=== PATIENT | female | born 1950 | race Caucasian/White ===

== ENCOUNTER 2022-04-07 08:57 | Outpatient (CLI) | payer MEDICARE, MEDICAID, SELFPAY ==
--- NOTE | 2022-04-07 08:59 | CDU_ITS ---
Reason For Study: Stenosis Rt. Velocities/BP Lt. Velocities/BP Prox CCA 88.3/21.2 cm/sec. Prox CCA 73.5/19.5 cm/sec. Mid CCA 66.3/17.9 cm/sec. Mid CCA 100.3/26.7 cm/sec. Dist CCA 79.5/23.4 cm/sec. Dist CCA 85.0/19.0 cm/sec. Prox ICA 116.8/27.8 cm/sec. Prox ICA 171.9/49.0 cm/sec. Mid ICA 98.1/30.0 cm/sec. Mid ICA 143.3/38.0 cm/sec. Dist ICA 81.7/26.7 cm/sec. Dist ICA 121.4/22.6 cm/sec. Rt. ICA/CCA = 1.8. Lt. ICA/CCA = 1.7. Prox ECA 93.8/21.2 cm/sec. Prox ECA 104.7/15.1 cm/sec. Rt. Vert. 40.1/10.9 cm/sec. Lt. Vert. 70.7/24.5 cm/sec. Right Extracranial There is heterogeneous, irregular atherosclerotic plaque noted in the right common carotid artery. There is heterogeneous, irregular atherosclerotic plaque noted in the right internal carotid artery. There is heterogeneous, irregular atherosclerotic plaque noted in the right external carotid artery. Antegrade flow is noted in the right vertebral artery. Left Extracranial There is heterogeneous, irregular atherosclerotic plaque noted in the left common carotid artery. There is heterogeneous, irregular atherosclerotic plaque noted in the left internal carotid artery. There is heterogeneous, irregular atherosclerotic plaque noted in the left external carotid artery. Antegrade flow is noted in the left vertebral artery. Procedure Carotid Duplex [id number]. This is a Carotid Duplex examination using B-mode, color flow and specral Doppler. The exam was diagnostic. Exam performed in department. VL/Carotid Duplex Ultrasound Interpretation Summary Mild (<50%) stenosis right extracranial internal carotid. Moderate (50-69%) nichole nosis left extracranial internal carotid. Flow within the vertebral arteries is antegrade bilaterally. Ordering Physician: Chuy Hunt Referring Physician: Courtney Lind Performed By: Benjamín Alcaraz RVT
== END 2022-04-07 23:59 | disposition home or self-care (01) ==
LOC: CVS 08:58
PROVIDERS: PCP Student in an Organized Health Care Education/Training Program; Referring Provider Surgery Vascular Surgery; Visit Provider Surgery Vascular Surgery
DX: I65.23 Occlusion and stenosis of bilateral carotid arteries (principal); F17.200 Nicotine dependence, unspecified, uncomplicated; I10 Essential (primary) hypertension; E78.00 Pure hypercholesterolemia, unspecified
CPT/HCPCS: 93880

== ENCOUNTER → 2023-05-10 | Outpatient (CLI) | payer MEDICARE, MEDICAID, SELFPAY ==
[2023-05-10 12:09] LABS: Erythrocyte Sedimentation Rate 10 mm/hr (0-30)
[2023-05-10 12:39] LABS: AST(SGOT) 16 U/L (15-37); Alanine Aminotransfer ALT/SGPT 19 U/L (13-56); Albumin, Serum 3.5 g/dL (3.2-5.0); Alkaline Phosphatase 92 U/L (45-117); Bilirubin, Direct 0.08 mg/dL (0.00-0.30); CRP 9.12 mg/L (0.0-3.0); Cholesterol 182 mg/dL (200); Globulin 4.1 g/dL (2.2-4.2); High Density Lipoprotein 58 mg/dL; Protein, Total 7.6 g/dL (6.4-8.2); Triglycerides 98 mg/dL; Very Low Density Lipoprotein 20 mg/dL (5-40)
== END | disposition home or self-care (01) ==
LOC: MTLAB 09:42
PROVIDERS: PCP Student in an Organized Health Care Education/Training Program; Referring Provider Psychiatry & Neurology Neurology; Visit Provider Psychiatry & Neurology Neurology
DX: H04.123 Dry eye syndrome of bilateral lacrimal glands (principal); H35.033 Hypertensive retinopathy, bilateral; H43.813 Vitreous degeneration, bilateral; Z96.1 Presence of intraocular lens; Z86.73 Personal history of transient ischemic attack (TIA), and cerebral infarction without residual deficits; E78.5 Hyperlipidemia, unspecified; I65.23 Occlusion and stenosis of bilateral carotid arteries
CPT/HCPCS: 36415; 80061; 80076; 85652; 86140

== ENCOUNTER → 2023-05-12 | Outpatient (CLI) | payer MEDICARE, MEDICAID, SELFPAY ==
--- NOTE | 2023-05-12 12:46 | CDU_ITS ---
Reason For Study: carotid stenosis Rt. Velocities/BP Lt. Velocities/BP Prox CCA 79.6/16.3 cm/sec. Prox CCA 94.9/22.5 cm/sec. Mid CCA 80.6/24.8 cm/sec. Mid CCA 104.7/32.3 cm/sec. Dist CCA 85.3/21.1 cm/sec. Dist CCA 96.1/29.8 cm/sec. Prox ICA 158.7/46.8 cm/sec. Prox ICA 174.1/46.8 cm/sec. Mid ICA 139.4/38.9 cm/sec. Mid ICA 143.0/38.9 cm/sec. Dist ICA 69.1/24.9 cm/sec. Dist ICA 71.6/21.2 cm/sec. Rt. ICA/CCA = 2.0. Lt. ICA/CCA = 1.7. Prox ECA 112.1/24.9 cm/sec. Prox ECA 126.6/27.9 cm/sec. Rt. Vert. 49.5/13.9 cm/sec. Lt. Vert. 75.3/21.2 cm/sec. Right Extracranial There is heterogeneous, irregular atherosclerotic plaque noted in the right common carotid artery. There is heterogeneous, irregular atherosclerotic plaque noted in the right internal carotid artery. There is heterogeneous, irregular atherosclerotic plaque noted in the right external carotid artery. Antegrade flow is noted in the right vertebral artery. Left Extracranial There is heterogeneous, irregular atherosclerotic plaque noted in the left common carotid artery. There is heterogeneous, irregular atherosclerotic plaque noted in the left internal carotid artery. There is heterogeneous, irregular atherosclerotic plaque noted in the left external carotid artery. Antegrade flow is noted in the left vertebral artery. Procedure Carotid Duplex 44973. This is a Carotid Duplex examination using B-mode, color flow and specral Doppler. The exam was diagnostic. Exam performed in department. VL/Carotid Duplex Ultrasound Interpretation Summary Moderate (50-69%) stenosis right extracranial internal carotid. Moderate (50-69 %) stenosis left extracranial internal carotid. Flow within the vertebral arteries is antegrade bilaterally. Ordering Physician: Chuy Hunt Performed By: Anthony Roblero RVT
== END | disposition home or self-care (01) ==
PROVIDERS: PCP Student in an Organized Health Care Education/Training Program; Referring Provider Surgery Vascular Surgery; Visit Provider Surgery Vascular Surgery
DX: I65.23 Occlusion and stenosis of bilateral carotid arteries (principal); F17.200 Nicotine dependence, unspecified, uncomplicated; I10 Essential (primary) hypertension
CPT/HCPCS: 93880

== ENCOUNTER → 2023-11-22 | Outpatient (CLI) | payer MEDICARE, MEDICAID, SELFPAY ==
--- NOTE | 2023-11-22 08:00 | PET_ITS ---
EXAMINATION: FDG PET-CT INDICATIONS: A 73-year-old female with a history of pulmonary nodularity presenting for initial evaluation. COMPARISON EXAMINATION: None available. INDEX LESION SIZE SUV INTERPRETATION Right upper lung field, right upper lobe 31.4 mm 6.7 Fulfills quantitative criteria for viable neoplasm, histopathologic analysis recommended. TECHNIQUE: Following the intravenous administration of 13.11 mCi of F-18 deoxyglucose via the right antecubital fossa, multiplanar image acquisitions of the head, neck, chest, abdomen and pelvis to level of mid-thigh, lower extremities obtained at one hour post radiopharmaceutical administration contemporaneously interpreted with the current CT of the head, neck, chest, abdomen and pelvis to level of mid-thigh, lower extremities dated 11/22/23 via coregistration reveal: SERUM GLUCOSE LEVEL: 128 mg/dl. HEIGHT: 65 inches. WEIGHT: 161 lbs. FINDINGS: Head/Neck: There is no evidence of abnormal increased glucose metabolism in the pharyngeal mucosal space, parapharyngeal space, bilateral-lateral and anterior neck, hypopharynx and distribution of the laryngeal structures. The visualized portion of the cerebral cortical-subcortical structures demonstrate symmetric and preserved glucose metabolism. CHEST: Facilitated radiopharmaceutical concentration is defined in the right upper lung field, right upper lobe generating a calculated maximum standard uptake value of 6.7. The maximum axial diameter of the corresponding metabolic, morphologic abnormality is 31.4 mm. Prominent radiopharmaceutical concentration is identified in the left ventricular myocardium commensurate with the [place]. Pertinent chest CT findings are as follows. There is atherosclerotic calcification defined in the thoracic aorta without evidence of dilatation-aneurysm formation. Coronary arterial calcification is observed. Right and left axillary soft tissue densities are ametabolic. Scattered mediastinal soft tissue reveals no evidence of increased tracer uptake. Pericardial thickening defines no evidence of increased FDG uptake. Abdomen/Pelvis: Normal physiologic distribution of the radiopharmaceutical is apparent in the hepatic (3.7) and splenic parenchyma, both renal units, bladder and visualized intestinal tract. Diffuse radiopharmaceutical concentration is noted in all four quadrants of the abdomen and pelvis. The abdomen and pelvis CT findings are as follows. There is atherosclerotic calcification defined in the abdominal aorta without evidence of dilatation-aneurysm formation. Abdominal-pelvic arterial calcification is observed. Right and left inguinal soft tissue densities are ametabolic. Skeletal: Degenerative changes are noted in the cervical, thoracic and lumbar spine. PET/PET/CT Tumor Base -Thigh Init IMPRESSION: 1. ABNORMAL EXAMINATION INDICATIVE OF MALIGNANT-VIABLE NEOPLASM. 2. Increased tracer uptake noted in the right upper lung field, right upper lobe fulfills quantitative criteria for viable neoplasm, histopathologic analysis is recommended. (Beavers et al, Journal of Nuclear Medicine, 32:1, 1991). 3. No other quantitative significant abnormalities are noted. Accurate Quantification of SUVs for this report are calculated using the exclusive [employer], ([place].S. Patent No. 10, 674, 983 B2 US 11 382 586 [place] patent [phone] B1 ). Standardization and correction of the FDG SUV metric exclusively available with [employer] intellectual property, allow for vendor non-specific objective quantitative sequential FDG PET-CT comparison and otherwise unobtainable optimization of the sensitivity and specificity of the examination. [email or web address] Electronic Signature Adrian Vaughn D.O. Accurate Quantification of SUVs for this report are calculated using the exclusive [employer], (U.S. Patent No. 10, 674, 983 B2 US 11 382 586 [place] patent [phone] B1 ). Standardization and correction of the FDG SUV metric exclusively available with [employer] intellectual property, allow for vendor non-specific objective quantitative sequential FDG PET-CT comparison and otherwise unobtainable optimization of the sensitivity and specificity of the examination. [email or web address] Electronically Signed: Adrian Vaughn DO at 8:36 EDT ,
== END | disposition home or self-care (01) ==
LOC: ONC 07:33
PROVIDERS: PCP Student in an Organized Health Care Education/Training Program; Referring Provider Student in an Organized Health Care Education/Training Program; Visit Provider Student in an Organized Health Care Education/Training Program
DX: R91.8 Other nonspecific abnormal finding of lung field (principal)
CPT/HCPCS: 78815; A9552

== ENCOUNTER → 2023-11-29 | Outpatient (CLI) | payer MEDICARE, MEDICAID, SELFPAY ==
[2023-11-29 11:47] LABS: International Normalized Ratio 0.9; Platelet Count 407 K/mm3 (150-450); Prothrombin Time (Protime)PT. 12.4 SECONDS (11.7-14.9)
[2023-11-29 11:48] LABS: Partial Thromboplast Time 28.5 Seconds (24.1-36.2)
== END | disposition home or self-care (01) ==
PROVIDERS: PCP Student in an Organized Health Care Education/Training Program; Referring Provider Internal Medicine Critical Care Medicine; Visit Provider Internal Medicine Critical Care Medicine
DX: R91.1 Solitary pulmonary nodule (principal)
CPT/HCPCS: 36415; 85049; 85610; 85730

== ENCOUNTER → 2023-12-08 | Outpatient (CLI) | payer MEDICARE, MEDICAID, SELFPAY ==
[2023-12-08] VITALS (16 sets, daily range): BP systolic 104–150; BP diastolic 37–93; PULSE 72–80; RESP 17–23; TEMP 36.2; O2SAT 88–100; BMI 26.6
--- NOTE | 2023-12-08 | ASPIGT_PTH ---
PATIENT: JONO KING LOC: [place] U#:[id number] AGE/SX: 73/F ROOM: RE12/08/[address]: Dr. Julio Cesar Singh DO : 1950 BED: DIS: 12/08/2023 SPEC #: [id number] RECD: 12/08/23 10:00 STATUS: DIRK HERMINIA #: [id number] VÍCTOR: 12/08/23 00:[address]: Julio Cesar Singh DEPT: SURGICAL PATHOLOGY RECD BY: Leon Arcos ENTERED: 12/08/23 11:27 SP TYPE: ASP RAD OTHR DR: Dr. Courtney Lind MD Tissues: Lung, NOS Procedures: FNA Specimen Adequacy Special Stain Group II Surgery Specimen Level IV Imprint (control) HEADER OPERATION: Right upper lobe lung, CT guided biopsy PRE-OP DIAGNOSIS: Right upper lobe lung nodule TISSUE SUBMITTED: Right lobe lung MICROSCOPIC DIAGNOSIS Right upper lobe lung, CT guided core biopsy: Moderately differentiated squamous cell carcinoma. See comment. MAYUR/ 12/09/2023 COMMENT The specimen is evaluated at the time of biopsy by Dr. Watters. Immediate Evaluation = Malignant cells present derived from non-small cell carcinoma. Immunohistochemistry ([id number]) supports the above diagnosis. Molecular study on the tumor can be performed clinically indicated. Please notify the laboratory if it is needed. Case has been reviewed in consultation with Dr. Garland who concurs with the above diagnosis. IDC:AM MICROSCOPIC DESCRIPTION Slides are reviewed. GROSS DESCRIPTION Received in fixative is one container labeled with the patient's name and designated Right lung. The specimen consists of multiple fragments of tello soft tissue measuring in aggregate 1.5 x 0.1 x 0.1cm. The entire specimen is submitted in one cassette. Three touch imprints are prepared at the time of core biopsy. MAYUR/ 12/08/2023 TC:0 CPT:15069,47460
--- NOTE | 2023-12-08 | IMM_PTH ---
PATIENT: JONO KING LOC: CT U#:[id number] AGE/SX: 73/F ROOM: RE12/08/[address]: Dr. Julio Cesar Singh DO : 1950 BED: DIS: 12/08/2023 SPEC #: [id number] RECD: 12/08/23 12:02 STATUS: DIRK REQ #: [id number] VÍCTOR: 12/08/23 00:[address]: Julio Cesar Singh DEPT: IMMUNOHISTOCHEMISTRY RECD BY: Amol Sotelo ENTERED: 12/08/23 12:03 SP TYPE: IMMUNO OTHR DR: Dr. Courtney Lind MD Tissues: Lung, NOS Procedures: RCC (add) NAPSIN A (add) CK20 (add) CK5-6 (add) CK7 (add) CK8 (add) HEP PAR (add) SC (add) TTF1 (add) Pankeratin (add) P40 (add) ER (initial) PHYSICIAN & [address] [address] SPECIMEN INFORMATION: Tissue Source: Right upper lobe lung biopsy Clinical Info: Right upper lobe lung nodule Specimen Number: [id number] CPT code: [id number] METHODOLOGY: Deparaffinized sections of prefer/formalin-fixed tissue or PAP/DQ stained slides are incubated with monoclonal/polyclonal antibodies/oligonucleotide probes. Localization is made via biotin free immunoperoxidase method. Appropriate controls are performed and reacted as expected. Results on target cell population are indicated in the following table: RESULTS: ANTIBODY / CLONE RESULT ER (6F11) negative SC (1E2) negative AE1-3 (AE1/AE3/PCK26) positive CK7 (OV-TL12/30) negative CK8 (62guksF83) positive CK20 (KS20.8) negative TTF-1 (8G7G3/1) negative Napsin A (Rabbit Polyclonal) negative HepPar (OCh1E5) negative RCC (PN-15) negative CK5-6 (D5 & 1684) positive P40 (BC28) positive These tests were developed and their performance characteristics determined by [facility]. They may not have been cleared or approved by the U.S. Food and Drug Administration. The FDA has determined that such clearance or approval is not necessary. The above immunohistochemical/dualISH markers are ordered and reviewed by the Pathologist. INTERPRETATION: Right lung, CT guided core biopsy: Squamous cell carcinoma. Case has been reviewed in consultation with Dr. Garland who concurs with the above diagnosis. IDC:MELYSSA MERCHANT/ 12/09/2023
[2023-12-08] MEDS: 0.9% Saline Lock 10 ML Syringe IV (08:34)
[2023-12-08] MEDS: 0.9% Normal Saline (250mL Bag) 250 ML 15 ML IV (08:34)
[2023-12-08] MEDS: fentaNYL 100 MCG/2 ML Ampul IV (09:14)
[2023-12-08] MEDS: Midazolam 2 MG/2 ML Syringe IV (09:14)
--- NOTE | 2023-12-08 09:15 | RAD_ITS ---
STUDY: X-RAY CHEST REASON FOR EXAM: Female, 73 years old. Post lung biopsy -- Immediately post lung biopsy TECHNIQUE: AP inspiration and expiration views. COMPARISON: None. FINDINGS: EKG electrodes are seen. Hyperinflation. The patient is status post right lung biopsy. No evidence of pneumothorax on the immediate post right lung biopsy radiographs. RAD/Chest Insp/Exp 2 View IMPRESSION: No evidence of pneumothorax on the immediate post right lung biopsy radiographs. Electronically Signed: Darinel Williamson MD at 10:05 EDT ,
[2023-12-08] MEDS: Lidocaine 2% (20 ml mdv) 20 ML Vial INFILT (09:30)
--- NOTE | 2023-12-08 10:07 | PRO.PCM_ITS ---
Procedure Report Date of Procedure: 12/08/23 Assessment & Plan Assessment/Plan (1) Lung nodule: PLAN: PROCEDURE: CT GUIDED CORE NEEDLE LUNG BIOPSY ORDERING PROVIDER: Dr. Julio Cesar Singh INDICATION: Female, 73 years old. Right upper lobe nodule PROVIDER: ANIKET Vickers CONSENT: Written informed consent was obtained having explained the risks, benefits and alternatives in detail with the patient who accepted the risks and agreed to proceed. Laboratory review and clinical assessment was performed. PRE-PROCEDURE SEDATION ASSESSMENT: Current history and physical dictated by referring physician and reviewed. No clinical changes since date of exam. Patient has a Mallampati Score of Class 2 and ASA Class of 2. PROCEDURAL SEDATION PROTOCOL: The Drugs used were: 2 mg Versed, IV, and 50 mcg Fentanyl, IV. The sedation time was: 29 minutes, starting at 9:14 AM and terminated at 9:43 AM. The procedural sedation protocol was independently monitored by the department nurse. RADIATION DOSAGE (If Supplied By Facility): CTDIvol = 16.60 mGy, DLP = 242.99 mGycm Individualized dose optimization techniques were used for this CT. TECHNIQUE: The patient was placed in a prone position. A noncontrast CT was performed to localize the lesion in the right upper lobe. The skin surface was prepped and draped in a sterile fashion. 2% lidocaine was used for local anesthesia. Using CT guidance, a 20-gauge coaxial biopsy device was advanced to the periphery of the lesion. A total of 5 core specimens were obtained. Specimens were microscopically reviewed by pathology in the CT suite and placed in formalin solution. BioSentry tract sealant system was deployed at the biopsy site, and the biopsy needle was removed. A sterile occlusive dressing was applied to the biopsy site. The patient tolerated the procedure well. An immediate chest xray was ordered, per protocol. A negative biopsy does not exclude malignancy. Further imaging or clinical followup based on patient condition and degree of clinical suspicion for malignancy. Suggest rebiopsy, if biopsy results do not match with clinical scenario. IMPRESSION: 1. CT directed core needle biopsy of right upper lobe lung nodule using CT im age guidance with image documentation as described. Pathology results are pending. 2. Procedural Sedation protocol utilized with independent monitoring by the department nurse. Procedures Radiology Radiology CT Procedures: [id number] Biopsy Lung
--- NOTE | 2023-12-08 11:45 | RAD_ITS ---
STUDY: X-RAY CHEST REASON FOR EXAM: Female, 73 years old. Post lung biopsy -- 2 hours post lung biopsy TECHNIQUE: AP inspiration and expiration views. COMPARISON: Comparison is made with prior study done earlier in the day. FINDINGS: The patient is status post right lung biopsy. No evidence of pneumothorax on the two-hour delayed post right lung biopsy radiograph. RAD/Chest Insp/Exp 2 View IMPRESSION: No evidence of pneumothorax on the two-hour delayed post right lung biopsy radiographs. Electronically Signed: Darinel Williamson MD at 12:32 EDT ,
== END | disposition home or self-care (01) ==
PROVIDERS: PCP Student in an Organized Health Care Education/Training Program; Referring Provider Internal Medicine Critical Care Medicine; Visit Provider Internal Medicine Critical Care Medicine
DX: C34.11 Malignant neoplasm of upper lobe, right bronchus or lung (principal)
CPT/HCPCS: 32408; 71046; 77012; 88172; 88305; 88313; 88341; 88342; 99156; J7050; A4216; C2613

== ENCOUNTER → 2023-12-26 | Outpatient (CLI) | payer MEDICARE, MEDICAID, SELFPAY | END | disposition home or self-care (01) | PROVIDERS: PCP Student in an Organized Health Care Education/Training Program; Referring Provider Internal Medicine Hematology & Oncology; Visit Provider Internal Medicine Hematology & Oncology | DX: C34.11 Malignant neoplasm of upper lobe, right bronchus or lung (principal) | CPT/HCPCS: 94060; 94726; 94729 ==

== ENCOUNTER 2024-07-17 09:58 | Outpatient (CLI) | payer MEDICARE, MEDICAID, SELFPAY ==
--- NOTE | 2024-07-17 10:00 | PET_ITS ---
EXAM: PET/CT TUMOR BASE -THIGH SUBS CLINICAL HISTORY: SUSPICION FOR MALIGNANCY COMPARISON: PET-CT 11/22/2019 TECHNIQUE: F-18 FDG PET-CT, from the skull base to the mid thigh. Dose: 12.966 mCi F-18 FDG intravenous FINDINGS: Neck: No focus of abnormal hypermetabolic activity is seen. Chest: Interval resection of the previously noted right upper lobe mass, without residual hypermetabolic activity in the tumor site. Increased uptake of the posterior right chest is consistent with interval surgery. No significant hilar or mediastinal hypermetabolic activity is seen. Abdomen and pelvis: No focus of abnormal hypermetabolic activity is seen Bone: No focus of abnormal hypermetabolic activity is seen. Additional: Prominent aortic calcification is seen; ectasia of the mid to distal abdominal aorta is noted. Moderate coronary artery calcification is seen. Mild increased uptake is seen adjacent to the bilateral greater trochanters, consistent with greater trochanteric bursitis bilaterally. PET/PET/CT Tumor Base -Thigh Subs IMPRESSION: In this postsurgical patient, no focus of residual or recurrent tumor is seen. Reading Location: [address]
== END 2024-07-17 23:59 | disposition home or self-care (01) ==
LOC: ONC 09:59
PROVIDERS: PCP Student in an Organized Health Care Education/Training Program
DX: Z85.118 Personal history of other malignant neoplasm of bronchus and lung (principal)
CPT/HCPCS: 78815; A9552

== ENCOUNTER → 2024-08-15 | Outpatient (CLI) | payer MEDICARE, MEDICAID, SELFPAY ==
--- NOTE | 2024-08-15 12:32 | CDU_ITS ---
Reason For Study Reason For Study: Carotid stenosis Rt. Velocities/BP Lt. Velocities/BP Prox CCA 90.5/17.9 cm/sec. Prox CCA 93.7/7.9 cm/sec. Mid CCA 63.6/12.6 cm/sec. Mid CCA 88.8/15.1 cm/sec. Dist CCA 78.7/15.4 cm/sec. Dist CCA 98.6/22.5 cm/sec. Prox ICA 163.1/46.8 cm/sec. Prox ICA 150.3/35.3 cm/sec. Mid ICA 63/19 cm/sec. Mid ICA 126/24.6 cm/sec. Dist ICA 97.1/32.2 cm/sec. Dist ICA 110.1/17 cm/sec. Rt. ICA/CCA = 2.56. Lt. ICA/CCA = 1.69. Prox ECA 80.6/8.8 cm/sec. Prox ECA 159.5/17 cm/sec. Rt. Vert. 45.6/12.6 cm/sec. Lt. Vert. 77.3/17.9 cm/sec. Right Extracranial There is heterogeneous, irregular atherosclerotic plaque noted in the right common carotid artery. There is heterogeneous, irregular atherosclerotic plaque noted in the right internal carotid artery. There is heterogeneous, irregular atherosclerotic plaque noted in the right external carotid artery. Antegrade flow is noted in the right vertebral artery. Left Extracranial There is heterogeneous, irregular atherosclerotic plaque noted in the left common carotid artery. There is heterogeneous, irregular atherosclerotic plaque noted in the left internal carotid artery. There is heterogeneous, irregular atherosclerotic plaque noted in the left external carotid artery. Antegrade flow is noted in the left vertebral artery. Procedure Carotid Duplex 43567. This is a Carotid Duplex examination using B-mode, color flow and specral Doppler. Exam performed in department. VL/Carotid Duplex Ultrasound Interpretation Summary Moderate (50-69%) stenosis right extracranial internal carotid. Moderate (50-69 %) stenosis left extracranial internal carotid. Patent and antegrade vertebrals bilaterally. Ordering Physician: Chuy Hunt Referring Physician: Courtney Lind Performed By: Destiny Carey RVT
== END | disposition home or self-care (01) ==
LOC: CVS 12:30
PROVIDERS: PCP Student in an Organized Health Care Education/Training Program; Referring Provider Surgery Vascular Surgery; Visit Provider Surgery Vascular Surgery
DX: I65.23 Occlusion and stenosis of bilateral carotid arteries (principal); I10 Essential (primary) hypertension; F17.200 Nicotine dependence, unspecified, uncomplicated
CPT/HCPCS: 93880

== ENCOUNTER → 2025-01-01 | Outpatient (CLI) | payer MEDICARE, MEDICAID, SELFPAY ==
--- NOTE | 2025-01-01 16:33 | CT_ITS ---
PROCEDURE: CHEST WITHOUT CONTRAST 01/01/2025 REASON FOR EXAM: NODULE SURVEILLANCE History of right upper lobe carcinoma TECHNIQUE: Chest CT without contrast. Coronal and Sagittal reconstruction series were provided. One or more dose reduction techniques were used (e.g., Automated exposure control, adjustment of the mA and/or kV according to patient size, use of iterative reconstruction technique RADIATION DOSE SUMMARY: CTDlvol: 9.77 mGy DLP: 356.37 mGycm COMPARISON: None FINDINGS: Hardware: None Lymph nodes: No significant lymph nodes are seen. Heart and Vasculature: The heart is not enlarged. Atherosclerotic calcifications of the thoracic aorta. Thoracic aorta and pulmonary arteries have normal contours; noncontrast technique limits evaluation. Coronary Artery Calcifications: Present Lungs and Airways: The patient is status post right upper lobectomy with postsurgical scarring and changes with 2 surgical clips in the region of the right hilum. Thickening of the right minor fissure. Emphysematous changes in the lingula segment of the left upper lobe. No suspicious pulmonary nodule seen. Pleura: No pleural effusion. Upper Abdomen: Unremarkable Bones: Degenerative changes of the thoracic spine. CT/Chest without Contrast IMPRESSION: Coronary artery calcification (CAC) is is present Status post right upper lobectomy. Reading Location: [facility]
--- OUTSIDE RECORDS SUMMARY | 2025-01-01 22:30 | XMS RPT_ITS | CCD ---
Author Organization 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 Raul Veliz Primary Care Provider Dr. Raul Singh Referring Provider Dr. Avel Segura Attending Provider Unavailable Primary Care Provider UnavailNas Gil MD Primary Care Provider NAS MOORE Primary Care Unavailable NAS MOORE Referring Unavailable RONDA SOLIMAN Attending Unavailable GIOVANNY, ADEOLA Attending Unavailable BALTAZAR, ADEOLA Referring Unavailable GIOVANNY, ADEOLA Attending Unavailable GIOVANNY, ADEOLA Referring Unavailable NAT JIANG Admitting Unavailable NAT JIANG Attending Unavailable NAS MOORE Primary Care Unavailable UGBARUGRESHMA, ANASTASIIA E Admitting Unavailabl e UGBARUGRESHMA ANASTASIIA E Attending Unavailabl e PCP, NONE Referring Unavailable NAS MOORE Primary Care Unavailable NAS MOORE Attending Unavailable NAS MOORE Primary Care Unavailable NAS MOORE Referring Unavailable ERICA DWYER Attending Unavailable NAS MOORE Primary Care Unavailable ERICA DWYER Attending Unavailable ERICA DWYER Referring Unavailable Dr. Courtney Hayward Primary Care Provider Dr. Courtney Hayward Referring Provider Dr. Avel Segura Attending Provider Courtney Hayward MD Primary Care Provider [facility], [place] S Unavailable Tonya Woods RN Unavailable Unavailable Jose Alfredo ROJAS, Lisset Unavailable Dr. Courtney Hayward MD Primary Care Provider Dr. Courtney Hayward MD Referring Provider Liset SERNA-CLorena Attending Provider KELSEA GAMBLE Attending Provider KELSEA GAMBLE Referring Provider Dr. Courtney Hayward MD Primary Care Provider Marilee TANNER, Dr. Chuy Coker Attending Provider Marilee TANENR, Dr. Chuy Coker Referring Provider Dr. Courtney Hayward MD Referring Provider Dr. Avel Segura MD Attending Provider Courtney Hayward MD Primary Care Provider [phone] [facility], [place] Unavailable CONNORS, TRACY L Attending Unavailable COURTNEY HAYWARD Primary Care Unavailable COURTNEY HAYWARD Referring Unavailable CONNORS, TRACY L Attending Unavailable KALVIPINTTDavid, COURTNEY Primary Care Unavailable CONNORS, TRACY L Referring Unavailable NAT LAZAR Attending Unavailable COURTNEY HAYWARD Primary Care Unavailable IZZY SNOW Referring Unavailable NAT LAZAR Attending Unavailable KALVIPINTTI, COURTNEY Primary Care Unavailable KALVIPINTTI, COURTNEY Referring Unavailable JOSEY JUSTICE Referring Unavailable ZITA HERNANDEZ Attending Unavailable YESY, COURTNEY Primary Care Unavailable NAT LAZAR Attending Unavailable NAT LAZAR Referring Unavailable KALSILVERIOI, COURTNEY Primary Care Unavailable KATHARINE GROSS Attending Unavailable YESY COURTNEY Primary Care Unavailable CONNORSTRACY L Referring Unavailable LAZARNAT Attending Unavailable KALISETTI, COURTNEY Primary Care Unavailable CONNORS TRACY L Referring Unavailable LAZARNAT Attending Unavailable LAZAR, NAT E Referring Unavailable KALISETTI, COURTNEY Primary Care Unavailable KALISETTI, COURTNEY Primary Care Unavailable NAT LAZAR Attending Unavailable ISCKARUS, MANSOUR S Referring Unavailable KALISETTI, COURTNEY Primary Care Unavailable LAZAR, NAT E Referring Unavailable LAZARNAT E Attending Unavailable KALISETTI, COURTNEY Primary Care Unavailable LAZAR NAT E Referring Unavailable LAZARNAT DEY Attending Unavailable Alysa'PATRICEKELSEA TOBIAS Attending Unavailable VAHETTI, COURTNEY Primary Care Unavailable KALVIPINTTI, COURTNEY Referring Unavailable Alysa'PATRICEKELSEA TOBIAS Referring Unavailable Alysa'KELSEA IBRAHIM Attending Unavailable VAHETTI, COURTNEY Primary Care Unavailable NAT LAZAR Attending Unavailable LAZAR, NAT E Admitting Unavailable ISCKARUS, MANSOUR S Referring Unavailable KALISETTI, COURTNEY Primary Care Unavailable CONSULT, ANESTHESIA PAIN MED Consulting Beverley vailable NAT LAZAR Attending Unavailable LAZAR, NAT E Admitting Unavailable ISCKARUS, MANSOUR S Referring Unavailable KALISETTI, COURTNEY Primary Care Unavailable COURTNEY HAYWARD MD Consulting Unavailable 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 Admitting Unavailab le GWENDOLYN, IZZY AP OPERATOR-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 POND WORKER Primary Care Unavailab le GWENDOLYNIZZY NG AP OPERATOR-LOG POND WORKER Attending Unavailab le PROVIDER, UNKNOWN Consulting Unavailable PROVIDER, UNKNOWN Consulting Unavailable COURTNEY HAYWARD MD Consulting Unavailable COURTNEY HAYWARD MD Attending Unavailable COURTNEY HAYWARD MD Admitting Unavailable COURTNEY HAYWARD MD Primary Care Unavailable PROVIDER, UNKNOWN Consulting Unavailable PROVIDER, UNKNOWN Consulting Unavailable COURTNEY HAYWARD MD Primary Care Unavailable COURTNEY HAYWARD MD Consulting Unavailable COURTNEY HAYWARD MD Attending Unavailable COURTNEY HAYWARD MD Admitting Unavailable PROVIDER, UNKNOWN Consulting Unavailable PROVIDER, UNKNOWN Consulting Unavailable Courtney Hayward Referring Unavailable Yesy, Courtney Primary Care Unavailable Liset SERNA, Lorena Attending Unavailable IKRE MAYO Referring Unavailable IKER MAYO Attending Unavailable Kalisetti, Courtney Primary Care Unavailable Kalisetti, Courtney Referring Unavailable Kalisetti, Courtney Primary Care Unavailable Julissa Abreu Attending Unavailable Kalisetti, Courtney Referring Unavailable Avel Segura Attending Unavailable Kalisetti, Courtney Primary Care Unavailable Kalisetti, Courtney Primary Care Unavailable Chuy Hunt Referring Unavailable Chuy Hunt Attending Unavailable Kalisetti, Courtney Primary Care Unavailable IKER MAYO Referring Unavailable IKER MAYO Attending Unavailable Allergies Allergy Classification Reported Allergen(s) Allergy Type Date of Onset Reaction(s) Facility Latex (1 source) Latex Substance Allergy 7 [facility] Unclassified (4 sources) Adhesive Tape-Silicones; Translations: [ADHESIVE TAPE-SILICONES] Propensity to adverse reactions to drug 7 [facility] (3 sources) Latex; Translations: [LATEX] Propensity to adverse reactions to drug 7 [facility] (3 sources) Amoxicillin / Clavulanate Drug Allergy 3 Nausea And Vomiting [facility] (20 sources) Promethazine Drug Allergy 3 Nausea And Vomiting [facility] (20 sources) Latex Propensity to adverse reactions to drug 7 [facility] (20 sources) *Adhesive Tape Propensity to adverse reactions 7 [facility] (20 sources) Amoxicillin-Pot Clavulanate Propensity to adverse reactions to drug 3 Nausea and Vomiting [facility] (20 sources) celecoxib Drug Allergy 4 [facility] (4 sources) Grass pollen; Translations: [grass pollen] Allergy to substance 4 watery eyes [facility] (1 source) Amoxicillin Drug Allergy 5 Vomiting [facility] (1 source) Clavulanate Drug Allergy 5 Vomiting [facility] (1 source) Amoxicillin Drug Allergy 5 [facility] (1 source) Clavulanate Drug Allergy 5 [facility] Medications Current Medications Medication Drug Class(es) Dates Sig (Normalized) Sig (Original) amLODIPine 2.5 mg oral tablet (3 sources) Dihydropyridine Calcium Channel Regi Start: 11-29-2023 take 1 tablet by mouth once daily Amlodipine 2.5 mg tablet Active 2.5 mg PO daily November 29, 2023 12:00am amphetamine aspartate 3.75 mg / amphetamine sulfate 3.75 mg / dextroamphetamine saccharate 3.75 mg / dextroamphetamine sulfate 3.75 mg oral tablet (20 sources) Central Nervous System Stimulant Start: 06-08-2021 End: 02-15-2024 take 1 tablet by mouth once daily in the morning Dextroamphetami ne-Amphetamine 30 mg tablet Active 30 mg PO EVERY MORNING June 08, 2021 1:00am Start: 06-08-2021 End: 11-29-2023 take 1 tablet by mouth at bedtime Dextroamphetamine-Amphetamine (Adderall) 15 mg tablet Active 15 mg PO AT BEDTIME November 29, 2023 10:52am Start: 09-11-2020 AdderalL 30 mg tablet amphetamine-dext roamphetamine (Adderall) 30 MG tablet Take 0.5-1 tablets by mouth 2 times daily. 30mg AM 15mg PM Active take 1 capsule by mo ut once daily in the evening Amphetamine-Dextroamphetamine XR (ADDERA LL XR) 15 MG 24 hr capsule Take 1 capsule by mouth daily. PM 0 Active take 1 capsule by mo uth once daily in the morning Amphetamine-Dextroamphetamine XR (ADDERA LL XR) 30 MG 24 hr capsule Take 1 capsule by mouth daily. Am 0 Active atorvastatin 40 mg oral tablet (20 sources) HMG-CoA Reductase Inhibitor Start: 04-24-2024 End: 09-18-2024 take 1 tablet by mouth once daily Atorvastatin 40 mg tablet Active 40 mg PO DAILY September 18, 2024 3:38pm Start: 11-29-2023 End: 04-24-2024 Atorvastatin 40 mg tablet Discontinued 20 mg PO DAILY November 29, 2023 10:54am April 24, 2024 6:15pm Start: 09-08-2023 End: 02-15-2024 take 1 tablet by mouth once daily Atorvastatin 40 mg tablet Discontinued 40 mg PO DAILY September 08, 2023 12:00am November 29, 2023 10:55am Start: 09-09-2020 End: 09-08-2023 take 1 tablet by mouth once daily Atorvastatin (Lipitor) 20 mg tablet Discontinued 20 mg PO DAILY June 08, 2021 1:00am September 08, 2023 1:52pm bisacodyl 10 mg rectal suppository (20 sources) Stimulant Laxative Start: 02-03-2024 End: 02-04-2024 take 10 mg rectal route every twenty-four hours as needed bisacodyl 10 MG Suppository suppository Insert 1 suppository rectally daily as needed. 02/03/2024 Active calcium carbonate 1250 mg / cholecalciferol 200 unt oral tablet (16 sources) Vitamin D Start: 04-13-2024 Calcium Carbonate-Vitami n D3 (Oyster Shell Calcium-Vit D3) 500 mg-5 mcg (200 unit) tablet Active 1 {tbl} PO TWICE A DAY April 13, 2024 1:00am Start: 11-24-2023 End: 02-15-2024 Oyster Shell Calcium w/D 500 -5 MG-MCG tablet daily. 11/24/2023 02/15/2024 Discontinued (Therapy completed) Start: 06-08-2021 Calcium Carb-C holecalciferol 600-10 MG-MCG CAPS Take by mouth. 0 06/08/2021 Active Start: 06-08-2021 End: 04-13-2024 Calcium Carbonate-Vitamin D3 600 mg-10 mcg (400 unit) capsule Discontinued 1 NMA PO DAILY as needed for supplement June 08, 2021 1:00am April 13, 2024 10:06am Start: 06-08-2021 take 1 capsule by [facility] once daily Calcium Carbonate-Vitamin D3 Active 1 CAP PO DAILY June 08, 2021 12:00am Calcium Citrate / Vitamin D (2 sources) take 2 tablets by mouth once daily in the evening Calcium Citrate-Vitamin D (CITRUS CALCIUM 1500 + D PO) Take 2 tablets by mouth every evening. Active Cane device (3 sources) Start: 024 Cane device Active 0 .Route March 01, 2024 12:00am As directed CANNABIDIOL PO (2 sources) CANNABIDIOL PO T van by mouth as needed (Pain). CBD Oil Active Cyclosporin 0.05 % Emulsion ophthalmic suspension (2 sources) take 1 drop(s) into the eye(s) twice daily Cyclosporin 0.05 % Emulsion ophthalmic suspension Place 1 drop in both eyes 2 times daily. Active cycloSPORINE 0.9 mg/ml ophthalmic solution (6 sources) Calcineurin Inhibitor Immunosuppressant Start: Cyclosporine 0.09 % dropperette Active 1 NMA OPHTHALMIC June 08, 2021 1:00am Start: 06-08-2021 Cyclosporine ( Cequa) 0.09 % dropperette Active EACH OPHTHALMIC June 08, 2021 12:00am dicyclomine hydrochloride 20 mg oral tablet (9 sources) Anticholinergic Start: 11-29-2023 End: 02-15-2024 take 1 tablet by mouth three times daily Dicyclomine 20 mg tablet Active 20 mg PO THREE TIMES A DAY November 29, 2023 12:00am docusate sodium 100 mg oral capsule (20 sources) Start: 02-02-2024 End: 02-04-2024 take 1 capsule by mouth twice daily Docusate 100 MG capsule Take 1 capsule by mouth 2 times daily. 02/02/2024 Active esomeprazole 40 mg delayed release oral capsule (11 sources) Proton Pump Inhibitor Start: 04-13-2024 take 1 capsule by mouth twice daily Esomeprazole Magnesium 40 mg capsule,delayed release(DR/EC) Active 40 mg PO TWICE A DAY April 13, 2024 1:00am Start: 11-29-2023 End: 12-20-2023 take 1 capsule by mouth twice daily Esomeprazole Magnesium 40 mg capsule,delayed release(DR/EC) Discontinued 40 mg PO TWICE A DAY November 29, 2023 12:00am December 20, 2023 3:31pm Start: 03-15-2023 End: 03-13-2024 take 1 capsule by mouth every twelve hours esomeprazole [address] capsule Take 1 capsule by mouth Every 12 hours. 03/15/2023 02/15/2024 Discontinued (Therapy completed) famotidine 20 mg oral tablet (3 sources) Histamine-2 Receptor Antagonist take 1 tablet by mouth twice daily famotidine (PEPCID) 20 MG tablet Take 1 tablet by mouth two times a day. 0 Active lidocaine hydrochloride 20 mg/ml mucous membrane topical solution (2 sources) Antiarrhythmic, Amide Local Anesthetic Start: 12-17-19 Lidocaine Viscous HCl (XYLOCAINE) 2 % solution Indications: PUD (peptic ulcer disease) Take 5 mLs by mouth every 4 hours as needed for Pain. (Take with sucralfate) 100 mL 0 12/16/2022 Active LORazepam 0.5 mg oral tablet (14 sources) Benzodiazepine Start: 06-08-19 take 1 tablet by mouth once daily as needed for anxiety Lorazepam 0.5 mg tablet Active 0.5 mg PO DAILY as needed for anxiety June 08, 2021 1:00am End: 02-15-2024 LORazepam 0.5 MG tablet Take by mouth Every 8 hours. 02/15/2024 Discontinued (Therapy completed) take 1 tablet by alisa th every six hours as needed LORazepam (ATIVAN) 0.5 MG tablet Take 0.5 mg by mouth every 6 (six) hours as needed for anxiety . 0 Active metoclopramide 10 mg oral tablet (4 sources) Dopamine-2 Receptor Antagonist Start: 12-14-2022 End: 12-14-2022 metoclopramide (REGLAN) injection 10 mg Start: 12-14-2022 take 1 tablet by alisa th every six hours as needed metoclopramide (REGLAN) 10 MG tablet Take 1 tablet by mouth every 6 hours as needed. 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 84 tablet 02/03/2024 02/03/2024 Discontinued Start: 02-03-2024 End: 02-04-2024 take 1 tablet by mouth every four hours as needed oxyCODONE (ROXICODONE) tablet 5 mg polyethylene glycol 3350 31282 mg powder for oral solution (20 sources) Osmotic Laxative Start: 02-03-2024 End: 02-04-2024 take 1 dose by mouth once daily as needed for constipation Polyethylene glycol 17 g Pack packet Take 1 packet by mouth daily as needed for Constipation. 02/03/2024 Active Start: 12-30-2022 polyethylene g lycol 3350 (GLYCOLAX) 17 GM/SCOOP powder Take 17 g by mouth two times a day. 510 g 3 12/30/2022 Active potassium bicarbonate 25 meq effervescent oral tablet (20 sources) potassium bicarbonate 25 MEQ Tab Effer 1 tablet by Per NG tube route 2 times daily. Active sucralfate 100 mg/ml oral suspension (2 sources) Aluminum Complex Start: 3 sucralfate (CARAFATE) 1 GM/10ML suspension traZODone hydrochloride 50 mg oral tablet (3 sources) Serotonin Reuptake Inhibitor Start: 1 traZODone (DESYREL) 50 MG tablet tretinoin 0.25 mg/ml topical cream (2 sources) Retinoid Start: 9 tretinoin (RETIN-A) 0.025 % cream Apply pea sized drop to the face each night as tolerated 0 11/06/2018 Active ubidecarenone 100 mg oral capsule (10 sources) Start: 2 take 10 capsules by mouth once daily Coenzyme Q10 100 mg capsule Active 200 mg PO DAILY June 08, 2021 1:00am End: 02-15-2024 Coenzyme Q-10 30 MG capsule Take by mouth. 02/15/2024 Discontinued (Therapy completed) ubidecarenone 100 mg / vitam in e 5 unt oral capsule (2 sources) Start: 06-08-2021 Coenzyme Q10 1 00 MG CAPS Take by mouth. 0 06/08/2021 Active Walking Cane (3 sources) Start: 03-01-2024 Walking Cane A [facility] ONCE March 01, 2024 12:00am Completed/Discontinued Medications Medication Drug Class(es) Dates Sig (Normalized) Sig (Original) acetaminophen 325 mg oral tablet (20 sources) Start: 11-19-2024 End: 11-19-2024 take 1 tablet by mouth every six hours as needed 650 mg, Oral, EVERY 6 HOURS NEEDED, Starting on 11/19/24 at 1545, Until Tue11/19/24 at 1817, Mild Pain, Maximum dose of acetaminophen is 4000 mg from all sources in 24 hours., Post-op/Post-Proc Start: 02-03-2024 take 2 tablets by mo ut every six hours Acetaminophen 325 MG tablet Take 2 tablets by mouth every 6 hours. 02/03/2024 Active Start: 02-02-2024 End: 02-04-2024 take 1 tablet by mouth every six hours 650 mg, Oral, EVERY 6 HOURS NON-STANDARD, First dose on Lana 02/02/24 at 1515, Until Discontinued, Maximum dose of acetaminophen is 4000 mg from all sources in 24 hours., Post-op/Post-Proc Start: 02-02-2024 End: 02-03-2024 take 2 tablets by mouth every four hours as needed Acetaminophen 325 MG tablet Take 2 tablets by mouth every 4 hours as needed for Mild Pain. 02/02/2024 02/03/2024 Discontinued 500 ml albumin human, chcf 50 mg/ml injection (1 source) Human Serum Albumin Start: 02-02-2024 End: 02-02-2024 25 g, Intravenous, Administer over 60 Minutes, ONCE, 1 dose, On Lana 02/02/24 at 1445, At [facility], in emergencies, administer as rapidly as necessary to improve clinical conditions. Rate of infusion is based on dose: 12.5g given over 30min, 25g given over 60min, 50g given over 120min., Indications: Fluid Resuscitation albuterol 0.833 mg/ml / ipratropium bromide 0.167 mg/ml inhalation solution (1 source) Anticholinergic, beta2-Adrenergic Agonist Start: 02-02-2024 End: 02-04-2024 take 3 mL by inhalation every six hours 3 mL, Nebulization, EVERY 6 HOURS NON-STANDARD, First dose on Lana 02/02/24 at 1315, Until Discontinued, Post-op/Post-Proc aspirin 81 mg chewable tablet (13 sources) Platelet Aggregation Inhibitor, Nonsteroidal Anti-inflammatory Drug Start: 02-03-2024 End: 02-04-2024 take 81 mg by mouth once daily 81 mg, Oral, DAILY, First dose on Tue02/03/24 at 0900, Until Discontinued, Post-op/Post-Proc Start: 11-29-2023 Aspirin (Adult Low Dose Aspirin) 81 mg tablet,delayed release (DR/EC) Active 81 mg PO DAILY November 29, 2023 12:00am End: 02-15-2024 Aspirin 81 MG capsule Take b y mouth. 02/15/2024 Discontinued (Therapy completed) calcium chloride 0.0014 meq/ ml / potassium chloride 0.004 meq/ml / sodium chloride 0.103 meq/ml / sodium lactate 0.028 meq/ml injectable solution (3 sources) Start: 11-19-2024 End: 11-19-2024 Intravenous, at 50 mL/hr, CONTINUOUS, Starting on Tue11/19/24 at 1030, Until Tue11/19/24 at 1817 Start: 02-02-2024 End: 02-02-2024 Intravenous, at 50 mL/hr, CO NTINUOUS, Starting on Lana 02/02/24 at 0645, Until Lana 02/02/24 at 2020, Pre-op/Pre-Proc Start: 12-21-2022 lactated ringe rs infusion 0.4 ml enoxaparin sodium 100 mg/ml prefilled syringe (1 source) Low Molecular Weight Heparin Start: 02-03-2024 End: 02-04-2024 inject 40 mg by subcutaneous injection every twenty-four hours 40 mg, Subcutaneous, EVERY 24 HOURS, First dose on Tue02/03/24 at 0900, Until Discontinued, For SUBCUTANEOUS route ONLY: alternate injection sites between left and right abdominal wall, pinching location and avoiding area around navel. If unable to use abdominal sites, may use the front or side of thighs., Indications: DVT/PE prophylaxis, Post-op/Post-Proc gabapentin 300 mg oral capsule (9 sources) Anti-epileptic Agent Start: 06-08-2021 End: 07-29-2022 take 1 capsule by mouth twice daily Gabapentin 300 mg capsule Discontinued 300 mg PO TWICE A DAY June 08, 2021 1:00am July 29, 2022 8:46am Start: 07-25-2020 gabapentin (NE URONTIN) 300 MG capsule Nmcsypfpwhs-Laz-Jwsvic-Herb1 82 ([place]amin [place] (With Boswellia)) 500-500-33.3-70 mg tablet (5 sources) Start: 07-29-2022 End: 11-29-2023 Wpyzwybyalf-Wyt-Xumtxp-Herb1 82 ([place] (With Boswellia)) 500-500-33.3-70 mg tablet Discontinued {tbl} PO TWICE A DAY July 29, 2022 12:00am November 29, 2023 10:53am Start: 07-29-2022 take 1 tablet by [facility] twice daily Xstymedrblh-Rny-Gpwcrp-Zfes722 ([place] (With Boswellia)) 500-500-33.3-70 mg tablet Active TABLET PO TWICE A DAY July 28, 2022 11:00pm 500 ml glucose 50 mg/ml / potassium chloride 0.02 meq/ml / sodium chloride 4.5 mg/ml injection (1 source) Start: 02-02-2024 End: 02-03-2024 Intravenous, at 75 mL/hr, CONTINUOUS, Starting on Tue02/02/24 at 1245, Until Tue02/03/24 at 0404, May convert to saline well when patient is tolerating oral diet., Post-op/Post-Proc 1 ml HYDROmorphone hydrochloride 1 mg/ml cartridge (5 sources) Opioid Agonist Start: 11-19-2024 End: 11-19-2024 0.5 mg, Intravenous, EVERY 10 MINUTES NEEDED, 8 doses, Starting on Tue11/19/24 at 1416, Until Tue11/19/24 at 1817, Moderate Pain, Severe Pain, Mild Pain, May give a total of 4mg in PACU., Recovery Start: 02-02-2024 End: 02-03-2024 0.2 mg, Intravenous, ONCE, 1 dose, On Tue02/03/24 at 1100 Start: 02-02-2024 End: 02-02-2024 take 0.3 mg intravenously every three hours as needed 0.3 mg, Intravenous, EVERY 3 HOURS NEEDED, Starting on Tue02/02/24 at 1818, Until Tue02/02/24 at 2021, Severe Pain, Post-op/Post-Proc Start: 02-02-2024 End: 02-02-2024 0.2 mg, Intravenous, EVERY 1 0 MINUTES NEEDED, 2 doses, Starting on Lana 02/02/24 at 1301, Until Lana 02/02/24 at 1327, Moderate Pain, Severe Pain, May give a total of 2mg in PACU., Recovery iohexol (OMNIPAQUE) 350 MG/ML injection 1-171 mL (1 source) Start: 06-29-2024 End: 06-29-2024 1-171 mL, Intravenous, ONCE, 1 dose, On Tue06/29/24 at 1015, Extravasation Risk, CT Procedure 150 ml levoFLOXacin 5 mg/ml injection (1 source) Quinolone Antimicrobial Start: 02-02-2024 End: 02-04-2024 take 750 mg intravenously every twenty-four hours 750 mg, Intravenous, Administer over 90 Minutes, EVERY 24 HOURS, First dose on Lana 02/02/24 at 2130, Until Discontinued, Post-op/Post-Proc LOCM iodixanol (VISIPAQUE 320 MG/ML) 320 MG/ML injection 75 mL (1 source) Start: 12-14-2022 End: 12-14-2022 LOCM iodixanol (VISIPAQUE 320 MG/ML) 320 MG/ML injection 75 mL 50 ml magnesium sulfate 80 mg/ml injection (1 source) Start: 02-03-2024 End: 02-03-2024 4 g, Intravenous, at 12.5 mL/hr, Administer over 4 Hours, ONCE, 1 dose, On Tue02/03/24 at 0600 methocarbamol 500 mg oral tablet (1 source) Muscle Relaxant Start: 02-03-2024 End: 02-04-2024 500 mg, Oral, EVERY 6 HOURS, 6 doses, First dose on Tue02/03/24 at 0600, Last dose on Tue02/04/24 at 1200 Methocarbamol (ROBAXIN) 500 mg in Sodium chloride 0.9%, with overfill 115 mL (total volume) IVPB (1 source) Start: 02-02-2024 End: 02-02-2024 500 mg, Intravenous, at 690 mL/hr, Administer over 10 Minutes, ONCE NEEDED, 1 dose, Starting on Tue02/02/24 at 1240, Until Lana 02/02/24 at 1418, moderate or severe pain, Post-op/Post-Proc Misc Natural Products (MULLEIN GARLIC EAR DROPS OT) (3 sources) End: 02-15-2024 Misc Natural Products (MULLEIN GARLIC EAR DROPS OT) by Otic route. 02/15/2024 Discontinued (Therapy completed) Misc Natural Pro ducts (MULLEIN GARLIC EAR DROPS OT) by Otic route. Active naloxone hydrochloride 40 mg/ml nasal spray (1 source) Opioid Antagonist Start: 02-03-2024 End: 02-03-2024 naloxone 4 MG/0.1ML 1 spray by Nasal route once for 1 dose. [place] into the nose as directed. Call 911. If no response in 2 minutes use a new nasal spray in other nostril. Repeat until help arrives. 2 Each 02/03/2024 02/03/2024 Discontinued (Stop Taking at Discharge) 24 hr nicotine 0.875 mg/hr transdermal system (20 sources) Cholinergic Nicotinic [facility]ist Start: 11-15-2024 End: 12-23-2024 apply 1 dose transdermal route every twenty-four hours Nicotine 21 MG/24HR Patch [address] 1 patch on skin every 24 hours. 30 patch 11/21/2024 11/23/2024 Discontinued (Cost of medication) Start: 06-29-2024 End: 10-22-2024 apply 1 dose transdermal route every twenty-four hours Nicoderm CQ 7 MG/24HR Patch [address] 1 patch on skin every 24 hours. No generic 28 patch 1 10/22/2024 Active Start: 06-29-2024 End: 11-19-2024 nicotine (Nicotine Mini) 2 M G Lozenge 2 lozenges by Buccal route as needed for Smoking cessation (Max 12 per day). 108 lozenge 1 06/29/2024 11/19/2024 Discontinued (Stop Taking at Discharge) Start: 02-03-2024 End: 06-29-2024 apply 1 dose transdermal route every twenty-four hours nicotine 14 MG/24HR Patch 24 HR patch Indications: Smoker Place 1 patch on skin every 24 hours for 14 days. Follow up with your PCP for further management 14 patch 02/15/2024 06/29/2024 Discontinued (Therapy completed) Start: 02-02-2024 End: 02-04-2024 nicotine (NICODERM CQ) 14 MG /24HR patch 1 patch 2 ml ondansetron 2 mg/ml injection (6 sources) Serotonin-3 Receptor Antagonist Start: 11-19-2024 End: 11-19-2024 4 mg, Intravenous, ONCE NEEDED, 1 dose, Starting on Tue11/19/24 at 1545, Until Tue11/19/24 at 1817, Nausea / Vomiting, Post-op/Post-Proc Start: 11-19-2024 End: 11-19-2024 4 mg, Intravenous, ONCE N EEDED, 1 dose, Starting on Tue11/19/24 at 1416, Until Tue11/19/24 at 1817, Nausea / Vomiting, FIRST line antiemetic, Do not administer within 6 hours of intra-operative dose., Recovery Start: 02-02-2024 End: 02-04-2024 take 1 tablet by mouth every six hours as needed Ondansetron (ZOFRAN) tablet 4 mg Start: 12-30-2022 Ondansetron (Z OFRAN-ODT) 4 MG disintegrating tablet Take 1 tablet by mouth as needed. 30 tablet 3 12/30/2022 Active Start: 12-21-2022 Ondansetron (Z OFRAN-ODT) 4 MG disintegrating tablet Take 1 tablet by mouth as needed. 30 tablet 3 12/21/2022 Active Start: 12-12-2022 End: 12-21-2022 Ondansetron (ZOFRAN-ODT) 4 M G disintegrating tablet Take 1 tablet by mouth as needed. 0 12/12/2022 12/21/2022 Discontinued (Reorder) pantoprazole 40 mg injection (3 sources) Proton Pump Inhibitor Start: 02-03-2024 End: 02-04-2024 40 mg, Intravenous, DAILY, First dose on Tue02/03/24 at 0900, Until Discontinued, Dilute each 40 mg vial with 10 mL of NS. All bolus doses, whether 40 mg or 80 mg, should be administered over at least two minutes., Indications: Continuation of Home Therapy Start: 12-17-2022 take 1 tablet by alisa th twice daily before mealtime pantoprazole (PROTONIX) 40 MG tablet Take 1 tablet by mouth 2 times daily (before meals). 60 tablet 3 12/17/2022 Active PARoxetine hydrochloride 20 mg oral tablet (20 sources) Serotonin Reuptake Inhibitor Start: 02-03-2024 End: 02-04-2024 take 20 mg by mouth once daily 20 mg, Oral, DAILY, First dose (after last modification) on Tue02/03/24 at 0900, Until Discontinued Start: 06-08-2021 End: 11-19-2024 take 1 tablet by mouth once daily Paxil CR 25 MG Tab SR 24 HR Take 1 tablet by mouth daily. 11/24/2023 11/19/2024 Discontinued (Stop Taking at Discharge) Start: 07-21-2020 Paxil CR 25 mg 24 hr tablet take 1 tablet by alisa th once daily in the morning PARoxetine (PAXIL) 20 MG tablet Take 1 tablet by mouth every morning. 0 Active Radionuclide Tc-99m Choletec 9 millicurie (1 source) Start: 01-28-2023 End: 01-28-2023 Radionuclide Tc-99m Choletec 9 millicurie sennosides, chcf 8.6 mg oral tablet (20 sources) Start: 02-02-2024 End: 02-04-2024 take 17.2 mg by mouth every twelve hours 17.2 mg, Oral, EVERY 12 HOURS, First dose on Tue02/02/24 at 2100, Until Discontinued, Post-op/Post-Proc Start: 02-02-2024 take 1 tablet by alisa th every twelve hours as needed Senna 17.2 MG tablet Take 1 tablet by mouth every 12 hours as needed for Constipation. 02/02/2024 Active 20 ml sodium chloride 9 mg/m l injection (2 sources) Start: 06-29-2024 End: 06-29-2024 1-100 mL, Intravenous, ONCE NEEDED, 1 dose, Starting on Tue06/29/24 at 1013, Until Tue06/29/24 at 1014, Flush, CT Procedure Start: 12-14-2022 End: 12-14-2022 sodium chloride 0.9% bolus 0 .9 % solution 500 mL traMADol hydrochloride 50 mg oral tablet (1 source) Opioid Agonist Start: 02-02-2024 End: 02-02-2024 take 1 tablet by mouth every six hours as needed 50 mg, Oral, EVERY 6 HOURS NEEDED, Starting on Lana 02/02/24 at 1502, Until Lana 02/02/24 at 2040, Mild Pain, Post-op/Post-Proc Zinc (6 sources) Start: 06-08-2021 End: 11-29-2023 take 1 tablet by mouth once daily Zinc 50 mg tablet Discontinued 50 mg PO DAILY June 08, 2021 1:00am November 29, 2023 10:54am Start: 06-08-2021 take 50 mg by mouth once daily Zinc Active 50 MG PO DAILY June 08, 2021 12:00am Problems Active Problems Problem Classification Problem Date Documented Da te Episodic/Chronic Abdominal pain (8 sources) Upper abdominal pain; Translations: [Upper abdominal pain, unspecified] Onset: 12-14-2022 12-14-2022 Episodic Acute cerebrovascular disease (20 sources) Cerebrovascular accident; Translations: [Cerebral infarction, unspecified] 02-04-2024 Chronic Attention-deficit, conduct, and disruptive behavior disorders (20 sources) Attention deficit hyperactivity disorder; Translations: [Attention-deficit hyperactivity disorder, unspecified type] Onset: 10-02-2020 Chronic Attention-deficit, conduct, and disruptive behavior disorders (1 source) Attention-deficit hyperactivity disorder, unspecified type; Translations: [Attention-deficit hyperactivity disorder, unspecified type] Onset: 12-14-2022 Chronic Cancer of bronchus; lung (20 sources) Malignant neoplasm of upper lobe, bronchus or lung; Translations: [Malignant neoplasm of upper lobe, right bronchus or lung] Onset: 12-28-2023 12-28-2023 Chronic Comment on above: Right lobe lobectomy Cancer of bronchus; lung (7 sources) History of malignant neoplasm of thoracic cavity structure; Translations: [Personal history of other malignant neoplasm of bronchus and lung] Onset: 10-22-2024 06-29-2024 Episodic Cataract (2 sources) Age-related nuclear cataract of left eye; Translations: [Age-related nuclear cataract, left eye] Chronic Diabetes mellitus without complication (1 source) Prediabetes; Translations: [Prediabetes] Onset: 12-25-2024 Episodic Disorders of lipid metabolism (20 sources) Dyslipidemia; Translations: [Hyperlipidemia, unspecified] Onset: 10-02-2020 Chronic Diverticulosis and diverticulitis (1 source) Diverticulosis of large intestine without perforation or abscess without bleeding; Translations: [Diverticulosis of large intestine without perforation or abscess without bleeding] Onset: 12-14-2022 Chronic Esophageal disorders (20 sources) Gastro-esophageal reflux disease without esophagitis; Translations: [Gastroesophageal reflux disease] Onset: 12-17-2022 02-04-2024 Chronic Gastroduodenal ulcer (except hemorrhage) (1 source) Peptic ulcer, site unspecified, unspecified as acute or chronic, without hemorrhage or perforation; Translations: [Peptic ulcer, site unspecified, unspecified as acute or chronic, without hemorrhage or perforation] Onset: 12-16-2022 Chronic Mood disorders (20 sources) 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; Translations: [Major depressive disorder, recurrent, mild] Onset: 10-02-2020 Chronic Nausea and vomiting (2 sources) Nausea and vomiting; Translations: [Nausea with vomiting, unspecified] Onset: 12-14-2022 12-14-2022 Episodic Occlusion or stenosis of precerebral arteries (8 sources) Bilateral stenosis of carotid arteries; Translations: [Occlusion and stenosis of bilateral carotid arteries] Onset: 08-17-2024 Chronic Other acquired deformities (1 source) Spondylolisthesis, lumbar region; Translations: [Spondylolisthesis, lumbar region] Onset: 12-14-2022 Episodic Other aftercare (1 source) prison (current) use of aspirin; Translations: [prison (current) use of aspirin] Onset: 12-14-2022 Episodic Other and ill-defined cerebrovascular disease (6 sources) Cerebrovascular disease; Translations: [Cerebrovascular disease, unspecified] 09-12-2021 Chronic Other and ill-defined cerebrovascular disease (1 source) Cerebrovascular disease, unspecified; Translations: [Unspecified cerebrovascular disease] Chronic Other and unspecified benign neoplasm (1 source) Personal history of colonic polyps; Translations: [Personal history of colonic polyps] Onset: 12-17-2022 Episodic Other connective tissue disease (5 sources) Muscle weakness of upper limb; Translations: [Muscle weakness (generalized)] 07-29-2022 Episodic Other gastrointestinal disorders (20 sources) Irritable bowel syndrome; Translations: [Irritable bowel syndrome without diarrhea] Onset: 01-23-2024 02-04-2024 Chronic Other hereditary and degenerative nervous system conditions (7 sources) Impaired cognition; Translations: [Mild cognitive impairment, so stated] 09-12-2021 Chronic Other hereditary and degenerative nervous system conditions (1 source) Mild cognitive impairment, so stated; Translations: [Mild cognitive impairment, so stated] Chronic Other lower respiratory disease (2 sources) Dyspnea on exertion; Translations: [Other forms of dyspnea] 02-15-2024 Episodic Other lower respiratory disease (6 sources) Solitary nodule of lung; Translations: [Solitary pulmonary nodule] 06-29-2024 Episodic Other lower respiratory disease (4 sources) Dyspnea; Translations: [Shortness of breath] 04-13-2024 Episodic Other lower respiratory disease (3 sources) Solitary pulmonary nodule; Translations: [Solitary pulmonary nodule] Onset: 11-19-2024 Episodic Other nervous system disorders (6 sources) Muscular incoordination; Translations: [Other lack of coordination] 09-12-2021 Episodic Other nutritional; endocrine; and metabolic disorders (1 source) Abnormal weight loss; Translations: [Abnormal weight loss] Onset: 12-17-2022 Episodic Residual codes; unclassified (1 source) Personal history of other specified conditions; Translations: [Personal history of other specified conditions] Onset: 12-17-2022 Episodic Residual codes; unclassified (1 source) Harmful pattern of use of nicotine; Translations: [Tobacco use] 11-23-2024 Episodic Residual codes; unclassified (2 sources) Other specified health status; Translations: [Other specified health status] Onset: 11-08-2024 Episodic Substance-related disorders (20 sources) Nicotine dependence with current use; Translations: [Nicotine dependence, unspecified, uncomplicated] Onset: 10-02-2020 Chronic Unclassified (1 source) Patient's noncompliance with other medical treatment and regimen due to unspecified reason; Translations: [Patient's noncompliance with other medical treatment and regimen due to unspecified reason] Onset: 11-06-2024 Unclassified (2 sources) Post-Discharge Follow Up; Translations: [Post-Discharge Follow Up] Onset: 02-09-2024 Past or Other Problems Problem Classification Problem Date Documented Date Episodic/Chronic Administrative/social admission (20 sources) Patient encounter status; Translations: [Counseling, unspecified] Onset: 01-23-2024 02-04-2024 Episodic Malaise and fatigue (8 sources) Fatigue; Translations: [Other fatigue] Onset: 03-02-2024 09-12-2021 Episodic Mood disorders (20 sources) Mood disorders; Translations: [Depression, unspecified] Onset: 12-28-2023 Resolved: 10-22-2024 12-28-2023 Other circulatory disease (4 sources) History of cerebrovascular accident; Translations: [Personal history of transient ischemic attack (TIA), and cerebral infarction without residual deficits] Onset: 10-02-2020 Resolved: 01-01-2021 Episodic Other connective tissue disease (4 sources) Unspecified rotator cuff tear or rupture of left shoulder, not specified as traumatic; Translations: [Impingement syndrome of left shoulder] Onset: 12-24-2016 Episodic Other connective tissue disease (1 source) Muscle weakness (generalized); Translations: [Muscle weakness (generalized)] Onset: 03-02-2024 Episodic Other lower respiratory disease (2 sources) Other forms of dyspnea; Translations: [Other forms of dyspnea] Onset: 02-15-2024 Episodic Other lower respiratory disease (1 source) Shortness of breath; Translations: [Shortness of breath] Onset: 04-13-2024 Episodic Other nervous system disorders (20 sources) Acute postoperative pain; Translations: [Other acute postprocedural pain] Onset: 01-23-2024 02-03-2024 Episodic Other nervous system disorders (2 sources) Other acute postprocedural pain; Translations: [Other acute postprocedural pain] Onset: 02-04-2024 Episodic Other nervous system disorders (1 source) Other lack of coordination; Translations: [Other lack of coordination] Onset: 03-02-2024 Episodic Residual codes; unclassified (20 sources) At risk of deep vein thrombosis; Translations: [Other specified personal risk factors, not elsewhere classified] Onset: 01-23-2024 02-04-2024 Episodic Unclassified (1 source) Patient's noncompliance with other medical treatment and regimen due to unspecified reason; Translations: [Patient's noncompliance with other medical treatment and regimen due to unspecified reason] Onset: 11-06-2024 Results Test Name Value Interpretation Reference Range Facility HEMOGLOBIN A1C (POM)on 12-25 Glucose [Mass/Vol] 137.0 mg/dL High 0.0 - 0.0 [facility] Comment on above: Result Comment: BLDo HEMOGLOBIN A1C REFERENCE RANGESBLDo Suggested Diagnosis HbA1c(%) HbA1C (mmol/mol Diabetic >/=6.5 >/=48 Prediabetes 5.7 - 6.4 39 - 47 Normal <5.7 <39 Performed By: #### 2 [id number] #### [facility],[address] [place] [address] HbA1c (Bld) [Mass fraction] 6.4 % Normal 0.0 - 6.5 [facility] Comment on above: Performed By: #### 2 [id number] #### [facility],[address] [place] [address] LIPID PROFILEon 12-25-2024 Cholesterol [Mass/Vol] 157 mg/dL Normal 0 - 240 [facility] Comment on above: Performed By: #### 2 [id number] #### [facility],[address] [place] [address]2045 Cholesterol in HDL [Mass/Vol] 62 mg/dL High 40 - 60 [facility] Comment on above: Performed By: #### 2 [id number] #### [facility],[address] [place] [address] Cholesterol in LDL [Mass/Vol] 76 mg/dL Normal 0 - 129 [facility] Comment on above: Performed By: #### 2 [id number] #### [facility],[address] [place] [address]507 Cholesterol.total/Eri sterol in HDL [Mass ratio] 2.5 {ratio} Normal 0.0 - 5.0 [facility] Comment on above: Performed By: #### 2 [id number] #### [facility],[address] [place] [address] [address] [facility] Comment on above: Result Comment: LIPI D PROFILE Performed By: #### 2 [id number] #### [facility],[address] [place] [address] 31256 Triglyceride [Mass/Vol] 97 mg/dL Normal 0 - 150 [facility] Comment on above: Performed By: #### 2 [id number] #### [facility],[address] [place] [address] CBC AND ELECTRONIC DIFFon Basophils (Bld) [#/Vol] 0.08 10*3/uL 0.00 - 0.15 K/uL [facility] Basophils/100 WBC (Bld) 0.9 % [facility] Differential cell count method Nom (Bld) Electronic Differential [facility] Eosinophils (Bld) [#/Vol] 0.13 10*3/uL 0.00 - 0.42 K/uL [facility] Eosinophils/100 WBC (Bld) 1.4 % [facility] Erythrocyte distribution width (RBC) [Ratio] 14.2 % 10.8 - 14.9 % [facility] Hematocrit (Bld) [Volume fraction] 41.8 % 34.9 - 44.3 % [facility] Hemoglobin (Bld) [Mass/Vol] 13.2 g/dL 11.4 - 15.2 g/dL [facility] Immature granulocytes (Bld) [#/Vol] K/uL NINF - 0.08 K/uL [facility] Immature granulocytes/100 WBC (Bld) 0.3 % [facility] Interpretation and review of laboratory results Abnormal [facility] Lymphocytes (Bld) [#/Vol] 3.04 10*3/uL 1.16 - 3.51 K/uL [facility] Lymphocytes/100 WBC (Bld) 33.5 % [facility] MCH (RBC) [Entitic mass] 28 pg 25.9 - 33.9 pg [facility] MCHC (RBC) [Mass/Vol] 31.6 g/dL 31.4 - 35.9 g/dL [facility] MCV (RBC) [Entitic vol] 88.6 fL 79.6 - 97.7 fL [facility] Monocytes (Bld) [#/Vol] 0.68 10*3/uL 0.22 - 0.87 K/uL [facility] Monocytes/100 WBC (Bld) 7.5 % O [facility] Neutrophils (Bld) [#/Vol] 5.12 10*3/uL 1.64 - 7.28 K/uL [facility] Nucleated RBC/100 WBC (Bld) [Ratio] 0 % NINF [facility] Platelet mean volume (Bld) [Entitic vol] 9.2 fL 8.5 - 12.2 fL [facility] Platelets (Bld) [#/Vol] 420 10*3/uL High 150 - 393 K/uL [facility] RBC (Bld) [#/Vol] 4.72 10*6/uL [facility] Segmented neutrophils/100 WBC (Bld) 56.4 % [facility] WBC (Bld) [#/Vol] 9.08 10*3/uL 3.99 - 11. 19 K/uL [facility] Basophils (Bld) [#/Vol] 0.08 10*3/uL Normal 0.00-0.15 [facility] Comment on above: Performed By: #### X M #### [facility] (DEFAULT) [address] [place] [address] Basophils/100 WBC (Bld) 0.9 % Normal O [facility] Comment on above: Performed By: #### X M #### [facility] (DEFAULT) [address] [place] [address] DIFF STATUS Electronic Differential Normal [facility] Comment on above: Performed By: #### X M #### [facility] (DEFAULT) [address] [place] [address]449 Eosinophils (Bld) [#/Vol] 0.13 10*3/uL Normal 0.00-0.42 [facility] Comment on above: Performed By: #### X M #### [facility] (DEFAULT) [address] [place] [address]950 Eosinophils/100 WBC (Bld) 1.4 % Normal [facility] Comment on above: Performed By: #### X M #### [facility] (DEFAULT) [address] [address] Hematocrit (Bld) [Volume fraction] 41.8 % Normal 34.9-44.3 [facility] Comment on above: Performed By: #### X M #### [facility] (DEFAULT) [address] [address] Hemoglobin (Bld) [Mass/Vol] 13.2 g/dL Normal 11.4-15.2 [facility] Comment on above: Performed By: #### X M #### [facility] (DEFAULT) [address] [address] Immature Grans % 0.3 % Normal [facility] Comment on above: Performed By: #### X M #### [facility] (DEFAULT) [address] [address] Immature Grans Absolute < Normal <=0.08 [facility] Comment on above: Performed By: #### X M #### [facility] (DEFAULT) [address] [address] Lymphocytes (Bld) [#/Vol] 3.04 10*3/uL Normal 1.16-3.51 [facility] Comment on above: Performed By: #### X M #### [facility] (DEFAULT) [address] [address] Lymphocytes/100 WBC (Bld) 33.5 % Normal [facility] Comment on above: Performed By: #### X M #### [facility] (DEFAULT) [address] [address] MCV (RBC) [Entitic vol] 88.6 fL Normal 79.6-97.7 [facility] Comment on above: Performed By: #### X M #### [facility] (DEFAULT) [address] [address] Mean Cell Hgb 28.0 pg Normal 25.9-33.9 [facility] Comment on above: Performed By: #### X M #### [facility] (DEFAULT) [address] [address] Mean Cell Hgb Conc 31.6 g/dL Normal 31.4-35.9 [facility] Comment on above: Performed By: #### X M #### [facility] (DEFAULT) [address] [address] Monocytes (Bld) [#/Vol] 0.68 10*3/uL Normal 0.22-0.87 [facility] Comment on above: Performed By: #### X M #### [facility] (DEFAULT) [address] [address] Monocytes/100 WBC (Bld) 7.5 % Normal O [facility] Comment on above: Performed By: #### X M #### [facility] (DEFAULT) [address] [address] Nucleated RBC 0.0 /100 WBC Normal <=0.2 [facility] Comment on above: Performed By: #### X M #### [facility] (DEFAULT) [address] [address] Platelet mean volume (Bld) [Entitic vol] 9.2 fL Normal 8.5-12.2 [facility] Comment on above: Performed By: #### X M #### [facility] (DEFAULT) [address] [address] Platelets (Bld) [#/Vol] 420 10*3/uL High 150-393 [facility] Comment on above: Performed By: #### X M #### [facility] (DEFAULT) [address] [address] RBC (Bld) [#/Vol] 4.72 10*6/uL Normal 3.91-5.04 [facility] Comment on above: Performed By: #### X M #### [facility] (DEFAULT) [address] [place] [address] RBC Distribution 14.2 % Normal 10.8-14.[address] [facility] Comment on above: Performed By: #### X M #### [facility] (DEFAULT) [address] [place] [address] Segs + Bands Auto 56.4 % Normal [facility] Comment on above: Performed By: #### X M #### [facility] (DEFAULT) [address] [place] [address] Segs + Bands,Absolute Auto 5.12 K/uL Normal 1.64-7.28 [facility] Comment on above: Performed By: #### X M #### [facility] (DEFAULT) [address] [place] [address] WBC (Bld) [#/Vol] 9.08 10*3/uL Normal 3.99-11.19 [facility] Comment on above: Performed By: #### X M #### [facility] (DEFAULT) [address] [place] [address] CHEM 7 (LYTES,BUN,CREA,GLUC) on 11-19-2024 Anion gap [Moles/Vol] 11 mmol/L 7 - 17 mmol/L [facility] Chloride [Moles/Vol] 106 mmol/L 98 - 10 8 mmol/L [facility] CO2 [Moles/Vol] 26 mmol/L 21 - 31 mmol/L [facility] Creatinine [Mass/Vol] 1.05 mg/dL 0.50 - 1.20 mg/dL [facility] eGFR, CKD-EPI, Female 56 Low - PINF [facility] Comment on above: Reported eGFR is bas ed on the CKD-EPI 2020 equation using creatinine, age, and sex. Glucose [Mass/Vol] 110 mg/dL 70 - 179 mg/dL [facility] Interpretation and review of laboratory results Abnormal [facility] Osmolality Calc [Osmolality] 297 [facility] Potassium [Moles/Vol] 4.3 mmol/L 3.5 - 5.0 mmol/L [facility] Sodium [Moles/Vol] 139 mmol/L 135 - 145 mmol/L [facility] Urea nitrogen [Mass/Vol] 27 mg/dL High 7 - 25 mg/dL [facility] Urea nitrogen/Creatinine [Mass ratio] 26 mg/mg [facility] Anion gap [Moles/Vol] 11 mmol/L Normal 7-17 [facility] Comment on above: Performed By: #### VASU ANDREA #### [facility] (DEFAULT) [address] [address] Chloride [Moles/Vol] 106 mmol/L Normal 98-108 [facility] Comment on above: Performed By: #### VASU ANDREA #### [facility] (DEFAULT) [address] [place] [address] CO2 [Moles/Vol] 26 mmol/L Normal 21-31 [facility] Comment on above: Performed By: #### VASU ANDREA #### [facility] (DEFAULT) [address] [place] [address] Creatinine [Mass/Vol] 1.05 mg/dL Normal 0.50-1.20 [facility] Comment on above: Performed By: #### VASU ANDREA #### [facility] (DEFAULT) [address] [place] [address] GFR/1.73 sq M.predicted among non-blacks MDRD (S/P/Bld) [Vol rate/Area] 56 mL/min/{1.73_m2} Low >=60 [facility] Comment on above: Result Comment: Repo rted eGFR is based on the CKD-EPI 2020 equation using creatinine, age, and sex. Performed By: #### VASU ANDREA #### [facility] (DEFAULT) [address] [place] [address] Glucose [Mass/Vol] 110 mg/dL Normal Nonfastin -179 mg/dL; Fastin-99 [facility] Comment on above: Performed By: #### Neela CHENG CHM7 #### [facility] (DEFAULT) [address] [place] [address] Osmolality [Osmolality] 297 mosm/kg Normal 278-305 [facility] Comment on above: Performed By: #### Neela CHENG CHM7 #### [facility] (DEFAULT) [address] [address] [place] [address] Potassium [Moles/Vol] 4.3 mmol/L Normal 3.5-5.0 [facility] Comment on above: Performed By: #### DAX ANDREA7 #### [facility] (DEFAULT) [address] [place] [address] Sodium [Moles/Vol] 139 mmol/L Normal 135-145 [facility] Comment on above: Performed By: #### Neela CHENG CHM7 #### [facility] (DEFAULT) [address] [place] [address] Urea nitrogen [Mass/Vol] 27 mg/dL High 7-25 [facility] Comment on above: Performed By: #### Neela CHENG CHM7 #### [facility] (DEFAULT) [address] [place] [address] Urea nitrogen/Creatinine [Mass ratio] 26 mg/mg Normal [facility] Comment on above: Performed By: #### Neela CHENG CHM7 #### [facility] (DEFAULT) [address] [place] [address] CONTINUOUS CARDIAC MONITORIN G STRIPon 11-19-2024 [facility] CONTINUOUS CARDIAC MONITORIN G STRIPOrdered By: Unassigned Pacs on 11-19-2024 [facility] Work Phone: CYTOLOGY, NON-DITCH CLEANER - FNA ONLY on 07-14-2025 CYTOLOGIC DIAGNOSIS Normal [facility] Comment on above: Result Comment: A. 1 0L LYMPH NODE, FNA (CYTOLOGY AND CELL BLOCK): FINAL DIAGNOSIS: No Malignant Cells Are Identified Lymphoid Tissue Present Immediate Study: Adequacy/Preliminary Diagnosis: Adequate for Lymphocytes Grady Brown, CT (ASCP), November 19, 2024 B. LEVEL 7 LYMPH NODE, FNA (CYTOLOGY AND CELL BLOCK): FINAL DIAGNOSIS: No Malignant Cells Are Identified Bronchial Tissue Immediate Study: Adequacy/Preliminary Diagnosis: Not Adequate Grady Brown, CT (ASCP), November 19, 2024 C. LUNG NODULE, LEFT LOWER LOBE, FNA (CYTOLOGY AND CELL BLOCK): FINAL DIAGNOSIS: Non-Diagnostic Immediate Study: Adequacy/Preliminary Diagnosis: Not Adequate Grady Brown, CT (ASCP), November 19, 2024 FNA Performed By: Clinician at 1234 EDT Performed By: #### N ONGNFNA #### [facility] (DEFAULT) [address] [place] [address] Case Report Normal [facility] Comment on above: Result Comment: [facility] Cytology Report Case: [id number] Authorizing Provider: Nat Lazar MD Collected: 11/19/2024 12:54 PM Ordering Location: [facility] PERIOP Received: 11/19/2024 02:43 PM Pathologist: Monica Phillips MD Specimens: A) - LYMPH NODE FNA, Level 10L lymph node B) - LYMPH NODE FNA, Level 7 lymph node C) - LUNG FNA, Left lower lobe lung nodule Performed By: #### N ONGNFNA #### [facility] (DEFAULT) [address] [place] [address] Clinical History 74 year old female. Current smoker. History of SCC Normal [facility] Comment on above: Performed By: #### N ONGNFNA #### [facility] (DEFAULT) [address] [address] Gross Description Normal [facility] Comment on above: Result Comment: A: 1 0L Lymph Node-FNA 8.5mls hazy red fluid in RPMI 2 Slides DQ Stain 2 Slides Pap Stain 1 CB Time specimen placed in formalin: 11/19/24 at 15:10 Time specimen removed from formalin: 11/19/24 at 21:02 Total Fixation Time: 5 hours 52 minutes B: Level 7 Lymph Node-FNA 6.5mls hazy red fluid in RPMI 1 Slide DQ Stain 1 Slide Pap Stain 1 CB Time specimen placed in formalin: 11/19/24 at 15:11 Time specimen removed from formalin: 11/19/24 at 21:02 Total Fixation Time: 5 hours 51 minutes C: LLL Lung Nodule-FNA 10.5mls hazy red fluid in RPMI 4 Slides DQ Stain 4 Slides Pap Stain 1 CB Time specimen placed in formalin: 11/19/24 at 15:12 Time specimen removed from formalin: 11/19/24 at 21:02 Total Fixation Time: 5 hours 50 minutes Performed By: #### N ONGNFNA #### [facility] (DEFAULT) [address] [address] Professional Interpretation Performed at: Normal [facility] Comment on above: Result Comment: For Immediate Release [facility] [address] [address] Performed By: #### N ONGNFCASEY #### [facility] (DEFAULT) [address] [address] PT,INR,PTTon 11-19-2024 aPTT Coag (PPP) [Time] 27.6 s [facility] INR Coag (Bld) [Relative time] 1 {INR} 0.9 - 1.1 [facility] Interpretation and review of laboratory results Normal [facility] PT Coag (PPP) [Time] 12.8 s [facility] aPTT Coag (Bld) [Time] 27.6 s Normal 24.0-34.3 [facility] Comment on above: Performed By: #### M SKYLAR, [facility]7 #### [facility] (DEFAULT) [address] [address] INR Coag (PPP) [Relative time] 1.0 {INR} Normal 0.9-1.1 [facility] Comment on above: Performed By: #### M RAUL CHENGM7 #### [facility] (DEFAULT) [address] [place] [address] PT Coag (PPP) [Time] 12.8 s Normal 11.9-14.2 [facility] Comment on above: Performed By: #### M DAX CHENG7 #### [facility] (DEFAULT) [address] [place] [address] Portable XR Chest Viewson IMPRESSION: No pneumothorax or other acute cardiopulmonary process. I personally viewed and interpreted these images and I have reviewed and approved this report. OLOGY EXAM: XR CHEST 1 VIE W PORTABLE, 11/19/2024 15:09 PM COMPARISON: XR CHEST PA AND LATERAL 2 VIEWS February 15, 2024 CLINICAL INDICATIONS: pneumothorax RELEVANT CLINICAL HISTORY: In PACU; status post possible bronchoscopy with lymph node biopsy. FINDINGS: (Adequate technique) Implanted Devices: None Thorax: Evidence of previous right upper lobectomy. Previously described pulmonary nodule in the left lower lobe is not visualized radiographically. Lungs are otherwise clear. No pleural effusion or pneumothorax. No acute osseous abnormality. Evidence of prior left rotator cuff surgery. RADIOLOGY Ivan Walter MD - 11/19/2024 EXAM: XR CHEST 1 VIEW PORTABLE, 11/19/2024 15:09 PM COMPARISON: XR CHEST PA AND LATERAL 2 VIEWS February 15, 2024 CLINICAL INDICATIONS: pneumothorax RELEVANT CLINICAL HISTORY: In PACU; status post possible bronchoscopy with lymph node biopsy. FINDINGS: (Adequate technique) Implanted Devices: None Thorax: Evidence of previous right upper lobectomy. Previously described pulmonary nodule in the left lower lobe is not visualized radiographically. Lungs are otherwise clear. No pleural effusion or pneumothorax. No acute osseous abnormality. Evidence of prior left rotator cuff surgery. IMPRESSION IMPRESSION: No pneumothorax or other acute cardiopulmonary process. I personally viewed and interpreted these images and I have reviewed and approved this report. [facility] Radiology Study observation (narrative) [facility] Portable XR Chest ViewsOrder ed By: Ivan Walter on 11-19-2024 [facility] Work Phone: TYPE AND SCREENon 11-19-2024 ABO/RH(D) TYPE Positive [facility] Specimen Expiration 11/22/2024 23:59 [facility] ABO/RH(D) TYPE Positive Normal [facility] Comment on above: Performed By: #### X M #### [facility] (DEFAULT) [address] [place] [address] Specimen Expiration 11/22/2024 23:59 Normal [facility] Comment on above: Performed By: #### X M #### [facility] (DEFAULT) [address] [place] [address] XR CHEST 1 VIEW PORTABLEon 0 11-19-2024 XR CHEST 1 VIEW PORTABLE EXAM: XR CHEST 1 VIEW PORTABLE, 11/19/2024 15:09 PM COMPARISON: XR CHEST PA AND LATERAL 2 VIEWS February 15, 2024 CLINICAL INDICATIONS: pneumothorax RELEVANT CLINICAL HISTORY: In PACU; status post possible bronchoscopy with lymph node biopsy. FINDINGS: (Adequate technique) Implanted Devices: None Thorax: Evidence of previous right upper lobectomy. Previously described pulmonary nodule in the left lower lobe is not visualized radiographically. Lungs are otherwise clear. No pleural effusion or pneumothorax. No acute osseous abnormality. Evidence of prior left rotator cuff surgery. IMPRESSION: No pneumothorax or other acute cardiopulmonary process. I personally viewed and interpreted these images and I have reviewed and approved this report. Normal [facility] CT CHEST WITHOUT CONTRASTon 10-23-2024 CT CHEST WITHOUT CONTRAST EXAM: CT CHEST WITHOUT CONTRAST, 10/22/2024 12:57 PM CLINICAL INDICATIONS: NSCLC surveillance, new nodule RELEVANT CLINICAL HISTORY: Z85.118:History of lung cancer R91.1:Solitary lung nodule COMPARISON: CT CHEST WITH CONTRAST June 29, 2024 TECHNIQUE: Standard CT scan of the chest was performed. CONTRAST: None FINDINGS: Lungs and Pleura: Surgical changes of prior coronary lobectomy. Previously indexed left lower lobe nodule, 3/140, 13 x 8 mm, unchanged. No new or enlarging nodules. Underlying emphysema. Tracheobronchial tree: Surgical changes from the lobectomy. Patent centrally. Mediastinum/Cande: Index subaortic lymph node, 07/01, 12 x 6 mm, unchanged on remeasurement. Indexed left infrahilar node, less well seen without contrast 07/06, 13 x 12 mm, unchanged. Axilla and Supraclavicular Region: Normal imaged portion of the thyroid gland. No axillary or supraclavicular adenopathy. Cardiovascular: Normal heart size. Atherosclerotic calcifications in the aorta and coronary arteries. Some of the atherosclerotic disease of the thoracic aorta is less well appreciated without contrast. No pericardial effusion. Upper Abdomen: Vascular calcifications. No suspicious lesions. Bones and Soft Tissue: Degenerative change of the thoracic spine. Suture anchors in the left humeral head. No suspicious bone or chest wall lesions. Additional Findings: None. Saw Grinder: Saw Grinder imaging reveals no thoracic abnormalities not already visible on the cross-section images. IMPRESSION: 1. Unchanged suspicious left lower lobe nodule. 2. Unchanged mediastinal lymph nodes. 3. No new abnormalities. Normal [facility] Neurology Visit Reporton Neurology Visit Report [facility] [address] [facility], [address] [place] [address] OFFICE VISIT Date of Service: 10/04/24 MR#: [id number] Acct: [id number] Name: JONO KING Rep #: [id number] : 1950 Provider: Dr. Avel tamayo MD Age/Sex: 74/F Location[facility] Status: Signed with Addenda ADDENDUM by Dr. Avel Segura MD on 10/04/24 at 1301 Addendum Addendum (10/04/2024): At the patient's 10/04/2024 office visit, she reported that she was diagnosed with lung cancer in 2023 and underwent lung surgery at that time. She did not require chemotherapy and is not on any treatment now for lung cancer. She stated that she is to follow-up with Dr. Hunt in 2025 regarding her bilateral carotid stenosis and is to have a carotid ultrasound in 2025. 10/04/24 1301 Date Avel Segura MD cc: * Signed HPI [facility] Chief Complaint: Details: Interim History: Jono returns for follow-up visit. She has a history of anxiety, depression, hyperlipidemia, attention deficit hyperactivity disorder and two TIA/CVA's (2017 and 2018). She had a COVID-19 infection with associated pneumonia in February 2021. At the time of this illness, she noticed having left upper extremity weakness and incoordination and this has persisted though had improved. She has had some difficulty with handwriting (she is left-handed). Occupation therapy in the past was of benefit. Further occupational therapy was ordered however she did not complete this. She has had lifelong memory difficulty but felt this worsened since her COVID-19 infection. No recent further worsening of her memory is reported. She has a tendency to forget conversations and to repeat conversations and to misplace objects however she remains independent in her daily activities. She lives at home alone. She takes Adderall for her attention deficit hyperactivity disorder, paroxetine for depression and occasionally uses lorazepam for anxiety. She has musculoskeletal pain including low back pain for which she takes gabapentin. Her stroke or TIA in 2017 manifested with left sided numbness that resolved within seconds. She sought medical attention 2 weeks later. In 2018, she an episode of left-sided facial weakness that resolved within seconds; she did not pursue immediate medical attention though later evaluation with a head MRI apparently revealed a right parietal convexity infarct. She was not taking aspirin at the time her left upper extremity weakness and incoordination occurred in February 2021. On medical evaluation in May 2021, she had a head MRI that revealed a 6 mm acute right parietal stroke. An old right parietal stroke and moderate right-sided chronic subcortical small vessel ischemic disease was also noted. A carotid ultrasound revealed 50 to 69% bilateral internal carotid artery stenosis. She is being followed by a vascular surgeon, Dr. Hunt, and surgical intervention was not felt to be warranted for her carotid disease. She was started on aspirin 81 mg daily following identification of her acute right parietal stroke in May 2021 however, on her own, she subsequently discontinued aspirin. Her carotid ultrasound from July 2024 revealed 50-69% stenosis of the internal carotid arteries bilaterally; vertebral flow was antegrade bilaterally. She takes atorvastatin for hyperlipidemia. Her cholesterol level from 05/10/2023 with was 182. She denies having further symptoms suggestive of recurrent cerebrovascular ischemia. She has had bilateral carpal tunnel surgeries in the past and these were of benefit for hand symptoms she had at that time. A B12 injection was not of benefit for her fatigue. Mini-mental status exam score was 26/30 in May 2021 and 29/30 in July 2022. Physical Exam: Neuro: The patient is awake and alert and responds appropriately; she is oriented to day of the week; she is able to subtract 7 from 100; she is able to spell world backwards Heart: regular rate and rhythm Neck: A right carotid bruits auscultated On exam in May 2024, bilateral carotid bruits were auscultated. Supplemental Info Lipid profile (04/18/2020): LDL 162. Hemoglobin A1c (04/21/2020): 6.1 (elevated) Lipid profile (06/13/2020): Unremarkable CBC CMP (02/19/2021): BUN 19, creatinine 1.22, eGFR 44, glucose 112, platelets were 244 (in normal range) CBC, magnesium, troponin (05/29/2020): Platelets 621. EKG (02/19/21): Normal sinus rhythm; nonspecific T wave changes in anterior leads; abnormal EKG. Carotid ultrasound (04/07/2021): 50-69% stenosis of the right internal carotid artery. 50-69% stenosis of the left internal carotid artery. Vertebral flow is antegrade bilaterally. Head MRI without contrast (05/19/2021): 6 mm focus of abnormal signal in the right parietal lobe on diffusion images consistent with acute ischemia. Chronic remot (more content not included)... Normal [facility] Carotid Duplex Ultrasoundon 08-15-2024 Carotid Duplex Ultrasound [facility] [place] [address] Carotid Duplex Ultrasound 08/15/24 1249 MR#: [id number] Acct: [id number] Name: JONO KING Rep #: [id number] : 1950 73 From: Chuy Hunt MD Attending Dr: Dr. Chuy Hunt MD Status: DE P CLI Ordering Dr: Chuy Hunt MD Date: 08/15/24 Location: [facility] Sex: F C Admitted: Reason For Study Reason For Study: Carotid stenosis Rt. Velocities/BP Lt. Velocities/BP Prox CCA 90.5/17.9 cm/sec. Prox CCA 93.7/7.9 cm/sec. Mid CCA 63.6/12.6 cm/sec. Mid CCA 88.8/15.1 cm/sec. Dist CCA 78.7/15.4 cm/sec. Dist CCA 98.6/22.5 cm/sec. Prox ICA 163.1/46.8 cm/sec. Prox ICA 150.3/35.3 cm/sec. Mid ICA 63/19 cm/sec. Mid ICA 126/24.6 cm/sec. Dist ICA 97.1/32.2 cm/sec. Dist ICA 110.1/17 cm/sec. Rt. ICA/CCA = 2.56. Lt. ICA/CCA = 1.69. Prox ECA 80.6/8.8 cm/sec. Prox ECA 159.5/17 cm/sec. Rt. Vert. 45.6/12.6 cm/sec. Lt. Vert. 77.3/17.9 cm/sec. Right Extracranial There is heterogeneous, irregular atherosclerotic plaque noted in the right common carotid artery. There is heterogeneous, irregular atherosclerotic plaque noted in the right internal carotid artery. There is heterogeneous, irregular atherosclerotic plaque noted in the right external carotid artery. Antegrade flow is noted in the right vertebral artery. Left Extracranial There is heterogeneous, irregular atherosclerotic plaque noted in the left common carotid artery. There is heterogeneous, irregular atherosclerotic plaque noted in the left internal carotid artery. There is heterogeneous, irregular atherosclerotic plaque noted in the left external carotid artery. Antegrade flow is noted in the left vertebral artery. Procedure Carotid Duplex 18244. This is a Carotid Duplex examination using B-mode, color flow and specral Doppler. Exam performed in department. VL/Carotid Duplex Ultrasound Interpretation Summary Moderate (50-69%) stenosis right extracranial internal carotid. Moderate (50-69%) stenosis left extracranial internal carotid. Patent and antegrade vertebrals bilaterally. Ordering Physician: Chuy Hunt Referring Physician: Courtney Hayward Performed By: Destiny Carey RVT 09/06/241932 Date Chuy Hunt MD CC: Dr. Chuy Hunt MD; Dr. Courtney Hayward MD Date Dictated: 08/15/24 1249 Date Transcribed: 09/06/241932 Tv Host: Signed Normal [facility] Positron emission tomography scan reportOrdered By: Jac Martinez on 07-18-2024 PT Unspecified body region [facility] Imaging Services [address] [place] [id number] PET/CT Tumor Base -Thigh Subs MR#: [id number] Acct: [id number] Name: JONO KING Kiran Rep #: [id number] : 1950 F 73 From: Julien Martinez MD PCP: Dr. Courtney Hayward MD Status: R EG CLI Study:PET/CT Tumor Base -Thigh Subs Date of E xam: 07/17/24 Exam# [id number] Ordering Dr: KELSEA GAMBLE EXAM: PET/CT TUMOR BASE -THIGH SUBS CLINICAL HISTORY: SUSPICION FOR MALIGNANCY COMPARISON: PET-CT 11/22/2019 TECHNIQUE: F-18 FDG PET-CT, from the skull base to the mid thigh. Dose: 12.966 mCi F-18 FDG intravenous FINDINGS: Neck: No focus of abnormal hypermetabolic activity is seen. Chest: Interval resection of the previously noted right upper lobe mass, without residual hypermetabolic activity in the tumor site. Increased uptake of the posterior right chest is consistent with interval surgery. No significant hilar or mediastinal hypermetabolic activity is seen. Abdomen and pelvis: No focus of abnormal hypermetabolic activity is seen Bone: No focus of abnormal hypermetabolic activity is seen. Additional: Prominent aortic calcification is seen; ectasia of the mid to distal abdominal aorta is noted. Moderate coronary artery calcification is seen. Mild increased uptake is seen adjacent to the bilateral greater trochanters, consistent with greater trochanteric bursitis bilaterally. PET/PET/CT Tumor Base -Thigh Subs IMPRESSION: In this postsurgical patient, no focus of residual or recurrent tumor is seen. Reading Location: [address] CC: Dr. Courtney Hayward MD; KELSEA GAMBLE ~ Tv Host: Signed [facility] PET/CT Tumor Base -Thigh Sub son 07-17-2024 PET/CT Tumor Base -Thigh Subs [facility] Imaging Services [address] [place] [address] PET/CT Tumor Base -Thigh Subs MR#: [id number] Acct: [id number] Name: JONO KING Rep #: [id number] : 1950 F 73 From: Jac Sparks PCP: Dr. Courtney Hayward MD Status: REG CLI Study: PET/CT Tumor Base -Thigh Subs Date of Exam: Exam# [id number] Ordering Dr: KELSEA GAMBLE EXAM: PET/CT TUMOR BASE -THIGH SUBS CLINICAL HISTORY: SUSPICION FOR MALIGNANCY COMPARISON: PET-CT 11/22/2019 TECHNIQUE: F-18 FDG PET-CT, from the skull base to the mid thigh. Dose: 12.966 mCi F-18 FDG intravenous FINDINGS: Neck: No focus of abnormal hypermetabolic activity is seen. Chest: Interval resection of the previously noted right upper lobe mass, without residual hypermetabolic activity in the tumor site. Increased uptake of the posterior right chest is consistent with interval surgery. No significant hilar or mediastinal hypermetabolic activity is seen. Abdomen and pelvis: No focus of abnormal hypermetabolic activity is seen Bone: No focus of abnormal hypermetabolic activity is seen. Additional: Prominent aortic calcification is seen; ectasia of the mid to distal abdominal aorta is noted. Moderate coronary artery calcification is seen. Mild increased uptake is seen adjacent to the bilateral greater trochanters, consistent with greater trochanteric bursitis bilaterally. PET/PET/CT Tumor Base -Thigh Subs IMPRESSION: In this postsurgical patient, no focus of residual or recurrent tumor is seen. Reading Location: [address] CC: Dr. Courtney Hayward MD; KELSEA GAMBLE Tv Host: Signed Normal [facility] CREAT/GFRon 06-29-2024 Creatinine [Mass/Vol] 0.83 mg/dL 0.50 - 1.20 mg/dL [facility] GFR/1.73 sq M.predicted CKD-EPI (S/P/Bld) [Vol rate/Area] 74 - PINF [facility] Comment on above: Reported eGFR is bas ed on the CKD-EPI 2020 equation using creatinine, age, and sex. Interpretation and review of laboratory results Normal [facility] Test performed at address of the patient encounter. [facility] CT CHEST WITH CONTRASTon CT CHEST WITH CONTRAST EXAM: CT CHEST WI TH CONTRAST COMPARISON: 11/22/23 nuclear medicine PET scan CLINICAL INDICATIONS: NSCLC surveillance TECHNIQUE: IV contrast enhanced axial CT images of the chest 5 mm with 1 mm contiguous high-resolution, coronal MIP and sagittal MPR series. FINDINGS: Status post right upper lobectomy. No growing soft tissue to suggest recurrent disease. Within the left lower lobe superior segment on series 3 image 124, there is a growing nodule measuring 13 x 8 mm, previously barely discernible on the prior exam measuring approximately 4 x 2 mm. This is very likely to represent a growing metachronous lung cancer. No other suspect pulmonary nodules. Left upper lobe emphysema. No pleural effusions or groundglass opacities. The posterior arch of the thoracic aorta demonstrates a moderate to large posterior wall mural thrombus measuring 15 x 15 x 10 mm. Smaller mural thrombi along the inferior left lateral arch and scattered along the descending thoracic aorta. Moderate to severe atherosclerotic disease involving the brachiocephalic arteries and descending thoracic aorta. Suspected high-grade stenosis involving the origin of the left subclavian artery. Nonurgent vascular surgery consultation is suggested. The pulmonary arteries appear unremarkable. Borderline sized heart without pericardial effusion. Coronary artery calcification. Left superior lateral mediastinal lymph node on series 3 image 96 measures 2 x 6 mm, unchanged from the prior examination. Left infrahilar lymph node on series 3 image 139 measures 13 x 12 mm, estimated to measure 10 x 9 mm on the prior exam, although difficult to visualize given the absence of IV contrast and thicker sections. No other suspect mediastinal, axillary or hilar lymph nodes. Visualized upper abdomen does not demonstrate any suspect adrenal lesions. Moderate to severe atherosclerotic disease involving the abdominal aorta. Osseous structures do not demonstrate any suspect lesions. Bilateral shoulder osteoarthritis and prior left shoulder orthopedic surgery. IMPRESSION: 1. Status post right upper lobectomy. No evidence for local recurrence 2. Growing left lower lobe superior segmental nodules, highly suspect to represent a metachronous lung cancer. Mildly enlarged left infrahilar lymph node, suspected to be increased from the prior exam. 3. Severe moderate to severe atherosclerotic disease, especially involving the left subclavian artery and descending thoracic aorta, the latter of which demonstrates multiple soft plaque and a moderate to large posterior wall distal arch mural thrombus. Nonurgent vascular surgery consultation is suggested for further workup and treatment options. Keyshawn Walker M.D. This report has been electronically signed and verified by the Radiologist whose name is printed above. This report contains privileged and confidential information and is intended solely for the use of the individual or entity to which it is addressed. If you are not the intended recipient of this report, you are hereby notified that any copying, distribution, dissemination or action taken in relation to the contents of this report is strictly prohibited and may be unlawful. If you have received this report in error, please notify the sender immediately at [phone] and permanently delete the original report and destroy any copies or printouts. Normal [facility] CT Chest W contrast Gerardo IMPRESSION: 1. Status post right upper lobectomy. No evidence for local recurrence 2. Growing left lower lobe superior segmental nodules, highly suspect to represent a metachronous lung cancer. Mildly enlarged left infrahilar lymph node, suspected to be increased from the prior exam. 3. Severe moderate to severe atherosclerotic disease, especially involving the left subclavian artery and descending thoracic aorta, the latter of which demonstrates multiple soft plaque and a moderate to large posterior wall distal arch mural thrombus. Nonurgent vascular surgery consultation is suggested for further workup and treatment options. Keyshawn Walker M.D. This report has been electronically signed and verified by the Radiologist whose name is printed above. This report contains privileged and confidential information and is intended solely for the use of the individual or entity to which it is addressed. If you are not the intended recipient of this report, you are hereby notified that any copying, distribution, dissemination or action taken in relation to the contents of this report is strictly prohibited and may be unlawful. If you have received this report in error, please notify the sender immediately at [phone] and permanently delete the original report and destroy any copies or printouts. RADIOLOGY EXAM: CT CHEST WITH CONTRAST COMPARISON: 11/22/23 nuclear medicine PET scan CLINICAL INDICATIONS: NSCLC surveillance TECHNIQUE: IV contrast enhanced axial CT images of the chest 5 mm with 1 mm contiguous high-resolution, coronal MIP and sagittal MPR series. FINDINGS: Status post right upper lobectomy. No growing soft tissue to suggest recurrent disease. Within the left lower lobe superior segment on series 3 image 124, there is a growing nodule measuring 13 x 8 mm, previously barely discernible on the prior exam measuring approximately 4 x 2 mm. This is very likely to represent a growing metachronous lung cancer. No other suspect pulmonary nodules. Left upper lobe emphysema. No pleural effusions or groundglass opacities. The posterior arch of the thoracic aorta demonstrates a moderate to large posterior wall mural thrombus measuring 15 x 15 x 10 mm. Smaller mural thrombi along the inferior left lateral arch and scattered along the descending thoracic aorta. Moderate to severe atherosclerotic disease involving the brachiocephalic arteries and descending thoracic aorta. Suspected high-grade stenosis involving the origin of the left subclavian artery. Nonurgent vascular surgery consultation is suggested. The pulmonary arteries appear unremarkable. Borderline sized heart without pericardial effusion. Coronary artery calcification. Left superior lateral mediastinal lymph node on series 3 image 96 measures 2 x 6 mm, unchanged from the prior examination. Left infrahilar lymph node on series 3 image 139 measures 13 x 12 mm, estimated to measure 10 x 9 mm on the prior exam, although difficult to visualize given the absence of IV contrast and thicker sections. No other suspect mediastinal, axillary or hilar lymph nodes. Visualized upper abdomen does not demonstrate any suspect adrenal lesions. Moderate to severe atherosclerotic disease involving the abdominal aorta. Osseous structures do not demonstrate any suspect lesions. Bilateral shoulder osteoarthritis and prior left shoulder orthopedic surgery. RADIOLOGY Keyshawn Beckford MD - 06/29/2024 EXAM: CT CHEST WITH CONTRAST COMPARISON: 11/22/23 nuclear medicine PET scan CLINICAL INDICATIONS: NSCLC surveillance TECHNIQUE: IV contrast enhanced axial CT images of the chest 5 mm with 1 mm contiguous high-resolution, coronal MIP and sagittal MPR series. FINDINGS: Status post right upper lobectomy. No growing soft tissue to suggest recurrent disease. Within the left lower lobe superior segment on series 3 image 124, there is a growing nodule measuring 13 x 8 mm, previously barely discernible on the prior exam measuring approximately 4 x 2 mm. This is very likely to represent a growing metachronous lung cancer. No other suspect pulmonary nodules. Left upper lobe emphysema. No pleural effusions or groundglass opacities. The posterior arch of the thoracic aorta demonstrates a moderate to large posterior wall mural thrombus measuring 15 x 15 x 10 mm. Smaller mural thrombi along the inferior left lateral arch and scattered along the descending thoracic aorta. Moderate to severe atherosclerotic disease involving the brachiocephalic arteries and descending thoracic aorta. Suspected high-grade stenosis involving the origin of the left subclavian artery. Nonurgent vascular surgery consultation is suggested. The pulmonary arteries appear unremarkable. Borderline sized heart without pericardial effusion. Coronary artery calcification. Left superior lateral mediastinal lymph node on series 3 image 96 measures 2 x 6 mm, unchanged from the prior examination. Left infrahilar lymph node on series 3 image 139 measures 13 x 12 mm, estimated to measure 10 x 9 mm on the prior exam, although difficult to visualize given the absence of IV contrast and thicker sections. No other suspect mediastinal, axillary or hilar lymph nodes. Visualized upper abdomen does not demonstrate any suspect adrenal lesions. Moderate to severe atherosclerotic disease involving the abdominal aorta. Osseous structures do not demonstrate any suspect lesions. Bilateral shoulder osteoarthritis and prior left shoulder orthopedic surgery. IMPRESSION IMPRESSION: 1. Status post right upper lobectomy. No evidence for local recurrence 2. Growing left lower lobe superior segmental nodules, highly suspect to represent a metachronous lung cancer. Mildly enlarged left infrahilar lymph node, suspected to be increased from the prior exam. 3. Severe moderate to severe atherosclerotic disease, especially involving the left subclavian artery and descending thoracic aorta, the latter of which demonstrates multiple soft plaque and a moderate to large posterior wall distal arch mural thrombus. Nonurgent vascular surgery consultation is suggested for further workup and treatment options. Keyshawn Walker M.D. This report has been electronically signed and verified by the Radiologist whose name is printed above. This report contains privileged and confidential information and is intended solely for the use of the individual or entity to which it is addressed. If you are not the intended recipient of this report, you are hereby notified that any copying, distribution, dissemination or action taken in relation to the contents of this report is strictly prohibited and may be unlawful. If you have received this report in error, please notify the sender immediately at [phone] and permanently delete the original report and destroy any copies or printouts. [facility] Radiology Study observation (narrative) [facility] CT Chest W contrast IVOrdere d By: Keyshawn Walker on 06-29-2024 [facility] Pulmonary Visit Reporton Pulmonary Visit Report [facility] Pulmonary Medicine [facility] [address] [place] [address]. 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 She is status post partial right upper lobe lobectomy which occurred on February 02, 2024 at [facility]. The patient recovered well and was discharged on February 04, 2024. She has a follow up with [facility] in May, with a repeat CT chest. She also has a follow up with Dr Lazar at [facility] in June. She was only going to keep one, since they are both the same. I explained that one with with oncology and the other was with cardiothoracic surgery. She does not seem to understand the importance of keeping both appointments, she was highly encouraged to do so. Unfortunately, her daughter had left the room, so all education was done with the patient independently. (2) Mild cognitive impairment: Status: Chronic Plan: Complicates exam, plan, care and prognosis. Education and instructions need to be repeated multiple times. (3) Nicotine dependence, cigarettes, uncomplicated: Status: Chronic Plan: Complicates exam, plan, care and prognosis. Continue to encourage complete smoking cessation. Repeat PFT in 5 months. Return to the office in 6 months to discuss test results and continue to monitor the patient. (4) Shortness of breath: Status: Acute Plan: Deteriorated, progressed. Pulmonary function test from December showed a mild reduction diffusing capacity. Walking oximetry performed in the office today. It was determined that the patient did not qualify for supplemental oxygen. This was explained to the patient. I believe she is just adjusting to the volume loss from the lobectomy and she will acclimate with time. Orders: Orders Walking Oximetry Today R06.02 - Shortness of breath PFT Complete: DLCO, Spirometry b/a bronchodilators, lung volumes 09/11/24 R06.02 - Shortness of breath Plan Details Follow Up: 6 Months (LMR) HPI HPI Comments Details: This patient presents to the office today for a routine follow-up. She is ambulatory, currently on room air and accompanied today by her daughter. She has not recently been seen in the ED or urgent care for any respiratory illness. She has not required any antibiotics or prednisone for any breathing problems. Since last office visit patient has successful right upper lobe lobectomy. She is not currently on any inhalers. She does not utilize an albuterol inhaler. She continues to smoke cigarettes. She is currently smoking 1 cigarette/week. She reports shortness of breath on exertion. She believes that oxygen will be helpful. She denies any cough, sputum production or hemoptysis. She has some occasional wheezing, but denies any chest tightness, chest pain or palpitations. She also denies any fever, chills or body aches. Pulmonary function test completed on December 26, 2019: Shows only a mild reduction in diffusing capacity. Intake Vital Signs 12/13/23 07:47 12/26/23 10:40 03/01/24 14:34 04/13/24 09:03 04/13/24 09:25 04/13/24 09:26 04/13/24 09:27 04/13/24 09:28 04/13/24 09:29 04/13/24 09:30 04/13/24 09:31 Height 5 ft 5 in 5 ft 5 in 5 ft 5 in 5 ft 5 in Weight: 165 lb BMI 27.4 BP 146/69 H Blood Pressure Location Lt brachial Position Sitting Respiration 20 H Pulse 93 93 104 H 105 H 109 H 110 H 114 H 114 H Pulse Source Monitor Monitor Monitor Monitor Monitor Monitor Monitor Temp 97.3 F L Temperature Source Temporal Artery Pulse Oximetry (%) 97 97 96 96 96 98 97 97 Oxygen Delivery Method room air room air room air room air room air room air room air Comment at rest 1 minute 2 minute 3 minute 4 minutes 5 minutes 6 minutes Intake Visit Reasons: 4 M FU Chief Complaint: Lung cancer Ply 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 Required: No Accompanied by: Daughter Allergies grass pollen Allergy (Mild, Verified 04/13/24 09:06) watery eyes Medications ???Medication ???Instructions ???Recorded ???Confirmed ???Type coenzyme Q10 100 mg capsule 200 mg PO DAILY 06/08/21 04/13/24 History cyclosporine 0.09 % eye drops in a 1 drp ophthalmic (eye) 06/08/21 04/13/24 History dropperette dextroamphetamine-amph etamine 30 30 mg PO QAM 06/08/21 04/13/24 History mg tablet lorazepam 0.5 mg tablet 0.5 mg PO DAILY PRN anxiety 06/08/21 04/13/24 History paroxetine HCl 25 mg 25 mg PO DAILY 06/08/21 04/13/24 History (more content not included)... Normal [facility] Oncology Visit Reporton 10-2 Oncology Visit Report [facility] [address] [place] [address] OFFICE VISIT Date of Service: 03/01/24 1427 MR#: [id number] Acct: [id number] Name: JONO KING Rep #: [id number] : 1950 From: Julissa Abreu MD Age/Sex: 73/F Location[facility] Status: Signed HPI Subjective Date of Service 03/01/24 Chief Complaint Lung cancer History of Present Illness 73-year-old female smoker who had a screening CT scan of the chest in November 2023 after presenting with protracted cough following COVID infection that reported a right upper lobe suspicious nodule. November 22, 2023 PET/CT: FINDINGS: Head/Neck: There is no evidence of abnormal increased glucose metabolism in the pharyngeal mucosal space, parapharyngeal space, bilateral-lateral and anterior neck, hypopharynx and distribution of the laryngeal structures. The visualized portion of the cerebral cortical-subcortical structures demonstrate symmetric and preserved glucose metabolism. CHEST: Facilitated radiopharmaceutical concentration is defined in the right upper lung field, right upper lobe generating a calculated maximum standard uptake value of 6.7. The maximum axial diameter of the corresponding metabolic, morphologic abnormality is 31.4 mm. Prominent radiopharmaceutical concentration is identified in the left ventricular myocardium commensurate with the fed [place]. Pertinent chest CT findings are as follows. There is atherosclerotic calcification defined in the thoracic aorta without evidence of dilatation-aneurysm formation. Coronary arterial calcification is observed. Right and left axillary soft tissue densities are ametabolic. Scattered mediastinal soft tissue reveals no evidence of increased tracer uptake. Pericardial thickening defines no evidence of increased FDG uptake. Abdomen/Pelvis: Normal physiologic distribution of the radiopharmaceutical is apparent in the hepatic (3.7) and splenic parenchyma, both renal units, bladder and visualized intestinal tract. Diffuse radiopharmaceutical concentration is noted in all four quadrants of the abdomen and pelvis. The abdomen and pelvis CT findings are as follows. There is atherosclerotic calcification defined in the abdominal aorta without evidence of dilatation-aneurysm formation. Abdominal-pelvic arterial calcification is observed. Right and left inguinal soft tissue densities are ametabolic. Skeletal: Degenerative changes are noted in the cervical, thoracic and lumbar spine. PET/PET/CT Tumor Base -Thigh Init IMPRESSION: 1. ABNORMAL EXAMINATION INDICATIVE OF MALIGNANT-VIABLE NEOPLASM. 2. Increased tracer uptake noted in the right upper lung field, right upper lobe fulfills quantitative criteria for viable neoplasm, histopathologic analysis is recommended. (Nimesh et al, Journal of Nuclear Medicine, 32:1, 1991). 3. No other quantitative significant abnormalities are noted. December 08, 2023 Right upper lobe lung, CT guided core biopsy: Moderately differentiated squamous cell carcinoma February 02, 2024 right robotic assisted right upper lobe lobectomy. Pathology: Right upper lobe squamous cell carcinoma, 3.5 cm maximum diameter, G3 poorly differentiated, visceral pleural invasion not identified, lymphovascular invasion not identified, all margins negative for invasive carcinoma with distance from invasive carcinoma to closest margin 2.7 cm, all regional lymph nodes (27) negative for tumor, pathologic stage T2a N0 Treatment summary and response: February 02, 2020 for right robotic assisted right upper lobectomy at [facility]. [facility] Medical History Fatigue Fatigue CVA (cerebral vascular accident) Skin cancer IBS (irritable bowel syndrome) High cholesterol Chronic bronchitis Cataracts, bilateral History of back problems Rheumatoid arthritis Seasonal allergies Surgical History (Updated 03/01/24 @ 14:38 by Eryn Hernandez) History of lobectomy of lung History of rotator cuff surgery History of hand surgery History of bunionectomy Family History Other Arthritis Breast cancer CVA (cerebral vascular accident) Cancer Colon cancer Hypercholesteremia Hypertension Ovarian cancer Social History Smoking Status: Current every day smoker tobacco type: cigarettes Tobacco: How many years used: 40 Electronic Cigarette Use: not used second hand exposure: No alcohol intake: never substance use type: does not use ROS Constitutional Constitutional: Reports systems reviewed and no addt'l complaints, except as documented; Denies fever(s) or weight loss Eyes Eyes: Reports systems reviewed and no addt'l complaints, except as documented ENT H (more content not included)... Normal [facility] XR CHEST PA AND LATERAL 2 EWSon 02-15-2024 XR CHEST PA AND LATERAL 2 VIEWS EXAM: XR CHEST PA AND LATERAL 2 VIEWS, 02/15/2024 13:34 PM COMPARISON: February 04, 2024 CLINICAL INDICATIONS: post op follow up RELEVANT CLINICAL HISTORY: C34.11:Malignant neoplasm of upper lobe, right bronchus or lung C34.11: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 FINDINGS: (Adequate technique) Implanted Devices: None Lungs: Volume loss in the medial right hemithorax. Pleural Spaces: No pleural effusion. No pneumothorax. Mediastinum and Cande: Normal Cardiac silhouette and great vessels: Normal heart size. Unremarkable aorta. Chest Wall: Normal IMPRESSION: Postop changes. No acute process. Normal [facility] XR Chest PA and Lateralon IMPRESSION: Postop changes. No acute process. OLOGY EXAM: XR CHEST PA AN D LATERAL 2 VIEWS, 02/15/2024 13:34 PM COMPARISON: February 04, 2024 CLINICAL INDICATIONS: post op follow up RELEVANT CLINICAL HISTORY: C34.11:Malignant neoplasm of upper lobe, right bronchus or lung C34.11: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 FINDINGS: (Adequate technique) Implanted Devices: None Lungs: Volume loss in the medial right hemithorax. Pleural Spaces: No pleural effusion. No pneumothorax. Mediastinum and Cande: Normal Cardiac silhouette and great vessels: Normal heart size. Unremarkable aorta. Chest Wall: Normal RADIOLOGY Eric Valencia MD - 02/15/2024 EXAM: XR CHEST PA AND LATERAL 2 VIEWS, 02/15/2024 13:34 PM COMPARISON: February 04, 2024 CLINICAL INDICATIONS: post op follow up RELEVANT CLINICAL HISTORY: C34.11:Malignant neoplasm of upper lobe, right bronchus or lung C34.11: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 FINDINGS: (Adequate technique) Implanted Devices: None Lungs: Volume loss in the medial right hemithorax. Pleural Spaces: No pleural effusion. No pneumothorax. Mediastinum and Cande: Normal Cardiac silhouette and great vessels: Normal heart size. Unremarkable aorta. Chest Wall: Normal IMPRESSION IMPRESSION: Postop changes. No acute process. [facility] Radiology Study observation (narrative) [facility] XR Chest PA and LateralOrder ed By: Eric Valencia on 02-15-2024 [facility] Work Phone: CBC AND ELECTRONIC DIFFon Basophils (Bld) [#/Vol] 0.05 10*3/uL 0.00 - 0.15 K/uL [facility] Basophils/100 WBC (Bld) 0.4 % [facility] Differential cell count method Nom (Bld) Electronic Differential [facility] Eosinophils (Bld) [#/Vol] 0.05 10*3/uL 0.00 - 0.42 K/uL [facility] Eosinophils/100 WBC (Bld) 0.4 % [facility] Erythrocyte distribution width (RBC) [Ratio] 14.1 % 10.8 - 14.9 % [facility] Hematocrit (Bld) [Volume fraction] 35.2 % 34.9 - 44.3 % [facility] Hemoglobin (Bld) [Mass/Vol] 11.2 g/dL Low 11.4 - 15.2 g/dL [facility] Immature granulocytes (Bld) [#/Vol] 0.05 10*3/uL NINF - 0.08 K/uL [facility] Immature granulocytes/100 WBC (Bld) 0.4 % [facility] Interpretation and review of laboratory results Abnormal [facility] Lymphocytes (Bld) [#/Vol] 2.93 10*3/uL 1.16 - 3.51 K/uL [facility] Lymphocytes/100 WBC (Bld) 24.0 % [facility] MCH (RBC) [Entitic mass] 28.4 pg 25.9 - 33.9 pg [facility] MCHC (RBC) [Mass/Vol] 31.8 g/dL 31.4 - 35.9 g/dL [facility] MCV (RBC) [Entitic vol] 89.1 fL 79.6 - 97.7 fL [facility] Monocytes (Bld) [#/Vol] 0.90 10*3/uL High 0.22 - 0.87 K/uL [facility] Monocytes/100 WBC (Bld) 7.4 % O [facility] Neutrophils (Bld) [#/Vol] 8.22 10*3/uL High 1.64 - 7.28 K/uL [facility] Nucleated RBC/100 WBC (Bld) [Ratio] 0.0 % NINF [facility] Platelet mean volume (Bld) [Entitic vol] 9.6 fL 8.5 - 12.2 fL [facility] Platelets (Bld) [#/Vol] 269 10*3/uL 150 - 393 K/uL [facility] RBC (Bld) [#/Vol] 3.95 10*6/uL [facility] Segmented neutrophils/100 WBC (Bld) 67.4 % [facility] WBC (Bld) [#/Vol] 12.20 10*3/uL High 3.99 - 11 .19 K/uL [facility] Basophils (Bld) [#/Vol] 0.05 10*3/uL Normal 0.00-0.15 [facility] Comment on above: Performed By: #### L [id number] #### [facility] (DEFAULT) [address] [address] Basophils/100 WBC (Bld) 0.4 % Normal O [facility] Comment on above: Performed By: #### L [id number] #### [facility] (DEFAULT) [address] [place] [id number] DIFF STATUS Electronic Differential Normal [facility] Comment on above: Performed By: #### L [id number] #### [facility] (DEFAULT) [address] [place] [id number] Eosinophils (Bld) [#/Vol] 0.05 10*3/uL Normal 0.00-0.42 [facility] Comment on above: Performed By: #### L [id number] #### [facility] (DEFAULT) [address] [address] Eosinophils/100 WBC (Bld) 0.4 % Normal [facility] Comment on above: Performed By: #### L [id number] #### [facility] (DEFAULT) [address] [place] [address] Hematocrit (Bld) [Volume fraction] 35.2 % Normal 34.9-44.3 [facility] Comment on above: Performed By: #### L [id number] #### [facility] (DEFAULT) [address] [address] Hemoglobin (Bld) [Mass/Vol] 11.2 g/dL Low 11.4-15.2 [facility] Comment on above: Performed By: #### L [id number] #### [facility] (DEFAULT) [address] [address] Immature Grans % 0.4 % Normal [facility] Comment on above: Performed By: #### L [id number] #### [facility] (DEFAULT) [address] [address] Immature Grans Absolute 0.05 K/uL Normal <=0.08 O [facility] Comment on above: Performed By: #### L [id number] #### [facility] (DEFAULT) [address] [address] Lymphocytes (Bld) [#/Vol] 2.93 10*3/uL Normal 1.16-3.51 [facility] Comment on above: Performed By: #### L [id number] #### [facility] (DEFAULT) [address] [address] Lymphocytes/100 WBC (Bld) 24.0 % Normal [facility] Comment on above: Performed By: #### L [id number] #### [facility] (DEFAULT) [address] [place] [phone] MCV (RBC) [Entitic vol] 89.1 fL Normal 79.6-97.7 O [facility] Comment on above: Performed By: #### L [id number] #### [facility] (DEFAULT) [address] [address] Mean Cell Hgb 28.4 pg Normal 25.9-33.9 [facility] Comment on above: Performed By: #### L [id number] #### [facility] (DEFAULT) [address] [address] Mean Cell Hgb Conc 31.8 g/dL Normal 31.4-35.9 [facility] Comment on above: Performed By: #### L [id number] #### [facility] (DEFAULT) [address] [address] Monocytes (Bld) [#/Vol] 0.90 10*3/uL High 0.22-0.87 [facility] Comment on above: Performed By: #### L [id number] #### [facility] (DEFAULT) [address] [address] Monocytes/100 WBC (Bld) 7.4 % Normal O [facility] Comment on above: Performed By: #### L [id number] #### [facility] (DEFAULT) [address] [address] Nucleated RBC 0.0 /100 WBC Normal <=0.2 [facility] Comment on above: Performed By: #### L [id number] #### [facility] (DEFAULT) [address] [address] Platelet mean volume (Bld) [Entitic vol] 9.6 fL Normal 8.5-12.2 [facility] Comment on above: Performed By: #### L [id number] #### [facility] (DEFAULT) [address] [address] Platelets (Bld) [#/Vol] 269 10*3/uL Normal 150-393 [facility] Comment on above: Performed By: #### L [id number] #### [facility] (DEFAULT) [address] [place] [address] RBC (Bld) [#/Vol] 3.95 10*6/uL Normal 3.91-5.04 [facility] Comment on above: Performed By: #### L [id number] #### [facility] (DEFAULT) [address] [place] [address] RBC Distribution 14.1 % Normal 10.8-14.[address] [facility] Comment on above: Performed By: #### L [id number] #### [facility] (DEFAULT) [address] [place] [address] Segs + Bands Auto 67.4 % Normal [facility] Comment on above: Performed By: #### L [id number] #### [facility] (DEFAULT) [address] [place] [address] Segs + Bands,Absolute Auto 8.22 K/uL High 1.64-7.28 [facility] Comment on above: Performed By: #### L [id number] #### [facility] (DEFAULT) [address] [place] [address] WBC (Bld) [#/Vol] 12.20 10*3/uL High 3.99-11.19 [facility] Comment on above: Performed By: #### L [id number] #### [facility] (DEFAULT) [address] [place] [address] CHEM 7 (LYTES,BUN,CREA,GLUC) on 02-04-2024 Anion gap [Moles/Vol] 11 mmol/L 7 - 17 mmol/L [facility] Chloride [Moles/Vol] 101 mmol/L 98 - 10 8 mmol/L [facility] CO2 [Moles/Vol] 26 mmol/L 21 - 31 mmol/L [facility] Creatinine [Mass/Vol] 1.05 mg/dL 0.50 - 1.20 mg/dL [facility] eGFR, CKD-EPI, Female 56 Low - PINF [facility] Comment on above: Reported eGFR is bas ed on the CKD-EPI 2020 equation using creatinine, age, and sex. Glucose [Mass/Vol] 116 mg/dL High 70 - 99 mg/dL [facility] Interpretation and review of laboratory results Abnormal [facility] Osmolality Calc [Osmolality] 286 [facility] Potassium [Moles/Vol] 4.4 mmol/L 3.5 - 5.0 mmol/L [facility] Sodium [Moles/Vol] 134 mmol/L Low 135 - 145 mmol/L [facility] Urea nitrogen [Mass/Vol] 19 mg/dL 7 - 25 mg/dL [facility] Urea nitrogen/Creatinine [Mass ratio] 18 mg/mg [facility] Anion gap [Moles/Vol] 11 mmol/L Normal 7-17 [facility] Comment on above: Performed By: #### VASU ANDREA #### [facility] (DEFAULT) [address] [place] [address] Chloride [Moles/Vol] 101 mmol/L Normal 98-108 [facility] Comment on above: Performed By: #### VASU ANDREA #### [facility] (DEFAULT) [address] [place] [address] CO2 [Moles/Vol] 26 mmol/L Normal 21-31 [facility] Comment on above: Performed By: #### DAX ANDREA7 #### [facility] (DEFAULT) [address] [place] [address] Creatinine [Mass/Vol] 1.05 mg/dL Normal 0.50-1.20 [facility] Comment on above: Performed By: #### DAX ANDREA7 #### [facility] (DEFAULT) [address] [place] [address] GFR/1.73 sq M.predicted among non-blacks MDRD (S/P/Bld) [Vol rate/Area] 56 mL/min/{1.73_m2} Low >=60 [facility] Comment on above: Result Comment: Repo rted eGFR is based on the CKD-EPI 2020 equation using creatinine, age, and sex. Performed By: #### DAX ANDREA7 #### [facility] (DEFAULT) [address] [place] [address] Glucose [Mass/Vol] 116 mg/dL High 70-99 [facility] Comment on above: Performed By: #### DAX ANDREA7 #### [facility] (DEFAULT) [address] [place] [address] Osmolality [Osmolality] 286 mosm/kg Normal 278-305 [facility] Comment on above: Performed By: #### DAX ANDREA7 #### [facility] (DEFAULT) [address] [place] [address] Potassium [Moles/Vol] 4.4 mmol/L Normal 3.5-5.0 [facility] Comment on above: Performed By: #### VASU ANDREA #### [facility] (DEFAULT) [address] [place] [address] Sodium [Moles/Vol] 134 mmol/L Low 135-145 [facility] Comment on above: Performed By: #### DAX ANDREA7 #### [facility] (DEFAULT) [address] [place] [address] Urea nitrogen [Mass/Vol] 19 mg/dL Normal 7-25 [facility] Comment on above: Performed By: #### VASU ANDREA #### [facility] (DEFAULT) [address] [place] [address] Urea nitrogen/Creatinine [Mass ratio] 18 mg/mg Normal [facility] Comment on above: Performed By: #### DAX ANDREA7 #### [facility] (DEFAULT) [address] [place] [address] MAGNESIUMon 02-04-2024 Interpretation and review of laboratory results Normal [facility] Magnesium [Mass/Vol] 2.1 mg/dL 1.6 - 2 .6 mg/dL [facility] Magnesium [Mass/Vol] 2.1 mg/dL Normal 1.6-2.6 [facility] Comment on above: Performed By: #### M DAX CHENG7 #### [facility] (DEFAULT) [address] [place] [address] No Panel Informationon 02-03 [facility] Portable XR Chest Viewson IMPRESSION: Trace right pleural effusion. No pneumothorax. OLOGY EXAM: XR CHEST 1 VIE W PORTABLE, 02/04/2024 06:08 AM COMPARISON: February 03, 2024 CLINICAL INDICATIONS: pleural effusion RELEVANT CLINICAL HISTORY: FINDINGS: (Adequate technique) Implanted Devices: None Thorax: Stable postoperative changes related to right upper lobectomy. A trace right pleural effusion is present. There is no visible pneumothorax. RADIOLOGY Ivan Walter MD - 02/04/2024 EXAM: XR CHEST 1 VIEW PORTABLE, 02/04/2024 06:08 AM COMPARISON: February 03, 2024 CLINICAL INDICATIONS: pleural effusion RELEVANT CLINICAL HISTORY: FINDINGS: (Adequate technique) Implanted Devices: None Thorax: Stable postoperative changes related to right upper lobectomy. A trace right pleural effusion is present. There is no visible pneumothorax. IMPRESSION IMPRESSION: Trace right pleural effusion. No pneumothorax. [facility] Radiology Study observation (narrative) [facility] Portable XR Chest ViewsOrder ed By: Ivan Walter on 02-04-2024 [facility] Work Phone: XR CHEST 1 VIEW PORTABLEon 0 02-04-2024 XR CHEST 1 VIEW PORTABLE EXAM: XR CHEST 1 VIEW PORTABLE, 02/04/2024 06:08 AM COMPARISON: February 03, 2024 CLINICAL INDICATIONS: pleural effusion RELEVANT CLINICAL HISTORY: FINDINGS: (Adequate technique) Implanted Devices: None Thorax: Stable postoperative changes related to right upper lobectomy. A trace right pleural effusion is present. There is no visible pneumothorax. IMPRESSION: Trace right pleural effusion. No pneumothorax. Normal [facility] CBC AND ELECTRONIC DIFFon Basophils (Bld) [#/Vol] K/uL 0.00 - 0.15 K/uL [facility] Basophils/100 WBC (Bld) 0.2 % [facility] Differential cell count method Nom (Bld) Electronic Differential [facility] Eosinophils (Bld) [#/Vol] K/uL 0.00 - 0.42 K/uL [facility] Eosinophils/100 WBC (Bld) 0.0 % [facility] Erythrocyte distribution width (RBC) [Ratio] 14.2 % 10.8 - 14.9 % [facility] Hematocrit (Bld) [Volume fraction] 34.4 % Low 34.9 - 44.3 % [facility] Hemoglobin (Bld) [Mass/Vol] 11.0 g/dL Low 11.4 - 15.2 g/dL [facility] Immature granulocytes (Bld) [#/Vol] 0.06 10*3/uL NINF - 0.08 K/uL [facility] Immature granulocytes/100 WBC (Bld) 0.5 % [facility] Interpretation and review of laboratory results Abnormal [facility] Lymphocytes (Bld) [#/Vol] 2.23 10*3/uL 1.16 - 3.51 K/uL [facility] Lymphocytes/100 WBC (Bld) 18.4 % [facility] MCH (RBC) [Entitic mass] 28.1 pg 25.9 - 33.9 pg [facility] MCHC (RBC) [Mass/Vol] 32.0 g/dL 31.4 - 35.9 g/dL [facility] MCV (RBC) [Entitic vol] 88.0 fL 79.6 - 97.7 fL [facility] Monocytes (Bld) [#/Vol] 1.15 10*3/uL High 0.22 - 0.87 K/uL [facility] Monocytes/100 WBC (Bld) 9.5 % [facility] Neutrophils (Bld) [#/Vol] 8.63 10*3/uL High 1.64 - 7.28 K/uL [facility] Nucleated RBC/100 WBC (Bld) [Ratio] 0.0 % NINF [facility] Platelet mean volume (Bld) [Entitic vol] 9.6 fL 8.5 - 12.2 fL [facility] Platelets (Bld) [#/Vol] 277 10*3/uL 150 - 393 K/uL [facility] RBC (Bld) [#/Vol] 3.91 10*6/uL [facility] Segmented neutrophils/100 WBC (Bld) 71.4 % [facility] WBC (Bld) [#/Vol] 12.09 10*3/uL High 3.99 - 11 .19 K/uL [facility] Abs Baso Auto < Normal 0.00-0.15 [facility] Comment on above: Performed By: #### L [id number] #### [facility] (DEFAULT) [address] [address] Abs Eos Auto < Normal 0.00-0.42 [facility] Comment on above: Performed By: #### L [id number] #### [facility] (DEFAULT) [address] [place] [address] Basophils/100 WBC (Bld) 0.2 % Normal O [facility] Comment on above: Performed By: #### L [id number] #### [facility] (DEFAULT) [address] [address] DIFF STATUS Electronic Differential Normal [facility] Comment on above: Performed By: #### L [id number] #### [facility] (DEFAULT) [address] [place] [address] Eosinophils/100 WBC (Bld) 0.0 % Normal [facility] Comment on above: Performed By: #### L [id number] #### [facility] (DEFAULT) [address] [place] [address] Hematocrit (Bld) [Volume fraction] 34.4 % Low 34.9-44.3 [facility] Comment on above: Performed By: #### L [id number] #### [facility] (DEFAULT) [address] [place] [address] Hemoglobin (Bld) [Mass/Vol] 11.0 g/dL Low 11.4-15.2 [facility] Comment on above: Performed By: #### L [id number] #### [facility] (DEFAULT) [address] [address] Immature Grans % 0.5 % Normal [facility] Comment on above: Performed By: #### L [id number] #### [facility] (DEFAULT) [address] [place] [address] Immature Grans Absolute 0.06 K/uL Normal <=0.08 O [facility] Comment on above: Performed By: #### L [id number] #### [facility] (DEFAULT) [address] [place] [address] Lymphocytes (Bld) [#/Vol] 2.23 10*3/uL Normal 1.16-3.51 [facility] Comment on above: Performed By: #### L [id number] #### [facility] (DEFAULT) [address] [address] Lymphocytes/100 WBC (Bld) 18.4 % Normal [facility] Comment on above: Performed By: #### L [id number] #### [facility] (DEFAULT) [address] [address] MCV (RBC) [Entitic vol] 88.0 fL Normal 79.6-97.7 O [facility] Comment on above: Performed By: #### L [id number] #### [facility] (DEFAULT) [address] [place] [address] Mean Cell Hgb 28.1 pg Normal 25.9-33.9 [facility] Comment on above: Performed By: #### L [id number] #### [facility] (DEFAULT) [address] [address] Mean Cell Hgb Conc 32.0 g/dL Normal 31.4-35.9 [facility] Comment on above: Performed By: #### L [id number] #### [facility] (DEFAULT) [address] [address] Monocytes (Bld) [#/Vol] 1.15 10*3/uL High 0.22-0.87 [facility] Comment on above: Performed By: #### L AB980 #### [facility] (DEFAULT) [address] [address] Monocytes/100 WBC (Bld) 9.5 % Normal O [facility] Comment on above: Performed By: #### L [id number] #### [facility] (DEFAULT) [address] [address] Nucleated RBC 0.0 /100 WBC Normal <=0.2 [facility] Comment on above: Performed By: #### L [id number] #### [facility] (DEFAULT) [address] [address] Platelet mean volume (Bld) [Entitic vol] 9.6 fL Normal 8.5-12.2 [facility] Comment on above: Performed By: #### L [id number] #### [facility] (DEFAULT) [address] [address] Platelets (Bld) [#/Vol] 277 10*3/uL Normal 150-393 [facility] Comment on above: Performed By: #### L [id number] #### [facility] (DEFAULT) [address] [address] RBC (Bld) [#/Vol] 3.91 10*6/uL Normal 3.91-5.04 [facility] Comment on above: Performed By: #### L [id number] #### [facility] (DEFAULT) [address] [place] [address] RBC Distribution 14.2 % Normal 10.8-14.[address] [facility] Comment on above: Performed By: #### L [id number] #### [facility] (DEFAULT) [address] [place] [address] Segs + Bands Auto 71.4 % Normal [facility] Comment on above: Performed By: #### L [id number] #### [facility] (DEFAULT) [address] [place] [address] Segs + Bands,Absolute Auto 8.63 K/uL High 1.64-7.28 [facility] Comment on above: Performed By: #### L [id number] #### [facility] (DEFAULT) [address] [place] [address] WBC (Bld) [#/Vol] 12.09 10*3/uL High 3.99-11.19 [facility] Comment on above: Performed By: #### L [id number] #### [facility] (DEFAULT) [address] [place] [address] CHEM 7 (LYTES,BUN,CREA,GLUC) on 02-03-2024 Anion gap [Moles/Vol] 14 mmol/L 7 - 17 mmol/L [facility] Chloride [Moles/Vol] 105 mmol/L 98 - 10 8 mmol/L [facility] CO2 [Moles/Vol] 24 mmol/L 21 - 31 mmol/L [facility] Creatinine [Mass/Vol] 0.86 mg/dL 0.50 - 1.20 mg/dL [facility] eGFR, CKD-EPI, Female 71 - PINF [facility] Comment on above: Reported eGFR is bas ed on the CKD-EPI 2020 equation using creatinine, age, and sex. Glucose [Mass/Vol] 118 mg/dL High 70 - 99 mg/dL [facility] Interpretation and review of laboratory results Abnormal [facility] Osmolality Calc [Osmolality] 293 [facility] Potassium [Moles/Vol] 4.8 mmol/L 3.5 - 5.0 mmol/L [facility] Sodium [Moles/Vol] 138 mmol/L 135 - 145 mmol/L [facility] Urea nitrogen [Mass/Vol] 15 mg/dL 7 - 25 mg/dL [facility] Urea nitrogen/Creatinine [Mass ratio] 17 mg/mg [facility] Anion gap [Moles/Vol] 14 mmol/L Normal 7-17 [facility] Comment on above: Performed By: #### Neela CHENG CHM7 #### [facility] (DEFAULT) [address] [place] [address] Chloride [Moles/Vol] 105 mmol/L Normal 98-108 [facility] Comment on above: Performed By: #### DAX ANDREA7 #### [facility] (DEFAULT) [address] [place] [address] CO2 [Moles/Vol] 24 mmol/L Normal 21-31 [facility] Comment on above: Performed By: #### DAX ANDREA7 #### [facility] (DEFAULT) [address] [place] [address] Creatinine [Mass/Vol] 0.86 mg/dL Normal 0.50-1.20 [facility] Comment on above: Performed By: #### Neela CHENG CHM7 #### [facility] (DEFAULT) [address] [place] [address] GFR/1.73 sq M.predicted among non-blacks MDRD (S/P/Bld) [Vol rate/Area] 71 mL/min/{1.73_m2} Normal >=60 [facility] Comment on above: Result Comment: Repo rted eGFR is based on the CKD-EPI 2020 equation using creatinine, age, and sex. Performed By: #### Neela CHENG CHNeela7 #### [facility] (DEFAULT) [address] [place] [address] Glucose [Mass/Vol] 118 mg/dL High 70-99 [facility] Comment on above: Performed By: #### DAX ANDREA7 #### [facility] (DEFAULT) [address] [place] [address] Osmolality [Osmolality] 293 mosm/kg Normal 278-305 [facility] Comment on above: Performed By: #### DAX ANDREA7 #### [facility] (DEFAULT) [address] [place] [address] Potassium [Moles/Vol] 4.8 mmol/L Normal 3.5-5.0 [facility] Comment on above: Performed By: #### DAX ANDREA7 #### [facility] (DEFAULT) [address] [place] [address] Sodium [Moles/Vol] 138 mmol/L Normal 135-145 [facility] Comment on above: Performed By: #### VASU ANDREA #### [facility] (DEFAULT) [address] [place] [address] Urea nitrogen [Mass/Vol] 15 mg/dL Normal 7-25 [facility] Comment on above: Performed By: #### VASU ANDREA #### [facility] (DEFAULT) [address] [place] [address] Urea nitrogen/Creatinine [Mass ratio] 17 mg/mg Normal [facility] Comment on above: Performed By: #### DAX ANDREA7 #### [facility] (DEFAULT) [address] [place] [address] MAGNESIUMon 02-03-2024 Interpretation and review of laboratory results Normal [facility] Magnesium [Mass/Vol] 1.8 mg/dL 1.6 - 2 .6 mg/dL [facility] Magnesium [Mass/Vol] 1.8 mg/dL Normal 1.6-2.6 [facility] Comment on above: Performed By: #### DAX ANDREA7 #### [facility] (DEFAULT) [address] [place], [place] [address] No [facility] IMPRESSION: No pneumothorax following chest tube removal. I personally viewed and interpreted these images and I have reviewed and approved this report. OLOGY EXAM: XR CHEST 1 VIE W PORTABLE, 02/03/2024 10:20 AM COMPARISON: Chest radiograph February 03, 2024 CLINICAL INDICATIONS: assess for pneumothorax 2 hrs after chest tube removal (1015) RELEVANT CLINICAL HISTORY: Non-small cell lung carcinoma, status post right upper lobectomy 02/02/2024 FINDINGS: (Adequate technique) Implanted Devices: Interval removal of right-sided chest tube. Thorax: Postoperative changes from right upper lobectomy. No visible pneumothorax. No pleural effusion. Osteoarthritis of the right acromioclavicular joint. RADIOLOGY Rhys Alex M D, PhD - 02/03/2024 EXAM: XR CHEST 1 VIEW PORTABLE, 02/03/2024 10:20 AM COMPARISON: Chest radiograph February 03, 2024 CLINICAL INDICATIONS: assess for pneumothorax 2 hrs after chest tube removal (1015) RELEVANT CLINICAL HISTORY: Non-small cell lung carcinoma, status post right upper lobectomy 02/02/2024 FINDINGS: (Adequate technique) Implanted Devices: Interval removal of right-sided chest tube. Thorax: Postoperative changes from right upper lobectomy. No visible pneumothorax. No pleural effusion. Osteoarthritis of the right acromioclavicular joint. IMPRESSION IMPRESSION: No pneumothorax following chest tube removal. I personally viewed and interpreted these images and I have reviewed and approved this report. [facility] Radiology Study observation (narrative) [facility] IMPRESSION: Stable exam without pneumothorax. OLOGY EXAM: XR CHEST 1 VIE W PORTABLE, 02/03/2024 06:51 AM CLINICAL INDICATIONS: s/p chest tube placement RELEVANT CLINICAL HISTORY: COMPARISON: Compared to the prior study performed one day prior. FINDINGS: Surgical changes on the right. Unchanged right chest tube. No visible pneumothorax. Mild areas of volume loss bilaterally, similar to the previous study. Normal heart size. No pulmonary edema. Degenerative change in the thoracic spine RADIOLOGY Rhys Alex M D, PhD - 02/03/2024 EXAM: XR CHEST 1 VIEW PORTABLE, 02/03/2024 06:51 AM CLINICAL INDICATIONS: s/p chest tube placement RELEVANT CLINICAL HISTORY: COMPARISON: Compared to the prior study performed one day prior. FINDINGS: Surgical changes on the right. Unchanged right chest tube. No visible pneumothorax. Mild areas of volume loss bilaterally, similar to the previous study. Normal heart size. No pulmonary edema. Degenerative change in the thoracic spine IMPRESSION IMPRESSION: Stable exam without pneumothorax. [facility] Radiology Study observation (narrative) [facility] Portable XR Chest ViewsOrder ed By: Rhys Alex on 02-03-2024 [facility] Work Phone: XR CHEST 1 VIEW PORTABLEon 0 02-03-2024 XR CHEST 1 VIEW PORTABLE EXAM: XR CHEST 1 VIEW PORTABLE, 02/03/2024 10:20 AM COMPARISON: Chest radiograph February 03, 2024 CLINICAL INDICATIONS: assess for pneumothorax 2 hrs after chest tube removal (1015) RELEVANT CLINICAL HISTORY: Non-small cell lung carcinoma, status post right upper lobectomy 02/02/2024 FINDINGS: (Adequate technique) Implanted Devices: Interval removal of right-sided chest tube. Thorax: Postoperative changes from right upper lobectomy. No visible pneumothorax. No pleural effusion. Osteoarthritis of the right acromioclavicular joint. IMPRESSION: No pneumothorax following chest tube removal. I personally viewed and interpreted these images and I have reviewed and approved this report. Normal [facility] XR CHEST 1 VIEW PORTABLE EXAM: XR CHEST 1 VIEW PORTABLE, 02/03/2024 06:51 AM CLINICAL INDICATIONS: s/p chest tube placement RELEVANT CLINICAL HISTORY: COMPARISON: Compared to the prior study performed one day prior. FINDINGS: Surgical changes on the right. Unchanged right chest tube. No visible pneumothorax. Mild areas of volume loss bilaterally, similar to the previous study. Normal heart size. No pulmonary edema. Degenerative change in the thoracic spine IMPRESSION: Stable exam without pneumothorax. Normal [facility] CALCIUMon 02-02-2024 Calcium [Mass/Vol] 8.4 mg/dL Low 8.6 - 10. 5 mg/dL [facility] Calcium [Mass/Vol] 8.4 mg/dL Low 8.6-10.5 [facility] Comment on above: Performed By: #### M RAUL CHENG7 #### [facility] (DEFAULT) [address] [place] [address] CBC AND ELECTRONIC DIFFon Basophils (Bld) [#/Vol] 0.05 10*3/uL 0.00 - 0.15 K/uL [facility] Basophils/100 WBC (Bld) 0.4 % [facility] Differential cell count method Nom (Bld) Electronic Differential [facility] Eosinophils (Bld) [#/Vol] K/uL 0.00 - 0.42 K/uL [facility] Eosinophils/100 WBC (Bld) 0.1 % [facility] Erythrocyte distribution width (RBC) [Ratio] 14.1 % 10.8 - 14.9 % [facility] Hematocrit (Bld) [Volume fraction] 36.8 % 34.9 - 44.3 % [facility] Hemoglobin (Bld) [Mass/Vol] 11.8 g/dL 11.4 - 15.2 g/dL [facility] Immature granulocytes (Bld) [#/Vol] 0.07 10*3/uL NINF - 0.08 K/uL [facility] Immature granulocytes/100 WBC (Bld) 0.5 % [facility] Interpretation and review of laboratory results Abnormal [facility] Lymphocytes (Bld) [#/Vol] 1.01 10*3/uL Low 1.16 - 3.51 K/uL [facility] Lymphocytes/100 WBC (Bld) 7.3 % [facility] MCH (RBC) [Entitic mass] 28.1 pg 25.9 - 33.9 pg [facility] MCHC (RBC) [Mass/Vol] 32.1 g/dL 31.4 - 35.9 g/dL [facility] MCV (RBC) [Entitic vol] 87.6 fL 79.6 - 97.7 fL [facility] Monocytes (Bld) [#/Vol] 0.24 10*3/uL 0.22 - 0.87 K/uL [facility] Monocytes/100 WBC (Bld) 1.7 % [facility] Neutrophils (Bld) [#/Vol] 12.44 10*3/uL High 1.64 - 7.28 K/uL [facility] Nucleated RBC/100 WBC (Bld) [Ratio] 0.0 % [facility] Platelet mean volume (Bld) [Entitic vol] 9.4 fL 8.5 - 12.2 fL [facility] Platelets (Bld) [#/Vol] 301 10*3/uL 150 - 393 K/uL [facility] RBC (Bld) [#/Vol] 4.20 10*6/uL [facility] Segmented neutrophils/100 WBC (Bld) 90.0 % [facility] WBC (Bld) [#/Vol] 13.83 10*3/uL High 3.99 - 11 .19 K/uL [facility] Abs Eos Auto < Normal 0.00-0.42 [facility] Comment on above: Performed By: #### M RAUL CHENGM7 #### [facility] (DEFAULT) [address] [place] [address] Basophils (Bld) [#/Vol] 0.05 10*3/uL Normal 0.00-0.15 [facility] Comment on above: Performed By: #### M SKYLAR CHM7 #### [facility] (DEFAULT) [address] [address] Basophils/100 WBC (Bld) 0.4 % Normal O [facility] Comment on above: Performed By: #### Neela CHENG CHM7 #### [facility] (DEFAULT) [address] [address] DIFF STATUS Electronic Differential Normal [facility] Comment on above: Performed By: #### M SKYLAR CHM7 #### [facility] (DEFAULT) [address] [address] Eosinophils/100 WBC (Bld) 0.1 % Normal [facility] Comment on above: Performed By: #### Neela CHENG CHM7 #### [facility] (DEFAULT) [address] [address] Hematocrit (Bld) [Volume fraction] 36.8 % Normal 34.9-44.3 [facility] Comment on above: Performed By: #### Neela CHENG CHM7 #### [facility] (DEFAULT) [address] [address] Hemoglobin (Bld) [Mass/Vol] 11.8 g/dL Normal 11.4-15.2 [facility] Comment on above: Performed By: #### Neela CHENG CHM7 #### [facility] (DEFAULT) [address] [place] [address] Immature Grans % 0.5 % Normal [facility] Comment on above: Performed By: #### Neela CHENG CHM7 #### [facility] (DEFAULT) [address] [address] Immature Grans Absolute 0.07 K/uL Normal <=0.08 O [facility] Comment on above: Performed By: #### Neela CHENG CHM7 #### [facility] (DEFAULT) [address] [place] [address]9567 Lymphocytes (Bld) [#/Vol] 1.01 10*3/uL Low 1.16-3.51 [facility] Comment on above: Performed By: #### Neela CHENG CHM7 #### [facility] (DEFAULT) [address] [place] [address] Lymphocytes/100 WBC (Bld) 7.3 % Normal [facility] Comment on above: Performed By: #### Neela CHENG CHM7 #### [facility] (DEFAULT) [address] [place] [address]37 MCV (RBC) [Entitic vol] 87.6 fL Normal 79.6-97.7 O [facility] Comment on above: Performed By: #### Neela CHENG CHM7 #### [facility] (DEFAULT) [address] [place] [address] Mean Cell Hgb 28.1 pg Normal 25.9-33.9 [facility] Comment on above: Performed By: #### Neela CHENG CHM7 #### [facility] (DEFAULT) [address] [place] [address] 16647 Mean Cell Hgb Conc 32.1 g/dL Normal 31.4-35.9 [facility] Comment on above: Performed By: #### Neela CHENG CHM7 #### [facility] (DEFAULT) [address] [place] [address]71 Monocytes (Bld) [#/Vol] 0.24 10*3/uL Normal 0.22-0.87 [facility] Comment on above: Performed By: #### M SKYLAR CHM7 #### [facility] (DEFAULT) [address] [place] [address]74 Monocytes/100 WBC (Bld) 1.7 % Normal O [facility] Comment on above: Performed By: #### M SKYLAR, CHM7 #### [facility] (DEFAULT) [address] [place] [address]86 Nucleated RBC 0.0 /100 WBC Normal <=0.2 [facility] Comment on above: Performed By: #### DAX ANDREA7 #### [facility] (DEFAULT) [address] [place] [address] Platelet mean volume (Bld) [Entitic vol] 9.4 fL Normal 8.5-12.2 [facility] Comment on above: Performed By: #### Neela CHENG CHM7 #### [facility] (DEFAULT) [address] [place] [address] Platelets (Bld) [#/Vol] 301 10*3/uL Normal 150-393 [facility] Comment on above: Performed By: #### Neela CHENG CHM7 #### [facility] (DEFAULT) [address] [place] [address] RBC (Bld) [#/Vol] 4.20 10*6/uL Normal 3.91-5.04 [facility] Comment on above: Performed By: #### Neela CHENG CHM7 #### [facility] (DEFAULT) [address] [place] [address] 18322 RBC Distribution 14.1 % Normal 10.8-14.[address] [facility] Comment on above: Performed By: #### Neela CHENG CHM7 #### [facility] (DEFAULT) [address] [place] [address] Segs + Bands Auto 90.0 % Normal [facility] Comment on above: Performed By: #### Neela CHENG CHM7 #### [facility] (DEFAULT) [address] [place] [address] Segs + Bands,Absolute Auto 12.44 K/uL High 1.64-7.28 [facility] Comment on above: Performed By: #### Neela CHENG CHM7 #### [facility] (DEFAULT) [address] [place] [address] WBC (Bld) [#/Vol] 13.83 10*3/uL High 3.99-11.19 [facility] Comment on above: Performed By: #### M CHM7 #### [facility] (DEFAULT) [address] [place] [address] Basophils (Bld) [#/Vol] 0.07 10*3/uL 0.00 - 0.15 K/uL [facility] Basophils/100 WBC (Bld) 0.8 % O [facility] Differential cell count method Nom (Bld) Electronic Differential [facility] Eosinophils (Bld) [#/Vol] 0.19 10*3/uL 0.00 - 0.42 K/uL [facility] Eosinophils/100 WBC (Bld) 2.1 % [facility] Erythrocyte distribution width (RBC) [Ratio] 14.1 % 10.8 - 14.9 % [facility] Hematocrit (Bld) [Volume fraction] 39.3 % 34.9 - 44.3 % [facility] Hemoglobin (Bld) [Mass/Vol] 12.6 g/dL 11.4 - 15.2 g/dL [facility] Immature granulocytes (Bld) [#/Vol] K/uL NINF - 0.08 K/uL [facility] Immature granulocytes/100 WBC (Bld) 0.2 % [facility] Interpretation and review of laboratory results Abnormal [facility] Lymphocytes (Bld) [#/Vol] 3.79 10*3/uL High 1.16 - 3.51 K/uL [facility] Lymphocytes/100 WBC (Bld) 41.1 % [facility] MCH (RBC) [Entitic mass] 27.8 pg 25.9 - 33.9 pg [facility] MCHC (RBC) [Mass/Vol] 32.1 g/dL 31.4 - 35.9 g/dL [facility] MCV (RBC) [Entitic vol] 86.6 fL 79.6 - 97.7 fL [facility] Monocytes (Bld) [#/Vol] 0.92 10*3/uL High 0.22 - 0.87 K/uL [facility] Monocytes/100 WBC (Bld) 10.0 % O [facility] Neutrophils (Bld) [#/Vol] 4.24 10*3/uL 1.64 - 7.28 K/uL [facility] Nucleated RBC/100 WBC (Bld) [Ratio] 0.0 % NINF [facility] Platelet mean volume (Bld) [Entitic vol] 9.3 fL 8.5 - 12.2 fL [facility] Platelets (Bld) [#/Vol] 316 10*3/uL 150 - 393 K/uL [facility] RBC (Bld) [#/Vol] 4.54 10*6/uL [facility] Segmented neutrophils/100 WBC (Bld) 45.8 % [facility] WBC (Bld) [#/Vol] 9.23 10*3/uL 3.99 - 11. 19 K/uL [facility] Basophils (Bld) [#/Vol] 0.07 10*3/uL Normal 0.00-0.15 [facility] Comment on above: Performed By: ###VASU PATTON #### [facility] (DEFAULT) [address] [place] [address] Basophils/100 WBC (Bld) 0.8 % Normal O [facility] Comment on above: Performed By: ###VASU PATTON #### [facility] (DEFAULT) [address] [place] [address] DIFF STATUS Electronic Differential Normal [facility] Comment on above: Performed By: #### VASU ANDREA #### [facility] (DEFAULT) [address] [place] [address] Eosinophils (Bld) [#/Vol] 0.19 10*3/uL Normal 0.00-0.42 [facility] Comment on above: Performed By: #### VASU ANDREA #### [facility] (DEFAULT) [address] [place] [address] Eosinophils/100 WBC (Bld) 2.1 % Normal [facility] Comment on above: Performed By: #### Neela CHENG CHM7 #### [facility] (DEFAULT) [address] [place] [address] Hematocrit (Bld) [Volume fraction] 39.3 % Normal 34.9-44.3 [facility] Comment on above: Performed By: #### Neela CHENG CHM7 #### [facility] (DEFAULT) [address] [place] [address] Hemoglobin (Bld) [Mass/Vol] 12.6 g/dL Normal 11.4-15.2 [facility] Comment on above: Performed By: #### Neela CEHNG CHM7 #### [facility] (DEFAULT) [address] [place] [address] Immature Grans % 0.2 % Normal [facility] Comment on above: Performed By: #### Neela CHENG CHM7 #### [facility] (DEFAULT) [address] [place] [address] Immature Grans Absolute < Normal <=0.08 O [facility] Comment on above: Performed By: #### Neela CHENG CHM7 #### [facility] (DEFAULT) [address] [place] [address]328 Lymphocytes (Bld) [#/Vol] 3.79 10*3/uL High 1.16-3.51 [facility] Comment on above: Performed By: #### Neela CHENG CHM7 #### [facility] (DEFAULT) [address] [place] [address] 26098 Lymphocytes/100 WBC (Bld) 41.1 % Normal [facility] Comment on above: Performed By: #### Neela CHENG CHM7 #### [facility] (DEFAULT) [address] [place] [address] MCV (RBC) [Entitic vol] 86.6 fL Normal 79.6-97.7 O [facility] Comment on above: Performed By: #### DAX ANDREA7 #### [facility] (DEFAULT) [address] [address] Mean Cell Hgb 27.8 pg Normal 25.9-33.9 [facility] Comment on above: Performed By: #### Neela CHENG CHM7 #### [facility] (DEFAULT) [address] [place] [address] Mean Cell Hgb Conc 32.1 g/dL Normal 31.4-35.9 [facility] Comment on above: Performed By: #### DAX ANDREA7 #### [facility] (DEFAULT) [address] [place] [address]497 Monocytes (Bld) [#/Vol] 0.92 10*3/uL High 0.22-0.87 [facility] Comment on above: Performed By: #### DAX ANDREA7 #### [facility] (DEFAULT) [address] [place] [address] Monocytes/100 WBC (Bld) 10.0 % Normal [facility] Comment on above: Performed By: #### Neela CHENG CHM7 #### [facility] (DEFAULT) [address] [place] [address]21 Nucleated RBC 0.0 /100 WBC Normal <=0.2 [facility] Comment on above: Performed By: #### Neela CHENG CHM7 #### [facility] (DEFAULT) [address] [place] [address] Platelet mean volume (Bld) [Entitic vol] 9.3 fL Normal 8.5-12.2 [facility] Comment on above: Performed By: #### Neela CHENG CHM7 #### [facility] (DEFAULT) [address] [place] [address] Platelets (Bld) [#/Vol] 316 10*3/uL Normal 150-393 [facility] Comment on above: Performed By: #### DAX ANDREA7 #### [facility] (DEFAULT) [address] [place] [address] 82474 RBC (Bld) [#/Vol] 4.54 10*6/uL Normal 3.91-5.04 [facility] Comment on above: Performed By: #### DAX ANDREA7 #### [facility] (DEFAULT) [address] [place] [address] 21061 RBC Distribution 14.1 % Normal 10.8-14.[address] [facility] Comment on above: Performed By: #### DAX ANDREA7 #### [facility] (DEFAULT) [address] [place] [address] 64858 Segs + Bands Auto 45.8 % Normal [facility] Comment on above: Performed By: #### VASU ANDREA #### [facility] (DEFAULT) [address] [place] [address]26 Segs + Bands,Absolute Auto 4.24 K/uL Normal 1.64-7.28 [facility] Comment on above: Performed By: #### DAX ANDREA7 #### [facility] (DEFAULT) [address] [place] [address] 08867 WBC (Bld) [#/Vol] 9.23 10*3/uL Normal 3.99-11.19 [facility] Comment on above: Performed By: #### DAX ANDREA7 #### [facility] (DEFAULT) [address] [place] [address] 6[address]46 CHEM 7 (LYTES,BUN,CREA,GLUC) on 02-02-2024 Anion gap [Moles/Vol] 13 mmol/L 7 - 17 mmol/L [facility] Chloride [Moles/Vol] 104 mmol/L 98 - 10 8 mmol/L [facility] CO2 [Moles/Vol] 25 mmol/L 21 - 31 mmol/L [facility] Creatinine [Mass/Vol] 0.92 mg/dL 0.50 - 1.20 mg/dL [facility] eGFR, CKD-EPI, Female 66 - PINF [facility] Comment on above: Reported eGFR is bas ed on the CKD-EPI 2020 equation using creatinine, age, and sex. Glucose [Mass/Vol] 162 mg/dL High 70 - 99 mg/dL [facility] Osmolality Calc [Osmolality] 294 [facility] Potassium [Moles/Vol] 4.8 mmol/L 3.5 - 5.0 mmol/L [facility] Sodium [Moles/Vol] 137 mmol/L 135 - 145 mmol/L [facility] Urea nitrogen [Mass/Vol] 16 mg/dL 7 - 25 mg/dL [facility] Urea nitrogen/Creatinine [Mass ratio] 17 mg/mg [facility] Anion gap [Moles/Vol] 13 mmol/L Normal 7-17 [facility] Comment on above: Performed By: #### VASU ANDREA #### [facility] (DEFAULT) [address] [place] [address] 6[address]87 Chloride [Moles/Vol] 104 mmol/L Normal 98-108 [facility] Comment on above: Performed By: #### VASU ANDREA #### [facility] (DEFAULT) [address] [place] [address]013 CO2 [Moles/Vol] 25 mmol/L Normal 21-31 [facility] Comment on above: Performed By: #### VASU ANDREA #### [facility] (DEFAULT) [address] [place] [address]202 Creatinine [Mass/Vol] 0.92 mg/dL Normal 0.50-1.20 [facility] Comment on above: Performed By: #### DAX ANDREA7 #### [facility] (DEFAULT) [address] [place] [address] 16256 GFR/1.73 sq M.predicted among non-blacks MDRD (S/P/Bld) [Vol rate/Area] 66 mL/min/{1.73_m2} Normal >=60 [facility] Comment on above: Result Comment: Repo rted eGFR is based on the CKD-EPI 2020 equation using creatinine, age, and sex. Performed By: #### DAX ANDREA7 #### [facility] (DEFAULT) [address] [place] [address]347 Glucose [Mass/Vol] 162 mg/dL High 70-99 [facility] Comment on above: Performed By: #### DAX ANDREA7 #### [facility] (DEFAULT) [address] [place] [address]43 Osmolality [Osmolality] 294 mosm/kg Normal 278-305 [facility] Comment on above: Performed By: #### DAX ANDREA7 #### [facility] (DEFAULT) [address] [place] [address]2624 Potassium [Moles/Vol] 4.8 mmol/L Normal 3.5-5.0 [facility] Comment on above: Performed By: #### DAX ANDREA7 #### [facility] (DEFAULT) [address] [place] [address] 49086 Sodium [Moles/Vol] 137 mmol/L Normal 135-145 [facility] Comment on above: Performed By: #### DAX ANDREA7 #### [facility] (DEFAULT) [address] [place] [address] 88844 Urea nitrogen [Mass/Vol] 16 mg/dL Normal 7-25 [facility] Comment on above: Performed By: #### DAX ANDREA7 #### [facility] (DEFAULT) [address] [place] [address]11 Urea nitrogen/Creatinine [Mass ratio] 17 mg/mg Normal [facility] Comment on above: Performed By: #### Neela CHENG CHM7 #### [facility] (DEFAULT) [address] [place] [address] Anion gap [Moles/Vol] 13 mmol/L 7 - 17 mmol/L [facility] Chloride [Moles/Vol] 104 mmol/L 98 - 10 8 mmol/L [facility] CO2 [Moles/Vol] 27 mmol/L 21 - 31 mmol/L [facility] Creatinine [Mass/Vol] 1.03 mg/dL 0.50 - 1.20 mg/dL [facility] eGFR, CKD-EPI, Female 57 Low - PINF [facility] Comment on above: Reported eGFR is bas ed on the CKD-EPI 2020 equation using creatinine, age, and sex. Glucose [Mass/Vol] 78 mg/dL 70 - 99 mg/dL [facility] Interpretation and review of laboratory results Abnormal [facility] Osmolality Calc [Osmolality] 293 [facility] Potassium [Moles/Vol] 4.0 mmol/L 3.5 - 5.0 mmol/L [facility] Sodium [Moles/Vol] 140 mmol/L 135 - 145 mmol/L [facility] Urea nitrogen [Mass/Vol] 18 mg/dL 7 - 25 mg/dL [facility] Urea nitrogen/Creatinine [Mass ratio] 17 mg/mg [facility] Anion gap [Moles/Vol] 13 mmol/L Normal 7-17 [facility] Comment on above: Performed By: #### Neela CHENG CHM7 #### [facility] (DEFAULT) [address] [place] [address]47 Chloride [Moles/Vol] 104 mmol/L Normal 98-108 [facility] Comment on above: Performed By: #### DAX ANDREA7 #### [facility] (DEFAULT) [address] [place] [address] CO2 [Moles/Vol] 27 mmol/L Normal 21-31 [facility] Comment on above: Performed By: #### Neela CHENG CHM7 #### [facility] (DEFAULT) [address] [place] [address] Creatinine [Mass/Vol] 1.03 mg/dL Normal 0.50-1.20 [facility] Comment on above: Performed By: #### Neela CHENG CHNeela7 #### [facility] (DEFAULT) [address] [place] [address] 99294 GFR/1.73 sq M.predicted among non-blacks MDRD (S/P/Bld) [Vol rate/Area] 57 mL/min/{1.73_m2} Low >=60 [facility] Comment on above: Result Comment: Repo rted eGFR is based on the CKD-EPI 2020 equation using creatinine, age, and sex. Performed By: #### DAX ANDREA7 #### [facility] (DEFAULT) [address] [place] [address]209 Glucose [Mass/Vol] 78 mg/dL Normal 70-99 [facility] Comment on above: Performed By: #### DAX ANDREA7 #### [facility] (DEFAULT) [address] [address] Osmolality [Osmolality] 293 mosm/kg Normal 278-305 [facility] Comment on above: Performed By: #### DAX ANDREA7 #### [facility] (DEFAULT) [address] [address] Potassium [Moles/Vol] 4.0 mmol/L Normal 3.5-5.0 [facility] Comment on above: Performed By: #### Neela CHENG CHM7 #### [facility] (DEFAULT) [address] [place] [address] 15480 Sodium [Moles/Vol] 140 mmol/L Normal 135-145 [facility] Comment on above: Performed By: #### Neela CHENG CHM7 #### [facility] (DEFAULT) [address] [place] [address] 12323 Urea nitrogen [Mass/Vol] 18 mg/dL Normal 7-25 [facility] Comment on above: Performed By: #### Neela CHENG CHM7 #### [facility] (DEFAULT) [address] [place] [address]156 Urea nitrogen/Creatinine [Mass ratio] 17 mg/mg Normal [facility] Comment on above: Performed By: #### VASU ANDREA #### [facility] (DEFAULT) [address] [place] [address] 48080 CONTINUOUS CARDIAC MONITORIN G STRIPon 02-02-2024 [facility] CONTINUOUS CARDIAC MONITORIN G STRIPOrdered By: Unassigned Pacs on 02-02-2024 [facility] Work Phone: MAGNESIUMon 02-02-2024 Magnesium [Mass/Vol] 1.9 mg/dL 1.6 - 2 .6 mg/dL [facility] Magnesium [Mass/Vol] 1.9 mg/dL Normal 1.6-2.6 [facility] Comment on above: Performed By: #### VASU ANDREA #### [facility] (DEFAULT) [address] [place] [address] 07685 No Panel Informationon 02-01 ABO/RH(D) TYPE Positive [facility] BLOOD COMPONENT TYPE Red Cells, Leukoreduced [facility] Product ABO/RH(D) Positive [facility] Product ABO/RH(D) NUMBER 6200 [facility] PRODUCT CODE [id number] [facility] UNIT STATUS released [facility] Interpretation and review of laboratory results Abnormal [facility] Interpretation and review of laboratory results Normal [facility] Radiology Study observation (narrative) [facility] PHOSPHATE, INORGANICon 02-01 Phosphate [Mass/Vol] 3.4 mg/dL 2.2 - 4 .6 mg/dL [facility] Phosphorous 3.4 mg/dL Normal 2.2-4.6 [facility] Comment on above: Performed By: #### VASU ANDREA #### [facility] (DEFAULT) [address] [place] [address] 49987 POC ARTERIAL BLOOD GASon Base excess Calc (Bld) [Moles/Vol] -1.6000 mmol/L -3.0 - 3.0 mmol/L [facility] Calcium.ionized (Bld) [Mass/Vol] 4.52 mg/dL Low 4.60 - 5.30 mg/dL [facility] CO2 (Bld) [Partial pressure] 46 mm[Hg] [facility] Glucose [Mass/Vol] 159 mg/dL High 70 - 99 mg/dL [facility] HCO3 (Bld) [Moles/Vol] 24 mmol/L 22 - 28 mmol/L [facility] Hematocrit (Bld) [Volume fraction] 35 % 34 - 46 % [facility] Hemoglobin (Bld) [Mass/Vol] 11.5 g/dL 11.4 - 15.2 g/dL [facility] Interpretation and review of laboratory results Abnormal [facility] Lactate [Moles/Vol] 2.9 mmol/L High 0.5 - 1. 6 mmol/L [facility] Comment on above: Lactate results >/= 2.0 mmol/L should be followed up with a measurement 2 hours later for patients with suspicion of sepsis. Oxygen (Bld) [Partial pressure] 95 mm[Hg] [facility] Oxygen saturation in Blood 98 % 94 - 98 % [facility] pH (Bld) 7.33 [pH] Low 7.35 - 7.45 [facility] Potassium [Moles/Vol] 4.3 mmol/L 3.5 - 5.0 mmol/L [facility] Sodium [Moles/Vol] 135 mmol/L 135 - 145 mmol/L [facility] Specimen source Nom (Unsp spec) Arterial [facility] Test performed at address of the patient encounter. [facility] Base excess Calc (Bld) [Moles/Vol] -2.3000 mmol/L -3.0 - 3.0 mmol/L [facility] Calcium.ionized (Bld) [Mass/Vol] 4.56 mg/dL Low 4.60 - 5.30 mg/dL [facility] CO2 (Bld) [Partial pressure] 52 mm[Hg] High [facility] Glucose [Mass/Vol] 155 mg/dL High 70 - 99 mg/dL [facility] HCO3 (Bld) [Moles/Vol] 24 mmol/L 22 - 28 mmol/L [facility] Hematocrit (Bld) [Volume fraction] 35 % 34 - 46 % [facility] Hemoglobin (Bld) [Mass/Vol] 11.8 g/dL 11.4 - 15.2 g/dL [facility] Interpretation and review of laboratory results Abnormal [facility] Lactate [Moles/Vol] 2.8 mmol/L High 0.5 - 1. 6 mmol/L [facility] Comment on above: Lactate results >/= 2.0 mmol/L should be followed up with a measurement 2 hours later for patients with suspicion of sepsis. Oxygen (Bld) [Partial pressure] 86 mm[Hg] [facility] Oxygen saturation in Blood 97 % 94 - 98 % [facility] pH (Bld) 7.28 [pH] Low 7.35 - 7.45 [facility] Potassium [Moles/Vol] 4.4 mmol/L 3.5 - 5.0 mmol/L [facility] Sodium [Moles/Vol] 135 mmol/L 135 - 145 mmol/L [facility] Specimen source Nom (Unsp spec) Arterial [facility] Test performed at address of the patient encounter. [facility] Base excess Calc (Bld) [Moles/Vol] -1.6000 mmol/L -3.0 - 3.0 mmol/L [facility] Calcium.ionized (Bld) [Mass/Vol] 4.69 mg/dL 4.60 - 5.30 mg/dL [facility] CO2 (Bld) [Partial pressure] 52 mm[Hg] High [facility] Glucose [Mass/Vol] 173 mg/dL High 70 - 99 mg/dL [facility] HCO3 (Bld) [Moles/Vol] 25 mmol/L 22 - 28 mmol/L [facility] Hematocrit (Bld) [Volume fraction] 36 % 34 - 46 % [facility] Hemoglobin (Bld) [Mass/Vol] 12.0 g/dL 11.4 - 15.2 g/dL [facility] Interpretation and review of laboratory results Abnormal [facility] Lactate [Moles/Vol] 2.8 mmol/L High 0.5 - 1. 6 mmol/L [facility] Comment on above: Lactate results >/= 2.0 mmol/L should be followed up with a measurement 2 hours later for patients with suspicion of sepsis. Oxygen (Bld) [Partial pressure] 75 mm[Hg] Low [facility] Oxygen saturation in Blood 96 % 94 - 98 % [facility] pH (Bld) 7.29 [pH] Low 7.35 - 7.45 [facility] Potassium [Moles/Vol] 4.3 mmol/L 3.5 - 5.0 mmol/L [facility] Sodium [Moles/Vol] 136 mmol/L 135 - 145 mmol/L [facility] Specimen source Nom (Unsp spec) Arterial [facility] Test performed at address of the patient encounter. [facility] Base excess Calc (Bld) [Moles/Vol] 0.2 mmol/L -3.0 - 3.0 mmol/L [facility] Calcium.ionized (Bld) [Mass/Vol] 4.74 mg/dL 4.60 - 5.30 mg/dL [facility] CO2 (Bld) [Partial pressure] 54 mm[Hg] High [facility] Glucose [Mass/Vol] 177 mg/dL High 70 - 99 mg/dL [facility] HCO3 (Bld) [Moles/Vol] 27 mmol/L 22 - 28 mmol/L [facility] Hematocrit (Bld) [Volume fraction] 37 % 34 - 46 % [facility] Hemoglobin (Bld) [Mass/Vol] 12.4 g/dL 11.4 - 15.2 g/dL [facility] Interpretation and review of laboratory results Abnormal [facility] Lactate [Moles/Vol] 2.2 mmol/L High 0.5 - 1. 6 mmol/L [facility] Comment on above: Lactate results >/= 2.0 mmol/L should be followed up with a measurement 2 hours later for patients with suspicion of sepsis. Oxygen (Bld) [Partial pressure] 88 mm[Hg] [facility] Oxygen saturation in Blood 97 % 94 - 98 % [facility] pH (Bld) 7.30 [pH] Low 7.35 - 7.45 [facility] Potassium [Moles/Vol] 4.9 mmol/L 3.5 - 5.0 mmol/L [facility] Sodium [Moles/Vol] 135 mmol/L 135 - 145 mmol/L [facility] Specimen source Nom (Unsp spec) Arterial [facility] Test performed at address of the patient encounter. [facility] PREPARE TO TRANSFUSE OR RED BLOOD CELLSon 02-02-2024 EXPIRATION DATE [id number] [facility] EXPIRATION DATE [facility] UNIT NUMBER [id number] [facility] UNIT NUMBER [id number] [facility] PT,INR,PTTon 02-02-2024 aPTT Coag (PPP) [Time] 27.4 s [facility] INR Coag (Bld) [Relative time] 1.0 {INR} 0.9 - 1.1 [facility] Interpretation and review of laboratory results Normal [facility] PT Coag (PPP) [Time] 13.1 s [facility] aPTT Coag (Bld) [Time] 27.4 s Normal 24.0-34.3 [facility] Comment on above: Performed By: #### M VASU CHENG #### [facility] (DEFAULT) [address] [place] [address] INR Coag (PPP) [Relative time] 1.0 {INR} Normal 0.9-1.1 [facility] Comment on above: Performed By: #### M SKYLAR CHM7 #### [facility] (DEFAULT) [address] [place] [address] PT Coag (PPP) [Time] 13.1 s Normal 11.9-14.2 [facility] Comment on above: Performed By: #### M SKYLAR CHM7 #### [facility] (DEFAULT) [address] [place] [address] Portable XR Chest Viewson IMPRESSION: Right chest tube tip at the apex, no pneumothorax. OLOGY EXAM: XR CHEST 1 VIE W PORTABLE, 02/02/2024 13:03 PM COMPARISON: No prior studies available for comparison. CLINICAL INDICATIONS: Pneumothorax RELEVANT CLINICAL HISTORY: In PACU or SICU.; FINDINGS: (Adequate technique) Implanted Devices: Right pleural chest tube tip at the apex. Thorax: No acute process. RADIOLOGY Eric Valencia MD - 02/02/2024 EXAM: XR CHEST 1 VIEW PORTABLE, 02/02/2024 13:03 PM COMPARISON: No prior studies available for comparison. CLINICAL INDICATIONS: Pneumothorax RELEVANT CLINICAL HISTORY: In PACU or SICU.; FINDINGS: (Adequate technique) Implanted Devices: Right pleural chest tube tip at the apex. Thorax: No acute process. IMPRESSION IMPRESSION: Right chest tube tip at the apex, no pneumothorax. [facility] SURG PATH REQUESTon 02-02-20 Case Report Normal [facility] Comment on above: Result Comment: Surg ical Pathology Report Case: [id number] Authorizing Provider: Nat Lazar MD Collected: 02/02/2024 09:32 AM [facility] Received: 02/02/2024 01:25 PM Pathologist: Baldemar Hughes MD Specimens: A) - SURG PATH, LEVEL 11 R LYMPH NODE #1 B) - SURG PATH, LEVEL 7 LYMPH NODE #1 C) - SURG PATH, LEVEL 7 LYMPH NODE #2 D) - SURG PATH, LEVEL 7 LYMPH NODE #3 E) - SURG PATH, LEVEL 7 LYMPH NODE #4 F) - SURG PATH, LEVEL 4R LYMPH NODE #1 G) - SURG PATH, LEVEL 4R LYMPH NODE #2 H) - SURG PATH, LEVEL 4R LYMPH NODE #3 I) - SURG PATH, LEVEL 7 LYMPH NODE #5 J) - SURG PATH, LEVEL 10R LYMPH NODE #1 K) - SURG PATH, LEVEL 10R LYMPH NODE #2 L) - SURG PATH, LEVEL 10R LYMPH NODE #3 M) - SURG PATH, LEVEL 11R LYMPH NODE #2 N) - SURG PATH, LEVEL 11R LYMPH NODE #3 O) - SURG PATH, LEVEL 11R LYMPH NODE #4 P) - SURG PATH, LEVEL 11R LYMPH NODE #5 Q) - SURG PATH, LEVEL 11R LYMPH NODE #6 R) - SURG PATH, RIGHT UPPER LOBE, STITCH= BRONCHUS S) - SURG PATH, LEVEL 7 LYMPH NODE #6 T) - SURG PATH, LEVEL 9R LYMPH NODE #1 U) - SURG PATH, LEVEL 9R LYMPH NODE #2 V) - SURG PATH, LEVEL 11R LYMPH NODE #7 W) - SURG PATH, LEVEL 11R LYMPH NODE #8 Performed By: #### S URGP #### [facility] (DEFAULT) [address] [place] [address] Clinical History Preop Diagnosis: Malignant neoplasm of upper lobe, right bronchus or lung. Medical History: Hyperlipidemia. Attention deficit hyperactivity disorder. Stroke. Depression. COVID-19. Gastroesophageal reflux disease. Normal [facility] Comment on above: Performed By: #### S URGP #### [facility] (DEFAULT) [address] [place] [address] Diagnosis Comments Media Specialist block : [id number] [facility] Comment on above: Performed By: #### S URGP #### [facility] (DEFAULT) [address] [place] [address] Gross Description Normal [facility] Comment on above: Result Comment: The specimens are received in twenty-three properly labeled containers with the patient's name and accession number. A. The specimen is designated level 11R lymph node #1 and consists of one black-brown, rubbery lymph node candidate measuring 0.4 x 0.3 x 0.3 cm. TE 1 Cassettes: A1, one lymph node B. The specimen is designated level 7 lymph node #1 and consists of one black-tello, rubbery lymph node candidate that measures 1.3 x 0.7 x 0.5 cm. The lymph node is bisected to reveal light tello to black, smooth cut surfaces without tumor deposits identified. TE 1 Cassettes: B1, one bisected lymph node C. The specimen is designated level 7 lymph node #2 and consists of one tello-black, rubbery lymph node candidate that measures 2.3 x 0.8 x 0.7 cm. The specimen is trisected to reveal tello-brown to black, smooth cut surfaces without tumor deposits identified. TE 2 Cassettes: C1-2, one trisected lymph node D. The specimen is designated level 7 lymph node #3 and consists of one tello-brown, rubbery lymph node candidate measuring 1.5 x 1.0 x 0.5 cm. The lymph node is bisected to reveal light tello to black, smooth cut surfaces without tumor deposits identified. TE 1 Cassettes: D1, one bisected lymph node E. The specimen is designated level 7 lymph node #4 and consists of one tello-black, rubbery lymph node candidate that measures 1.6 x 0.9 x 0.5 cm. The specimen is bisected to reveal tello to black, smooth cut surfaces without tumor deposits identified. TE 1 Cassettes: E1, one bisected lymph node F. The specimen is designated level 4R lymph node #1 and consists of one tello-brown, rubbery lymph node that measures 0.7 x 0.6 x 0.5 cm. The lymph node is bisected to reveal light tello, smooth cut surfaces without tumor deposits identified. TE 1 Cassettes: F1, one bisected lymph node G. The specimen is designated level 4R lymph node #2 and consists of one black-tello, rubbery lymph node candidate that measures 0.9 x 0.8 x 0.5 cm. The lymph node is bisected to reveal light tello, smooth cut surfaces without tumor deposits identified. TE 1 Cassettes: G1, one bisected lymph node H. The specimen is designated level 4R lymph node #3 and consists of one light tello, rubbery lymph node candidate measuring 1.1 x 0.9 x 0.5 cm. The lymph node is bisected to reveal tello, smooth cut surfaces without tumor deposits identified. TE 1 Cassettes: H1, one bisected lymph node I. The specimen is designated level 7 lymph node #5 and consists of one black-tello, rubbery, focally fragmented lymph node candidate that measures 1.2 x 1.0 x 0.5 cm. The lymph node is bisected to reveal tello-black, smooth cut surfaces without tumor deposits identified. TE 1 Cassettes: I1, one bisected lymph node J. The specimen is designated level 10R lymph node #1 and consists of one tello-black, rubbery lymph node candidate measuring 0.8 x 0.6 x 0.5 cm. The lymph node is bisected to reveal tello-black, smooth cut surfaces without tumor deposits identified. TE 1 Cassettes: J1, one bisected lymph node K. The specimen is designated level 10R lymph node #2 and consists of one tello-black, rubbery lymph node candidate measuring 1.0 x 1.0 x 0.7 cm. The lymph node is trisected to reveal black-tello, smooth cut surfaces without tumor deposits identified. TE 1 Cassettes: K1, one trisected lymph node L. The specimen is designated level 10R lymph node #3 and consists of one pink-tello, rubbery lymph node candidate that measures 1.3 x 1.0 x 0.6 cm. The lymph node is trisected to reveal pink-tello to black, smooth cut surfaces without tumor deposits identified. TE 1 Cassettes: L1, one trisected lymph node M. The specimen is designated level 11R lymph node #2 and consists of one tello-black, rubbery lymph node candidate measuring 1.6 x 0.5 x 0.4 cm. The specimen is bisected to reveal light tello, smooth cut surfaces without tumor deposits identified. TE 1 Cassettes: M1, one bisected lymph node N. The specimen is designated level 11R lymph node #3 and consists of one tello-black, rubbery lymph node candidate that measures 0.7 x 0.5 x 0.5 cm. The lymph node is bisected to reveal tello-black, smooth cut surfaces without tumor deposits identified. TE 1 Cassettes: N1, one bisected lymph node O. The specimen is designated level 11R lymph node #4 and consists of one black-tello, rubbery lymph node candidate measuring 0.8 x 0.6 x 0.5 cm. The lymph node is bisected to reveal light tello, smooth cut surfaces without tumor deposits identified. TE 1 Cassettes: O1, one bisected lymph node P. The specimen is designated level 11R lymph node #5 and consists of one tello-black, rubbery lymph node candidate that measures 0.6 x 0.4 x 0.3 cm. TE 1 Cassettes: P1, one lymph node Q. The specimen is designated level 11R lymph node #6 and consists of one tello-black, slightly ragged lymph node candidate that measures 0.5 x 0.4 x 0.3 cm. TE 1 Cassettes: Q1, one lymph node R. The specimen is designated right upper lobe, stitch=bronchus and co (more content not included)... Performed By: #### S URGP #### [facility] (DEFAULT) [address] [place] [address] Microscopic Description A microscopic examination was performed. Normal [facility] Comment on above: Performed By: #### S URGP #### [facility] (DEFAULT) [address] [place] [address] Pathologic Diagnosis Normal [facility] Comment on above: Result Comment: A. L ymph node, level 11R #1, excision: Benign lymph node. B. Lymph node, level 7 #1, excision: Benign lymph node. C. Lymph node, level 7 #2, excision: Benign lymph node. D. Lymph node, level 7 #3, excision: Benign lymph node. E. Lymph node, level 7 #4, excision: Benign lymph node. F. Lymph node, level 4R #1, excision: Benign lymph node. G. Lymph node, level 4R #2, excision: Benign lymph node. H. Lymph node, level 4R #3, excision: Benign lymph node. I. Lymph node, level 7 #5, excision: Benign lymph node. J. Lymph node, level 10R #1, excision: Benign lymph node. K. Lymph node, level 10R #2, excision: Benign lymph node. L. Lymph node, level 10R #3, excision: Benign lymph node. M. Lymph node, level 11R #2, excision: Benign lymph node. N. Lymph node, level 11R #3, excision: Benign lymph node. O. Lymph node, level 11R #4, excision: Benign lymph node. P. Lymph node, level 11R #5, excision: Benign lymph node. Q. Lymph node, level 11R #6, excision: Benign lymph node. R. Lung, right upper lobe, robotic lobectomy: Squamous cell carcinoma; (see synoptic report). Lymph nodes negative for carcinoma (0/5). S. Lymph node, level 7 #6, excision: Benign lymph node. T. Lymph node, level 9R #1, excision: Benign lymph node. U. Lymph node, level 9R #2, excision: Benign lymph node. V. Lymph node, level 11R #7, excision: Benign lymph node. W. Lymph node, level 11R #8, excision: Benign lymph node. Performed By: #### S URGP #### [facility] (DEFAULT) [address] [place] [address] Professional Interpretation Performed at: Normal [facility] Comment on above: Result Comment: [facility] For Immediate Release to [facility]'s [facility] Yes [address] [place] [address] Performed By: #### S URGP #### [facility] (DEFAULT) [address] [place] [address] Synoptic Checklist Normal [facility] Comment on above: Result Comment: LUNG LUNG: RESECTION - All Specimens 8th Edition - Protocol posted: 01/27/2022 SPECIMEN Procedure: Lobectomy Specimen Laterality: Right TUMOR Tumor Focality: Single focus Tumor Site: Upper lobe of lung Tumor Size: Total Tumor Size (size of entire tumor): Greatest Dimension (Centimeters): 3.5 cm Histologic Type: Invasive squamous cell carcinoma, keratinizing Histologic Grade: G3, poorly differentiated Visceral Pleura Invasion: Not identified Direct Invasion of Adjacent Structures: Not applicable (no adjacent structures present) Treatment Effect: No known presurgical therapy Lymphovascular Invasion: Not identified MARGINS Margin Status for Invasive Carcinoma: All margins negative for invasive carcinoma Closest Margin(s) to Invasive Carcinoma: Parenchymal Distance from Invasive Carcinoma to Closest Margin: 2.7 cm Margin Status for Non-Invasive Tumor: Not applicable REGIONAL LYMPH NODES Lymph Node(s) from Prior Procedures: Not included Regional Lymph Node Status: : All regional lymph nodes negative for tumor Number of Lymph Nodes Examined: 27 Agueda Site(s) Examined: 4R: Lower paratracheal Agueda Site(s) Examined: 9R: Pulmonary ligament Agueda Site(s) Examined: 10R: Hilar Agueda Site(s) Examined: 11R: Interlobar Agueda Site(s) Examined: 7: Subcarinal PATHOLOGIC STAGE CLASSIFICATION (pTNM, AJCC 8th Edition) Reporting of pT, pN, and (when applicable) pM categories is based on information available to the pathologist at the time the report is issued. As per the AJCC (Chapter 1, 8th Ed.) it is the managing physician?s responsibility to establish the final pathologic stage based upon all pertinent information, including but potentially not limited to this pathology report. pT Category: pT2a pN Category: pN0 ADDITIONAL FINDINGS Additional Findings: Emphysema Additional Findings: Subpleural scarring with cystic remodeling Performed By: #### S URGP #### [facility] (DEFAULT) [address] [address] TYPE AND SCREENon 02-02-2024 ABO/RH(D) TYPE Positive [facility] Outdate Specimen 02/05/2024 23:59 [facility] ABO/RH(D) TYPE Positive Normal [facility] Comment on above: Performed By: #### X M #### [facility] (DEFAULT) [address] [address] Outdate Specimen 02/05/2024 23:59 Normal [facility] Comment on above: Performed By: #### X M #### [facility] (DEFAULT) [address] [address] XR CHEST 1 VIEW PORTABLEon 0 02-02-2024 XR CHEST 1 VIEW PORTABLE EXAM: XR CHEST 1 VIEW PORTABLE, 02/02/2024 13:03 PM COMPARISON: No prior studies available for comparison. CLINICAL INDICATIONS: Pneumothorax RELEVANT CLINICAL HISTORY: In PACU or SICU.; FINDINGS: (Adequate technique) Implanted Devices: Right pleural chest tube tip at the apex. Thorax: No acute process. IMPRESSION: Right chest tube tip at the apex, no pneumothorax. Normal [facility] CV STRESS ECHO DOBUTAMINEon 01-18-2024 CV STRESS ECHO DOBUTAMINE [address] [address] Patient: JONO KING Phone#: : [phone] Age: 73 Gender: F Pt. Type: Out Account: [id number] Location: [facility] Ordering: IZZY SNOW Exam Date: 01/18/2024/10:23 Family Phys: COURTNEY YESY Charge Code: [id number] Physician: [place] Order #: [id number] Dose#: PROCEDURE: STRESS ECHOCARDIOGRAM - DOBUTAMINE HISTORY: Patient is 73-year-old female with history of dyslipidemia COMPARISON: None. INDICATIONS: PRE-OP TECHNIQUE: Two-phase stress echocardiogram examining and comparing left ventricular wall segments before stress and after stress accomplished using Dobutamine. QUALITY: Excellent. WELT DRAWER: ELIAS PATIENT MEASURMENTS Height (in): 64 Weight (lb): 162 STRESS RESULTS Target Heart Rate: 125 bpm. Maximum Predicted Heart Rate: 147 bpm. % Maximum Predicted Heart Rate: 87% PHARMACOLOGICAL STRESS: Dose(mcg/kg/min) Duration(min) BP Heart Rate(bpm) BASELINE 122/63 78 Stage 1 10 3:00 129/53 82 Stage 2 20 3:00 104/48 104 Stage 3 30 3:45 96/49 125 Recovery 1 8:16 105/49 99 SYMPTOMS WITH STRESS: Patient did not complain of any chest pain or significant symptoms with dobutamine. BASELINE EKG: Baseline EKG showed sinus rhythm at 77 BPM. Normal EKG. STRESS EKG: EKG with stress showed sinus tachycardia at 129 BPM. There are no ST or T-wave changes from baseline to suggest inducible ischemia. WALL MOTION: RESTING INTERMEDIATE STRESS 1 - Basal anterior: Normal. Normal. Normal. 2 - Basal anteroseptal: Normal. Normal. Normal. 3 - Basal inferoseptal: Normal. Normal. Normal. 4 - Basal inferior: Normal. Normal. Normal. Continued Report - Page 2 of 2 Patient: JONO KNIG Phone#: : 1950 Age: 73 Gender: F Pt. Type: Out Account: [id number] Location: 2 Ordering: IZZY SNOW Exam Date: 01/18/2024/10:23 Family Phys: COURTNEY HAYWARD Charge Code: [id number] Physician: [place] Order #: [id number] Dose#: 5 - Basal inferolateral: Normal. Normal. Normal. 6 - Basal anterolateral: Normal. Normal. Normal. 7 - Mid anterior: Normal. Normal. Normal. 8 - Mid anteroseptal: Normal. Normal. Normal. 9 - Mid inferoseptal: Normal. Normal. Normal. 10-Mid inferior: Normal. Normal. Normal. 11-Mid inferolateral: Normal. Normal. Normal. 12-Mid anterolateral: Normal. Normal. Normal. 13-Apical anterior: Normal. Normal. Normal. 14-Apical septal: Normal. Normal. Normal. 15-Apical inferior: Normal. Normal. Normal. 16-Apical lateral: Normal. Normal. Normal. Ejection Fraction 55-60% 60-65% >70% CONCLUSION: 1. Patient not complain of any symptoms with dobutamine. 2. Patient had decrease in blood pressure with dobutamine which improved during recovery. 3. Stress EKG is negative for inducible ischemia. 4. Stress echocardiogram is negative for inducible ischemia. The left ventricle augmented appropriately with stress. 5. Resting your cardia of showed normal left ventricular size and thickness. Systolic ejection fraction 55-60% with normal wall motion. 6. Mitral valve appears normal in structure. There is trivial regurgitation and no stenosis seen. 7. Aortic valve is probably trileaflet. There is no regurgitation or stenosis seen. 8. Tricuspid valve is inadequately visualized. Doppler shows no regurgitation or stenosis. Pulmonic valve is inadequately visualized 9. Right ventricle is normal in size and qualitatively normal in systolic function. Dictated by: TIFFANY BRINK MD on 01/18/2024 at 12:33 Approved by: TIFFANY BRINK MD on 01/18/2024 at 12:40 Normal [facility] CBC AND ELECTRONIC DIFFon Basophils (Bld) [#/Vol] 0.06 10*3/uL 0.00 - 0.15 K/uL [facility] Basophils/100 WBC (Bld) 0.6 % [facility] Differential cell count method Nom (Bld) Electronic Differential [facility] Eosinophils (Bld) [#/Vol] 0.14 10*3/uL 0.00 - 0.42 K/uL [facility] Eosinophils/100 WBC (Bld) 1.5 % [facility] Erythrocyte distribution width (RBC) [Ratio] 13.7 % 10.8 - 14.9 % [facility] Hematocrit (Bld) [Volume fraction] 42.4 % 34.9 - 44.3 % [facility] Hemoglobin (Bld) [Mass/Vol] 13.7 g/dL 11.4 - 15.2 g/dL [facility] Immature granulocytes (Bld) [#/Vol] K/uL NINF - 0.08 K/uL [facility] Immature granulocytes/100 WBC (Bld) 0.1 % [facility] Interpretation and review of laboratory results Abnormal [facility] Lymphocytes (Bld) [#/Vol] 3.55 10*3/uL High 1.16 - 3.51 K/uL [facility] Lymphocytes/100 WBC (Bld) 37.8 % [facility] MCH (RBC) [Entitic mass] 28.1 pg 25.9 - 33.9 pg [facility] MCHC (RBC) [Mass/Vol] 32.3 g/dL 31.4 - 35.9 g/dL [facility] MCV (RBC) [Entitic vol] 87.1 fL 79.6 - 97.7 fL [facility] Monocytes (Bld) [#/Vol] 0.57 10*3/uL 0.22 - 0.87 K/uL [facility] Monocytes/100 WBC (Bld) 6.1 % O [facility] Neutrophils (Bld) [#/Vol] 5.07 10*3/uL 1.64 - 7.28 K/uL [facility] Nucleated RBC/100 WBC (Bld) [Ratio] 0.0 % NINF [facility] Platelet mean volume (Bld) [Entitic vol] 9.2 fL 8.5 - 12.2 fL [facility] Platelets (Bld) [#/Vol] 350 10*3/uL 150 - 393 K/uL [facility] RBC (Bld) [#/Vol] 4.87 10*6/uL [facility] Segmented neutrophils/100 WBC (Bld) 53.9 % [facility] WBC (Bld) [#/Vol] 9.40 10*3/uL 3.99 - 11. 19 K/uL [facility] Basophils (Bld) [#/Vol] 0.06 10*3/uL Normal 0.00-0.15 [facility] Comment on above: Performed By: #### X M #### [facility] (DEFAULT) [address] [place] [address] Basophils/100 WBC (Bld) 0.6 % Normal O [facility] Comment on above: Performed By: #### X M #### [facility] (DEFAULT) [address] [place] [address] DIFF STATUS Electronic Differential Normal [facility] Comment on above: Performed By: #### X M #### [facility] (DEFAULT) [address] [place] [address] Eosinophils (Bld) [#/Vol] 0.14 10*3/uL Normal 0.00-0.42 [facility] Comment on above: Performed By: #### X M #### [facility] (DEFAULT) [address] [place] [address] 54351 Eosinophils/100 WBC (Bld) 1.5 % Normal [facility] Comment on above: Performed By: #### X M #### [facility] (DEFAULT) [address] [place] [address] 28516 Hematocrit (Bld) [Volume fraction] 42.4 % Normal 34.9-44.3 [facility] Comment on above: Performed By: #### X M #### [facility] (DEFAULT) [address] [place] [address] 47342 Hemoglobin (Bld) [Mass/Vol] 13.7 g/dL Normal 11.4-15.2 [facility] Comment on above: Performed By: #### X M #### [facility] (DEFAULT) [address] [place] [address] 27613 Immature Grans % 0.1 % Normal [facility] Comment on above: Performed By: #### X M #### [facility] (DEFAULT) [address] [place] [address] 69253 Immature Grans Absolute < Normal <=0.08 O [facility] Comment on above: Performed By: #### X M #### [facility] (DEFAULT) [address] [place] [address] 53503 Lymphocytes (Bld) [#/Vol] 3.55 10*3/uL High 1.16-3.51 [facility] Comment on above: Performed By: #### X M #### [facility] (DEFAULT) [address] [place] [address] 65648 Lymphocytes/100 WBC (Bld) 37.8 % Normal [facility] Comment on above: Performed By: #### X M #### [facility] (DEFAULT) [address] [place] [address] 32426 MCV (RBC) [Entitic vol] 87.1 fL Normal 79.6-97.7 O [facility] Comment on above: Performed By: #### X M #### [facility] (DEFAULT) [address] [place] [address] 73746 Mean Cell Hgb 28.1 pg Normal 25.9-33.9 [facility] Comment on above: Performed By: #### X M #### [facility] (DEFAULT) [address] [place] [address] 73817 Mean Cell Hgb Conc 32.3 g/dL Normal 31.4-35.9 [facility] Comment on above: Performed By: #### X M #### [facility] (DEFAULT) [address] [place] [address] 92203 Monocytes (Bld) [#/Vol] 0.57 10*3/uL Normal 0.22-0.87 [facility] Comment on above: Performed By: #### X M #### [facility] (DEFAULT) [address] [address] Monocytes/100 WBC (Bld) 6.1 % Normal O [facility] Comment on above: Performed By: #### X M #### [facility] (DEFAULT) [address] [address] Nucleated RBC 0.0 /100 WBC Normal <=0.2 [facility] Comment on above: Performed By: #### X M #### [facility] (DEFAULT) [address] [address] Platelet mean volume (Bld) [Entitic vol] 9.2 fL Normal 8.5-12.2 [facility] Comment on above: Performed By: #### X M #### [facility] (DEFAULT) [address] [place] [address] 84194 Platelets (Bld) [#/Vol] 350 10*3/uL Normal 150-393 [facility] Comment on above: Performed By: #### X M #### [facility] (DEFAULT) [address] [address] RBC (Bld) [#/Vol] 4.87 10*6/uL Normal 3.91-5.04 [facility] Comment on above: Performed By: #### X M #### [facility] (DEFAULT) [address] [place] [address] 09692 RBC Distribution 13.7 % Normal 10.8-14.[address] [facility] Comment on above: Performed By: #### X M #### [facility] (DEFAULT) [address] [place] [address] 19852 Segs + Bands Auto 53.9 % Normal [facility] Comment on above: Performed By: #### X M #### [facility] (DEFAULT) [address] [place] [address] 68072 Segs + Bands,Absolute Auto 5.07 K/uL Normal 1.64-7.28 [facility] Comment on above: Performed By: #### X M #### [facility] (DEFAULT) [address] [place] [address] 92088 WBC (Bld) [#/Vol] 9.40 10*3/uL Normal 3.99-11.19 [facility] Comment on above: Performed By: #### X M #### [facility] (DEFAULT) [address] [place] [address] 57375 CHEM 7 (LYTES,BUN,CREA,GLUC) on 12-28-2023 Anion gap [Moles/Vol] 12 mmol/L Normal 7-17 [facility] Comment on above: Performed By: #### M RAUL CHENGM7 #### [facility] (DEFAULT) [address] [place] [address] 93400 Chloride [Moles/Vol] 102 mmol/L Normal 98-108 [facility] Comment on above: Performed By: #### M SKYLAR CHM7 #### [facility] (DEFAULT) [address] [place] [address] 38127 CO2 [Moles/Vol] 27 mmol/L Normal 21-31 [facility] Comment on above: Performed By: #### M SKYLAR CHM7 #### [facility] (DEFAULT) [address] [place] [address] 94930 Creatinine [Mass/Vol] 1.04 mg/dL Normal 0.50-1.20 [facility] Comment on above: Performed By: #### DAX ANDREA7 #### [facility] (DEFAULT) [address] [place] [address] 59736 GFR/1.73 sq M.predicted among non-blacks MDRD (S/P/Bld) [Vol rate/Area] 57 mL/min/{1.73_m2} Low >=60 [facility] Comment on above: Result Comment: Repo rted eGFR is based on the CKD-EPI 2020 equation using creatinine, age, and sex. Performed By: #### DAX ANDREA7 #### [facility] (DEFAULT) [address] [place] [address] 03175 Glucose [Mass/Vol] 124 mg/dL High 70-99 [facility] Comment on above: Performed By: #### DAX ANDREA7 #### [facility] (DEFAULT) [address] [place] [address] 47202 Osmolality [Osmolality] 289 mosm/kg Normal 278-305 [facility] Comment on above: Performed By: #### DAX ANDREA7 #### [facility] (DEFAULT) [address] [place] [address] 75421 Potassium [Moles/Vol] 4.5 mmol/L Normal 3.5-5.0 [facility] Comment on above: Performed By: #### Neela CHENG CHM7 #### [facility] (DEFAULT) [address] [place] [address] 03039 Sodium [Moles/Vol] 136 mmol/L Normal 135-145 [facility] Comment on above: Performed By: #### DAX ANDREA7 #### [facility] (DEFAULT) [address] [place] [address] 44660 Urea nitrogen [Mass/Vol] 15 mg/dL Normal 7-25 [facility] Comment on above: Performed By: #### DAX ANDREA7 #### [facility] (DEFAULT) [address] [place] [address] 65774 Urea nitrogen/Creatinine [Mass ratio] 14 mg/mg Normal [facility] Comment on above: Performed By: #### M SKYLAR M7 #### [facility] (DEFAULT) [address] [place] [address] 33676 Laboratory - Chemistry and C hemistry - challengeon 12-28-2023 Anion gap [Moles/Vol] 12 mmol/L 7 - 17 mmol/L [facility] Chloride [Moles/Vol] 102 mmol/L 98 - 10 8 mmol/L [facility] CO2 [Moles/Vol] 27 mmol/L 21 - 31 mmol/L [facility] Creatinine [Mass/Vol] 1.04 mg/dL 0.50 - 1.20 mg/dL [facility] Glucose [Mass/Vol] 124 mg/dL High 70 - 99 mg/dL [facility] Osmolality Calc [Osmolality] 289 [facility] Potassium [Moles/Vol] 4.5 mmol/L 3.5 - 5.0 mmol/L [facility] Sodium [Moles/Vol] 136 mmol/L 135 - 145 mmol/L [facility] Urea nitrogen [Mass/Vol] 15 mg/dL 7 - 25 mg/dL [facility] Urea nitrogen/Creatinine [Mass ratio] 14 mg/mg [facility] Laboratory - Coagulationon 0 12-28-2023 aPTT Coag (PPP) [Time] 29.5 s [facility] INR Coag (Bld) [Relative time] 0.9 {INR} 0.9 - 1.1 [facility] PT Coag (PPP) [Time] 12.4 s [facility] No Panel Informationon 12-27 ABO/RH(D) TYPE Positive [facility] eGFR, CKD-EPI, Female 57 Low - PINF [facility] Comment on above: Reported eGFR is bas ed on the CKD-EPI 2020 equation using creatinine, age, and sex. Interpretation and review of laboratory results Abnormal [facility] Interpretation and review of laboratory results Normal [facility] PT,INR,PTTon 12-28-2023 aPTT Coag (Bld) [Time] 29.5 s Normal 24.0-34.3 [facility] Comment on above: Performed By: #### X M #### [facility] (DEFAULT) [address] [place] [address] 31517 INR Coag (PPP) [Relative time] 0.9 {INR} Normal 0.9-1.1 [facility] Comment on above: Performed By: #### X M #### [facility] (DEFAULT) [address] [place] [address] 29543 PT Coag (PPP) [Time] 12.4 s Normal 11.9-14.2 [facility] Comment on above: Performed By: #### X M #### [facility] (DEFAULT) [address] [place] [address] 78826 TYPE AND SCREEN - PREADMISSI ONon 12-28-2023 ABO/RH(D) TYPE Positive Normal [facility] Comment on above: Performed By: #### X MPO #### [facility] (DEFAULT) [address] [place] [address] 17685 Basophil percentageOrdered B y: Avel Segura on 05-10-2023 Bilirubin [Mass/Vol] 0.40 mg/dL 0.20-1.00 [facility] Comment on above: For patients on eltr ombopag therapy, use of Dimension [place] TBIL is not recommended. Cholesterol [Mass/Vol] 182 mg/dL <200 [facility] Comment on above: <200 mg/dL Desirable 200-240 mg/dL Borderline >240 mg/dL High Risk Protein [Mass/Vol] 7.6 g/dL 6.4-8.2 [facility] Triglyceride [Mass/Vol] 98 mg/dL <199 [facility] Comment on above: The drugs N-Acetylcy steine and Metamizole may falsely depress this assay.Serum Triglycerides Reference Interval Normal <150 mg/dL Borderline high 150 - 199 mg/dL High 200 - 499 mg/dL Very High > or = 500 mg/dL Direct bilirubinOrdered By: Avel Segura on 05-10-2023 Bilirubin.direct [Mass/Vol] 0.08 mg/dL 0.00-0.30 [facility] Erythrocyte sedimentation ra teOrdered By: Avel Segura on 05-10-2023 ESR (Bld) [Velocity] 10 mm/h 0-30 [facility] Laboratory - Chemistry and C hemistry - challengeOrdered By: Avel Segura on 05-10-2023 ALP [Catalytic activity/Vol] 92 U/L 45-117 [facility] ALT [Catalytic activity/Vol] 19 U/L 13-56 [facility] Globulin (S) [Mass/Vol] 4.1 g/dL 2.2-4.2 [facility] Serum or plasma C reactive p rotein measurement (mass/volume)Ordered By: Avel Segura on 05-10-2023 CRP [Mass/Vol] 9.12 mg/L 0.0-3.0 [facility] Comment on above: C-Reactive Protein ( CRP) provides useful information for thediagnosis, therapy and monitoring of inflammatory processesand associated diseases. For the evaluation of Relative Riskfor Cardiovascular Disease, a High Sensitivity CRP (HSCRP)should be ordered. Serum or plasma albumin ce urement (mass/volume)Ordered By: Avel Segura on 05-10-2023 Albumin [Mass/Vol] 3.5 g/dL 3.2-5.0 [facility] Serum or plasma cholesterol in HDL measurement (mass/volume)Ordered By: Avel Segura on 05-10-2023 Cholesterol in HDL [Mass/Vol] 58 mg/dL >40 [facility] Comment on above: The drugs N-Acetylcy steine and Metamizole may falsely depress this assay. Reference Range HDL <40 mg/dL Low HDL Cholesterol HDL >or= 60 mg/dL High HDL Cholesterol Serum or plasma cholesterol in VLDL measurement (mass/volume)Ordered By: Avel Segura on 05-10-2023 Cholesterol in VLDL [Mass/Vol] 20 mg/dL 5-40 [facility] Serum or plasma low density lipoprotein (LDL) cholesterol measurement (mass/volume)Ordered By: Avel Segura on 05-10-2023 Cholesterol in LDL [Mass/Vol] 104 mg/dL 0-130 [facility] Thin prep Papanicolaou smear with manual screeningOrdered By: Avel Segura on 05-10-2023 Thin prep Papanicolaou smear with manual screening 16 U/L 15-37 [facility] Bacteria Ur Culton 3 Bacteria identified Cx Nom (U) ORGANISM ID: 1 50,000-<100,000 CFU/ml Mixed microbiota No further workup. Mixed microbiota can be due to???urine???contamina tion with skin bacteria at time of collection or presence of a long-term urinary catheter. If a new culture is needed, please consider re-education of the patient on proper midstream collection technique or straight catheterization for???urine???collecti on. Normal [facility] Comment on above: Performed By: #### 6 30-4 #### [facility] CLIA [id number] [address] [place] [address] [place] OF [place] CHOLESCINTIGRAPHY W/FATTY MEALon 01-28-2023 NM CHOLESCINTIGRAPHY W/FATTY MEAL HIDA SCAN WITH GALLBLADDER EJECTION FRACTION HISTORY: Abdominal Pain. COMPARISON: Ultrasound 12/14/2022. METHOD: Following IV injection of 9 mCi of pjawjqqzps-77d-Qkbbnnu c, anterior imaging of the abdomen was acquired for 60 minutes. After the gallbladder was visualized the patient was given Ensure and the gallbladder ejection fraction was calculated. FINDINGS: There is satisfactory uptake of radiopharmaceutical by the liver. The gallbladder, bile duct, and bowel are seen in the expected period of time and sequence. The gallbladder ejection fraction is normal at 85%. IMPRESSION: Normal hepatic biliary scintigraphy and gallbladder ejection fraction. Diagnosis: Epigastric pain [R10.13 (ICD-10-CM)] Tech Notes: C/o abd pain x 7 weeks, vomiting after meals. Fatty meal protocol w/Ensure. Order Comments: Ordering Physician: JARED Oro Dose: 9 mCi Tc99m Choletec Normal [facility] NM Gallbladder Views for eje ction fraction W Tc-99m DISIDA Gerardo 01-28-2023 Normal hepatic biliary scintigraphy and gallbladder ejection fraction. [facility] HIDA SCAN WITH GALLBLADDER EJECTION FRACTION HISTORY: Abdominal Pain. COMPARISON: Ultrasound 12/14/2022. METHOD: Following IV injection of 9 mCi of czglsfhncu-16y-Iscfzof c, anterior imaging of the abdomen was acquired for 60 minutes. After the gallbladder was visualized the patient was given Ensure and the gallbladder ejection fraction was calculated. FINDINGS: There is satisfactory uptake of radiopharmaceutical by the liver. The gallbladder, bile duct, and bowel are seen in the expected period of time and sequence. The gallbladder ejection fraction is normal at 85%. Bubba Majano MD - 01/28/2023 HIDA SCAN WITH GALLBLADDER EJECTION FRACTION HISTORY: Abdominal Pain. COMPARISON: Ultrasound 12/14/2022. METHOD: Following IV injection of 9 mCi of bhgmrnycta-88g-Rukcomv c, anterior imaging of the abdomen was acquired for 60 minutes. After the gallbladder was visualized the patient was given Ensure and the gallbladder ejection fraction was calculated. FINDINGS: There is satisfactory uptake of radiopharmaceutical by the liver. The gallbladder, bile duct, and bowel are seen in the expected period of time and sequence. The gallbladder ejection fraction is normal at 85%. IMPRESSION: Normal hepatic biliary scintigraphy and gallbladder ejection fraction. [facility] Radiology Study observation (narrative) [facility] NM Gallbladder Views for eje ction fraction W Tc-99m DISIDA IVOrdered By: Bubba Caballero on 01-28-2023 [facility] Work Phone: SURGICAL PATHOLOGY EXAMon SURGICAL PATHOLOGY EXAM Surgical Patholo gy Report Case: [id number] Authorizing Provider: Anastasiia Lerner MD Collected: 12/21/2022 1005 Ordering Location: [facility] ([facility]) Received: 12/21/2022 1056 Pathologist: Grant Krishna MD Specimens: A) - Duodenum biopsy, bx for celiac B) - Stomach, Gastric, bx for h pylori C) - Esophagus biopsy, mid esophagus for eosinohilic esophagitis Pre-op Diagnosis: Epigastric pain [R10.13] Post-op Diagnosis: normal exam A. Duodenum, biopsy: - Focal peptic duodenitis - No villous atrophy or intraepithelial lymphocytosis identified. B. Stomach, biopsy: - Focal chronic active gastritis. - H. pylori stain is negative for microorganisms. C. Mid esophagus, biopsy: - Esophageal mucosa with no significant pathologic findings, no eosinophilia identified. CPT code(s) 61333 x 3, 98930 Received in formalin, in three containers all labeled with the patient's name. A. 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 Entirely submitted in one cassette. B. Gastric BX H. pylori consists of 4 tello tissue fragments 0.1-0.6 cm. Entirely submitted in one cassette. C. BX mid esophagus eosinophilic esophagitis consists of 3 tello tissue fragments 0.3-0.4 cm. Entirely submitted in one cassette. (TAW) Normal [facility] Comment on above: Order Comment: Pre-o p diagnosis: Epigastric pain [R10.13] Verified with Lelo Stephen RN Performed By: #### S URCASE #### [facility] [address] [place] [address] BASIC METABOLIC PANELon 08-0 Anion gap [Moles/Vol] 10 mmol/L Normal 8-12 [facility] Comment on above: Performed By: #### 4 [id number], [id number], [id number] #### LUCIEN ALDRIDGE (2012) [facility] [address] [place] [address] Calcium [Mass/Vol] 9.5 mg/dL Normal 8.4-10.4 [facility] Comment on above: Performed By: #### 4 [id number], [id number], [id number] #### LUCIEN ALDRIDGE (2012) [facility] [address] [place] [address] Chloride [Moles/Vol] 99 mmol/L Normal 96-109 [facility] Comment on above: Performed By: #### 4 [id number], [id number], [id number] #### LUCIEN ALDRIDGE (2012) [facility] [address] [place] [address] CO2 [Moles/Vol] 27 mmol/L Normal 22-30 [facility] Comment on above: Performed By: #### 4 [id number], [id number], [id number] #### LUCIEN ALDRIDGE (2012) [facility] [address] [place] [address] Creatinine [Mass/Vol] 1.04 mg/dL Normal 0.52-1.04 [facility] Comment on above: Performed By: #### 4 [id number], [id number], [id number] #### LUCIEN ALDRIDGE (2012) [facility] [address] [place] [address] GLOMERULAR FILTRATION RATE ML/MIN/1.73 SQ M.PREDICTED 57.2 mL/min/1.73m*2 Low >=60.0 [facility] Comment on above: Result Comment: eGFR calculation based on the Chronic Kidney Disease Epidemiology Collaboration (CKD-EPI) equation refit without adjustment for race. Categories in Chronic Kidney Disease (CKD) Category: GFR(mL/min/1.73m^2) Interpretation: G1* 90 or greater Normal or high G2* 60-89 Mild decrease G3a 45-59 Mild to moderate decrease G3b 30-44 Moderate to severe decrease G4 15-29 Severe decrease G5 14 or less Kidney failure *G1&G2: In the absence of evidence of kidney damage, neither GFR category G1 nor G2 fulfill the criteria for CKD Kidney Int Suppl.2013;3:1-150 Performed By: #### 4 [id number], [id number], [id number] #### LUCIEN ALDRIDGE (2012) [facility] [address] [place] [address] Glucose [Mass/Vol] 99 mg/dL Normal 65-100 [facility] Comment on above: Performed By: #### 4 [id number], [id number], [id number] #### LUCIEN ALDRIDGE (2012) [facility] [address] [place] [address] Potassium [Moles/Vol] 4.1 mmol/L Normal 3.6-5.1 [facility] Comment on above: Performed By: #### 4 [id number], [id number], [id number] #### LUCIEN ALDRIDGE (2012) [facility] [address] [place] [address] Sodium [Moles/Vol] 136 mmol/L Normal 135-147 [facility] [employer] [facility] Comment on above: Performed By: #### 4 [id number], [id number], [id number] #### LUCIEN ALDRIDGE (2012) [facility] [address] [place] [address] Urea nitrogen [Mass/Vol] 13 mg/dL Normal 8-26 [facility] [employer] Comment on above: Performed By: #### 4 [id number], [id number], [id number] #### LUCIEN ALDRIDGE (2012) [facility] [address] [place] [address] Basic metabolic panel aka Ch em 8on 12-14-2022 Anion gap [Moles/Vol] 10 mmol/L 8 - 12 mmol/L [facility] [employer] Calcium [Mass/Vol] 9.5 mg/dL 8.4 - 10. 4 mg/dL [facility] [employer] Calcium hydrogen phosphate dihydrate crystals LM Ql (Urine sed) 13 mg/dL 8 - 26 mg/dL [facility] [employer] Chloride [Moles/Vol] 99 mmol/L 96 - 10 9 mmol/L [facility] [employer] CMV IgM IF Ql 27 mmol/L 22 - 30 mmol/L [facility] [employer] Creatinine [Mass/Vol] 1.04 mg/dL 0.52 - 1.04 mg/dL [facility] [employer] GFR/1.73 sq M.predicted MDRD (S/P/Bld) [Vol rate/Area] 57.2 mL/min/{1.73_m2} Low - PINF [facility] [employer] Comment on above: eGFR calculation bas ed on the Chronic Kidney Disease Epidemiology Collaboration (CKD-EPI) equation refit without adjustment for race. Categories in Chronic Kidney Disease (CKD) Category: GFR(mL/min/1.73m^2) Interpretation: G1* 90 or greater Normal or high G2* 60-89 Mild decrease G3a 45-59 Mild to moderate decrease G3b 30-44 Moderate to severe decrease G4 15-29 Severe decrease G5 14 or less Kidney failure *G1&G2: In the absence of evidence of kidney damage, neither GFR category G1 nor G2 fulfill the criteria for CKD Kidney Int Suppl.2013;3:1-150 Glucose [Mass/Vol] 99 mg/dL 65 - 100 mg/dL [facility] [employer] Interpretation and review of laboratory results Abnormal [employer] Potassium [Moles/Vol] 4.1 mmol/L 3.6 - 5.1 mmol/L [facility] [employer] Sodium [Moles/Vol] 136 mmol/L 135 - 147 mmol/L [facility] CBC AND DIFFERENTIALon 12-14 ABSOLUTE BASOPHIL 0.0 x10*3/uL Normal 0.0-0.1 [facility] Comment on above: Performed By: #### 4 [id number] #### LUCIEN ALDRIDGE (2012) [facility] [address] [place] [address] ABSOLUTE EOSINOPHIL 0.0 x10*3/uL Low 0.1-0.3 [facility] Comment on above: Performed By: #### 4 [id number] #### LUCIEN ALDRIDGE (2012) [facility] [address] [place] [address] ABSOLUTE IMMATURE GRANULOCYTES 0.0 x10*3/uL Normal 0.0-0.1 [facility] Comment on above: Performed By: #### 4 [id number] #### LUCIEN ALDRIDGE (2012) [facility] [address] [place] [address] ABSOLUTE LYMPH 2.0 x10*3/uL Normal 1.2-3.3 [facility] Comment on above: Performed By: #### 4 [id number] #### LUCIEN ALDRIDGE (2012) [facility] [address] [place] [address] ABSOLUTE MONO 0.5 x10*3/uL Normal 0.2-0.6 [facility] Comment on above: Performed By: #### 4 [id number] #### LUCIEN ALDRIDGE (2012) [facility] [address] [place] [address] ABSOLUTE NEUTROPHIL 5.4 x10*3/uL Normal 2.4-6.6 [facility] Comment on above: Performed By: #### 4 [id number] #### LUICEN ALDRIDGE (2012) [facility] [address] [place] [address] Basophils/100 WBC (Bld) 0.1 % Normal [facility] Comment on above: Performed By: #### 4 [id number] #### LUCIEN ALDRIDGE (2012) [facility] [address] [place] [address] Eosinophils/100 WBC (Bld) 0.4 % Normal [facility] Comment on above: Performed By: #### 4 [id number] #### LUCIEN ALDRIDGE (2012) [facility] [address] [place] [address] Erythrocyte distribution width (RBC) [Ratio] 13.6 % Normal 11.5-14.5 [facility] Comment on above: Performed By: #### 4 [id number] #### LUCIEN ALDRIDGE (2012) [facility] [address] [place] [address] Hematocrit (Bld) [Volume fraction] 40.1 % Normal 33.6-46.8 [facility] Comment on above: Performed By: #### 4 [id number] #### LUCIEN ALDRIDGE (2012) [facility] [address] [place] [address] Hemoglobin (Bld) [Mass/Vol] 13.4 g/dL Normal 11.7-15.8 [facility] Comment on above: Performed By: #### 4 [id number] #### LUCIEN ALDRIDGE (2012) [facility] [address] [place] [address] Immature granulocytes/100 WBC (Bld) 0.4 % Normal [facility] Comment on above: Performed By: #### 4 [id number] #### LUCIEN ALDRIDGE (2012) [facility] [place] [address] Lymphocytes/100 WBC (Bld) 25.4 % Normal [facility] Comment on above: Performed By: #### 4 [id number] #### LUCIEN ALDRIDGE (2012) [facility] [address] [place] [address] MCH (RBC) [Entitic mass] 28.9 pg Normal 27.5-32.3 [facility] Comment on above: Performed By: #### 4 [id number] #### LUCIEN ALDRIDGE (2012) [facility] [address] [place] [address] MCHC (RBC) [Mass/Vol] 33.4 g/dL Normal 30.7-35.5 [facility] Comment on above: Performed By: #### 4 [id number] #### LUCIEN ALDRIDGE (2012) [facility] [address] [place] [address] MCV (RBC) [Entitic vol] 86.4 fL Normal 80.2-99 [facility] Comment on above: Performed By: #### 4 [id number] #### LUCIEN ALDRIDGE (2012) [facility] [address] [place] [address] Monocytes/100 WBC (Bld) 6.5 % Normal [facility] Comment on above: Performed By: #### 4 [id number] #### LUCIEN ALDRIDGE (2012) [facility] [address] [place] [address] Neutrophils/100 WBC (Bld) 67.2 % Normal [facility] Comment on above: Performed By: #### 4 [id number] #### LUCIEN ALDRIDGE (2012) [facility] [address] [facility] [place] [address] PLATELET COUNT 415 x10*3/uL High 150-400 [facility] Comment on above: Performed By: #### 4 [id number] #### LUCIEN ALDRIDGE (2012) [facility] [address] [place] [address] RED BLOOD CELL COUNT 4.64 x10*6/uL Normal 3.60-5.20 [facility] Comment on above: Performed By: #### 4 [id number] #### LUCIEN ALDRIDGE (2012) [facility] [address] [place] [address] WHITE BLOOD CELLS 8.0 x10*3/uL Normal 4.3-10.3 [facility] Comment on above: Performed By: #### 4 [id number] #### LUCIEN ALDRIDGE (2012) [facility] [address] [place] [address] CBC with DifferentialOrdered By: Background Lab on 12-14-2022 Absolute Immature Granulocytes 0.0 [facility] Age [Time] 86.4 fL 80.2 - 99 fL [facility] Age [Time] 28.9 pg 27.5 - 32.3 pg [facility] Age [Time] 33.4 g/dL 30.7 - 35.5 g/dL [facility] B. burgdorferi IgM IB Ql (CSF) 25.4 % [facility] Basophils (Bld) [#/Vol] 0.0 10*3/uL [facility] Basophils/100 WBC (Body fld) 0.1 % [facility] Eosinophils (Bld) [#/Vol] 2.0 10*3/uL [facility] Eosinophils (Bld) [#/Vol] 0.5 10*3/uL [facility] Eosinophils (Bld) [#/Vol] 0.0 10*3/uL Low [facility] Eosinophils/100 WBC (Bld) 0.4 % [facility] Erythrocyte distribution width (RBC) [Ratio] 13.6 % 11.5 - 14.5 % [facility] Hematocrit (Bld) [Volume fraction] 40.1 % 33.6 - 46.8 % [facility] Hexanoylglycine (U) [Moles/Vol] 13.4 g/dL 11.7 - 15.8 g/dL [facility] Immature granulocytes/100 WBC (Bld) 0.4 % [facility] Interpretation and review of laboratory results Abnormal [facility] Monocytes/100 WBC (Bld) 6.5 % [facility] Neurotensin (P) [Mass/Vol] 67.2 % [facility] Neutrophils (Bld) [#/Vol] 5.4 10*3/uL [facility] Platelets (Bld) [#/Vol] 415 10*3/uL High [facility] RBC (Bld) [#/Vol] 4.64 10*6/uL [facility] WBC LM Ql (Sput) 8.0 [facility] CT ABDOMEN PELVIS WITH IV CO NTRASTon 12-14-2022 CT ABDOMEN PELVIS WITH IV CONTRAST CT ABDOMEN PELVIS WITH IV CONTRAST, 12/14/2022 3:28 PM EDT INDICATION: Nausea/vomiting COMPARISON: None. TECHNIQUE: Axial images of the abdomen and pelvis were obtained after the administration of IV contrast. Multiplanar reformatted images were generated and reviewed as needed. Dose reduction techniques were achieved by using automated exposure control and/or adjustment of mA and/or kV according to patient size and/or use of iterative reconstruction technique. FINDINGS: Motion artifact limits evaluation of the lung bases and portion of the upper abdomen. No gross findings of lobar consolidation or effusion. Small fat-containing right posterior diaphragmatic hernia. The liver, gallbladder, spleen and adrenals are unremarkable. Punctate calcifications tail of the pancreas. No peripancreatic fat stranding or pancreatic ductal dilatation. Grossly symmetric nephrograms without evidence of obstruction. Retroaortic left renal vein. No urolithiasis. No urinary bladder wall thickening or perivesicular fat stranding. Atrophic uterus and left adnexa grossly unremarkable. 5 mm simple right ovarian cyst. No aortic aneurysm. No bowel obstruction or acute focal inflammation. Sigmoid diverticulosis. No pneumatosis, pneumoperitoneum or ascites. No mesenteric or retroperitoneal lymphadenopathy. No acute fracture or dislocation. Grade 1 anterolisthesis L4 on L5. Spondylosis thoracic spine. IMPRESSION: 1. No acute findings. 2. Sigmoid diverticulosis. 3. Grade 1 spondylolisthesis L4/L5. C/o episodes of vomiting for 2-[address] [facility] [address] Abdomen and Pelvis W cont rast Gerardo 12-14-2022 1. No acute findings. 2. Sigmoid diverticulosis. 3. Grade 1 spondylolisthesis L4/L5. [employer] CT ABDOMEN PELVIS WI TH IV CONTRAST, 12/14/2022 3:28 PM EDT INDICATION: Nausea/vomiting COMPARISON: None. TECHNIQUE: Axial images of the abdomen and pelvis were obtained after the administration of IV contrast. Multiplanar reformatted images were generated and reviewed as needed. Dose reduction techniques were achieved by using automated exposure control and/or adjustment of mA and/or kV according to patient size and/or use of iterative reconstruction technique. FINDINGS: Motion artifact limits evaluation of the lung bases and portion of the upper abdomen. No gross findings of lobar consolidation or effusion. Small fat-containing right posterior diaphragmatic hernia. The liver, gallbladder, spleen and adrenals are unremarkable. Punctate calcifications tail of the pancreas. No peripancreatic fat stranding or pancreatic ductal dilatation. Grossly symmetric nephrograms without evidence of obstruction. Retroaortic left renal vein. No urolithiasis. No urinary bladder wall thickening or perivesicular fat stranding. Atrophic uterus and left adnexa grossly unremarkable. 5 mm simple right ovarian cyst. No aortic aneurysm. No bowel obstruction or acute focal inflammation. Sigmoid diverticulosis. No pneumatosis, pneumoperitoneum or ascites. No mesenteric or retroperitoneal lymphadenopathy. No acute fracture or dislocation. Grade 1 anterolisthesis L4 on L5. Spondylosis thoracic spine. EDITA Linden Ch MD - 12/14/2022 CT ABDOMEN PELVIS WITH IV CONTRAST, 12/14/2022 3:28 PM EDT INDICATION: Nausea/vomiting COMPARISON: None. TECHNIQUE: Axial images of the abdomen and pelvis were obtained after the administration of IV contrast. Multiplanar reformatted images were generated and reviewed as needed. Dose reduction techniques were achieved by using automated exposure control and/or adjustment of mA and/or kV according to patient size and/or use of iterative reconstruction technique. FINDINGS: Motion artifact limits evaluation of the lung bases and portion of the upper abdomen. No gross findings of lobar consolidation or effusion. Small fat-containing right posterior diaphragmatic hernia. The liver, gallbladder, spleen and adrenals are unremarkable. Punctate calcifications tail of the pancreas. No peripancreatic fat stranding or pancreatic ductal dilatation. Grossly symmetric nephrograms without evidence of obstruction. Retroaortic left renal vein. No urolithiasis. No urinary bladder wall thickening or perivesicular fat stranding. Atrophic uterus and left adnexa grossly unremarkable. 5 mm simple right ovarian cyst. No aortic aneurysm. No bowel obstruction or acute focal inflammation. Sigmoid diverticulosis. No pneumatosis, pneumoperitoneum or ascites. No mesenteric or retroperitoneal lymphadenopathy. No acute fracture or dislocation. Grade 1 anterolisthesis L4 on L5. Spondylosis thoracic spine. IMPRESSION: 1. No acute findings. 2. Sigmoid diverticulosis. 3. Grade 1 spondylolisthesis L4/L5. [facility] Study observation (narrative) [facility] CT Abdomen and Pelvis W cont rast IVOrdered By: Linden Ch on 12-14-2022 [facility] Work Phone: HEPATIC FUNCTION PANELon Albumin [Mass/Vol] 4.1 g/dL Normal 3.5-5.0 [facility] Comment on above: Performed By: #### 4 [id number], [id number], [id number] #### LUCIEN ALDRIDGE (2012) [facility] [address] [place] [address] ALK PHOS 85 U/L Normal 24-126 [facility] Comment on above: Performed By: #### 4 [id number], [id number], [id number] #### LUCIEN ALDRIDGE (2012) [facility] [address] [place] [address] ALT [Catalytic activity/Vol] 21 U/L Normal 4-35 [facility] Comment on above: Performed By: #### 4 [id number], [id number], [id number] #### LUCIEN ALDRIDGE (2012) [facility] [address] [place] [address] AST [Catalytic activity/Vol] 29 U/L Normal 3-47 [facility] Comment on above: Performed By: #### 4 [id number], [id number], [id number] #### LUCIEN ALDRIDGE (2012) [facility] [address] [place] [address] Bilirubin [Mass/Vol] 0.6 mg/dL Normal 0.2-1.6 [facility] Comment on above: Performed By: #### 4 [id number], [id number], [id number] #### LUCIEN ALDRIDGE (2012) [facility] [address] [place] [address] Bilirubin.indirect [Mass/Vol] 0.2 mg/dL Normal <=0.5 [facility] Comment on above: Performed By: #### 4 [id number], [id number], [id number] #### LUCIEN ALDRIDGE (2012) [facility] [address] [place] [address] Protein [Mass/Vol] 7.5 g/dL Normal 6.3-8.2 [facility] Comment on above: Performed By: #### 4 [id number], [id number], [id number] #### LUCIEN ALDRIDGE (2012) [facility] [address] [place] [address] Hepatic function panelon Albumin (Syn fld) [Mass/Vol] 4.1 g/dL 3.5 - 5.0 g/dL [facility] Aldosterone (U) [Mass/Vol] 85 U/L 24 - 126 U/L [facility] ALT [Catalytic activity/Vol] 21 U/L 4 - 35 U/L [facility] AST [Catalytic activity/Vol] 29 U/L 3 - 47 U/L [facility] Bilirubin [Mass/Vol] 0.6 mg/dL 0.2 - 1 .6 mg/dL [facility] Bilirubin.conjugated [Mass/Vol] 0.2 mg/dL NINF - 0.5 mg/dL [facility] Protein [Mass/Vol] 7.5 g/dL 6.3 - 8.2 g/dL [facility] LACTATEon 12-14-2022 Lactate [Moles/Vol] 1.3 mmol/L Normal 0.7-2.0 [facility] Comment on above: Performed By: #### 4 [id number] #### [address] [place] [address] [facility] LIPASEon 12-14-2022 Lipase [Catalytic activity/Vol] 57 U/L Normal 23-300 [facility] Comment on above: Performed By: #### 4 [id number], [id number], [id number] #### LUCIEN ALDRIDGE (2012) [facility] [address] [place] [address] Lipaseon 12-14-2022 Lipase [Catalytic activity/Vol] 57 U/L 23 - 300 U/L [facility] No Panel Informationon 12-14 Interpretation and review of laboratory results Normal [facility] URINE CHEM STRIP ONLYon Appearance (U) Clear Normal [facility] Comment on above: Performed By: #### 4 [id number] #### LUCIEN ALDRIDGE (2012) [facility] [address] [place] [address] BILIRUBIN UA Small Abnormal Negative [facility] Comment on above: Result Comment: Leroy bolites of etodolac or high concentration of urobilinogen may cause false positive results.?Correlate clinically. Performed By: #### 4 [id number] #### LUCIEN ALDRIDGE (2012) [facility] [address] [place] [address] Color (U) Yellow Normal [facility] Comment on above: Performed By: #### 4 [id number] #### LUCIEN ALDRIDGE (2012) [facility] [address] [place] [address] Glucose Ql (U) Negative Normal Negative [facility] Comment on above: Performed By: #### 4 [id number] #### LUCIEN ALDRIDGE (2012) [facility] [address] [place] [address] Ketones Ql (U) Trace Abnormal Negative [facility] Comment on above: Performed By: #### 4 [id number] #### LUCIEN ALDRIDGE (2012) [facility] [address] [place] [address] LEUKOESTERASE Negative Normal Negative [facility] Comment on above: Performed By: #### 4 [id number] #### LUCIEN ALDRIDGE (2012) [facility] [address] [place] [address] Nitrite Ql (U) Negative Normal Negative [facility] Comment on above: Performed By: #### 4 [id number] #### LUCIEN ALDRIDGE (2012) [facility] [address] [place] [address] OCCULT BLD Negative Normal Negative [facility] Comment on above: Performed By: #### 4 [id number] #### LUCIEN ALDRIDGE (2012) [facility] [address] [place] [address] PH, URINE 6.0 Normal [facility] Comment on above: Performed By: #### 4 [id number] #### LUCIEN ALDRIDGE (2012) [facility] [address] [place] [address] Protein Ql (U) 30 Abnormal Negative [facility] Comment on above: Performed By: #### 4 [id number] #### LUCIEN ALDRIDGE (2012) [facility] [address] [place] [address] SPECIFIC GRAVITY, URINE 1.025 Normal [facility] Comment on above: Performed By: #### 4 [id number] #### LUCIEN ALDRIDGE (2012) [facility] [address] [place] [address] UROBILINOGEN UA <2.0 Normal <2.0 [facility] Comment on above: Performed By: #### 4 [id number] #### LUCIEN ALDRIDGE (2012) [facility] [address] [place] [address] US GALLBLADDERon 12-14-2022 US GALLBLADDER EXAM: US GALLBLADDER HISTORY: . rule out cholecystitis . COMPARISON: None. TECHNIQUE: Grayscale and color imaging was performed FINDINGS: No masses were noted in the head and body of the pancreas. The tail was obscured due to overlying bowel gas. Pancreas duct measured 2.9 mm. Scanning of the liver demonstrated mild increased echogenicity of liver suggesting fatty infiltration of liver. The liver was normal in size. No masses were noted. The gallbladder appeared normal with no stones or sludge identified. No gallbladder wall thickening was noted. Patient had no pain upon scanning over the gallbladder. Common bile duct measured 4 mm. Right kidney measured 9.9 x 4.8 x 4.5 cm. No solid renal cortical masses or hydronephrosis was noted. No fluid was noted in the right upper quadrant. IMPRESSION: 1. Normal-appearing gallbladder with no stones or sludge. No gallbladder wall thickening. Patient had no pain upon scanning over the gallbladder. 2. Slight increased echogenicity of liver consistent with fatty infiltration of liver. 3. Normal-appearing common bile duct. Diagnosis: rule out cholecystitis Tech Notes: no prev Impressions:sub op panc tail due to overlying bowel gas Panc duct measuring 2.9mm Slight increase echogenicity of the liver compared to Rt kidney- fatty liver Neg bill's sign See the scanned document in [employer] under the Documents tab. Order Comments: Ordering Physician: Adeola Baltazar APRN [employer]OND WORKER Dose: Normal [facility] US Gallbladderon 12-14-2022 1. Normal-appearing gallbladder with no stones or sludge. No gallbladder wall thickening. Patient had no pain upon scanning over the gallbladder. 2. Slight increased echogenicity of liver consistent with fatty infiltration of liver. 3. Normal-appearing common bile duct. [facility] EXAM: US GALLBLADDER HISTORY: . rule out cholecystitis . COMPARISON: None. TECHNIQUE: Grayscale and color imaging was performed FINDINGS: No masses were noted in the head and body of the pancreas. The tail was obscured due to overlying bowel gas. Pancreas duct measured 2.9 mm. Scanning of the liver demonstrated mild increased echogenicity of liver suggesting fatty infiltration of liver. The liver was normal in size. No masses were noted. The gallbladder appeared normal with no stones or sludge identified. No gallbladder wall thickening was noted. Patient had no pain upon scanning over the gallbladder. Common bile duct measured 4 mm. Right kidney measured 9.9 x 4.8 x 4.5 cm. No solid renal cortical masses or hydronephrosis was noted. No fluid was noted in the right upper quadrant. [facility] Jac Singh MD - 12/14/2022 EXAM: US GALLBLADDER HISTORY: . rule out cholecystitis . COMPARISON: None. TECHNIQUE: Grayscale and color imaging was performed FINDINGS: No masses were noted in the head and body of the pancreas. The tail was obscured due to overlying bowel gas. Pancreas duct measured 2.9 mm. Scanning of the liver demonstrated mild increased echogenicity of liver suggesting fatty infiltration of liver. The liver was normal in size. No masses were noted. The gallbladder appeared normal with no stones or sludge identified. No gallbladder wall thickening was noted. Patient had no pain upon scanning over the gallbladder. Common bile duct measured 4 mm. Right kidney measured 9.9 x 4.8 x 4.5 cm. No solid renal cortical masses or hydronephrosis was noted. No fluid was noted in the right upper quadrant. IMPRESSION: 1. Normal-appearing gallbladder with no stones or sludge. No gallbladder wall thickening. Patient had no pain upon scanning over the gallbladder. 2. Slight increased echogenicity of liver consistent with fatty infiltration of liver. 3. Normal-appearing common bile duct. [facility]iology Study observation (narrative) [facility] US GallbladderOrdered By: Gino Singh on 12-14-2022 [facility] Work Phone: Urine Dipon 12-14-2022 Acetone [Mass/Vol] Trace Abnormal Negative [facility] Appearance (Body fld) Clear [facility] Bilirubin Ql (U) Small Abnormal Negative [facility] Comment on above: Metabolites of etodo lac or high concentration of urobilinogen may cause false positive results. Correlate clinically. Color (Stone) Yellow [facility] G6PD (RBC) [Catalytic activity/Vol] Negative Negative [facility] Interpretation and review of laboratory results Abnormal [facility] Leukocyte esterase Test strip Ql (U) Negative Negative [facility] Nitrite Test strip (U) [Mass/Vol] Negative Negative [facility] pH (Fer fld) 6.0 [facility] Protein (U) [Mass/Vol] 30 mg/dL Abnormal Negative [facility] IgE Qn (S) Negative Negative [facility] Specific gravity (U) [Rel density] 1.025 [facility] Urobilinogen Qn (U) <2.0 NINF - 2.0 [facility] HbA1c (Bld)on 08-11-2022 Average glucose Estimated from glycated hemoglobin (Bld) [Mass/Vol] 131 mg/dL Normal [facility] Comment on above: Order Comment: Antonio fermin Type: BLOOD SPECIMEN Ordering Facility: [facility] Address: [address] [place] [address] Result Comment: eAG: (Estimated average glucose) is a calculated value from HgbA1c and is veterans service representative of the average blood glucose level in the last 2-3 month period. Performed By: #### 5 5454-3 #### [facility] CLIA [id number] [address] [place] [address] [place] HbA1c (Bld) [Mass fraction] 6.2 % High 4.3-5.6 [facility] Comment on above: Order Comment: Antonio fermin Type: BLOOD SPECIMEN Ordering Facility: [facility] Address: [address] [place] [address] Result Comment: Amer [place] Diabetes Association guidelines indicate that patients with HgbA1c in the range 5.7-6.4% are at increased risk for development of diabetes, and intervention by lifestyle modification may be beneficial. HgbA1c greater or equal to 6.5% is considered diagnostic of diabetes. Performed By: #### 5 5454-3 #### [facility] CLIA [id number] [address] [place] [address] [place] Hemoglobin A1con 04-21-2020 HbA1c (Bld) [Mass fraction] 6.1 % High 4.3-5.6 [facility] Comment on above: Performed By: #### H BA1C #### [facility] Routine Lab [facility] [place] [address] HbA1c (Bld) [Mass fraction] 128 mg/dL Normal [facility] Comment on above: Performed By: #### H BA1C #### [facility] Routine Lab [facility] [place], [place] [address] Hemoglobin A1con 10-19-2019 HbA1c (Bld) [Mass fraction] 6.1 % High 4.3-5.6 [facility] Comment on above: Performed By: #### H BA1C #### [facility] Routine Lab [address] [place], [place] [id number] HbA1c (Bld) [Mass fraction] 128 mg/dL Normal [facility] Comment on above: Performed By: #### H BA1C #### [facility] Routine Lab [address] [place], [place] [address] GIdwight 10-03-2019 GI -- ---- Patient: JONO KING L ---- SPECIMEN: [id number] Collection Date: 10/03/19-1224 Received: 10/05/19 Status: DIRK Hughes DrVinita: Estuardo Young MD Ph# Othr. Dr.: Raul Singh MD Material for Examination: A ASCENDING COLON POLYPS AND DESCENDING POLYPS PRE-OP DIAGNOSIS: PERSONAL HX COLON POLYPS POST-OP DIAGNOSIS: NONE GIVEN SURGICAL PROCEDURE: NONE GIVEN SPECIMEN COMMENTS: RECEIVED FROM [facility], [address] [place] [address] 2 Mata SLIDES LABELED [id number] JONO KING L1,L2 DIAGNOSIS A. Ascending colon polyps and descending polyps, polypectomy: Tubular adenoma, one fragment Background fragments of digested vegetable matter. GROSS DESCRIPTION The specimen is grossed and processed at [facility] The following is the provided gross description: Received in formalin, labeled ascending colon polyps, descending polyps, are 2 irregular, soft, pink-tello fragments of tissue ranging in size from less than 0.1-0.1 cm. The specimen is entirely submitted in one cassette. Foreign material ? MICROSCOPIC DESCRIPTION Two Mata stained slides examined. COPIES TO: Raul Singh MD, Nabil M MD Signed Verified/Reviewed by SHERWIN MACIEL MD 10/08/19 This dictation was created using voice recognition software. Phonetic and/or minor grammatical errors may exist. ---- [facility] NAME: JONO KING Pathology and Laboratory Medicine UNIT#: [id number] LOC: [facility] Therapy Coordinator: Keira Tay M.D. [facility] [id number] ROOM/BED: [facility] : 50 AGE/SEX: 69/F ORD.Estuardo Bang MD END OF REPORT Normal [facility] MRI Up Ext Joint w/o Contras t Lefton 12-26-2016 MRI Up Ext Joint w/o Contrast Left Patient Name: JONO KING MRI Exam Date/Time 12/24/2016 15:58:20 EDT Exam MRI Up Ext Joint w/o Contrast Left Ordering Physician TRIXIE NICOLE Accession Number [id number] CPT4 Codes 63458 () Reason For Exam RCT,Impingement syndrome Report Examination: MRI left shoulder Clinical Indication: Shoulder pain, limited range of motion, rotator cuff tear, impingement syndrome Comparison: None Findings: Multiplanar multisequence 1.2 Lety open MRI images were obtained through the left shoulder without intravenous gadolinium. No fracture or subluxation. Acromioclavicular joint demonstrates minimal degenerative edema and trace distal clavicle hypertrophy. There is minimal type II curvature of the acromion. Findings cause minimal mass effect on the torn rotator cuff interval. Long head biceps demonstrates no evidence of tear or significant tendinopathy. Trace fluid within the biceps tendon sheath. Finding can be seen physiologically or with a trace tenosynovitis. Subscapularis demonstrates mild tendinopathy but no tear. There is full-thickness tear of nearly the entirety of supraspinatus measuring 3.0 cm anterior to posterior and exhibiting 3.1 cm of retraction. Some of the tear is proximal to the insertion with a small amount of persistent torn tendon along the greater humeral tuberosity. There is subchondral edema and subchondral cystic change at the supraspinatus insertion more posteriorly. There is trace supraspinatus and infraspinatus atrophy. Glenohumeral articular cartilage demonstrates mild cartilage thinning. No significant productive or gross erosive arthropathy. No sizable joint effusion. No evidence of capsular tear or inflammation. Impression: 1. 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 Tear measures 3.0 cm anterior to posterior with 3.1 cm of retraction. Findings superimposed on mild tendinopathy and more posterior supraspinatus enthesopathy. 2. Minimal acromioclavicular and acromial impingement. Report Dictated on Final Dictated: 12/26/2016 9:36 pm Dictating Physician: MD CALDERON ANTHONY J Signed Date and Time: 12/26/2016 9:41 pm Signed by: MD CALDERON ANTHONY J Transcribed Date and Time: 12/26/2016 9:36 Normal [facility] Vital Signs Date Time Vital Sign Value Performing Clinician Facility 11-19-2024 16:07-0400 Diastolic blood pressure 63 mm[Hg] Nat Lazar MD Work Phone: [facility] 11-19-2024 16:07-0400 Heart rate 80 /min Nat Lazar MD Work Phone: [facility] 11-19-2024 16:07-0400 Respiratory rate 18 /min Nat Lazar MD Work Phone: [facility] 11-19-2024 16:07-0400 SaO2% (BldA) [Mass fraction] 95 % Nat Lazar MD Work Phone: [facility] 11-19-2024 16:07-0400 Systolic blood pressure 143 mm[Hg] Nat Lazar MD Work Phone: 7(143)716-835928 [address] 11-19-2024 15:52-0400 Body temperature 97.59 [degF] Nat Lazar MD Work Phone: 0(907)472-121628 [address] 11-19-2024 11:05-0400 Body height 165.1 cm Nat Lzaar MD Work Phone: 2(781)042-487528 [address] 11-19-2024 11:05-0400 Body mass index (BMI) [Ratio] 26.69 kg/m2 Nat Lazar MD Work Phone: 2(429)623-311489 [place] [address] 11-19-2024 11:05-0400 Body weight 72.76 kg Nat Lazar MD Work Phone: 1(170)568-785828 [address] 10-22-2024 13:42-0400 Body height 164.4 cm Nayely Mack PA-C Work Phone: 9(693)479-393589 [place] [address] Comment on above: taken by [employer] 10/2210-22-2024 13:42-0400 Body mass index (BMI) [Ratio] 27.1 kg/m2 Nayely Mack PA-C Work Phone: [facility] 10-22-2024 13:42-0400 Body temperature 98.2 [degF] Nayely Mack PA-C Work Phone: 0(541)876-151128 [address] 10-22-2024 13:42-0400 Body weight 73.26 kg Nayely Mack PA-C Work Phone: 1(906)225-752589 [place] [address] Comment on above: with shoes 10-22-2024 13:42-0400 Diastolic blood pressure 64 mm[Hg] Nayely Frederick PA-C Work Phone: [facility] 10-22-2024 13:42-0400 Heart rate 96 /min Nayely Mack PA-C Work Phone: [facility] 10-22-2024 13:42-0400 Respiratory rate 20 /min Nayely Mack PA-C Work Phone: [facility] 10-22-2024 13:42-0400 SaO2% (BldA) [Mass fraction] 95 % Nayely Mack PA-C Work Phone: [facility] 10-22-2024 13:42-0400 Systolic blood pressure 137 mm[Hg] Nayely Mack PA-C Work Phone: [facility] 10-04-2024 10:16-0400 Body temperature 98.4 [degF] Dr. Courtney Hayward MD Work Phone: [facility] 10-04-2024 10:16-0400 Body weight 74.[address] Courtney Hayward MD Work Phone: [facility] 10-04-2024 10:16-0400 Diastolic blood pressure 77 mm[Hg] Dr. Courtney Hayward MD Work Phone: [facility] 10-04-2024 10:16-0400 Heart rate 87 /min Dr. Courtney Hayward MD Work Phone: [facility] 10-04-2024 10:16-0400 Respiratory rate 17 /min Dr. Courtney Hayward MD Work Phone: [facility] 10-04-2024 10:16-0400 SaO2% (BldA) [Mass fraction] 97 % Dr. Courtney Hayward MD Work Phone: [facility] 10-04-2024 10:16-0400 Systolic blood pressure 123 mm[Hg] Dr. Courtney Hayward MD Work Phone: [facility] 06-29-2024 10:49-0500 Body height 165.1 cm Kelsea O'Patrice AP OPERATOR-LOG POND WORKER Work Phone: [facility] 06-29-2024 10:49-0500 Body mass index (BMI) [Ratio] 27.99 kg/m2 Kelsea Alysa'Patrice AP OPERATOR-[employer] POND WORKER Work Phone: [facility] 06-29-2024 10:49-0500 Body temperature 97.59 [degF] Kelsea Alysa'Patrice AP OPERATOR-LOG POND WORKER Work Phone: [facility] 06-29-2024 10:49-0500 Body weight 76.3 kg Kelsea Alysa'Patrice AP OPERATOR-LOG POND WORKER Work Phone: [facility] Comment on above: with shoes on 06-29-2024 10:49-0500 Diastolic blood pressure 75 mm[Hg] Kelsea Watt'Patrice AP OPERATOR-LOG POND WORKER Work Phone: [facility] 06-29-2024 10:49-0500 Heart rate 94 /min Kelsea Watt'Patrice AP OPERATOR-LOG POND WORKER Work Phone: [facility] 06-29-2024 10:49-0500 Respiratory rate 20 /min Kelsea Watt'Patrice AP OPERATOR-LOG POND WORKER Work Phone: [facility] 06-29-2024 10:49-0500 SaO2% (BldA) [Mass fraction] 99 % Kelsea Watt'Patrice AP OPERATOR-LOG POND WORKER Work Phone: [facility] 06-29-2024 10:49-0500 Systolic blood pressure 164 mm[Hg] Kelsea Watt'Patrice AP OPERATOR-LOG POND WORKER Work Phone: [facility] 06-29-2024 10:13-0500 Diastolic blood pressure 96 mm[Hg] Tracy Connors PA-C Work Phone: [facility] 06-29-2024 10:13-0500 Systolic blood pressure 173 mm[Hg] Tracy COLEMAN-C Work Phone: [facility] 04-13-2024 09:31-0500 Heart rate 114 /min Dr. Courtney Hayward MD Work Phone: [facility] 04-13-2024 09:31-0500 SaO2% (BldA) [Mass fraction] 97 % Dr. Courtney Hayward MD Work Phone: [facility] 04-13-2024 09:03-0500 Body height 165.[address] Courtney Hayward MD Work Phone: [facility] 04-13-2024 09:03-0500 Body mass index (BMI) [Ratio] 27.4 kg/m2 Dr. Courtney Hayward MD Work Phone: [facility] 04-13-2024 09:03-0500 Body temperature 97.3 [degF] Dr. Courtney Hayward MD Work Phone: [facility] 04-13-2024 09:03-0500 Body weight 74.[address] Courtney Hayward MD Work Phone: [facility] 04-13-2024 09:03-0500 Diastolic blood pressure 69 mm[Hg] Dr. Courtney Hayward MD Work Phone: [facility] 04-13-2024 09:03-0500 Respiratory rate 20 /min Dr. Courtney Hayward MD Work Phone: [facility] 04-13-2024 09:03-0500 Systolic blood pressure 146 mm[Hg] Dr. Courtney Hayward MD Work Phone: [facility] 02-15-2024 13:33-0400 Body height 165.1 cm Tracy Connors PA-C Work Phone: [facility] 02-15-2024 13:33-0400 Body mass index (BMI) [Ratio] 26.63 kg/m2 Tracy Connors PA-C Work Phone: [facility] 02-15-2024 13:33-0400 Body temperature 97.39 [degF] Tracy Connors PA-C Work Phone: [facility] 02-15-2024 13:33-0400 Body weight 72.58 kg Tracy Connors PA-C Work Phone: [facility] 02-15-2024 13:33-0400 Diastolic blood pressure 65 mm[Hg] Tracy Connors PA-C Work Phone: [facility] 02-15-2024 13:33-0400 Heart rate 103 /min Tracy Connors PA-C Work Phone: [facility] 02-15-2024 13:33-0400 Respiratory rate 20 /min Tracy Connors PA-C Work Phone: [facility] 02-15-2024 13:33-0400 SaO2% (BldA) [Mass fraction] 98 % Tracy Connors PA-C Work Phone: [facility] 02-15-2024 13:33-0400 Systolic blood pressure 141 mm[Hg] Tracysheela Connors PA-C Work Phone: [facility] 02-04-2024 09:57-0400 Heart rate 92 /min Nat Lazar MD Work Phone: [facility] 02-04-2024 09:57-0400 Respiratory rate 20 /min Nat Lazar MD Work Phone: [facility] 02-04-2024 09:57-0400 SaO2% (BldA) [Mass fraction] 96 % Nat Lazar MD Work Phone: [facility] 02-04-2024 08:20-0400 Body temperature 98.4 [degF] Nat Lazar MD Work Phone: [facility] 02-04-2024 08:20-0400 Diastolic blood pressure 57 mm[Hg] Nat Lazar MD Work Phone: [facility] 02-04-2024 08:20-0400 Systolic blood pressure 103 mm[Hg] Nat Lazar MD Work Phone: [facility] 02-04-2024 05:43-0400 Body mass index (BMI) [Ratio] 27.52 kg/m2 Nat Lazar MD Work Phone: [facility] 02-04-2024 05:43-0400 Body weight 75.03 kg Nat Lazar MD Work Phone: [facility] 02-02-2024 06:32-0400 Body height 165.1 cm Nat Lazar MD Work Phone: [facility] 12-28-2023 14:29-0400 Body height 162.6 cm Nat Lazar MD Work Phone: [facility] 12-28-2023 14:29-0400 Body mass index (BMI) [Ratio] 27.89 kg/m2 Nat Lazar MD Work Phone: [facility] 12-28-2023 14:29-0400 Body temperature 97.7 [degF] Nat Lazar MD Work Phone: [facility] 12-28-2023 14:29-0400 Body weight 73.71 kg Nat Lazar MD Work Phone: [facility] 12-28-2023 14:29-0400 Diastolic blood pressure 66 mm[Hg] Nat Lazar MD Work Phone: [facility] Comment on above: BOB Sandra notified 12-28-2023 14:29-0400 Heart rate 86 /min Nat Lazar MD Work Phone: [facility] 12-28-2023 14:29-0400 Respiratory rate 18 /min Nat Lazar MD Work Phone: [facility] 12-28-2023 14:29-0400 SaO2% (BldA) [Mass fraction] 99 % Nat Lazar MD Work Phone: [facility] 12-28-2023 14:29-0400 Systolic blood pressure 137 mm[Hg] Nat Lazar MD Work Phone: [facility] Comment on above: BOB Sandra notified 05-10-2023 09:12-0500 Diastolic blood pressure 74 mm[Hg] Dr. Courtney Hayward Work Phone: [facility] 05-10-2023 09:12-0500 Systolic blood pressure 144 mm[Hg] Dr. Courtney Hayward Work Phone: [facility] 05-10-2023 08:32-0500 Body height 157.[address] Courtney Hayward Work Phone: [facility] 05-10-2023 08:32-0500 Body mass index (BMI) [Ratio] 28.9 kg/m2 Dr. Courtney Hayward Work Phone: [facility] 05-10-2023 08:32-0500 Body temperature 98.2 [degF] Dr. Courtney Hayward Work Phone: [facility] 05-10-2023 08:32-0500 Body weight 71.[address] Courtney Hayawrd Work Phone: [facility] 05-10-2023 08:32-0500 Heart rate 94 /min Dr. Courtney Hayward Work Phone: [facility] 05-10-2023 08:32-0500 Respiratory rate 17 /min Dr. Courtney Hayward Work Phone: [facility] 05-10-2023 08:32-0500 SaO2% (BldA) [Mass fraction] 96 % Dr. Courtney Hayward Work Phone: [facility] 12-21-2022 10:44-0400 Diastolic blood pressure 61 mm[Hg] Anastasiai Lerner MD Work Phone: 3(001)468-977640 [place] [address] 12-21-2022 10:44-0400 Heart rate 81 /min Anastasiia Lerner MD Work Phone: 8(980)899-700840 [place] [address] 12-21-2022 10:44-0400 Respiratory rate 27 /min Anastasiia Lerner MD Work Phone: 1(241)864-201240 [place] [address] 12-21-2022 10:44-0400 SaO2% (BldA) [Mass fraction] 90 % Anastasiia Lerner MD Work Phone: 9(188)141-801514 [address] 12-21-2022 10:44-0400 Systolic blood pressure 116 mm[Hg] Anastasiia Lerner MD Work Phone: 0(208)447-254014 [address] 12-21-2022 10:14-0400 Body temperature 97.2 [degF] Anastasiia Lerner MD Work Phone: 2(191)043-712140 [place] [address] 12-21-2022 09:32-0400 Body height 165.1 cm Anastasiia Lerner MD Work Phone: 2(229)046-987914 [address] 12-21-2022 09:32-0400 Body mass index (BMI) [Ratio] 26.66 kg/m2 Anastasiia Lerner MD Work Phone: 2(529)399-000914 [address] 12-21-2022 09:32-0400 Body weight 72.67 kg Anastasiia Lerner MD Work Phone: 3(644)384-431740 [place] [address] 12-14-2022 17:07-0400 Diastolic blood pressure 60 mm[Hg] Nat Jiang DO Work Phone: [facility] 12-14-2022 17:07-0400 Heart rate 79 /min Nat Jiang DO Work Phone: [facility] [employer] 12-14-2022 17:07-0400 SaO2% (BldA) [Mass fraction] 96 % Nat Jiang DO Work Phone: [facility] 12-14-2022 17:07-0400 Systolic blood pressure 125 mm[Hg] Nat Jiang DO Work Phone: [facility] 12-14-2022 15:16-0400 Respiratory rate 30 /min Nat Jiang DO Work Phone: [facility] 12-14-2022 13:43-0400 Body height 165.1 cm Nat Jiang DO Work Phone: [facility] 12-14-2022 13:43-0400 Body mass index (BMI) [Ratio] 26.63 kg/m2 Nat Jiang DO Work Phone: [facility] 12-14-2022 13:43-0400 Body temperature 97.39 [degF] Nat Jiang DO Work Phone: [facility] 12-14-2022 13:43-0400 Body weight 72.58 kg Nat Jiang DO Work Phone: [facility] 01-14-2022 15:24-0400 Body height 157.[address] Raul Singh Work Phone: [facility] Work Phone: 01-14-2022 15:24-0400 Body mass index (BMI) [Ratio] 27.5 kg/m2 Dr. Raul Singh Work Phone: [facility] Work Phone: 01-14-2022 15:24-0400 Body temperature 98.6 [degF] Dr. Raul Singh Work Phone: [facility] Work Phone: 01-14-2022 15:24-0400 Body weight 68.[address] Raul Singh Work Phone: [facility] Work Phone: 01-14-2022 15:24-0400 Diastolic blood pressure 78 mm[Hg] Dr. Raul Singh Work Phone: [facility] Work Phone: 01-14-2022 15:24-0400 Heart rate 78 /min Dr. Raul Signh Work Phone: [facility] Work Phone: 01-14-2022 15:24-0400 Respiratory rate 16 /min Dr. Raul Singh Work Phone: [facility] Work Phone: 01-14-2022 15:24-0400 SaO2% (BldA) [Mass fraction] 95 % Dr. Raul Singh Work Phone: [facility] Work Phone: 01-14-2022 15:24-0400 Systolic blood pressure 118 mm[Hg] Dr. Raul Singh Work Phone: [facility] Work Phone: 01-01-2021 08:29-0400 Body height 165.1 cm Ashlee Petersen MD Work Phone: [facility] 01-01-2021 08:29-0400 Body mass index (BMI) [Ratio] 25.46 kg/m2 Ashlee Petersen MD Work Phone: [facility] 01-01-2021 08:29-0400 Body temperature 97.59 [degF] Ashlee Petersen MD Work Phone: [facility] 01-01-2021 08:29-0400 Body weight 69.4 kg Ashlee Petersen MD Work Phone: [facility] 01-01-2021 08:29-0400 Diastolic blood pressure 70 mm[Hg] Ashlee Petersen MD Work Phone: [facility] 01-01-2021 08:29-0400 Heart rate 76 /min Ashlee Petersen MD Work Phone: [facility] 01-01-2021 08:29-0400 Respiratory rate 16 /min Ashlee Petersen MD Work Phone: [facility] 01-01-2021 08:29-0400 SaO2% (BldA) [Mass fraction] 95 % Ashlee Petersen MD Work Phone: [facility] 01-01-2021 08:29-0400 Systolic blood pressure 137 mm[Hg] Ashlee Petersen MD Work Phone: [facility] 10-02-2020 06:12-0400 Body height 165.1 cm Delano Funez CNP Work Phone: [facility] 10-02-2020 06:12-0400 Body mass index (BMI) [Ratio] 27.12 kg/m2 Delano Funez CNP Work Phone: [facility] 10-02-2020 06:12-0400 Body temperature 97.81 [degF] Delano Funez CNP Work Phone: [facility] 10-02-2020 06:12-0400 Body weight 73.94 kg Delano Funez CNP Work Phone: [facility] 10-02-2020 06:12-0400 Diastolic blood pressure 67 mm[Hg] Delano Funez CNP Work Phone: [facility] 10-02-2020 06:12-0400 Heart rate 79 /min Delano Funez CNP Work Phone: [facility] 10-02-2020 06:12-0400 Respiratory rate 14 /min Delano Funez CNP Work Phone: [facility] 10-02-2020 06:12-0400 SaO2% (BldA) [Mass fraction] 94 % Delano Funez CNP Work Phone: [facility] 10-02-2020 06:12-0400 Systolic blood pressure 115 mm[Hg] Delano Fergusonalysa LOG POND WORKER Work Phone: [facility] Encounters Encounter Date Encounter Type Care Provider Facility Start: 01-01-2025 ambulatory IKER MAYO Facility:[facility] Start: 12-25-2024 End: 12-25-2024 ambulatory COURTNEY HAYWARD [facility] Start: 11-23-2024 End: 11-23-2024 Telephone encounter Nat Lazar MD Work Phone: Division of Thor[facility] at [facility] Comment on above: Medication Refill Start: 11-19-2024 End: 11-19-2024 ambulatory NAT LAZAR Facility:[facility] Start: 11-19-2024 End: 11-19-2024 Subsequent hospital visit by physician Nat Lazar MD Work Phone[facility] Comment on above: Solitary lung nodule Start: 11-08-2024 ambulatory COURTNEY Guevara ty:[facility] Start: 11-06-2024 ambulatory COURTNEY Guevara ty:[facility] Start: 10-22-2024 End: 10-22-2024 Office outpatient visit 25 minutes Kelsea Trevino AP OPERATOR-LOG POND WORKER Work Phone: [facility] Comment on above: Solitary lung nodule (Primary Dx) Start: 10-22-2024 ambulatory KELSEA TREVINO Facilit y:[facility] Start: 10-22-2024 End: 10-22-2024 Subsequent hospital visit by physician Kelsea Trevino AP OPERATOR-LOG POND WORKER Work Phone: Imaging at [facility] Comment on above: Arrived Start: 10-04-2024 End: 10-04-[address] Avel Segura MD -[facility] Work Phone: Start: 10-04-2024 End: 10-04-[address] Courtney Hayward MD Work Phone: [facility] Work Phone: Start: 08-15-2024 End: 08-15-[address] Courtney Hayward MD Work Phone: [facility] Work Phone: Start: 08-15-2024 End: 08-15-[address] Chuy Hunt MD -Cardi[facility] Services Work Phone: Start: 08-15-2024 End: 08-15-2024 ambulatory Courtney Hayward Facility:[facility] Start: 07-24-2024 End: 07-25-2024 Telephone encounter Jocy Cook RN [facility] Comment on above: Imaging Results Start: 07-17-2024 End: 07-17-[address] Courtney Hayward MD Work Phone: [facility] Start: 07-17-2024 End: 07-17-[address] Courtney Hayward MD Work Phone: [facility] Work Phone: Start: 07-11-2024 End: 07-11-2024 Telephone encounter Nat Lazar MD Work Phone: [facility] Comment on above: Advice Only Start: 06-29-2024 End: 06-29-2024 Office outpatient visit 15 minutes Tracy Connors PA-C Work Phone: [facility] Comment on above: History of lung canc er (Primary Dx); Solitary lung nodule Start: 06-29-2024 ambulatory TRACY CONNORS [facility] ility:[facility] Start: 06-29-2024 End: 06-29-2024 Subsequent hospital visit by physician Tracy Connors PA-C Work Phone: Imaging at [facility] Comment on above: Arrived Start: 04-13-2024 End: 04-13-2024 Patient encounter procedure Lorena Hutchins NP-C -[facility] Work Phone: Start: 04-13-2024 End: 04-13-2024 ambulatory Courtney Hayward Facility[facility] Start: 03-26-2024 End: 03-26-2024 ambulatory Lisset Veliz RN Work Phone: [facility] Start: 03-26-2024 End: 03-26-2024 Patient encounter procedure Lisset Veliz RN Work Phone: [facility] Comment on above: Complex care coordin ation (Primary Dx) Start: 03-20-2024 End: 03-20-2024 ambulatory Lisset Veliz RN Work Phone: [facility] Start: 03-20-2024 End: 03-20-2024 Patient encounter procedure Lisset Veliz RN Work Phone: [facility] Comment on above: Complex care coordin ation (Primary Dx) Start: 03-05-2024 ambulatory KATHARINE GROSS Facilit y:[facility] Start: 03-01-2024 End: 03-01-2024 ambulatory Courtney Hayward Facility:[facility] Start: 02-28-2024 End: 02-28-2024 ambulatory Lisset Veliz RN Work Phone: [facility] Start: 02-28-2024 End: 02-28-2024 Patient encounter procedure Lisset Veliz RN Work Phone: [facility] Comment on above: Complex care coordin ation (Primary Dx) Start: 02-22-2024 End: 02-22-2024 ambulatory Lisset Veliz RN Work Phone: [facility] Start: 02-22-2024 End: 02-22-2024 Patient encounter procedure Lisset Veliz RN Work Phone: [facility] Comment on above: Complex care coordin ation (Primary Dx) Start: 02-15-2024 ambulatory NAT Guevara ty:[facility] Start: 02-15-2024 End: 02-15-2024 Subsequent hospital visit by physician Nat Lazar MD Work Phone: [facility] Comment on above: Arrived Start: 02-15-2024 End: 02-15-2024 Postop follow up visit related to original px Nat Lazar MD Work Phone: [facility] Comment on above: Disability affecting daily living (Primary Dx); Dyspnea on exertion; 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; Acute post-operative pain; Smoker Start: 02-15-2024 ambulatory NAT Guevara ty:[facility] Start: 02-15-2024 End: 02-15-2024 Subsequent hospital visit by physician Nat Lazar MD Work Phone: [facility] Comment on above: Arrived Start: 02-10-2024 End: 02-13-2024 ambulatory Lisset Veliz RN Work Phone: [facility] Start: 02-10-2024 End: 02-13-2024 Patient encounter procedure Lisset Veliz RN Work Phone: [facility] Comment on above: Complex care coordin ation (Primary Dx) Start: 02-09-2024 ambulatory JOSEY JUSTICE Facilit y:[facility] Start: 02-02-2024 End: 02-04-2024 Evaluation and management of inpatient Nat Lazar MD Work Phone: [email or web address] Comment on above: Squamous cell carcin kenn of upper lobe of right lung Start: 01-19-2024 ambulatory NAT Guevara ty:[facility] Start: 01-18-2024 End: 01-18-2024 [facility] Start: 12-28-2023 End: 12-28-2023 Clinical Support Encounter Nat Lazar MD Work Phone: [facility] Comment on above: Malignant neoplasm o f upper lobe, right bronchus or lung Start: 12-28-2023 ambulatory NAT Guevara ty:[facility] Start: 12-28-2023 End: 12-28-2023 Office outpatient new 60 minutes Nat Lazar MD Work Phone: [facility] Comment on above: Malignant neoplasm o f upper lobe, right bronchus or lung (Primary Dx); 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 Courtney Hayward Work Phone: [facility] Work Phone: Start: 05-12-2023 End: 05-12-[address] Courtney Hayward Work Phone: [facility] Work Phone: Start: 05-10-2023 End: 05-10-[address] Courtney Hayward Work Phone: [facility] Work Phone: Start: 05-10-2023 End: 05-10-[address] Courtney Hayward Work Phone: [facility] Work Phone: Start: 05-10-2023 End: 05-10-[address] Courtney Hayward Work Phone: [facility] Work Phone: Start: 01-28-2023 End: 01-29-2023 ambulatory [facility] Start: 01-28-2023 End: 01-28-2023 Subsequent hospital visit by physician Erica COLEMAN Work Phone: [facility] Comment on above: Epigastric pain Start: 12-21-2022 End: 12-21-2022 ambulatory [facility] Start: 12-21-2022 End: 12-21-2022 Subsequent hospital visit by physician Anastasiia Lerner MD Work Phone: [facility] (OPS) Comment on above: Epigastric pain Start: 12-17-2022 End: 12-17-2022 ambulatory NAS MOORE [facility] Start: 12-16-2022 End: 12-16-2022 ambulatory NONE PCP [facility] Start: 12-14-2022 End: 12-14-2022 Emergency department patient visit NAT JIANG [facility] Start: 12-14-2022 End: 12-14-2022 Emergency department patient visit Nat Jiang DO Work Phone: [facility] Emergency Dept Comment on above: Upper abdominal pain (Primary Dx); Nausea and vomiting, unspecified vomiting type Start: 04-07-2022 End: 04-07-[address] Raul Singh Work Phone: [facility] Work Phone: Start: 04-07-2022 End: 04-07-[address] Raul Singh Work Phone: [facility] Start: 01-14-2022 End: 01-14-[address] Raul Singh Work Phone: [facility] Start: 01-01-2021 End: 01-01-2021 ambulatory ASHLEE PETERSEN [facility] Ambulatory Start: 01-01-2021 End: 01-01-2021 Office outpatient new 30 minutes Karine Lara MD Work Phone: [facility] Comment on above: Pre-op evaluation (P rimary Dx); Nuclear sclerotic cataract of right eye; Recurrent mild major depressive disorder with anxiety (HCC) Start: 01-01-2021 End: 01-01-2021 Preprocedural examination done Karine Lara MD Work Phone: [facility] Start: 12-30-2020 Preprocedural examination done Karine Lara MD Work Phone: [facility] Start: 12-30-2020 Transcribe Orders Karine balderrama MD Work Phone: [facility] Comment on above: Pre-op evaluation (P rimary Dx) Start: 10-02-2020 End: 10-02-2020 ambulatory PHYSICIAN NO [facility] Start: 10-02-2020 End: 10-02-2020 Office outpatient new 30 minutes Delano Funez CNP Work Phone: [facility] Comment on above: Pre-op evaluation (P rimary Dx); Age-related nuclear cataract of left eye; Attention deficit hyperactivity disorder (ADHD), unspecified ADHD type; Recurrent mild major depressive disorder with anxiety (HCC); Dyslipidemia; History of stroke in adulthood; Nicotine dependence with current use Start: 10-02-2020 End: 10-02-2020 Preprocedural examination done Delano Funez CNP Work Phone: [facility] Start: 12-24-2016 Ambulatory TRIXIE NICOLE [facility] Procedures Date Procedure Procedure Detail Performing Clinician Start: 11-19-2024 Radiologic exam ches t single view Nayely Mack PA-C Work Phone: Start: 11-19-2024 CONTINUOUS CARDIAC MONITORING STRIP Other Other Start: 11-19-2024 Antibody screen Nat Lazar MD Work Phone: Start: 11-19-2024 CONTINUOUS CARDIAC MONITORING STRIP Other Other Start: 11-19-2024 Antibody screen TOOTIE CONNORS Comment on above: Performed By: #### X M #### [facility] ([address] [address] Start: 11-19-2024 Blood typing serologic abo Nayely Mack PA-C Work Phone: Start: 11-19-2024 CBC AND ELECTRONIC DIFF Nayley Mack PA-C Work Phone: Start: 11-19-2024 Complete blood count with white cell differential, automated Nayely Mack PA-C Work Phone: Start: 11-19-2024 Creatinine blood Nayely COLEMAN-[place] Work Phone: Start: 10-22-2024 Follow-up visit Follow-up KELSEA Chacon BELINDA Start: 07-17-2024 PET study for locali zation of tumor Dr. Courtney Hayward MD Work Phone: Start: 06-29-2024 Ct thorax w/contrast material Tracy Beck Connors PA-C Work Phone: Start: 06-29-2024 Creatinine blood Preston Beck Connors PA-C Work Phone: Start: 02-15-2024 Pulmonary stress testing Tracy Beck Connors PA-C Work Phone: Start: 02-15-2024 Radiologic exam ches t 2 views Izzy E Gwendolyn AP OPERATOR-LOG POND WORKER Work Phone: Start: 02-04-2024 Radiologic exam ches t single view Yajaira Sheela Chester AP OPERATOR-LOG POND WORKER Work Phone: Start: 02-04-2024 Assay of magnesium Dez B Fahad PA-C Work Phone: Start: 02-04-2024 CBC AND ELECTRONIC DIFF Dez B Fahad PA-C Work Phone: Start: 02-04-2024 Complete blood count with white cell differential, automated Dez B Fahad PA-C Work Phone: Start: 02-04-2024 Oscillating positive expiratory pressure (flutter) physiotherapy Yajaira A Chester AP OPERATOR-LOG POND WORKER Work Phone: Start: 02-03-2024 Radiologic exam ches t single view Josey Humphrey Justice AP OPERATOR-LOG POND WORKER Work Phone: Start: 02-03-2024 Radiologic exam ches t single view Dez B Fahad PA-C Work Phone: Start: 02-03-2024 Assay of magnesium Dez B Fahad PA-C Work Phone: Start: 02-03-2024 CBC AND ELECTRONIC DIFF Dez B Fahad PA-C Work Phone: Start: 02-03-2024 Complete blood count with white cell differential, automated Dez Vásquez PA-C Work Phone: Start: 02-03-2024 Oscillating positive expiratory pressure (flutter) physiotherapy Yajaira Goldsmitht AP OPERATOR-LOG POND WORKER Work Phone: Start: 02-02-2024 Oscillating positive expiratory pressure (flutter) physiotherapy Yajaira A Chester AP OPERATOR-LOG POND WORKER Work Phone: Start: 02-02-2024 Calcium ionized Nat Lazar MD Work Phone: Start: 02-02-2024 Calcium ionized Nat Lazar MD Work Phone: Start: 02-02-2024 PROCEDURE NOTE (SCANNED) Other Other Start: 02-02-2024 Radiologic exam ches t single view Dez Vásquez PA-C Work Phone: Start: 02-02-2024 End: 02-02-2024 Assay of magnesium Dez COLEMAN-C Work Phone: Start: 02-02-2024 CBC AND ELECTRONIC DIFF Dez COLEMAN-C Work Phone: Start: 02-02-2024 Complete blood count with white cell differential, automated Dez Vásquez PA-C Work Phone: Start: 02-02-2024 Antibody screen Nat Lazar MD Work Phone: Start: 02-02-2024 End: 02-02-2024 [facility] fluor gdnce dx w/cell washg spx Nat Lazar MD Work Phone: Start: 02-02-2024 End: 02-02-2024 Thoracoscopy w/lobectomy single lobe Nat Lazar MD Work Phone: Start: 02-02-2024 Antibody screen TOOTIE CONNORS Comment on above: Performed By: #### X M #### [facility] (DEFAULT) [address] [place] [address], [place] [address] Start: 02-02-2024 Blood typing serologic abo Dez Vásquez PA-C Work Phone: Start: 02-02-2024 PREPARE TO TRANSFUSE OR RED BLOOD CELLS Dez Vásquez PA-C Work Phone: Start: 02-02-2024 End: 02-02-2024 Basic metabolic panel calcium total Dez Vásquez PA-C Work Phone: Start: 02-02-2024 CBC AND ELECTRONIC DIFF Dez Vásquez PA-C Work Phone: Start: 02-02-2024 Complete blood count with white cell differential, automated Dez Vásquez PA-C Work Phone: Start: 02-02-2024 End: 02-02-2024 CONTINUOUS CARDIAC MONITORING STRIP Other Other Start: 12-28-2023 Antibody screen [facility] General Utility Machine Operator Bs 2 Start: 12-28-2023 Antibody screen TOOTIE CONNORS Comment on above: Performed By: #### X MPO #### [facility] (DEFAULT) [address] [place] [id number] Start: 12-28-2023 Blood typing serologic abo Izzy Snow AP OPERATOR-LOG POND WORKER Work Phone: Start: 12-28-2023 CBC AND ELECTRONIC DIFF Izzy Snow AP OPERATOR-LOG POND WORKER Work Phone: Start: 12-28-2023 Complete blood count with white cell differential, automated Izzy Snow AP OPERATOR-LOG POND WORKER Work Phone: Start: 12-28-2023 Creatinine blood Izzy Snow AP OPERATOR-LOG POND WORKER Work Phone: Start: 01-28-2023 Hepatobil syst imag inc gb w/pharma intervenj Erica COLEMAN Work Phone: Start: 12-14-2022 Us abdominal real ti me w/image limited Adeola Baltazar AP OPERATOR LOG POND WORKER Work Phone: Start: 12-14-2022 Ct abdomen & pelvis w/contrast material Adeola Baltazar AP OPERATOR LOG POND WORKER Work Phone: Start: 12-14-2022 Urnls dip stick/tabl et rgnt non-auto w/o micrscp Nat Jiang DO Work Phone: Start: 12-14-2022 Basic metabolic pane l calcium total Nat Jiang DO Work Phone: Start: 12-14-2022 Hepatic function panel Cari Sheela Thakurjackelyn AP OPERATOR LOG POND WORKER Work Phone: Plan of Treatment Date Care Activity Detail Author Start: 10-22-2025 Screening for malignant neoplasm of lung LUNG CANCER SCREENING [facility] Start: 2025 RSV VACCINE (1 - 1-dose 75+ series) RSV VACCINE (1 - 1-dose 75+ series) [facility] Start: 06-29-2025 Screening for malignant neoplasm of lung LUNG CANCER SCREENING [facility] Start: 02-27-2025 End: 02-27-2025 Patient encounter procedure 02/27/2025 1:30 PM EDT Off ice Visit Division of Thoracic Surgery at [facility] [address] [place] [address] Nat Lazar MD [address] [place] [id number] Division of Thoracic Surgery at [facility] Start: 01-07-2025 Influenza vaccination [facility] Start: 11-19-2024 End: 11-19-2024 Admission to same day surgery center 11/19/2024 1:00 PM EDT - 11/19/2024 3:00 PM EDT Surgery CCCT PERIOP [address] [place] [address] Nat Lazar MD [address] [place] [address] BRONCHOSCOPY W/ COMPUTER ASSISTED IMAGE GUIDED NAVIGATION ADD-ON PX [facility]CT PERIOP Comment on above: BRONCHOSCOPY W/ COMPUTER ASSISTED IMAGE GUIDED NAVIGATION ADD-ON PX Start: 11-19-2024 End: 11-19-2024 [facility] incl fluor gdnce dx w/cell washg spx BRONCHOSCOPY FLEXIBLE DIAGNOSTIC Solitary lung nodule 11/19/2024 1:00 PM EDT [facility] Start: 11-19-2024 End: 11-19-2024 Bronchoscopy w/cptr-asst image-guided navigation BRONCHOSCOPY W/ COMPUTER ASSISTED IMAGE GUIDED NAVIGATION ADD-ON PX Solitary lung nodule 11/19/2024 1:00 PM EDT [facility] Start: 11-19-2024 Subsequent hospital visit by physician 11/19/2024 1:00 PM EDT Hospital Encounter [facility] [address] [place] [phone] Nat Lazar MD [address] [place] [phone] Solitary lung nodule [facility] Comment on above: Solitary lung nodule Start: 11-06-2024 End: 11-06-2024 Anesthesia consultation 11/06/2024 5:00 PM EDT Pre-Operative Nurse Assessment [facility] [address] [place] [phone] [facility] Start: 10-05-2024 End: 10-05-2024 Patient encounter procedure 10/05/2024 12:30 PM EDT Office Visit Division of Thoracic Surgery at [facility] [address] [address] Division of Thoracic Surgery at [facility] Start: 10-05-2024 End: 10-05-2024 Patient encounter procedure 10/05/2024 11:15 AM EDT Appointment Imaging at [facility] [place] [id number] [place] [phone] Kelsea Trevino, AP OPERATOR-LOG POND WORKER [address] [place] [phone] Imaging at [facility] Start: 06-29-2024 End: 06-29-2025 CT Chest WO contrast CT CHEST WITHOUT CONTRAST Imaging Routine History of lung cancer Solitary lung nodule Expected: 06/29/2024, Expires: 06/29/2025 [facility] Comment on above: Expected: 06/29/2024, Expires: Start: 06-29-2024 End: 06-29-2024 Patient encounter procedure Imaging at [facility] Start: 03-05-2024 End: 03-05-2024 Telemedicine consultation with patient 03/05/2024 10:00 AM EDT Telemedicine [facility] [address] [place] [address] Katharine Gross, AP OPERATOR-LOG POND WORKER [address] [place] [address] [facility] Start: 02-15-2024 End: 02-15-2024 Patient encounter procedure 02/15/2024 2:30 PM EDT Off ice Visit Division of Thoracic Surgery at [facility] [address] [place] [address] Nat Lazar MD [address] [place] [address] Division of Thoracic Surgery at [facility] Start: 02-02-2024 End: 02-01-2025 XR Chest PA and Lateral XR CHEST PA AND LATERAL 2 VIEWS Imaging Routine Malignant neoplasm of upper lobe, right bronchus or lung 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 Expected: 02/02/2024, Expires: 02/01/2025 [facility] Comment on above: Expected: 02/02/2024, Expires: Start: 02-02-2024 End: 02-02-2024 [facility] incl fluor gdnce dx w/cell washg spx BRONCHOSCOPY FLEXIBLE DIAGNOSTIC Malignant neoplasm of upper lobe, right bronchus or lung 02/02/2024 8:15 AM EDT [facility] Start: 02-02-2024 End: 02-02-2024 Evaluation and management of inpatient [facility] PERIOP Comment on above: Malignant neoplasm of upper lobe, right bronchus or lung BRONCHOSCOPY FLEXIBL E DIAGNOSTIC Start: 02-02-2024 End: 02-02-2024 Thoracoscopy w/lobectomy single lobe LOBECTOMY LUNG ROBOTIC Malignant neoplasm of upper lobe, right bronchus or lung 02/02/2024 8:15 AM EDT [facility] Start: 01-19-2024 End: 01-19-2024 Anesthesia consultation 01/19/2024 5:00 PM EDT Pre-Operative Nurse Assessment [facility] [place] [address] [place] [address] [facility] Start: 01-08-2024 COVID-19 VACCINE ( season) COVID-19 VACCINE () [facility] Start: 01-08-2024 COVID-19 VACCINE ( season) COVID-19 VACCINE () [facility] Start: 01-08-2024 Influenza vaccination INFLUENZA VACCINE (#1) [facility] Start: 04-15-2023 End: 04-15-2023 Patient encounter procedure 04/15/2023 3:30 PM EST Off ice Visit [facility] [address] [place], [place] [id number] Erica Dwyer PA [address] [place] [address] [facility] Start: 02-21-2023 ambulatory Ambulatory [facility] Start: 01-07-2023 COVID-19 VACCINE ( season) COVID-19 VACCINE () [facility] Start: 01-07-2023 Influenza vaccination given INFLUENZA VACCINE (#1) [facility] Start: 12-21-2022 End: 12-21-2022 Esophagogastroduodenoscopy ESOPHAGOGASTRODUODENOSCOPY Epigastric pain 12/21/2022 9:45 AM EDT [facility] Start: 01-07-2021 Influenza vaccination [facility] Start: 01-01-2021 End: 01-01-2021 Patient encounter procedure 01/01/2021 Office Visit Primary Care Ashlee Petersen MD [address] [facility] [address] [place] [address] [facility] Start: 08-17-2015 Fall risk assessment [facility] Start: 08-17-2015 Glaucoma screening GLAUCOMA/EYE EXAM AGE 65+ [facility] Start: 08-17-2015 Pneumococcal 23-valent polysaccharide vaccination given (situation) PNEUMONIA VACCINE (PCV13 PPSV23) (1 - PCV) [facility] Start: 08-17-2015 Pneumococcal Vaccine: Age 65+ (1 of 1 - PPSV23) Pneumococcal Vaccine: Age 65+ (1 of 1 - PPSV23) [facility] Start: 08-17-2015 Screening for osteoporosis BONE DENSITY SCREENING [facility] Start: 2010 RSV VACCINE (1 - 1-dose 60+ series) RSV VACCINE (1 - 1-dose 60+ series) [facility] Start: 2000 Administration of herpes zoster vaccine Zoster Vaccines (1 of 2) [facility] Start: 2000 Screening for malignant neoplasm of colon [facility] Start: 2000 Screening for malignant neoplasm of lung [facility] Start: 2000 Zoster vaccine hzv live for subcutaneous use ZOSTER (SHINGLES) VACCINE (1 of 2) [facility] Start: 08-17-1995 Screening for malignant neoplasm of colon [facility] Start: 1990 Lipid panel LIPID SCREENING [facility] Start: 1990 Screening for malignant neoplasm of breast [facility] Start: 08-17-1971 Screening for malignant neoplasm of cervix CERVICAL CANCER SCREENING DISCUSSION [facility] Start: 1969 Pneumococcal vaccination PNEUMOCOCCAL VACCINE SERIES (1 of 2 - PCV) [facility] Start: 1969 Third diphtheria, tetanus and acellular pertussis (DTaP) vaccination TDAP (ADULT) [facility] Start: 1968 ANNUAL WELLNESS VISIT ANNUAL WELLNESS VISIT [facility] Start: 1968 Hepatitis C screening Hepatitis C Screening [facility] Start: 1962 COVID-19 Vaccine (1) COVID-19 Vaccine (1) [facility] Start: 1962 Depression screening using PHQ-9 (Patient Health Questionnaire 9) score [facility] Start: 1961 Administration of diphtheria + tetanus + acellular pertussis vaccine DTAP/TDAP/TD VACCINE (1 - Tdap) [facility] Start: 1956 Pneumococcal 23-valent polysaccharide vaccination given (situation) PNEUMONIA VACCINE (PCV13 PPSV23) (1 - PCV) [facility] Start: 1956 Pneumococcal vaccination PNEUMOCOCCAL VACCINE SERIES (1 of 2 - PCV) [facility] Start: 1956 Pneumococcal Vaccine: Age 65+ (1 of 2 - PPSV23) Pneumococcal Vaccine: Age 65+ (1 of 2 - PPSV23) [facility] Start: 1953 History and physical examination, annual for health maintenance Wellness Visit [facility] Start: 02-15-1951 COVID-19 VACCINE (#1) COVID-19 VACCINE (#1) [facility] Start: 1950 Hepatitis C screening [facility] Start: 1950 Screening for osteoporosis [facility] Start: 1950 Screening mammography Mammogram [facility] Start: 1950 Tetanus vaccination [facility] 6-minute walk test EXERCISE-6 HI N. WALK PFT Routine Dyspnea on exertion 02/15/2024 3:04 PM EDT [facility] incl fluor g dnce dx w/cell washg spx BRONCHOSCOPY FLEXIBLE DIAGNOSTIC [facility] Bronchoscopy w/cptr- asst image-guided navigation BRONCHOSCOPY W/ COMPUTER ASSISTED IMAGE GUIDED NAVIGATION ADD-ON PX Solitary lung nodule [facility] End: 10-22-2024 CT Chest WO contrast [facility] Comment on above: 1 Occurrences starting 10/22/2024 until 10/22/2024 CYTOLOGY, NON-DITCH CLEANER - FNA ONLY [facility] Comment on above: Release Upon Ordering for 1 Occurrences starting 11/19/2024, 1 completed End: 12-14-2022 Dark Green Top [facility] Comment on above: Once for 1 Occurrences starting 12/15/19 until 12/14/2022, 1 completed ECHOCARDIOGRAM PHARMACOLOGICAL STRESS TEST ECHOCARDIOGRAM PHARMACOLOGICAL STRESS TEST Stress Echocardiography Routine Malignant neoplasm of upper lobe, right bronchus or lung Ordered: 12/28/2023 [facility] Comment on above: Ordered: 12/28/2023 End: 12-14-2022 [facility] [employer] Comment on above: Once for 1 Occurrences starting 12/15/19 until 12/14/2022, 1 completed Hepatic function panel [facility] End: 12-14-2022 Lactate - ED and Inpatient: A result >2 mmol/L will create an auto-follow up lactate order to be drawn in 2 hours. [employer] Comment on above: One Time for 1 Occurrences starting 12/2022 until 12/14/2022 End: 12-14-2022 [facility] [employer] Comment on above: Once for 1 Occurrences starting 12/15/19 until 12/14/2022, 1 completed End: 12-14-2022 [facility] Comment on above: Once for 1 Occurrences starting 12/15/19 until 12/14/2022, 1 completed End: 12-14-2022 [facility] Comment on above: Once for 1 Occurrences starting 12/15/19 until 12/14/2022, 1 completed Lipid 1996 panel - S gurinder or Plasma [facility] Measurement of respi ratory function [facility] Oxygen Therapy Nasal Cannula; Liters Per Minute: 2.0 LPM; RT may modify oxygen administration per policy: Yes During procedure Oxygen Therapy Nasal Cannula; Liters Per Minute: 2.0 LPM; RT may modify oxygen administration per policy: Yes During procedure Respiratory Care Routine Epigastric pain Continuous until discontinued starting 12/21/2022 [employer] Comment on above: Continuous until discontinued starting 0 12/21/2022 End: 12-21-2022 POCT glucose for medication controlled diabetic patient POCT glucose for medication controlled diabetic patient Point of Care Testing Routine Epigastric pain One Time for 1 Occurrences starting 12/21/2022 until 12/21/2022 [employer] Comment on above: One Time for 1 Occurrences starting 12/07 until 12/21/2022 End: 12-21-2022 POCT Urine Preg POCT Urine Preg Point of Car e Testing Routine Epigastric pain One Time for 1 Occurrences starting 12/21/2022 until 12/21/2022 [employer] Comment on above: One Time for 1 Occurrences starting 12/07 until 12/21/2022 Pulse oximetry, continuous Pulse oximetry, continuous Respiratory Care Routine Epigastric pain Continuous until discontinued starting 12/21/2022 [facility] [employer] [facility] Work Phone: Comment on above: Continuous until discontinued starting 0 12/21/2022 End: 12-14-2022 RAINBOW DRAW [employer] Work Phone: Comment on above: One Time for 1 Occurrences starting 12/2022 until 12/14/2022 End: 11-19-2024 RF Greater than 1 hour [facility] Comment on above: One Time for 1 Occurrences starting 11/06 until 11/19/2024 [facility] Comment on above: Release Upon Ordering for 1 Occurrences starting 02/02/2024, 1 completed Surgical Pathology Exam [facility] [employer] Work Phone: Comment on above: Release Upon Ordering for 1 Occurrences starting 12/21/2022, 1 completed Payers Date Payer Category Payer Self-pay [id number] 2023 Medicare (Managed Care) MEDICARE [facility] [id number] 2023 Unknown [id number] 2022 Medicare 2020 Medicaid [id number] 2019 Medicaid [id number] 2017 Medicaid [id number] 1998 Medicare [id number] 1998 Medicare [id number] 1950 Unknown [id number] 2.16.840.1.453152.3.579.2. 903 1950 Unknown [id number] 2.16.840.1.187013.3.579.2. 903 1950 Unknown [id number] 2.16.840.1.137582.3.579.2. 297 1950 Unknown [id number] 2.16.840.1.615281.3.579.2. 297 1950 Unknown [id number] 2.16.840.1.961591.3.579.2. 297 1950 Unknown [id number] 2.16.840.1.655755.3.579.2. 297 1950 Unknown [id number] 2.16.840.1.981956.3.579.2. 297 1950 Unknown [id number] 2.16.840.1.615521.3.579.2. 297 1950 Unknown [id number] 2.16.840.1.684082.3.579.2. 297 1950 Unknown [id number] 2.16.840.1.055407.3.579.2. 297 1950 Unknown [id number] 2.16.840.1.298838.3.579.2. 594 1950 Unknown [id number] 2.16.840.1.640639.3.579.2. 594 1950 Unknown [id number] 2.16.840.1.840392.3.579.2. 594 1950 Unknown [id number] 2.16.840.1.844250.3.579.2. 594 1950 Unknown [id number] 2.16.840.1.934187.3.579.2. 594 1950 Unknown [id number] 2.16.840.1.081265.3.579.2. 594 1950 Unknown [id number] 2.16.840.1.704447.3.579.2. 594 1950 Unknown [id number] 2.16.840.1.090397.3.579.2. 594 1950 Unknown [id number] 2.16.840.1.463761.3.579.2. 594 1950 Unknown [id number] 2.16.840.1.495999.3.579.2. 594 1950 Unknown [id number] 2.16.840.1.416627.3.579.2. 594 1950 Unknown [id number] 2.16.840.1.492702.3.579.2. 594 1950 Unknown [id number] 2.16.840.1.314733.3.579.2. 594 1950 Unknown [id number] 2.16.840.1.087655.3.579.2. 594 1950 Unknown [id number] 2.16.840.1.645183.3.579.2. 594 1950 Unknown [id number] 2.16.840.1.848672.3.579.2. 594 1950 Unknown [id number] 2.16.840.1.184124.3.579.2. 651 1950 Unknown [id number] 2.16.840.1.699956.3.579.2. 651 Medicare [id number] Unknown [id number] 2.16.840.1.078740.3.579.2. 462 Unknown [id number] 2.16.840.1.111112.3.579.2. 462 Unknown [id number] 2.16840.1.494891.3.579.2. 462 Unknown [id number] 2.16.840.1.505544.3.579.2. 462 Unknown [id number] 2.16.840.1.337425.3.579.2. 462 Unknown [id number] 2.0.1.910689.3.579.2. 462 Social History Date Type Detail Facility Start: 12-27-1983 End: 10-22-2024 Tobacco smoking status NHIS Current every day smoker [facility] Start: 10-02-2020 End: 10-22-2024 Tobacco use and exposure Never used [facility] Start: 1950 Sex Assigned At [facility] Exposure to SARS-CoV -2 (event) Not sure [facility] Start: 01-14-2022 End: 05-10-2023 Tobacco smoking status NHIS Unknown if ever smoked [facility] Start: 1950 Sex Assigned At Female W [facility] Start: 12-21-2022 End: 10-22-2024 Gender identity Not on file [facility] Start: 12-27-1983 History of tobacco use Cigarette Smo ker [facility] Start: 12-16-2022 End: 10-22-2024 Cigarettes smoked current (pack per day) - Reported 1 [facility] Start: 12-21-2022 End: 11-20-2024 Alcohol intake Lifetime non-drinker (finding) [facility] Adolescent depressio n screening assessment 0 [facility] Start: 12-28-2023 Tobacco Comment 12/28/23 - 2 ppd [facility] Has the [employer], [employer], or [employer] threatened to shut off services in your home in past 12Mo No [facility] How often to you hav e a drink containing alcohol? Never [facility] (I/We) worried debora er (my/our) food would run out before (I/we) got money to buy more. Never true [facility] Start: 01-19-2024 Tobacco Comment 12/28/23 - 05/10 ppd.I am cutting back. Maybe 1 or 2 a day [facility] Start: 02-15-2024 Tobacco Comment 02/15/2024 not smoking since surgery 12/28/23 - 05/10 ppd.I am cutting back. Maybe 1 or 2 a day [facility] Start: 06-29-2024 Tobacco Comment 02/15/2024 not smoking since surgery 12/28/23 - 05/10 ppd.I am cutting back. Maybe 1 or 2 a day06/29/24 [facility] Start: 12-20-2023 End: 08-17-2024 Sex Female (finding) [facility] Start: 10-22-2024 Tobacco Comment 02/15/2024 not smoking since surgery 12/28/23 - 05/10 ppd.10/22/24 - ppdI am cutting back. Maybe 1 or 2 a day06/29/24 [facility] Goals Date Patient Goal Desired Activity /State Personal health goal Comment on above: Formatting of this n ote might be different from the original. Patient Care Plan: Falls/Injury Prevention Interventions: [facility] provided education to patient/caregiver on 02.21.2024 PCRM made referral to [facility] on 02/17/2024 for half-way, PT/OT Patient will participate in home PT and resume OP PT once able to leave home. Patient will remove all loose materials and rugs on the floor. Patient will keep walk ways free of trip hazards. Expected Patient Goals: Patient will understand and be compliant with treatment plan. Patient will know when/who to call with questions and concerns. Patient will maintain safety and independence in their home. Patient will have no unplanned ED visits or hospitalizations. Formatting of this n ote might be different from the original. Patient Care Plan: Airway Management Interventions: [facility] provided education to patient/caregiver on 02.21.2024 Patient will use incentive spirometer 3-4 times a day. Patient will practice deep breathing 3-4 times a day. Patient will do deep coughing 3-4 times a day. Expected Patient Goals: Patient will understand and be compliant with treatment plan. Patient will know when/who to call with questions and concerns. Patient's symptoms (shortness of breath) will be managed/improved with current regimen. Patient connected with resources that lead to health promotion and support. Patient will have no unplanned ED visits or hospitalizations. Clinical Notes 10-02-2020 to 11-23-2024 Telephone Encounter - Ekta Pool RN - 11/23/2024 4:05 PM EDTTelephone Encounter - Ekta Pool RN - 11/23/2024 4:05 PM EDTTelephone Encounter - Tracy Connors PA-C - 11/23/2024 4:01 PM EDT Note Date & Type Note Facility 11-23-2024 Telephone encounter Note Called patient to provide update, however she said the generic patches do not work. I explained that many times they are the same or similar ingredients, however she is adamant she needs NicodermCQ. I let her know I would escalate to providers. [facility] 11-23-2024 Miscellaneous Notes Called patient to provide update, however she said the generic patches do not work. I explained that many times they are the same or similar ingredients, however she is adamant she needs NicodermCQ. I let her know I would escalate to providers. Generic OTC nicotine patches E-prescribed to patient's pharmacy on file. Who is calling: Patient What are they calling for?: They were told the name brand nicotine patches were denied. She was given a phone number and fax# for the team to appeal this denial. #[phone] fx#[phone] CB:[phone] Thanks! documented in this encounter [facility] 11-23-2024 Telephone encounter Note Generic OTC nicotine patches E-pres[facility] to [facility]'s pharmacy [facility] Telephone encounter Note Who is calling: Patient What are they calling for?: They were told the name brand nicotine patches were denied. She was given a phone number and fax# for the team to appeal this denial. #[phone] fx#[phone] CB:[phone] Thanks! [facility] 11-19-2024 Miscellaneous Notes Thoracic Surgery Operative Report Date: November 19, 2024. Preoperative Diagnosis: Left Lower Lobe Lung Nodule. Postoperative Diagnosis: Left Lower Lobe Lung Nodule. Procedure Performed: 1. Flexible Bronchoscopy. 2. Endobronchial Ultrasound with Biopsy. 3. ION Robotic Navigational Bronchoscopy with Biopsy. 4. Intraoperative 2-D Fluoroscopy and 3-D Cone Beam CT Scan for Lung Nodule Localization. 5. Rapid Onsite Cytology (JAZMINE). Intraoperative Findings: Successful Navigation to the left lower lobe lung nodule. Surgeon: Nat Lazar M.D . Park Services Specialist: Leonie Ramírez MD and Nayely Mack PA-C. Anesthesia Type: General Anesthesia. Estimated Blood Loss: Minimal. Intravenous Fluid: See Anesthesia record. Specimens: 1. FNA biopsy of Left Hilar Lymph Node (11L). 2. FNA Biopsy of Subcarinal Lymph Node. 3. FNA Biopsy of Left Lower Lobe Lung Nodule. Drains: None. Complications: None. Disposition: The patient tolerated the operation well. She was extubated and transported the postanesthesia care unit in stable condition. Indication for the procedure: Jono King is a 74 y.o. 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 On 06/29/24, a surveillance CT chest showed a growing 1.3 cm LLL lung nodule. A PET CT scan obtained 07/17/24 showed no significant uptake in the LLL lung nodule. She presents today to undergo navigational bronchoscopy with biopsy, EBUS with biopsy. Description of the operation: Jono King was transported to the [facility] main operating room. The patient was intubated with a single-lumen endotracheal tube and anesthesia was initiated. Compression boots were placed the lower extremities for DVT prophylaxis. After a universal timeout, the fiberoptic flexible bronchoscope was advanced through the endotracheal tube down to the meir. The right mainstem bronchus was within normal limits. The right upper lobe bronchial orifice was normal. The bronchus intermedius was within normal limits. The right middle lobe and right lower lobe bronchial orifices were normal as well. The left mainstem bronchus was within normal limits. The left upper lobe and left lower lobe bronchial orifices were normal as well. The endobronchial ultrasound bronchoscope was then advanced through the endotracheal tube down to the distal left mainstem bronchus at the minor meir. The left hilar lymph node was scanned with the ultrasound and a hyperechoic lymph node was visualized. The left hilar lymph node was biopsied multiple times with the 21-gauge FNA biopsy needle. The cytology slides were prepared in the operating room. The intraoperative review of the cytology demonstrated multiple clusters of benign bronchial cells and lymphocytes. There was no evidence of carcinoma. Some of the FNA aspirate samples were sent for permanent histology. The endobronchial ultrasound bronchoscope was then advanced down to the right mainstem bronchus at the meir. The subcarinal lymph node was scanned with the ultrasound and a hyperechoic lymph node was visualized. The subcarinal lymph node was biopsied multiple times with the 21-gauge FNA biopsy needle. The cytology slides were prepared in the operating room. The intraoperative review of the cytology demonstrated multiple clusters of benign bronchial cells and lymphocytes. There was no evidence of carcinoma. Some of the FNA aspirate samples were sent for permanent histology. The FNA needle biopsy sites were inspected and were hemostatic. The endobronchial ultrasound bronchoscope was then removed The XMPie robotic bronchoscopy system was set up and initialized. A virtual plan was created based on a preoperative CT scan of the chest. The ION robotic navigational bronchoscope was then docked to the endotracheal tube. Registration and orientation was completed without complications. The planned pathways to the left lower lobe lung lesion in question were followed until the target was close to the vision probe. The GE 3-D Cone Beam CT Scan was performed to confirm the location of the target lesion and verify catheter placement in close proximity to the lesion. Multiple FNA biopsies were then obtained under fluoroscopy guidance with a 21-gauge biopsy needle. Rapid onsite cytology revealed clusters of atypical cells. The final pathology report is pending. The navigational bronchoscope vision probe was inserted and the catheter was slowly withdrawn from the airway. There was no bleeding from the biopsy site and the airway was clear. The flexible bronchoscope was inserted and confirmed hemostasis as well. The patient was awakened from anesthesia and extubated. She was transferred to post anesthesia care unit in stable condition. There were no intraoperative complications. I was present for the entire procedure and performed the entire procedure. The instrument counts were correct at the conclusion of the case. Nat Lazar M.D. Discharge instructions, prescriptions, and anesthesia precautions reviewed with patient and family by Zahra ROJAS. All questions answered. Patient meets ASU discharge criteria and discharged per MD order to home. Patient taken by wheelchair by Brooke ROJAS to awaiting car. All belongings gathered with patient. Family/friend to drive patient home and care for patient 24 hours post-op. Patient arrived to [facility] from [facility] PACU via gurney. Vital signs taken and stable. Patient given drink and snacks. Family called to bedside. Patient assessed. Jono King ([id number]) PRE OPERATIVE DIAGNOSIS Solitary lung nodule [R91.1] POST OPERATIVE DIAGNOSIS Solitary lung nodule [R91.1] PROCEDURE PERFORMED Procedure(s) (LRB): BRONCHOSCOPY W/ COMPUTER ASSISTED IMAGE GUIDED NAVIGATION ADD-ON PX (N/A) BRONCHOSCOPY FLEXIBLE DIAGNOSTIC (N/A) BRONCHOSCOPY FLEXIBLE W/ EBUS GUIDED TRANSTRACH/BRONCH SAMPLING 1 OR 2 NODE STATIONS (N/A) PRIMARY CLOSURE N/A INTRAOPERATIVE FINDINGS Flexible bronchoscopy, EBUS with lymph node biopsies for level 10L and 7, navigational bronchoscopy with biopsy of left lower lobe lung nodule SURGEON Surgeons and Role: * Nat Lazar MD - Primary ANESTHESIOLOGIST Anesthesiologist: Kodak Sultana MD Steam Station Supervisor Assisting: Kian Pedro MD; Romie Flor MD SURGICAL STAFF Ring Cutter Lathe Operator: Mamadou Mojica RN Physician Park Services Specialist: Nayely Mack PA-C Relief Ring Cutter Lathe Operator: Nazanin Naranjo RN Resident Assisting: Leonie Ramírez MD Twist Maker: Lucrecia Villalobos; Lisset Barboza COMPLICATIONS None ESTIMATED BLOOD LOSS Minimal SPECIMENS See below ID Type Source Tests Collected by Time Destination 1 : Level 10L lymph node Cytology NOS LYMPH NODE FNA CYTOLOGY, NON-DITCH CLEANER - FNA ONLY Nat Lazar MD 11/19/2024 1254 2 : Level 7 lymph node Cytology NOS LYMPH NODE FNA CYTOLOGY, NON-DITCH CLEANER - FNA ONLY Nat Lazar MD 11/19/2024 1302 3 : Left lower lobe lung nodule Cytology NOS LUNG FNA CYTOLOGY, NON-DITCH CLEANER - FNA ONLY Nat Lazar MD 11/19/2024 1354 Nayely Mack PA-C November 19, 2024 2:25 PM Cosigned by Nat Lazar MD at 11/19/2024 6:19 PM EDT documented in this encounter [facility] 11-19-2024 Surgery Postoperative evaluation and management note Thoracic Surgery Operative Report Date: November 19, 2024. Preoperative Diagnosis: Left Lower Lobe Lung Nodule. Postoperative Diagnosis: Left Lower Lobe Lung Nodule. Procedure Performed: 1. Flexible Bronchoscopy. 2. Endobronchial Ultrasound with Biopsy. 3. ION Robotic Navigational Bronchoscopy with Biopsy. 4. Intraoperative 2-D Fluoroscopy and 3-D Cone Beam CT Scan for Lung Nodule Localization. 5. Rapid Onsite Cytology (JAZMINE). Intraoperative Findings: Successful Navigation to the left lower lobe lung nodule. Surgeon: Nat Lazar M.D . Park Services Specialist: Leonie Ramírez MD and Nayely Mack PA-C. Anesthesia Type: General Anesthesia. Estimated Blood Loss: Minimal. Intravenous Fluid: See Anesthesia record. Specimens: 1. FNA biopsy of Left Hilar Lymph Node (11L). 2. FNA Biopsy of Subcarinal Lymph Node. 3. FNA Biopsy of Left Lower Lobe Lung Nodule. Drains: None. Complications: None. Disposition: The patient tolerated the operation well. She was extubated and transported the postanesthesia care unit in stable condition. Indication for the procedure: Jono King is a 74 y.o. 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 On 06/29/24, a surveillance CT chest showed a growing 1.3 cm LLL lung nodule. A PET CT scan obtained 07/17/24 showed no significant uptake in the LLL lung nodule. She presents today to undergo navigational bronchoscopy with biopsy, EBUS with biopsy. Description of the operation: Jono King was transported to the [facility] main operating room. The patient was intubated with a single-lumen endotracheal tube and anesthesia was initiated. Compression boots were placed the lower extremities for DVT prophylaxis. After a universal timeout, the fiberoptic flexible bronchoscope was advanced through the endotracheal tube down to the meir. The right mainstem bronchus was within normal limits. The right upper lobe bronchial orifice was normal. The bronchus intermedius was within normal limits. The right middle lobe and right lower lobe bronchial orifices were normal as well. The left mainstem bronchus was within normal limits. The left upper lobe and left lower lobe bronchial orifices were normal as well. The endobronchial ultrasound bronchoscope was then advanced through the endotracheal tube down to the distal left mainstem bronchus at the minor meir. The left hilar lymph node was scanned with the ultrasound and a hyperechoic lymph node was visualized. The left hilar lymph node was biopsied multiple times with the 21-gauge FNA biopsy needle. The cytology slides were prepared in the operating room. The intraoperative review of the cytology demonstrated multiple clusters of benign bronchial cells and lymphocytes. There was no evidence of carcinoma. Some of the FNA aspirate samples were sent for permanent histology. The endobronchial ultrasound bronchoscope was then advanced down to the right mainstem bronchus at the meir. The subcarinal lymph node was scanned with the ultrasound and a hyperechoic lymph node was visualized. The subcarinal lymph node was biopsied multiple times with the 21-gauge FNA biopsy needle. The cytology slides were prepared in the operating room. The intraoperative review of the cytology demonstrated multiple clusters of benign bronchial cells and lymphocytes. There was no evidence of carcinoma. Some of the FNA aspirate samples were sent for permanent histology. The FNA needle biopsy sites were inspected and were hemostatic. The endobronchial ultrasound bronchoscope was then removed The ION robotic bronchoscopy system was set up and initialized. A virtual plan was created based on a preoperative CT scan of the chest. The ION robotic navigational bronchoscope was then docked to the endotracheal tube. Registration and orientation was completed without complications. The planned pathways to the left lower lobe lung lesion in question were followed until the target was close to the vision probe. The GE 3-D Cone Beam CT Scan was performed to confirm the location of the target lesion and verify catheter placement in close proximity to the lesion. Multiple FNA biopsies were then obtained under fluoroscopy guidance with a 21-gauge biopsy needle. Rapid onsite cytology revealed clusters of atypical cells. The final pathology report is pending. The navigational bronchoscope vision probe was inserted and the catheter was slowly withdrawn from the airway. There was no bleeding from the biopsy site and the airway was clear. The flexible bronchoscope was inserted and confirmed hemostasis as well. The patient was awakened from anesthesia and extubated. She was transferred to post anesthesia care unit in stable condition. There were no intraoperative complications. I was present for the entire procedure and performed the entire procedure. The instrument counts were correct at the conclusion of the case. Nat Lazar M.D. [facility] Work [facility]: 11-19-2024 Nurse Note Discharge instructions, prescriptions, and anesthesia precautions reviewed with patient and family by Zahra ROJAS. All questions answered. Patient meets ASU discharge criteria and discharged per MD order to home. Patient taken by wheelchair by Brooke ROJAS to awaiting car. All belongings gathered with patient. Family/friend to drive patient home and care for patient 24 hours post-op. [facility] 11-19-2024 Nurse Note Patient arrived to [facility] from [facility] PACU via gurney. Vital signs taken and stable. Patient given drink and snacks. Family called to bedside. Patient assessed. [facility] 11-19-2024 Surgery Postoperative evaluation and management note Jono King ([id number]) PRE OPERATIVE DIAGNOSIS Solitary lung nodule [R91.1] POST OPERATIVE DIAGNOSIS Solitary lung nodule [R91.1] PROCEDURE PERFORMED Procedure(s) (LRB): BRONCHOSCOPY W/ COMPUTER ASSISTED IMAGE GUIDED NAVIGATION ADD-ON PX (N/A) BRONCHOSCOPY FLEXIBLE DIAGNOSTIC (N/A) BRONCHOSCOPY FLEXIBLE W/ EBUS GUIDED TRANSTRACH/BRONCH SAMPLING 1 OR 2 NODE STATIONS (N/A) PRIMARY CLOSURE N/A INTRAOPERATIVE FINDINGS Flexible bronchoscopy, EBUS with lymph node biopsies for level 10L and 7, navigational bronchoscopy with biopsy of left lower lobe lung nodule SURGEON Surgeons and Role: * Nat Lazar MD - Primary ANESTHESIOLOGIST Anesthesiologist: Kodak Sultana MD Steam Station Supervisor Assisting: Kian Pedro MD; Romie Flor MD SURGICAL STAFF Ring Cutter Lathe Operator: Mamadou Mojica RN Physician Park Services Specialist: Nayely Mack PA-C Relief Ring Cutter Lathe Operator: Nazanin Naranjo RN Resident Assisting: Leonie Ramírez MD Twist Maker: Lucrecia Villalobos; Lisset Barboza COMPLICATIONS None ESTIMATED BLOOD LOSS Minimal SPECIMENS See below ID Type Source Tests Collected by Time Destination 1 : Level 10L lymph node Cytology NOS LYMPH NODE FNA CYTOLOGY, NON-DITCH CLEANER - FNA ONLY Nat Lazar MD 11/19/2024 1254 2 : Level 7 lymph node Cytology NOS LYMPH NODE FNA CYTOLOGY, NON-DITCH CLEANER - FNA ONLY Nat Lazar MD 11/19/2024 1302 3 : Left lower lobe lung nodule Cytology NOS LUNG FNA CYTOLOGY, NON-DITCH CLEANER - FNA ONLY Nat Lazar MD 11/19/2024 1354 Nayely Mack PA-C November 19, 2024 2:25 PM Cosigned by Nat Lazar MD at 11/19/2024 6:19 PM EDT [facility] 11-19-2024 Nurse Surgical operation note 1433: [facility] with side rails up x2 with HOB >30 degrees, accompanied by Anesthesiologist: Kodak Sultana MD, Steam Station Supervisor Assisting: Romie Flor MD, and surgical instrument mechanic, Aftab Ramírez MD. Patient placed on monitors, VSS. Report received from anesthesia and surgical team. CXR needed in PACU- to be cleared by MD Ramírez. Patient assessed, see assessment. 1440:Xray called for stat CXR 1456: Patient's daughter updated via [employer] system 1504: Xray at bedside 1507: MD Ramírez paged to clear CXR 1508: MD Villaseñor at bedside to assess patient 1546: Report called to DASHA Neves RN 1550: [facility]. Patient transported via gurney with side rails up x2 with HOB>30 degrees to room 15, A[facility] by this RN. Family at patient's bedside. Cynthia Wong RN [facility] 11-19-[facility]24 Nurse Note 1433: [facility] with side rails up x2 with HOB >30 degrees, accompanied by Anesthesiologist: Kodak Sultana MD, Steam Station Supervisor Assisting: Romie Flor MD, and surgical instrument mechanic, Aftab Ramírez MD. Patient placed on monitors, VSS. Report received from anesthesia and surgical team. CXR needed in PACU- to be cleared by MD Ramírez. Patient assessed, see assessment. 1440:Xray called for stat CXR 1456: Patient's daughter updated via [employer] system 1504: Xray at bedside 1507: MD Ramírez paged to clear CXR 1508: MD Villaseñor at bedside to assess patient 1546: Report called to GARFIELD NevesU RN 1550: Patient discharged from [facility] PACU per protocol. Patient transported via gurney with side rails up x2 with HOB>30 degrees to room 15, A[facility] by this RN. Family at patient's bedside. Cynthia Wong RN Patient denies hx of chemo and radiation. Patient denies metal or foreign objects in body. Patient denies hx of stroke. Last seizure 2020. documented in this encounter [facility] 11-19-2024 Hospital Discharg e liss Mack PA-C - 11/19/2024 12:03 PM EDT Hospital Course: Reason for hospitalization: flexible bronchoscopy, endobronchial ultrasound and navigational bronchoscopy with biopsies (EBUS procedure) Summary of Hospital Course: Jono King is a 74 y.o. female who presents today for a flexible bronchoscopy, EBUS procedure, navigational bronchoscopy. There were no complications. Final cytology results pending. EXPECTED SYMPTOMS: Normal to have sore throat and productive cough with small amount of blood for a few days following procedure WHEN TO NOTIFY PHYSICIAN: If you develop worsening chest pain, shortness of breath, high fever (greater than 101) or begin coughing large amounts of blood ACTIVITY: Light activity for remainder of today. Resume normal activities tomorrow DIET: Regular, unless your doctor has given you a specific diet, follow your usual diet at home MEDICATIONS: Resume all home medications. WOUND CARE: N/A POST GENERAL ANESTHESIA INSTRUCTIONS: You have had general anesthesia or sedation for your surgery/procedure. You may feel sleepy after your surgery/procedure due to the medicines used for general anesthesia or sedation. These medicines can stay in your body for up to 24-hours. It is important that you: Do not drive a car, operate equipment or drink alcohol for at least 24-hours Do not make any important decisions or sign any legal documents until you recover Do not go back to your regular activities such as work or exercise until your doctors say it's OK Have safe transport by a responsible adult to your home or other destination If you are traveling by public transit, a responsible adult, other than the public transit clerk, must be with you Once home, a responsible adult must be present to attend to any additional needs that you may have for a minimum of 6 hours from the time that you are discharged Allergy: Allergies Allergen Reactions Promethazine Nausea and Vomiting Patient reported *Adhesive Tape Amoxicillin-Pot Clavulanate Nausea and Vomiting Celebrex [Celecoxib] Latex Appointments/ Follow up: We will contact you with final results and to discuss plan of care Contacts: T/S contact information: Attending Physician: Nat Lazar MD [phone] For evening and weekend hours if you have questions or concerns call and ask the gill box operator to page the thoracic surgery fellow solution developer. Physician: Admitting physician: Nat Lazar MD Dictating Clinician: Nayely Mack PA-C Referring: ZULLY Jason [facility] [address] [place] [address] PCP: Courtney [phone] Discharge: Condition: Stable Location: Home documented in this encounter [facility] 11-19-2024 History and physical note History and Physical Patient: Jono King Date: 11/19/2024 11:56 AM Attending Physician: Nat Lazar MD Chief Complaint: LLL nodule HPI: Jono King is a 74 y.o. 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 She did not have adjuvant therapy. She presents today to undergo navigational bronchoscopy with biopsy, EBUS with biopsy. At last surveillance appt 06/29/24 CT chest showed growing 1.3 cm LLL lung nodule. PET scan obtained 07/17/24 showed no significant uptake in the LLL lung nodule. Patient endorses neuropathic pain around incision sites that is stable. Past Medical/Surgical History She has a past medical history of ADHD, COVID-19, Depression, GERD (gastroesophageal reflux disease), Hyperlipidemia, and Stroke. She has no past medical history of Anemia, Arrhythmia, Arthritis, Asthma, Bleeding disorder, CAD (coronary artery disease), Cardiac angina, Congestive heart failure, COPD (chronic obstructive pulmonary disease), Diabetes mellitus, Difficult intubation, Essential hypertension, benign, Exposure to hazardous chemical, Glaucoma, Hepatitis, History of cancer, History of chemotherapy, History of radiation exposure, History of radiation therapy, HIV (human immunodeficiency virus infection), Hyperthyroidism, Hypothyroidism, Liver disease, HI (myocardial infarction), Migraine, LOY (obstructive sleep apnea), Pacemaker, Renal disease, Seizure, Sickle cell anemia, TIA (transient ischemic attack), or Vascular disease. She has a past surgical history that includes extraction extracapsular cataract w/ implant (ecce iol) (Bilateral); rotator cuff repair (Bilateral); release carpal tunnel; egd w/ bx (2022); lobectomy lung robotic (Right, 02/02/2024); and bronchoscopy flexible diagnostic (N/A, 02/02/2024). 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 Pathology confirmed moderately differentiated squamous cell carcinoma. Antibody /clone results positive for AE1-3, CK8, CK5-8, and P40 ([facility]) 12/28/2023 Other Patient presented to [facility] [[facility]] for evaluation. 02/02/2024 Surgery Right robotic assisted right upper lobe lobectomy Surgery Histologic type: Invasive squamous cell carcinoma, keratinizing Tumor grade: G3, poorly differentiated Tumor size: 3.5 cm Lymph nodes: Negative for carcinoma (0/27) Surgical margins: Negative for carcinoma Disease specific molecular markers: Breast: Estrogen receptor/progesterone receptor (ER/[place]) status: Her-2/Arlene status: Prostate: Palm score Lung: ALK mutation: KRAS mutation: Epidermal growth factor receptor (EGF-R) status: GI: Mismatch repair proteins (MMR)/Microsatellite instability (MSI) status: Cancer Staged Cancer Staging No matching staging information was found for the patient. 02/02/2024 - Cancer Staged Staging form: Lung, AJCC 8th Edition - Pathologic stage from 02/02/2024: Stage IB (pT2a, pN0, cM0) Family History Her family history includes Colorectal Cancer in her maternal aunt. Social History She reports that she has been smoking cigarettes. She started smoking about 40 years ago. She has a 40.9 pack-year smoking history. She has never used smokeless tobacco. She reports that she does not drink alcohol and does not use drugs. Medications She has a current medication list which includes the following prescription(s): amphetamine-dextroamphetamine, aspirin, atorvastatin, paxil cr, calcium citrate-vitamin d, cannabidiol, cyclosporin, nicotine, and nicotine, and the following Facility-Administered Medications: lactated ringers. Allergies/Immunizations Allergies: Promethazine, *adhesive tape, Amoxicillin-pot clavulanate, Celebrex [celecoxib], and Latex Immunizations: There is no immunization history on file for this patient. Review of Systems Negative other than listed above. OBJECTIVE: Physical Exam Blood pressure 150/65, pulse 76, temperature 97.9 F (36.6 C), temperature source Oral, resp. rate 18, height 1.651 m (5' 5), weight 72.8 kg (160 lb 6.4 oz), SpO2 98%. on RA Constitutional: she is alert, oriented, well-developed, well-nourished, and in no acute distress. HEENT: Oropharynx is clear and moist. Extraocular motions are normal. Neck: Neck supple. No tracheal deviation present. No thyromegaly present. Cardiovascular: Normal rate and regular rhythm. No murmur heard. Pulmonary/Chest: Breathing non-labored. Lung sounds normal without wheezes or rales. She exhibits no crepitus. Abdomen: Abdomen soft, non-tender, non-distended. Bowel sounds present in all four quadrants. Musculoskeletal: She exhibits no edema. Lymphadenopathy: She has no cervical adenopathy. Neurological: She is alert and oriented. Skin: No rash noted. Zubrod/ECO DIAGNOSTIC TESTS/IMAGING: CT chest 10/22/24 FINDINGS: Lungs and Pleura: Surgical changes of prior coronary lobectomy. Previously indexed left lower lobe nodule, 3140, 13 x 8 mm, unchanged. No new or enlarging nodules. Underlying emphysema. Tracheobronchial tree: Surgical changes from the lobectomy. Patent centrally. Mediastinum/Cande: Index subaortic lymph node, 07/01, 12 x 6 mm, unchanged on remeasurement. Indexed left infrahilar node, less well seen without contrast 07/06, 13 x 12 mm, unchanged. Axilla and Supraclavicular Region: Normal imaged portion of the thyroid gland. No axillary or supraclavicular adenopathy. Cardiovascular: Normal heart size. Atherosclerotic calcifications in the aorta and coronary arteries. Some of the atherosclerotic disease of the thoracic aorta is less well appreciated without contrast. No pericardial effusion. Upper Abdomen: Vascular calcifications. No suspicious lesions. Bones and Soft Tissue: Degenerative change of the thoracic spine. Suture anchors in the left humeral head. No suspicious bone or chest wall lesions. Additional Findings: None. Saw Grinder: Saw Grinder imaging reveals no thoracic abnormalities not already visible on the cross-section images. IMPRESSION: 1. Unchanged suspicious left lower lobe nodule. 2. Unchanged mediastinal lymph nodes. 3. No new abnormalities. ASSESSMENT/PLAN: Jono King is a 74 y.o. 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 She did not have adjuvant therapy. She presents today to undergo navigational bronchoscopy with biopsy, EBUS with biopsy. - Patient was seen and evaluated by myself. All relevant labs and images were reviewed. - Given findings plan to proceed with navigational bronchoscopy with biopsy, EBUS with biopsy of LLL nodule. - Labs and consent obtained today. - All questions and concerns were addressed and patient is agreeable to plan. Plan was discussed with Nat Lazar MD. Nayely Mack PA-C Thoracic Surgery Cosigned by Nat Lazar MD at 11/19/2024 6:20 PM EDT [facility] 11-19-2024 History and physical note History and Physical Patient: Jono King Date: 11/19/2024 11:56 AM Attending Physician: Nat Lazar MD Chief Complaint: LLL nodule HPI: Jono King is a 74 y.o. 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 She did not have adjuvant therapy. She presents today to undergo navigational bronchoscopy with biopsy, EBUS with biopsy. At last surveillance appt 06/29/24 CT chest showed growing 1.3 cm LLL lung nodule. PET scan obtained 07/17/24 showed no significant uptake in the LLL lung nodule. Patient endorses neuropathic pain around incision sites that is stable. Past Medical/Surgical History She has a past medical history of ADHD, COVID-19, Depression, GERD (gastroesophageal reflux disease), Hyperlipidemia, and Stroke. She has no past medical history of Anemia, Arrhythmia, Arthritis, Asthma, Bleeding disorder, CAD (coronary artery disease), Cardiac angina, Congestive heart failure, COPD (chronic obstructive pulmonary disease), Diabetes mellitus, Difficult intubation, Essential hypertension, benign, Exposure to hazardous chemical, Glaucoma, Hepatitis, History of cancer, History of chemotherapy, History of radiation exposure, History of radiation therapy, HIV (human immunodeficiency virus infection), Hyperthyroidism, Hypothyroidism, Liver disease, HI (myocardial infarction), Migraine, LOY (obstructive sleep apnea), Pacemaker, Renal disease, Seizure, Sickle cell anemia, TIA (transient ischemic attack), or Vascular disease. She has a past surgical history that includes extraction extracapsular cataract w/ implant (ecce iol) (Bilateral); rotator cuff repair (Bilateral); release carpal tunnel; egd w/ bx (2022); lobectomy lung robotic (Right, 02/02/2024); and bronchoscopy flexible diagnostic (N/A, 02/02/2024). 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 Pathology confirmed moderately differentiated squamous cell carcinoma. Antibody /clone results positive for AE1-3, CK8, CK5-8, and P40 ([facility]) 12/28/2023 Other Patient presented to [facility] [[facility]] for evaluation. 02/02/2024 Surgery Right robotic assisted right upper lobe lobectomy Surgery Histologic type: Invasive squamous cell carcinoma, keratinizing Tumor grade: G3, poorly differentiated Tumor size: 3.5 cm Lymph nodes: Negative for carcinoma (0/27) Surgical margins: Negative for carcinoma Disease specific molecular markers: Breast: Estrogen receptor/progesterone receptor (ER/KY) status: Her-2/Arlene status: Prostate: Tomeka score Lung: ALK mutation: KRAS mutation: Epidermal growth factor receptor (EGF-R) status: GI: Mismatch repair proteins (MMR)/Microsatellite instability (MSI) status: Cancer Staged Cancer Staging No matching staging information was found for the patient. 02/02/2024 - Cancer Staged Staging form: Lung, AJCC 8th Edition - Pathologic stage from 02/02/2024: Stage IB (pT2a, pN0, cM0) Family History Her family history includes Colorectal Cancer in her maternal aunt. Social History She reports that she has been smoking cigarettes. She started smoking about 40 years ago. She has a 40.9 pack-year smoking history. She has never used smokeless tobacco. She reports that she does not drink alcohol and does not use drugs. Medications She has a current medication list which includes the following prescription(s): amphetamine-dextroamphetamine, aspirin, atorvastatin, paxil cr, calcium citrate-vitamin d, cannabidiol, cyclosporin, nicotine, and nicotine, and the following Facility-Administered Medications: lactated ringers. Allergies/Immunizations Allergies: Promethazine, *adhesive tape, Amoxicillin-pot clavulanate, Celebrex [celecoxib], and Latex Immunizations: There is no immunization history on file for this patient. Review of Systems Negative other than listed above. OBJECTIVE: Physical Exam Blood pressure 150/65, pulse 76, temperature 97.9 F (36.6 C), temperature source Oral, resp. rate 18, height 1.651 m (5' 5), weight 72.8 kg (160 lb 6.4 oz), SpO2 98%. on RA Constitutional: she is alert, oriented, well-developed, well-nourished, and in no acute distress. HEENT: Oropharynx is clear and moist. Extraocular motions are normal. Neck: Neck supple. No tracheal deviation present. No thyromegaly present. Cardiovascular: Normal rate and regular rhythm. No murmur heard. Pulmonary/Chest: Breathing non-labored. Lung sounds normal without wheezes or rales. She exhibits no crepitus. Abdomen: Abdomen soft, non-tender, non-distended. Bowel sounds present in all four quadrants. Musculoskeletal: She exhibits no edema. Lymphadenopathy: She has no cervical adenopathy. Neurological: She is alert and oriented. Skin: No rash noted. Zubrod/ECO DIAGNOSTIC TESTS/IMAGING: CT chest 10/22/24 FINDINGS: Lungs and Pleura: Surgical changes of prior coronary lobectomy. Previously indexed left lower lobe nodule, 3140, 13 x 8 mm, unchanged. No new or enlarging nodules. Underlying emphysema. Tracheobronchial tree: Surgical changes from the lobectomy. Patent centrally. Mediastinum/Cnade: Index subaortic lymph node, 07/01, 12 x 6 mm, unchanged on remeasurement. Indexed left infrahilar node, less well seen without contrast 07/06, 13 x 12 mm, unchanged. Axilla and Supraclavicular Region: Normal imaged portion of the thyroid gland. No axillary or supraclavicular adenopathy. Cardiovascular: Normal heart size. Atherosclerotic calcifications in the aorta and coronary arteries. Some of the atherosclerotic disease of the thoracic aorta is less well appreciated without contrast. No pericardial effusion. Upper Abdomen: Vascular calcifications. No suspicious lesions. Bones and Soft Tissue: Degenerative change of the thoracic spine. Suture anchors in the left humeral head. No suspicious bone or chest wall lesions. Additional Findings: None. Saw Grinder: Saw Grinder imaging reveals no thoracic abnormalities not already visible on the cross-section images. IMPRESSION: 1. Unchanged suspicious left lower lobe nodule. 2. Unchanged mediastinal lymph nodes. 3. No new abnormalities. ASSESSMENT/PLAN: Jono King is a 74 y.o. 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 She did not have adjuvant therapy. She presents today to undergo navigational bronchoscopy with biopsy, EBUS with biopsy. - Patient was seen and evaluated by myself. All relevant labs and images were reviewed. - Given findings plan to proceed with navigational bronchoscopy with biopsy, EBUS with biopsy of LLL nodule. - Labs and consent obtained today. - All questions and concerns were addressed and patient is agreeable to plan. Plan was discussed with Nat Lazar MD. Nayely Mack PA-C Thoracic Surgery Cosigned by Nat Lazar MD at 11/19/2024 6:20 PM EDT documented in this encounter [facility] 11-19-2024 Nurse Surgical operation note Patient denies hx of chemo and radiation. Patient denies metal or foreign objects in body. Patient denies hx of stroke. Last seizure 2020. [facility] 10-22-2024 History of Presen t illness Narrative PROGRESS NOTE CC: Chief Complaint Patient presents with Follow-up Pt reports occasional productive (clear) cough. Pt reports 5 cigarettes per day, she said that nicoderm cq works but she only gets generic from pharmacy. We ordered nicoderm cq, I told her to follow up with pharmacy. HPI: Jono King is a 74 y.o. 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 She did not have adjuvant therapy. She presents today with her surveillance CT chest and has no major changes in her past medical history. At last surveillance appt 06/29/24 CT chest showed growing 1.3 cm LLL lung nodule. PET scan obtained 07/17/24 showed no significant uptake in the LLL lung nodule. Patient endorses neuropathic pain around incision sites that is stable. 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 Pathology confirmed moderately differentiated squamous cell carcinoma. Antibody /clone results positive for AE1-3, CK8, CK5-8, and P40 ([facility]) 12/28/2023 Other Patient presented to [facility] [[facility]] for evaluation. 02/02/2024 Surgery Right robotic assisted right upper lobe lobectomy Surgery Histologic type: Invasive squamous cell carcinoma, keratinizing Tumor grade: G3, poorly differentiated Tumor size: 3.5 cm Lymph nodes: Negative for carcinoma (0/27) Surgical margins: Negative for carcinoma Disease specific molecular markers: Breast: Estrogen receptor/progesterone receptor (ER/KY) status: Her-2/Arlene status: Prostate: Palm score Lung: ALK mutation: KRAS mutation: Epidermal growth factor receptor (EGF-R) status: GI: Mismatch repair proteins (MMR)/Microsatellite instability (MSI) status: Cancer Staged Cancer Staging No matching staging information was found for the patient. 02/02/2024 - Cancer Staged Staging form: Lung, AJCC 8th Edition - Pathologic stage from 02/02/2024: Stage IB (pT2a, pN0, cM0) Review of Systems Negative for fevers, chills, fatigue, weight loss, SOB, FELTNO, cough, hemoptysis, or pain. Physical Exam BP 137/64 (BP Location: Left arm, BP Position: Sitting) Pulse 96 Temp 98.2 F (36.8 C) (Oral) Resp 20 Ht 1.644 m (5' 4.72) Comment: taken by keegan 10/22 Wt 73.3 kg (161 lb 8 oz) Comment: with shoes SpO2 95% BMI 27.10 kg/m Smoking Status Every Day HEART: regular rate and rhythm. No murmurs, rubs or gallops. LUNGS: Breathing non-labored, lungs CTAB. LYMPH NODES: No cervical or supraclavicular lymphadenopathy is noted. Imaging Upon my personal review, her CT chest appears stable, with no acute abnormality noted. The final radiologic interpretation will be reviewed to confirm stability, and the patient will be notified of any changes. Assessment/Plan: Jono King is a 74 y.o. 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 She did not have adjuvant therapy. She presents today with her surveillance CT chest and has no major changes in her past medical history. - Patient was seen and evaluated by myself. All relevant labs and images were reviewed. - Given findings of more solid appearance of LLL nodule plan to proceed with navigational bronchoscopy. This was discussed with Dr. Lazar after clinic. Patient was called and informed that a case request has been placed and that schedulers will reach out to her. CT obtained today 1.0 mm cuts. - Consent to be obtained day of surgery. - Refill of nicotine patches sent. - All questions and concerns were addressed and patient is agreeable to plan. Nayely Mack PA-C documented in this encounter [facility] 10-22-2024 Instructions Nayely Mack PA-C - 10/22/2024 1:30 PM EDT Patient Medication Instructions: Here is a list of your current medications we have on file: Current Outpatient Medications Medication Sig Nicoderm CQ 7 MG/24HR Patch [address] 1 patch on skin every 24 hours. No generic Paxil CR 25 MG Tab SR 24 HR daily. potassium bicarbonate 25 MEQ Tab Effer 1 tablet by Per NG tube route 2 times daily. Acetaminophen 325 MG tablet Take 2 tablets by mouth every 6 hours. (Patient not taking: Reported on 10/22/2024) bisacodyl 10 MG Suppository suppository Insert 1 suppository rectally daily as needed. (Patient not taking: Reported on 10/22/2024) Docusate 100 MG capsule Take 1 capsule by mouth 2 times daily. (Patient not taking: Reported on 10/22/2024) nicotine (Nicotine Mini) 2 MG Lozenge 2 lozenges by Buccal route as needed for Smoking cessation (Max 12 per day). (Patient not taking: Reported on 10/22/2024) oxyCODONE 5 MG tablet Take 1-2 every 6 hrs as needed for severe pain. (Patient not taking: Reported on 10/22/2024) Polyethylene glycol 17 g Pack packet Take 1 packet by mouth daily as needed for Constipation. (Patient not taking: Reported on 10/22/2024) Senna 17.2 MG tablet Take 1 tablet by mouth every 12 hours as needed for Constipation. (Patient not taking: Reported on 10/22/2024) -STOP taking ALL vitamins and herbal medications (including fish oil, Madison-3, garlic, glucosamine-chondroitin, gingko, ginseng, tumeric, multivitamins) 2 weeks before surgery. -STOP taking NSAIDS (including but not limited to ibuprofen, Advil, Motrin, naproxen, Aleve) 7 days before surgery. -If you use inhalers, it is ok to use them as prescribed the morning of surgery. The following attachments cannot be sent through Care Everywhere.Bronchoscopy ([facility]) ([place])documented in this encounter [facility] 07-25-2024 Telephone encounter Note Left generic VM for pt on unidentified VM [facility] 07-25-2024 Miscellaneous Notes Left generic VM for pt on unidentified VM Placed call to [facility] and spoke with Munira and she stated she will push images from 07/17/2024 PET to our system. Images nominated to [facility] from [facility]. RN called [facility]. Transferred to PET scan ophthalmic medical technician from hospital gill box operator. No answer and no voicemail. Images from the original note were not included. documented in this encounter [facility] 07-25-2024 Telephone encounter Note Placed call to [facility] and spoke with Munira and she stated she will push images from 07/17/2024 PET to our system. Images nominated to [facility] from [facility]. [facility] 07-24-2024 Telephone encounter Note RN called [facility]. Transferred to PET scan ophthalmic medical technician from hospital gill box operator. No answer and no voicemail. [facility] 07-24-2024 Telephone encounter Note Images from the original note were not included. [facility] 07-11-2024 Telephone encounter Note Updated PET scan order faxed to [facility] via [facility]. Confirmation received. [facility] 07-11-2024 Miscellaneous Notes Updated PET scan order faxed to [facility] via [facility]. Confirmation received. Spoke with team at [facility] & due to pt's insurance, they need an additional code added to the order, C34.11 would be great. I will fax the order back once new code is added, thanks! RN returned call to PET scan. Shy reports order looks fine and pt is scheduled. Unsure of what needs clarified. Please call scan clinic to clarify order for PET scan. CB:[phone] documented in this encounter [facility] 07-11-2024 Telephone encounter Note Spoke with team at [facility] & due to pt's insurance, they need an additional code added to the order, C34.11 would be great. I will fax the order back once new code is added, thanks! [facility] 07-11-2024 Telephone encounter Note RN returned call to PET scan. Shy reports order looks fine and pt is scheduled. Unsure of what needs clarified. [facility] 07-11-2024 Telephone encounter Note Please call scan clinic to clarify order for PET scan. CB:[phone] [facility] 06-29-2024 History of Presen t illness Narrative PROGRESS NOTE CC: Chief Complaint Patient presents with Lung Cancer HPI: Jono King is a 73 y.o. 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 She did not have adjuvant therapy. She presents today with her first surveillance CT chest and has no major changes in her past medical history. She reports some residual neuropathic pain across her surgical side with certain positioning. She denies recent fevers, chills, hemoptysis, night sweats and weight loss. She has a baseline cough and mild shortness of breath with activity. She has weaned to 0-5 cigarettes per day. 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 Pathology confirmed moderately differentiated squamous cell carcinoma. Antibody /clone results positive for AE1-3, CK8, CK5-8, and P40 ([facility]) 12/28/2023 Other Patient presented to [facility]] for evaluation. 02/02/2024 Surgery Right robotic assisted right upper lobe lobectomy Surgery Histologic type: Invasive squamous cell carcinoma, keratinizing Tumor grade: G3, poorly differentiated Tumor size: 3.5 cm Lymph nodes: Negative for carcinoma (0/27) Surgical margins: Negative for carcinoma Disease specific molecular markers: Breast: Estrogen receptor/progesterone receptor (ER/KY) status: Her-2/Arlene status: Prostate: Palm score Lung: ALK mutation: KRAS mutation: Epidermal growth factor receptor (EGF-R) status: GI: Mismatch repair proteins (MMR)/Microsatellite instability (MSI) status: Cancer Staged Cancer Staging No matching staging information was found for the patient. Review of Systems Negative for fevers, chills, fatigue, weight loss, SOB, FELTON, cough, hemoptysis, or pain. Physical Exam BP 164/75 (BP Location: Left arm, BP Position: Sitting) Pulse 94 Temp 97.6 F (36.4 C) (Oral) Resp 20 Ht 1.651 m (5' 5) Wt 76.3 kg (168 lb 3.2 oz) Comment: with shoes on SpO2 99% BMI 27.99 kg/m Smoking Status Every Day HEART: regular rate and rhythm. No murmurs, rubs or gallops. LUNGS: Breathing non-labored, lungs diminished. LYMPH NODES: No cervical or supraclavicular lymphadenopathy is noted. Imaging Upon my personal review, her CT chest with new left upper lobe GGO nodularity. The final radiologic interpretation will be reviewed to confirm stability, and the patient will be notified of any changes. Assessment/Plan: 73 y.o. 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 She did not have adjuvant therapy who presents today with her first surveillance CT chest - CT chest with new AFIA GGO nodularity, however no previous high resolution CT to compare to. Will plan for patient to return in [address] chest for close surveillance. Will follow for final radiologic read and contact patient with change in plan if needed. - Prescriptions provided for nicotine patches and nicotine lozenges. ANIKET Lieberman # [id number] documented in this encounter [facility] 06-29-2024 Instructions Marizol Burgess RN - 06/29/2024 11:00 AM EST [employer] Help Desk [phone] Download Druidly ana rosa to phone documented in this encounter [facility] 04-13-2024 Evaluation note Diagnosis Onset Date Resolution Shortness of breath acute Decem 2023 9:01am Mild cognitive impairment chronic April 13 9:01am Nicotine dependence, cigarettes, uncomplicated chronic April 13 9:01am Squamous cell carcinoma of bronchus in right upper lobe chronic April 13 9:01am [facility] Work Phone: 1(979) 351-806011-18-2024 History of Present illness Narrative* Lisset Veliz RN - 03/26/2024 1:47 PM EST [facility] / Care Plan Monitoring EMR reviewed since last PCRM encounter completed Per Thoracic note driving restrictions lifted. They called patient [facility] was first choice for pulmonary rehab. They do not offer Pulmonary Rehab. Message left with [facility] for Pulmonary Rehab. Unable to reach patient to update. Mail box is ful and unable to leave message. Fax sent to [facility] Pulmonary Rehab Patient Care Plan: Marked as complete Services being utilized [facility]- Pulmonary & Cardiac Rehab - faxed latest OV from thoracic 02.15.2024. [address] [facility] [id number] [place] [address] SAFETY MANAGER: Snf, PT, OT / BOB Rod [phone] DME: [facility] [address] , Shower Chair - reserved today. Patient unable to flower buncher or picker cane at [employer] as 30 minutes away. Originally planned to use her daughter's cane. States the height is not right for her. Has a granddaughter who can go to [facility] to purchase. Has not picked up. Patient Care Instructions No L/D/W Plan for next PCR outreach Resume pulmonary rehab therapy. Message left with [facility] to reestablish. Confirm that she made appointment with PCP PCRM will continue to manage individualized plan and assess ongoing needs. Lisset Veliz MS., RN, [facility] PCRM Outpatient Care [facility] Office Initial Assessment Complete: 02.21.2024 Next Assessment: 05.23.2023 [facility] History of Present illness Narrative* Lisset Veliz RN - 03/20/2024 2:16 PM EST [facility] Transition of Care PCRM Call Call to patient to determine where she would like to continue her cancer surveillance. She prefers to stay with Dr Lazar since he did her surgery. She has questions on when she can resume activities- driving, lifting items over five pounds. She would like to have Pulmonary Rehab at [facility] in [place]. This PCRM left a message to inquire if this is offered at their location. Website states it is a medical fitness center with supervised programs. Symptom Assessment Pain: Using CBD oil at night. Endorses pain relief with 1-2 drops. Able to get some rest. Self Care ability: endorses being able to take care of her self at home. Patient Care Plan: Marked as complete Services being utilized [facility]- Pulmonary & Cardiac Rehab - will consider going here if [facility] does not offer Pulmonary Rehab [address] [facility] [id number] [address] [address] SAFETY MANAGER: Snf, PT, OT / BOB Rod [phone] DME: [facility]/[employer] [address] [place] [address] , Shower Chair - reserved today. Patient unable to flower buncher or picker cane at [facility] as 30 minutes away. Originally planned to use her daughter's cane. States the height is not right for her. Has a granddaughter who can go to [employer] to purchase. Has not picked up. [facility] - first choice for pulmonary rehab - call back and this site offers cardiac rehab only. Will let patient know and confirm she will attend rehab at [facility]. [address], [place] [address] Patient Care Instructions No L/D/W Plan for next PCRM outreach Determine if driving and activity restrictions are lifted. She is just past six weeks since discharge. Message sent to Nat Lazar team. Want to resume pulmonary rehab therapy. [facility] Choice[facility]. Confirm that she made appointment with PCP PCRM will continue to manage individualized plan and assess ongoing needs. Lisset Veliz MS., RN, [facility] PCRM Outpatient Care [facility] Office Initial Assessment Complete: 02.21.2024 Next Assessment: 05.23.2023 * ANIKET Buckner - 03/20/2024 2:16 PM EST Returned Jono's call regarding concern about driving/lifting restrictions. All questions answered at this time. Patient would like to continue follow up with Thoracic Surgery team for ongoing surveillance. Will plan to keep appointment currently scheduled on 06/29/24. [facility] History of Present illness Narrative* Lisset Veliz RN - 02/28/2024 10:56 AM EDT Spoke with patient. Shower chair has not arrived, AIDIN shows delivered. Message sent to [facility]. PT had first appointment yesterday. Symptom Assessment Pain: endorses. Plans to call office for follow up. SOB/FELTON: denies. After PT session reports pulse ox at 100%. This morning she was 93% though denies SOB. Is using her incentive spirometer 4+ times a day. Chest Pain: denies Falls: denies Self Care ability: getting better. Patient Care Plan: Airway Management Interventions: PCRM provided education to patient/caregiver on 02.21.2024 Patient will use incentive spirometer 3-4 times a day. Patient will practice deep breathing 3-4 times a day. Patient will do deep coughing 3-4 times a day. Expected Patient Goals: Patient will understand and be compliant with treatment plan. Patient will know when/who to call with questions and concerns. Patient's symptoms (shortness of breath) will be managed/improved with current regimen. Patient connected with resources that lead to health promotion and support. Patient will have no unplanned ED visits or hospitalizations. Patient Care Plan: Falls/Injury Prevention - on track Interventions: PCRM provided education to patient/caregiver on 02.21.2024 PCRM made referral to [facility] on 02/17/2024 for half-way, PT/OT Patient will participate in home PT and resume OP PT once able to leave home. Patient will remove all loose materials and rugs on the floor. Patient will keep walk ways free of trip hazards. Expected Patient Goals: Patient will understand and be compliant with treatment plan. Patient will know when/who to call with questions and concerns. Patient will maintain safety and independence in their home. Patient will have no unplanned ED visits or hospitalizations. Services being utilized [facility]- Pulmonary & Cardiac Rehab - on hold while receiving [address] [facility] [address] [address] SAFETY MANAGER: Snf, PT, OT / BOB Rod [phone] DME: [facility]/[address] [place] [address] , Shower Chair - reserved today. Patient unable to flower buncher or picker cane at [facility] as 30 minutes away. Originally planned to use her daughter's cane. States the height is not right for her. Has a granddaughter who can go to [facility] to purchase. Has not picked up. Patient Care Instructions No L/D/W Plan for next PCR outreach Confirm PT plan. Check on Pulmonary Rehab start date Confirm shower chair delivery. PCRM will continue to manage individualized plan and assess ongoing needs. Lisset Veliz MS., RN, [facility] Outpatient Care [facility] Office Initial Assessment Complete: 02.21.2024 Next Assessment: 05.23.2023 * Lisset Veliz RN - 02/28/2024 10:56 AM EDT Call to [facility] [employer]/[place] [address] , States shower chair is being delivered today. Lisset Veliz MS., RN, [facility] Out[facility] Care [facility] Office documented in this encounterL[facility]10-[facility] History of Present illness Narrative* Lisset Veliz RN - 02/22/2024 4:39 PM EDT Spoke with patient. One choice for the shower chair. She is excited to have one delivered. Order received and attached in Aidin. Spoke with [facility]. SOC 02.20.2024. Physical Therapy notes indicate first PT visit yesterday. Patient Care Plan Not addressed this encounter due to care plan monitoring only. Services being utilized [facility]- Pulmonary & Cardiac Rehab - on hold while receiving [id number] [facility] [id number] [facility] [address] [address] SAFETY MANAGER: Snf, PT, OT / BOB Rod [phone] DME: [facility]/[employer] [address] [place] [address] , Shower Chair - reserved today. Patient unable to flower buncher or picker cane at [facility] as 30 minutes away. Originally planned to use her daughter's cane. States the height is not right for her. Has a granddaughter who can go to [facility] to purchase. Has not picked up. Patient Care Instructions No L/D/W Plan for next PCRM outreach Confirm if HH has completed services and OP has resumed. PCRM will continue to manage individualized plan and assess ongoing needs. Lisset Veliz MS., RN, [facility] PCRM Outpatient Care [facility] Office Initial Assessment Complete: 02.21.2024 Next Assessment: 05.23.2023 * Tonya Stanley RN - 02/22/2024 4:39 PM EDT Received update from AMANDA Cuevas: Order for shower chair placed, thanks. Update sent to KAPIL Darling. documented in this encounterOS[facility] Miscellaneous Notes* Addendum Note - Tracy Connors PA-C - 02/22/2024 4:39 PM EDT Addended by: TRACY VALENCIA on: 02/23/2024 03:15 PM Modules accepted: Orders documented in this encounterOS[facility]-16-[facility] Note* Addendum Note - Tracy Connors PA-C - 02/22/2024 4:39 PM EDTAddended by: TRACY VALENCIA on: 02/23/2024 03:15 PM Modules accepted: Orders [facility]10-16-2024 Note* Addendum Note - Tracy Connors PA-C - 02/22/2024 4:39 PM EDTAddended by: TRACY VALENCIA on: 02/23/2024 03:15 PM Modules accepted: Orders [facility]10-16-2024 Note* Addendum Note - Tracy Connors PA-C - 02/22/2024 4:39 PM EDTAddended by: TRACY VALENCIA on: 02/23/2024 03:15 PM Modules accepted: Orders [facility]10-16-2024 Note* Addendum Note - Tracy Connors PA-C - 02/22/2024 4:39 PM EDTAddended by: TRACY VALENCIA on: 02/23/2024 03:15 PM Modules accepted: Orders [facility]10-16-2024 Note* Addendum Note - Tracy Connors PA-C - 02/22/2024 4:39 PM EDTAddended by: TRACY VALENCIA on: 02/23/2024 03:15 PM Modules accepted: Orders [facility]10-09-2024 History of Present illness Narrative* Tracy Connors PA-C - 02/15/2024 2:30 PM EDT PROGRESS NOTE Chief Complaint Patient presents with Surgical Follow-up Jono King is a 73 y.o. 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 Her post-operative course was uncomplicated and she was discharged to home on POD#2. She presented today with a CXR for post-operative follow-up. Review of Systems Negative for fever, chills, cough, or hemoptysis. Positive for dyspnea on exertion and pain on right chest wall. Reports difficulty getting out of bed and bathing by herself due to pain. Pain is well controlled with oxycodone every 6-8 hrs. Physical Exam Blood pressure 141/65, pulse 103, temperature 97.4 F (36.3 C), temperature source Oral, resp. rate 20, height 1.651 m (5' 5), weight 72.6 kg (160 lb), SpO2 98%. HEART: regular rate and rhythm. No murmurs, rubs or gallops. LUNGS: Breathing non-labored, lungs CTA bilaterally. ABDOMEN: Abdomen soft, non-tender, non-distended. Bowel sounds present in all 4 quadrants. EXTREMITIES: No cyanosis, clubbing or edema. INCISIONS: clean, dry and well healed Imaging Upon my personal review, her CXR today shows lungs are well expanded and clear. Final surgical pathology is pending. Assessment/Plan: Jono King is a 73 y.o. 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 Jono is recovering as expected from surgery. Her CXR today shows lungs well expanded and clear. Hersurgical incisions are healing well, chest tube sutures removed from incision without complications. Seri-strips also removed. I re- filled oxycodone today at an increased interval and had a long discussion with her about weaning. Advised to schedule tylenol every 6 hrs while requiring oxycodone. She cannot tolerate Ibuprofen. She requested oxygen for dyspnea with exertion. I ordered a 6-min walk test which will be completed today. She is also having difficulty completing her ADLs at home. Will look into home PT and home health nursing for her. The patient was seen and discussed with Nat Lazar MD. Tracy Connors PA-C Thoracic Surgery documented in [facility]10-[facility]-2024 Miscellaneous Notes* Addendum Note - Tracy Connors PA-C - 02/15/2024 2:30 PM EDT Addended by: TRACY VALENCIA on: 02/15/2024 03:55 PM Modules accepted: Orders documented in this encounterOSU [facility] Note* Addendum Note - Tracy Connors PA-C - 02/15/2024 2:30 PM EDTAddended by: TRACY VALENCIA on: 02/15/2024 03:55 PM Modules accepted: Orders [facility] History of Present illness Narrative* Lisset Veliz RN - 02/10/2024 9:42 AM EDT Images from the original note were not included. [facility] Transition of Care PCRM Review Patient with RUL NSCLC admitted with right robotic assisted right upper lobe lobectomy. Patient discharged to Home on 02.02.2024. JTOCC appointment with ANIKET [place] on 02.09.2024. Pt's outpatient oncologist (Dr. Lazar) is currently without an assigned PCRM. Reviewed patient's chart and will provide transition management and support post-hospitalization. Symptom Assessment Pain: endorses - is getting relief Oxy - occ Tylenol - doesn't want Nausea: Denies Vomiting: Denies Diarrhea: Denies Constipation: Denies Difficulty with urination: Denies SOB/FELTON: Endorses Chest Pain: Denies Cough: Endorses - says about the same Fever: think so - hot and sweating one time couple days ago. Did not check temperature. Has a thermometer at home. Ecourage her to check and report with elevated temperature. Chills: endorses - one time Weakness: Endorses though improving slightly. Falls: Denies Self Care ability: can do own bathing, not [place] to do food prep Mood: ok I guess Home Health Care/Infusion/Outpatient Services [facility]- Pulmonary & Cardiac Rehab [address] [facility] [address] Activity Level at Discharge/Activity Restrictions Per inpatient PT/OT recs: Not found in the EMR Patient's current activity level/level of assistance: Help with cooking, cleaning, transportation DME/Supplies N/A New DME ordered during admission: N/A L/D/A/Wound/Ostomy N/A Nutrition/Intake Diet recommended at time of discharge: Current PO intake: Medication Review Reviewed discharge medication list with patient/caregiver. Patient able to obtain prescriptions? Yes - would like a refill with oxycodone Questions about home medications or administration? No Post-Discharge Follow up Testing Was pt instructed to get any lab work/imaging/procedures after discharge? No Financial/Insurance Concerns Referrals placed at discharge/ Appointment needs N/A Education/When to call the MD/RN: [facility] educated patient/caregiver on the following, which would warrant a phone call to the office; signs/symptoms of infection, fever of greater than 100.4 lasting longer than 1 hour, persistent nausea and vomiting, uncontrolled bleeding, uncontrolled pain. Patient/caregiver verbalized understanding. Patient Care Plan Not entered as not reviewed at this time. Future Appointments Date Time Provider Department Center 02/15/2024 2:30 PM Nat Lazar MD [id number] Services being utilized Mileage reimbursement - states she needs paperwork signed so daughters can be reimbursed for travel. Hetal has the paperwork. Patient Care Instructions Pulmonary Toilet per protocol Plan for next [facility] outreach Follow up on pain management - note sent to [facility] thoracic surg onc pool. Follow up on home pulse oximeter Confirm Pulmonary / Cardiac Rehab has started - instructed to call by February 18 Complete Initial Assessment Lisset Veliz MS., RN, [facility] Outpatient Care [place] Teams Office * Lisset Veliz RN - 02/10/2024 9:42 AM EDT Initial Assessment nit completed as she was SOB. We were able to complete a post DC call. Plan for Next [facility] Outreach Follow up on pain management - note sent to [facility] thoracic surg onc pool. Follow up on home pulse oximeter Confirm Pulmonary / Cardiac Rehab has started - instructed to call by February 18 Complete Initial Assessment Lisset Veliz MS., RN, [facility] Outpatient Care [place] Teams Office * Tracy Connors PA-C - 02/10/2024 9:42 AM EDT I left a VM with the patient to discuss her pain. If she calls back please find out what she is using now for pain and how frequently. She should alternate tylenol and ibuprofen around the clock while she is requiring oxycodone. If tylenol causes upset stomach she can use Ibuprofen. * Lisset Veliz RN - 02/10/2024 9:42 AM EDT Return call to patient to clarify pain medication regimen. Trying not to take too much. I cannot say how often I take the Oxycodone. Today took one Oxycodone at 8:30 and getting ready to take another. Reports she will only take Tylenol in addition to the Oxycodone. Previous phone call she said she will only take Ibuprofen. She counted the pills and has 19 Oxycodone left. States she does not think she is letting the pain get too far out of control. We also discussed taking the Tylenol more consistently to help with pain and maynot need the Oxycodone. Review pulmonary toilet, deep breathing and incentive spirometer use. I am doing everything they tell me. Was not sure of the frequency. Discussed doing this every four hours or more often when notgetting up and moving. Graham oil for wound. Plans to use after stitches removed. Encouraged her to discuss during the medical appointment Thursday February 15, 2024. March 01 2:30 in [facility] - pulmonary rehab After surgery appointment Plan for Next [facility] Outreach Follow up on home pulse oximeter Confirm Pulmonary / Cardiac Rehab. Has an appointment March 01 at 2:30 [facility] [address], [place] [id number] Complete Initial Assessment Lisset Veliz MS., RN, [facility] Outpatient Care [facility] Office documented in this encounterL[facility]09-[facility] Nurse Note* Nursing Notes - Eric Webb RN - 02/04/2024 12:01 PM EDT Patient is being discharged to home. Reviewed all discharge paperwork (AVS & prescriptions) with the patient; the patient denied questions/concerns. All personal belongings are with patient. Patient left unit via wc without incident. Eric Webb RN [facility]09-28-2024 Miscellaneous Notes* Nursing Notes - Eric Webb RN - 02/04/2024 12:01 PM EDT Patient is being discharged to home. Reviewed all discharge paperwork (AVS & prescriptions) with the patient; the patient denied questions/concerns. All personal belongings are with patient. Patient left unit via wc without incident. Eric Webb RN * Nursing Notes - Lucien Mccarthy RN - 02/03/2024 1:47 PM EDT [facility] Inpatient PCR Discharge Note Patient discussed in medical rounds for discharge to home with family and neighbors to provide ongoing assistance. PCRM met with the patient/family/spouse to discuss final discharge plan. Services for Discharge No new AGGIE or DME needs Consults with Final Discharge Recommendations NA Lines/Tubes/Drains/Wounds/Supplies CT dressing in place. To be removed 48 hours after placement (Tuesday) Medications No barriers anticipated in obtaining discharge medications. No prior authorizations anticipated. Reconciliation of medications to be completed by the medical team. Medications as per final AVS. - Patient undecided about paying for Nicotine Patches at this time. Patient aware that [facility] was very competitive with GoodRx prices near her home with the exception [facility] stated [facility] too far from her alejandro Durable Medical Equipment As LEGAL RECRUITER Choice Was Patient Choice Provided: No Transportation Transportation will be provided by family. Education Discharge education provided by the medical team and updated in the After Visit Summary. Dressing and complications to look for reviewed by PCRM and bedside RN prior to DC. Follow Up(s) Any follow up requested by the medical team arranged. Appointments in the After Visit Summary. Future Appointments Provider Department Center 02/15/2024 2:30 PM Nat Lazar Division of Thoracic Surgery at [facility] Patient: No Was Ambulatory PCRM added to the Care Team? No- No outpatient PCRM for this physician The PCRM has updated the patient's nurse Emily Sanon RN regarding the final discharge plan. Risk of Readmission: 6.6 Category Reference: Low: 0% - 5% Medium - Low: 5.1% - 10% Medium - High: 10.1% - 16% High: 16.1% - 100% Readmission Risk Interventions Documented: Yes No other discharge needs have been identified at this time. This plan was developed in collaboration with the patient and caregiver/preferred decision maker. Patient and family are in agreement with final discharge plan. Please refer to AVS and medical record for additional information. Patient instructed to call with questions. PCRM will continue to follow with medical team for any additional discharge planning needs. JD Aburto RN Patient Care [facility] If any changes to this individualized plan of care during evening and weekend hours and assistance is needed, please page the solution developer PCRM at [phone]. 02/03/24 4388 Referral Information Arrived From operating room Final Discharge Planning Discharge Disposition Home Services at Discharge Wound/drain/line/ostomy-supplies CM/SW AVS Portion Completed Yes Plan Plan Patient to DC to home with family to transport (anticpates daughter to transport) Patient to flower buncher or picker medications from [facility]. Dressing supplies supplied for CT site. Patient/Family In Agreement With Plan yes Transport Request Mode of Transfer Private Vehicle * Nursing Notes - Emily Lira RN - 02/03/2024 11:17 AM EDT Pt oxygen saturation at rest on room air is: 93% Pt oxygen saturation with exertion on room air is: 95% * Nursing Notes - Lucien Mccarthy RN - 02/03/2024 10:30 AM EDT PCRM Initial Assessment Met with patient to complete the initial assessment. Explained role and function of PCRM in multidisciplinary team. Contact number provided for questions. Demographic information reviewed with patient/family and confirmed as correct. Reason for Admission: Jono King is a 73 y.o. female, current 1/2 - 1 ppk smoker, with history of HLD, depression and stroke who underwent a CT chest in November following a COVID infection with persistent cough. CT chest 11/07/23 was noted to have a new RUL lung nodule, measuring 2.2cm. A PET scan was completed 11/22/23 which notes hypermetabolic activity with SUV 6.7 in the RUL but no other activity noted. CT guided biopsy on 12/08/23 demonstrated squamous cell carcinoma. On 02/02/24 the patient was taken to the operating room for a flexible bronchoscopy and robotic-assisted right upper lobe lobectomy. Estimated length of stay: DC pod 2 Advance directives Patient does not have Advanced Directives on File Lines/Drains/Tubes Chest tube removed today 02/02 Initial PCRM Discharge Planning Anticipated DC to home Tuesday pending continued medical/surgical stability. Final plan will be determined closer to discharge, pending therapy and medical team recommendations. Patient/family verbalized understanding and agreement with the plan of care. Patient/family have no questions at this time. PCRM will continue to follow patient with multidisciplinary team for ongoing assessment of needs and for discharge planning. Medical team updated. JD Aburto RN Patient Care [facility] 02/03/24 1015 Referral Information Arrived From operating room Readmission Information Was patient readmitted within 30 Days? No Information Source Information Source patient ;review of medical record Information Source Name Patient Information [facility] Outpatient Providers Updated In IHIS No Contact Information Medical Record Clerk/SW Added to Care Team Yes This Cardroom Attendant is Primary Medical Record Clerk/SW Yes Medical Record Clerk Name Lucien Sparks Medical Record Clerk's Social Work Contact Name Tatiana Shipping Helper's Living Environment Lives With alone Living Arrangement and Set Up house (1 level home, no steps ingress per patient) Primary Care Provided By self Support System Immediate family;Neighbors Able to Return to Prior Arrangements yes Functional Status Patient's Functional Status Prior To This Admission? Independent Are There Status Changes This Admission? No Changes Observed Since Admission? No Changes Observed Concerns With Patient Being Able To Care For Themselves At Discharge? Has Assistance (Friend, Family, Skilled Provider) Who Is Patient's Primary Contact For Discharge Planning, Education And Care For Discharge? DaughterRaisa, who is an RN. Neighbors Can Support Person Meet The Care Needs Of The Patient? Yes Employment/Financial Employed? Retired Employment/Financial Concerns no Source Of Income social security Financial Concerns none Insurance Medical Insurance Verified Yes Prescription Coverage Yes Initial Discharge Planning Home Care Services (LEGAL RECRUITER) No Home Therapies (LEGAL RECRUITER) None DME (LEGAL RECRUITER) None Medical Supplies (LEGAL RECRUITER) None Patient Goal for Discharge Return home with assistance from family and friends Anticipated Services at Discharge Wound/drain/line/ostomy-supplies Anticipated Changes Related to Illness none Current Discharge Risk lives alone Transportation Available car Home Care Services (LEGAL RECRUITER) Additional Home Care Services (LEGAL RECRUITER) no Assessment/Concerns to be Addressed Concerns To Be Addressed denies needs/concerns at this time * Nursing Notes - Brandan Khan RN - 02/03/2024 4:04 AM EDT On admission to [facility], from OR images uploaded of skin. Skin Assessment: Skin not within defined limits. - Photo taken and uploaded into notes in IHIS: Yes LDA Added:No WOCN Consulted: No Fall Prevention Patient educated on risk for falls No Patient signed Fall Prevention Plan No Infection Prevention Patient educated on infection prevention including daily CHG bathing, hand hygiene, and isolation precaution requirements Yes Brandan Khan RN *ANA ROSA on floor, this nurse notified patient arrived to unit. Notified ANA ROSA of sbp 93/54 HR 82 map (70). Patient asymptotic. Will recheck vital @ 0430 and update ANA ROSA. * Op Note - Nat Lazar MD - 02/02/2024 10:51 PM EDT Thoracic Surgery Operative Report Date: February 02, 2024. Preoperative Diagnosis: Non-Small Cell Lung Carcinoma. Postoperative Diagnosis: Non-Small Cell Lung Carcinoma. Procedure Performed: 1. Flexible Bronchoscopy. 2. Robotic-Assisted Thoracoscopy. 2. Right Upper Lobectomy. 3. Mediastinal Lymph Node Dissection. 4. Multi-Level Intercostal Nerve Blocks. 5. Cryoablation of Intercostal Nerves T8-T6. Intraoperative Findings: The tumor was located in the right upper lobe posterior segment. Surgeon: Nat Lazar M.D. Park Services Specialist: Dez Vásquez PA-C and Becki Becker MD. Anesthesia Type: General Anesthesia. Estimated Blood Loss: 25 mL. Intravenous Fluid: See Anesthesia Record. Specimens: 1. Level 7 Lymph Node. 2. Level 4 R Lymph Node. 3. Level 11 R Lymph Node. 4. Level 10 R Lymph Node. 5. Level 9 R Lymph Node. 6. Right Upper Lobe. Drains: 32 Liberian Chest Tube. Complications: None. Disposition: The patient tolerated the operation well. She was extubated and transported the postanesthesia care unit in stable condition. Indication for the procedure: Jono King is a 73 y.o. female current smoker with history of CVA, HLD, depression who was referred to our service for evaluation of a right upper lobe (RUL) squamous cell carcinoma (SCC) who presents today for flex bronch and robotic-assisted RUL lobectomy. Description of the operation: Jono King was transferred to the operating room at the [facility]. Intravenous lines and an arterial line were placed the anesthesia team. The patient was intubated with a single-lumen endotracheal tube by anesthesia. General anesthesia was induced. The patient received 900 mg of IV Clindamycin prior to the incision for antimicrobial prophylaxis. Compression boots were placed in thelower extremities with DVT prophylaxis. After a time out, a flexible bronchoscopy was performed. The flexible bronchoscope was advanced through the endotracheal tube advanced to the meir. The meir appeared to be sharp. The right mainstem bronchus was within normal limits. The right upper lobe bronchial orifice was normal. The bronchus intermedius was normal. The right middle lobe and right lower lobe bronchial orifices were normal. Left mainstem bronchus was entered and was normal. The leftupper lobe and left lower lobe bronchial orifices were normal. The patient was then intubated with a double-lumen endotracheal tube and positioned in the left lateral decubitus position with the right chest facing upward. The right chest was prepped and draped in the standard sterile surgical fashion. A total of three 8mm and one 12 mm Robotic trocars were placed along the 8th intercostal space approximately 8-10 cm apart. A 12 mm Air Seal Port was placed in the 10 th intercostal space. The 8mm 30 degree robotic camera was placed thorough the posterior axillary line trocar and the right hemithorax was inspected and there was no evidence of pleural effusion or pleural dissemination. The right upper lobe lung carcinoma was located in the posterior apical segment. The Schedulicityi Xi robot was then docked to the robotic ports. A Cadiere grasper, a tip up fenestrated lung grasper, and a bipolar grapser were placed through the ports. We began the operation by dividing the inferior pulmonary ligament and incising the mediastinal pleura posteriorly along the bronchus intermedius with the bilpolar grapser. We identified a subcarinallymph node packet which we removed using the curved biplolar forcep. The lymph node packet was sentfor permanent histology. The posterior mediastinal pleura was incised up to the azygos vein. The mediastinal pleura in the anterior hilum was divided with the bipolar forceps. The minor fissure was completed with 3 applications of the robotic stapler with green re loads. The superior pulmonary veinwas dissected with the curve tip bipolar forceps. The superior pulmonary vein was divided with one a pplication of the robotic stapler with a white vascular reload. The truncus anterior branch of the pulmonary artery was identified and dissected using the bipolar forceps. A red rubber catheter was safely passed behind the truncus anterior branch which was then divided with a single application of the robotic stapling device with a vascular reload. The right upper lobe was then retracted anteriorly. The posterior ascending branch was clipped with a [facility] clip and divided with the Bipolar grasper.The right upper lobe bronchus was identified. The bronchus was dissected with a curved bipolar forceps. The robotic stapler was then passed across the right upper lobe bronchus and closed. The right m iddle lobe and right lower lobe were then ventilated and reexpanded. The right upper lobe bronchus was then divided. The major fissure was completed with 4 applications of the robotic stapler with green re loads. The right upper lobe specimen was then placed in a laparoscopic specimen bag and removed through [id number] intercostal space thoracoscopic incision which was slightly enlarged to 3 cm. A lymph node dissection was performed. Levels 4 R, 7, 10 R, 9 R, and 11 R were dissected and sent for permament histology. Intercostal nerve blocks were performed from T3-T9 with Liposomal Bupivacaine. Cryoablation was performed on the right intercostal nerves T8-T6 with the cryoprobe for 2 minutes at each level. We then irrigated the right chest cavity with warm crystalloid solution. There was no evidence of bleeding. Vistacel was used for additional hemostasis. A 32 Liberian straight chest tube was placed through the 8th intercostal space thoracoscopic port and secured with a #0 silk suture. The chest tube was connected to Pleur-evac and placed on -10 cm of suction. The right middle lobe and right lower lobe were reexpanded under direct vision. The remaining thoracoscopic incisions were closed in 3 layers. The muscle layers were reapproximated with a running with a #0 Vicryl suture. The subcutaneous layer was reapproximated with a running 2-0 Vicryl suture. The skin was reapproximated with a running4-0 Monocryl suture. Dermabond Preneo was placed on the incisions. The sponge and instrument countswere correct x 2. I was present for the entire procedure and participated in the entire procedure. There were no intraoperative complications. The patient was extubated and transported to postanesthesia care unit in stable condition. Dez Vásquez PA-C served as the nurseryman assistant for the case. There was no available qualified resident for the case. He docked the Cloud[employer] Robot and performed the instrument exchanges. Nat Lazar M.D. * Nursing Notes - Marcelina Garza RN - 02/02/2024 12:51 PM EDT 1251: Patient arrives in [facility] PACU from OR via gurney with side rails up x2 with HOB >30 degrees, accompanied by Anesthesiologist:. Patient placed on monitors, VSS. Report received from anesthesia. Patient assessed, see assessment. Plan for admission, STAT labs, ABG, and chest xray in PACU. To keep A-line. 1314: paged Dez Vásquez: I'm taking care of Jono Umstead in PACU. Chest xray and ABG have been completed. [phone], TY. 1316: Dez Vásquez returned page, cleared chest xray, repeat ABG at 1345. 1339: Updated family via text 1406: page sent to Dez Vásquez: Second ABG completed for Jono Umstead. [phone], TY 1446: Called surgery waiting to update family 1456: page sent to Dez Vásquez: ABG and post-op labs resulted for Fora Umstead. [phone], TY. 1535: page sent to Dez Vásquez: Can Jono Umstead have 15mg of toradol? [phone], TY? 1600: Daughter at bedside. 1609: page sent to Dez Vásquez: ABG completed on Jono Augustusstead. [phone], TY. 1612: Dez Vásquez returned page. Cleared ABG, pt okay to go to room when available. 172: page sent to Yajaira Briggs: I'm taking care of Jono Umstead in PACU. A- line is no longer corelating with BP cuff and very positional. Do you still want to keep A-line? [phone]? 1805: Yajaira Briggs returned page, okay to remove A-line. 2024: Called patient's daughter, Hetal, to update and gave room number. * Brief Op Note - Dez Vásquez PA-C - 02/02/2024 12:29 PM EDT Jono King ([id number]) PRE OPERATIVE DIAGNOSIS Malignant neoplasm of upper lobe, right bronchus or lung [C34.11] POST OPERATIVE DIAGNOSIS Malignant neoplasm of upper lobe, right bronchus or lung [C34.11] PROCEDURE PERFORMED Procedure(s) (LRB): LOBECTOMY LUNG ROBOTIC (Right) BRONCHOSCOPY FLEXIBLE DIAGNOSTIC (N/A) PRIMARY CLOSURE Yes INTRAOPERATIVE FINDINGS Flex bronch and robotic-assisted RUL lobectomy SURGEON Surgeons and Role: * Nat Lazar MD - Primary ANESTHESIOLOGIST Anesthesiologist: Nevaeh Muñiz MD Tube Coremaker: ANNA oCok; ANNA Joseph Student Anesthesiologist Park Services Specialist: Marivel Goyal SURGICAL STAFF Ring Cutter Lathe Operator: Elba Perez RN; Alina Winslow RN Physician Park Services Specialist: Dez Vásquez PA-C Relief Ring Cutter Lathe Operator: Maricruz Manley RN; Tonya Phipps RN Relief Scrub: Clyde Corado Resident Assisting: Becki Becker MD Twist Maker: Jessica Kerr COMPLICATIONS None ESTIMATED BLOOD LOSS 30 ml SPECIMENS See below ID Type Source Tests Collected by Time Destination 1 : LEVEL 11 R LYMPH NODE #1 Permanent SURG PATH SURG PATH REQUEST Nat Lazar MD 02/02/2024 0932 2 : LEVEL 7 LYMPH NODE #1 Permanent SURG PATH SURG PATH REQUEST Nat Lazar MD 02/02/2024 0944 3 : LEVEL 7 LYMPH NODE #2 Permanent SURG PATH SURG PATH REQUEST Nat Lazar MD 02/02/2024 0944 4 : LEVEL 7 LYMPH NODE #3 Permanent SURG PATH SURG PATH REQUEST Nat Lazar MD 02/02/202444 5 : LEVEL 7 LYMPH NODE #4 Permanent SURG PATH SURG PATH REQUEST Nat Lazar MD 02/02/202444 6 : LEVEL 4R LYMPH NODE #1 Permanent SURG PATH SURG PATH REQUEST Nat Lazar MD 02/02/2024 0951 7 : LEVEL 4R LYMPH NODE #2 Permanent SURG PATH SURG PATH REQUEST Nat Lazar MD 02/02/2024 0951 8 : LEVEL 4R LYMPH NODE #3 Permanent SURG PATH SURG PATH REQUEST Nat Lazar MD 02/02/2024 0951 9 : LEVEL 7 LYMPH NODE #5 Permanent SURG PATH SURG PATH REQUEST Nat Lazar MD 02/02/2024 0954 10 : LEVEL 10R LYMPH NODE #1 Permanent SURG PATH SURG PATH REQUEST Nat Lazar MD 02/02/2024 1003 11 : LEVEL 10R LYMPH NODE #2 Permanent SURG PATH SURG PATH REQUEST Nat Lazar MD 02/02/2024 1003 12 : LEVEL 10R LYMPH NODE #3 Permanent SURG PATH SURG PATH REQUEST Nat Lazar MD 02/02/2024 1003 13 : LEVEL 11R LYMPH NODE #2 Permanent SURG PATH SURG PATH REQUEST Nat Lazar MD 02/02/2024 1033 14 : LEVEL 11R LYMPH NODE #3 Permanent SURG PATH SURG PATH REQUEST Nat Lazar MD 02/02/2024 1033 15 : LEVEL 11R LYMPH NODE #4 Permanent SURG PATH SURG PATH REQUEST Nat Lazar MD 02/02/2024 1034 16 : LEVEL 11R LYMPH NODE #5 Permanent SURG PATH SURG PATH REQUEST Nat Lazar MD 02/02/2024 1052 17 : LEVEL 11R LYMPH NODE #6 Permanent SURG PATH SURG PATH REQUEST Nat Lazar MD 02/02/2024 1052 18 : RIGHT UPPER LOBE, STITCH= BRONCHUS Permanent SURG PATH SURG PATH REQUEST Nat Lazar MD 02/02/2024 1115 19 : LEVEL 7 LYMPH NODE #6 Permanent SURG PATH SURG PATH REQUEST Nat Lazar MD 02/02/2024 1130 20 : LEVEL 9R LYMPH NODE #1 Permanent SURG PATH SURG PATH REQUEST Nat Lazar MD 02/02/2024 1134 21 : LEVEL 9R LYMPH NODE #2 Permanent SURG PATH SURG PATH REQUEST Nat Lazar MD 02/02/2024 1134 22 : LEVEL 11R LYMPH NODE #7 Permanent SURG PATH SURG PATH REQUEST Nat Lazar MD 02/02/2024 1152 23 : LEVEL 11R LYMPH NODE #8 Permanent SURG PATH SURG PATH REQUEST Nat Lazar MD 02/02/2024 1154 Dez Vásquez PA-C February 02, 2024 12:29 PM [facility] of Present illness Narrative* Jessica Johnson - 02/04/2024 10:35 AM EDT Images from the original note were not included. [facility] Note: Bedside Delivery Documentation The following prescription(s) were delivered to the patient's bedside. Jessica Johnson [facility] ([place]) [phone] [facility] [phone] [facility] Bedside Delivery [phone] [facility] [phone] [facility] Bedside Delivery [phone] [facility] [phone] [facility] [phone] [place] [phone] [place] [phone] * Saturnino Mast RP - 02/04/2024 8:54 AM EDT Images from the original note were not included. [facility] Note: Non-Verbal Med Rec [facility] received the following discharge prescription(s): Total cost is $0. I have reviewed the Discharge Rx Reconciliation Report. The discharge prescription(s) will be delivered to the patient on 02/04/2024. Saturnino Mast [facility] ([place]) [phone] [facility] [phone] [facility] Bedside Delivery [phone] [facility] [phone] [facility] Bedside Delivery [phone] [facility] [phone] [facility] Bedside Delivery [phone] [place] [phone] [place] [phone] * ELY Morgan - 02/03/2024 1:15 PM EDT Psychosocial Assessment Per chart review, patient is a 73 y.o., female, who was admitted for flexible bronchoscopy and robotic-assisted right upper lobe lobectomy per Josey Talley APRN, CNP note on this date. SW met with patient to introduce self, explain social studies department chair role during inpatient stay, and answerquestions. Patient was alert and oriented x3 and agreeable to SW visit. Contact Information: Medical Record Clerk Name: Lucien Medical Record Clerk's Social Work Contact Name: Tatiana Shipping Helper's Advance Directive Discussion: Patient does not have any advance directives on file. SW inquired whether or not patient is interested in completing health care power of garage door installer and/or living will paperwork during this visit. SW reviewed the documents, discussed the benefits of completing them, and provided education re: Legal NOK (LNOK). Patient declined interest in completing the documents at this time Legal NOK: Two adult children, Hetal King [phone] and Raisa Barajas [phone] Emotional/Psychological: Mood: congruent to situation Current Interpersonal Conduct/Behavior: appropriate to situation, cooperative Mental Health Conditions/Symptoms: depression, anxiety disorder Emotional/Psychological Comments: Pt reports a history of anxiety and depression for which she takes medication and sees a psychiatrist. Distress Screen: In general, would you say your health is:: (PCRM at bedside to discuss medications, deferred at this time) Patient Coping/Stress Concerns: Patient Coping/Stress Concerns: No Patient Personal Strengths: able to adapt, expressive of emotions, expressive of needs, future/goaloriented Sources Of Support: adult child(nohemi) Reaction To Health Status: accepting Understanding Of Condition And Treatment: adequate understanding of medical condition, adequate understanding of treatment Living Environment: Lives With: alone Living Arrangement and Set Up: house (two stories, she stays on the first floor.) Caregiver Coping/Stress Concerns: Caregiver Coping/Stress Concerns: No Reaction To Health Status: accepting, adjusting Employment/Financial: Employed?: Retired Employment Details: retired from various jobs Employment/Financial Concerns: no Employment/Insurance Comments: no financial concerns at this time Source Of Income: social security Food Insecurity: Within the past 12 months, you worried that your food would run out before you got the money to buymore.: Never true Within the past 12 months, the food you bought just didn't last and you didn't have money to get more.: Never true Housing Stability: In the last 12 months, was there a time when you were not able to pay the mortgage or rent on time?: No Utilities: In the past 12 months has the electric, gas, oil, or water company threatened to shut off services in your home?: No Transportation Needs: In the past 12 months, has lack of transportation kept you from medical appointments or from getting medications?: No In the past 12 months, has lack of transportation kept you from meetings, work, or from getting things needed for daily living?: No Alcohol Use: Q1: How often do you have a drink containing alcohol?: Never Q2: How many drinks containing alcohol do you have on a typical day when you are drinking?: Patientdoes not drink Q3: How often do you have six or more drinks on one occasion?: Never Substance Use: How many times in the past year have you used illegal drugs?: Never Intimate Partner Violence: Within the last year, have you been afraid of your partner or ex-partner?: No Within the last year, have you been humiliated or emotionally abused in other ways by your partner or ex-partner?: No Within the last year, have you been kicked, hit, slapped, or otherwise physically hurt by your partner or ex-partner?: No Within the last year, have you been raped or forced to have any kind of sexual activity by your partner or ex-partner?: No Community Resources: None Anticipated Discharge Plan: Anticipated Discharge Plan: Home Medical Team Considerations: None SW Interventions/Recommendations: Service SW name and contact information placed on white board in patient's room to contact as needed. SW will continue to remain available to provide assistance and support as needed during inpatient stay. ELY Solano-Cherry Clinical Shipping Helper Pager: [phone]: [phone] For Evening (4:30pm-8am) and Weekend SW needs please call [phone] or page [phone] * Chuck Metz - 02/03/2024 11:30 AM EDT Inpatient Cardiopulmonary Rehab Consultation Completed. RN approved, as tolerated, and patient agreeable to visit. Patient reports feeling significant pain. Activity Session Vitals: Patient declined d/t pain and just returned to bed after ambulating with RESEARCH BIOSTATISTICIAN Positioning Supine HOB, call light within reach RN notified/aware. Encouraged continued ambulation and discussed appropriate activity progression. Patient participation in outpatient pulmonary rehab was discussed s/p C34.11 dx. Patient is interested in participating in rehab at their local facility: [facility]. AMB REFERRAL TO PULMONARY REHAB HAS BEEN PENDED. PLEASE REVIEW AND SIGN ORDER PRIOR TO DISCHARGE SOTHE AMB REFERRAL CAN BE SENT TO APPROPRIATE FACILITY BY THE INPATIENT REHAB TEAM. Discharge education provided to the patient. Printed materials provided/reviewed: Activities After Lung Surgery Handout. Patient s questions/concerns were addressed and topics below were discussed. 1. Activity Restrictions: Robotic (2 weeks) 2. Rest Time 3. Activity Guidelines/Recommendations 4. Nutrition 5. Medications 6. Coughing and Deep Breathing 7. Incision Care 8. Post Surgery Blues 9. When to Call the Doctor We will continue to follow up with patient as needed until discharge for education review and activity progression. Chuck Metz, , CEP ([phone]) IP Cardiopulmonary & Vascular Rehab * Josey Yin Bernadette, AP OPERATOR-LOG POND WORKER - 02/03/2024 8:15 AM EDT Inpatient Progress Note: Jono King Date: 02/03/2024 10:06 AM Chief Complaint: Malignant neoplasm of upper lobe, right bronchus or lung Primary Surgeon: Nat Lazar MD [place]): Jono King is a 73 y.o. female, current 1/2 - 1 ppk smoker, with history of HLD, depression and stroke who underwent a CT chest in November following a COVID infection with persistent cough. CTchest 11/07/23 was noted to have a new RUL lung nodule, measuring 2.2cm. A PET scan was completed 11/22/23 which notes hypermetabolic activity with SUV 6.7 in the RUL but no other activity noted. CT guided biopsy on 12/08/23 demonstrated squamous cell carcinoma. On 02/02/24 the patient was taken to the operating room for a flexible bronchoscopy and robotic- assisted right upper lobe lobectomy. Subjective: No acute events overnight. Pain well controlled. Denies dyspnea, nausea, and/or vomiting. OOB to chair. Objective: Vital Signs: Blood pressure 126/60, pulse 75, temperature 98.2 F (36.8 C), temperature source Oral,resp. rate 20, height 1.651 m (5' 5), weight 73.5 kg (162 lb), SpO2 92%. On 2 liters nasal cannula Chest tube output: 100 ml, -10 cm suction, no air leak UOP: 2580 ml, frederick 24 hour I/O: Intake/Output Summary (Last 24 hours) at 02/03/2024 1006 Last data filed at 02/03/2024 0617 Gross per 24 hour Intake 1900 ml Output 2680 ml Net -780 ml Physical Exam: Alert and oriented x 3 with no acute distress. Breathing non- labored, conversationalwithout dyspnea. Chest tube is to -10 suction with no air leak. Surgical incisions well approximated, without erythema, edema, or exudate. Abdomen soft, non-tender, non-distended. No pretibial or pedal edema noted. Laboratory Data: Pathology, 02/02/24, pending Cytology: n/a Micro: n/a Radiology Studies: 02/03/24 CXR: IMPRESSION: Stable exam without pneumothorax. 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 Final pathology pending. Chest tube removed, will follow post pull CXR. Frederick catheter and arterial line removed. Advanced to regular diet and discontinued MIV. Continue to encourage aggressive pulmonary toilet and monitor daily chest xray. Acute Post-Operative Pain Pain well controlled with scheduled acetaminophen, Robaxin, and prn oxycodone. Continue to assess and make adjustments as necessary. At Moderate Risk for Deep Venous Thrombosis Prophylactic subcutaneous enoxaparin, SCDs while in bed, and encourage ambulation. Current Smoker Continue nicotine patch. Smoking cessation consulted. Ibs (Irritable Bowel Syndrome) Continue home Bentyl Depression Continue home Paxil (not sustained release as not on formulary) Hyperlipidemia Continue home atorvastatin Gerd (Gastroesophageal Reflux Disease) Pantoprazole in place of home esomeprazole Stroke Hx of. Continue home ASA. Adhd Continue home Adderall. Health Education/Counseling Plan of care discussed with patient. Continue PCU level of care. Earliest possible date of discharge 02/04/24 pending post operative progression. Complexity. Hypocalcemia - Continue to monitor and replete. Any conditions listed below are present on admission unless otherwise specified. .HX of CVA: see plan above Depression, Single Episode, Active - See plan above The patient was seen, images reviewed, and plan of care discussed with Regis Drew MD covering for Nat Lazar MD. Josey Justice [facility]NFR[facility] # [id number] * ANIKET Kumar - 02/03/2024 8:15 AM EDT Chest Tube Removal Note Chest tube output 100 ml/24 hours, no air leak. Right chest tube removed per protocol. Patient tolerated well. Dry dressing applied to site. CXR pending. ALEX KumarLOG POND WORKER # [id number] * ANIKET Eagle - 02/02/2024 8:46 PM EDT Inpatient Progress Note: Jono King Date: 02/02/2024 6:15 PM Chief Complaint: Malignant neoplasm of upper lobe, right bronchus or lung Primary Surgeon: Nat Lazar MD [place] ([place]): Jono King is a 73 y.o. female, current 1/2 - 1 ppk smoker, with history of HLD, depression and stroke who underwent a CT chest in November following a COVID infection with persistent cough. CTchest 11/07/23 was noted to have a new RUL lung nodule, measuring 2.2cm. A PET scan was completed 11/22/23 which notes hypermetabolic activity with SUV 6.7 in the RUL but no other activity noted. CT guided biopsy on 12/08/23 demonstrated squamous cell carcinoma. PFTs 11/07/23 noted FEV1 93% and DLCO 76%. Brain MRI completed 11/11/23 without evidence of metastatic disease. She presents today for flex bronch and robotic-assisted RUL lobectomy. Subjective: no acute events upon arrival to the unit Objective: Vital Signs: Blood pressure 132/61, pulse 80, temperature 98.2 F (36.8 C), temperature source Oral,resp. rate 24, height 1.651 m (5' 5), weight 73.5 kg (162 lb), SpO2 95%. Chest tube output: UOP: 24 hour I/O: Intake/Output Summary (Last 24 hours) at 02/02/2024 1815 Last data filed at 02/02/2024 1742 Gross per 24 hour Intake 1950 ml Output 630 ml Net 1320 ml Physical Exam: Alert and oriented x 3 with no acute distress. Breathing non- labored, conversationalwithout dyspnea. Lungs clear bilaterally. Chest tube is to -10 suction with no air leak. Surgical incisions well approximated, without erythema, edema, or exudate. Abdomen soft, non-tender, non-distended. No pretibial or pedal edema noted. Laboratory Data: Pathology: pending Cytology: NA Micro: NA Radiology Studies: 02/02/24 (13:03) CXR- Right chest tube tip at the apex, no pneumothorax. Consults: Pulm Rehab Assessment/Plan: Problem Squamous Cell Carcinoma of Upper Lobe of Right Lung POD #0 bronchoscopy, robotic assisted, right upper lobe lobectomy. Final pathology pending. Continue chest tube to -10 cm suction. Clear liquid diet. Advance as tolerated. Continue frederick catheter andassess for removal in AM. Continue to encourage aggressive pulmonary toilet and monitor daily chestxray. Acute Post-Operative Pain Pain well controlled. Continue scheduled acetaminophen and prn Tramadol. Continue to monitor and adjust as necessary. At Moderate Risk for Deep Venous Thrombosis Subcutaneous heparin starting POD#1, SCDs and ambulation encouraged. Health Education/Counseling Plan of care discussed with patient. Continue PCU level of care. Earliest possible date of discharge 02/03/24, pending post op progression. Nicotine Dependence Current everyday smoker. Off NRT. Smoking cessation encouraged. Ibs (Irritable Bowel Syndrome) Continue home bentyl Depression Continue home paxil (not sustained release as not on formulary) Hyperlipidemia Continue home atorvastatin Gerd (Gastroesophageal Reflux Disease) Pantoprazole in place of home esomeprazole Stroke Hx of. Continue home ASA. Adhd Continue home adderall. Complexity. Hypocalcemia - Continue to monitor and replete. Any conditions listed below are present on admission unless otherwise specified. .HX of CVA: see plan above Depression, Single Episode, Active - See plan above The patient was seen, images reviewed, and plan of care discussed with Nat Lazar MD. Yajaira Briggs, AP OPERATOR-LOG POND WORKER # [id number] [facility]* Nursing Notes - Lucien Mccarthy RN - 02/03/2024 1:47 PM EDT [facility] PCRM Discharge Note Patient discussed in medical rounds for discharge to home with family and neighbors to provide ongoing assistance. PCRM met with the patient/family/spouse to discuss final discharge plan. Services for Discharge No new AGGIE or DME needs Consults with Final Discharge Recommendations NA Lines/Tubes/Drains/Wounds/Supplies CT dressing in place. To be removed 48 hours after placement (Tuesday) Medications No barriers anticipated in obtaining discharge medications. No prior authorizations anticipated. Reconciliation of medications to be completed by the medical team. Medications as per final AVS. - Patient undecided about paying for Nicotine Patches at this time. Patient aware that [facility] was very competitive with GoodRx prices near her home with the exception of [facility] patient stated was too far from her ale[place]andro Durable Medical Equipment As LEGAL RECRUITER Choice Was Patient Choice Provided: No Transportation Transportation will be provided by family. Education Discharge education provided by the medical team and updated in the After Visit Summary. Dressing and complications to look for reviewed by PCRM and bedside RN prior to DC. Follow Up(s) Any follow up requested by the medical team arranged. Appointments in the After Visit Summary. Future Appointments Provider Department Center 02/15/2024 2:30 PM Nat Lazar Division of Thoracic [facility] ACO Patient: No Was Ambulatory PCRM added to the Care Team? No- No outpatient PCRM for this physician The PCRM has updated the patient's nurse Emily Sanon RN regarding the final discharge plan. Risk of Readmission: 6.6 Category Reference: Low: 0% - 5% Medium - Low: 5.1% - 10% Medium - High: 10.1% - 16% High: 16.1% - 100% Readmission Risk Interventions Documented: Yes No other discharge needs have been identified at this time. This plan was developed in collaboration with the patient and caregiver/preferred decision maker. Patient and family are in agreement with final discharge plan. Please refer to AVS and medical record for additional information. Patient instructed to call with questions. PCRM will continue to follow with medical team for any additional discharge planning needs. JD Aburto RN Patient Care [facility] If any changes to this individualized plan of care during evening and weekend hours and assistance is needed, please page the solution developer PCRM at [phone]. 02/03/24 1346 Referral Information Arrived From operating room Final Discharge Planning Discharge Disposition Home Services at Discharge Wound/drain/line/ostomy-supplies CM/SW AVS Portion Completed Yes Plan Plan Patient to DC to home with family to transport (anticpates daughter to transport) Patient to flower buncher or picker medications from [facility]. Dressing supplies supplied for CT site. Patient/Family In Agreement With Plan yes Transport Request Mode of Transfer Private Vehicle [facility]09-27-2024 Nurse Note* Nursing Notes - Emily Lira RN - 02/03/2024 11:17 AM EDT Pt oxygen saturation at rest on room air is: 93% Pt oxygen saturation with exertion on room air is: 95% [facility]09-27-2024 Nurse Note* Nursing Notes - Lucien Mccarthy RN - 02/03/2024 10:30 AM EDT PCRM Initial Assessment Met with patient to complete the initial assessment. Explained role and function of PCRM in multidisciplinary team. Contact number provided for questions. Demographic information reviewed with patient/family and confirmed as correct. Reason for Admission: Jono King is a 73 y.o. female, current 1/2 - 1 ppk smoker, with history of HLD, depression and stroke who underwent a CT chest in November following a COVID infection with persistent cough. CT chest 11/07/23 was noted to have a new RUL lung nodule, measuring 2.2cm. A PET scan was completed 11/22/23 which notes hypermetabolic activity with SUV 6.7 in the RUL but no other activity noted. CT guided biopsy on 12/08/23 demonstrated squamous cell carcinoma. On 02/02/24 the patient was taken to the operating room for a flexible bronchoscopy and robotic-assisted right upper lobe lobectomy. Estimated length of stay: DC pod 2 Advance directives Patient does not have Advanced Directives on File Lines/Drains/Tubes Chest tube removed today 02/02 Initial PCR Discharge Planning Anticipated DC to home Tuesday pending continued medical/surgical stability. Final plan will be determined closer to discharge, pending therapy and medical team recommendations. Patient/family verbalized understanding and agreement with the plan of care. Patient/family have no questions at this time. PCRM will continue to follow patient with multidisciplinary team for ongoing assessment of needs and for discharge planning. Medical team updated. JD Aburto RN Patient Care [facility] 02/03/24 1015 Referral Information Arrived From operating room Readmission Information Was patient readmitted within 30 Days? No Information Source Information Source patient ;review of medical record Information Source Name [facility] Information [facility] Outpatient Providers Updated In IHIS No Contact Information Medical Record Clerk/SW Added to Care Team Yes This Cardroom Attendant is Primary Medical Record Clerk/SW Yes Medical Record Clerk Name Lucien Sparks Medical Record Clerk's Social Work Contact Name Tatiana Shipping Helper's Living Environment Lives With alone Living Arrangement and Set Up house (1 level home, no steps ingress per patient) Primary Care Provided By self Support System Immediate family;Neighbors Able to Return to Prior Arrangements yes Functional Status Patient's Functional Status Prior To This Admission? Independent Are There Status Changes This Admission? No Changes Observed Since Admission? No Changes Observed Concerns With Patient Being Able To Care For Themselves At Discharge? Has Assistance (Friend, Family, Skilled Provider) Who Is Patient's Primary Contact For Discharge Planning, Education And Care For Discharge? Daughter, Raisa, who is an RN. Neighbors Can Support Person Meet The Care Needs Of The Patient? Yes Employment/Financial Employed? Retired Employment/Financial Concerns no Source Of Income social security Financial Concerns none Insurance Medical Insurance Verified Yes Prescription Coverage Yes Initial Discharge Planning Home Care Services (LEGAL RECRUITER) No Home Therapies (LEGAL RECRUITER) None DME (LEGAL RECRUITER) None Medical Supplies (LEGAL RECRUITER) None Patient Goal for Discharge Return home with assistance from family and friends Anticipated Services at Discharge Wound/drain/line/ostomy-supplies Anticipated Changes Related to Illness none Current Discharge Risk lives alone Transportation Available car Home Care Services (LEGAL RECRUITER) Additional Home Care Services (LEGAL RECRUITER) no Assessment/Concerns to be Addressed Concerns To Be Addressed denies needs/concerns at this time [facility]09-27-2024 Nurse Note* Nursing Notes - Brandan Khan RN - 02/03/2024 4:04 AM EDT On admission to [facility], from OR images uploaded of skin. Skin Assessment: Skin not within defined limits. - Photo taken and uploaded into notes in IHIS: Yes LDA Added:No WOCN Consulted: No Fall Prevention Patient educated on risk for falls No Patient signed Fall Prevention Plan No Infection Prevention Patient educated on infection prevention including daily CHG bathing, hand hygiene, and isolation precaution requirements Yes Brandan Khan RN *ANA ROSA on floor, this nurse notified patient arrived to unit. Notified ANA ROSA of sbp 93/54 HR 82 map (70). Patient asymptotic. Will recheck vital @ 0430 and update ANA ROSA. [facility]09-26-2024 Surgery Postoperative evaluation and management note* Op Note - Nat Lazar MD - 02/02/2024 10:51 PM EDT Thoracic Surgery Operative Report Date: February 02, 2024. Preoperative Diagnosis: Non-Small Cell Lung Carcinoma. Postoperative Diagnosis: Non-Small Cell Lung Carcinoma. Procedure Performed: 1. Flexible Bronchoscopy. 2. Robotic-Assisted Thoracoscopy. 2. Right Upper Lobectomy. 3. Mediastinal Lymph Node Dissection. 4. Multi-Level Intercostal Nerve Blocks. 5. Cryoablation of Intercostal Nerves T8-T6. Intraoperative Findings: The tumor was located in the right upper lobe posterior segment. Surgeon: Nat Lazar M.D. Park Services Specialist: Dez Vásquez PA-C and Becki Becker MD. Anesthesia Type: General Anesthesia. Estimated Blood Loss: 25 mL. Intravenous Fluid: See Anesthesia Record. Specimens: 1. Level 7 Lymph Node. 2. Level 4 R Lymph Node. 3. Level 11 R Lymph Node. 4. Level 10 R Lymph Node. 5. Level 9 R Lymph Node. 6. Right Upper Lobe. Drains: 32 Liberian Chest Tube. Complications: None. Disposition: The patient tolerated the operation well. She was extubated and transported the postanesthesia care unit in stable condition. Indication for the procedure: Jono King is a 73 y.o. female current smoker with history of CVA, HLD, depression who was referred to our service for evaluation of a right upper lobe (RUL) squamous cell carcinoma (SCC) who presents today for flex bronch and robotic-assisted RUL lobectomy. Description of the operation: Jono King was transferred to the operating room at the [facility]. Intravenous lines and an arterial line were placed the anesthesia team. The patient was intubated with a single-lumen endotracheal tube by anesthesia. General anesthesia was induced. The patient received 900 mg of IV Clindamycin prior to the incision for antimicrobial prophylaxis. Compression boots were placed in thelower extremities with DVT prophylaxis. After a time out, a flexible bronchoscopy was performed. The flexible bronchoscope was advanced through the endotracheal tube advanced to the meir. The meir appeared to be sharp. The right mainstem bronchus was within normal limits. The right upper lobe bronchial orifice was normal. The bronchus intermedius was normal. The right middle lobe and right lower lobe bronchial orifices were normal. Left mainstem bronchus was entered and was normal. The leftupper lobe and left lower lobe bronchial orifices were normal. The patient was then intubated with a double-lumen endotracheal tube and positioned in the left lateral decubitus position with the right chest facing upward. The right chest was prepped and draped in the standard sterile surgical fashion. A total of three 8mm and one 12 mm Robotic trocars were placed along the 8th intercostal space approximately 8-10 cm apart. A 12 mm Air Seal Port was placed in the 10 th intercostal space. The 8mm 30 degree robotic camera was placed thorough the posterior axillary line trocar and the right hemithorax was inspected and there was no evidence of pleural effusion or pleural dissemination. The right upper lobe lung carcinoma was located in the posterior apical segment. The Schedulicityi Xi robot was then docked to the robotic ports. A Cadiere grasper, a tip up fenestrated lung grasper, and a bipolar grapser were placed through the ports. We began the operation by dividing the inferior pulmonary ligament and incising the mediastinal pleura posteriorly along the bronchus intermedius with the bilpolar grapser. We identified a subcarinallymph node packet which we removed using the curved biplolar forcep. The lymph node packet was sentfor permanent histology. The posterior mediastinal pleura was incised up to the azygos vein. The mediastinal pleura in the anterior hilum was divided with the bipolar forceps. The minor fissure was completed with 3 applications of the robotic stapler with green re loads. The superior pulmonary veinwas dissected with the curve tip bipolar forceps. The superior pulmonary vein was divided with one a pplication of the robotic stapler with a white vascular reload. The truncus anterior branch of the pulmonary artery was identified and dissected using the bipolar forceps. A red rubber catheter was safely passed behind the truncus anterior branch which was then divided with a single application of the robotic stapling device with a vascular reload. The right upper lobe was then retracted anteriorly. The posterior ascending branch was clipped with a [facility] clip and divided with the Bipolar grasper.The right upper lobe bronchus was identified. The bronchus was dissected with a curved bipolar forceps. The robotic stapler was then passed across the right upper lobe bronchus and closed. The right m iddle lobe and right lower lobe were then ventilated and reexpanded. The right upper lobe bronchus was then divided. The major fissure was completed with 4 applications of the robotic stapler with green re loads. The right upper lobe specimen was then placed in a laparoscopic specimen bag and removed through [id number] intercostal space thoracoscopic incision which was slightly enlarged to 3 cm. A lymph node dissection was performed. Levels 4 R, 7, 10 R, 9 R, and 11 R were dissected and sent for permament histology. Intercostal nerve blocks were performed from T3-T9 with Liposomal Bupivacaine. Cryoablation was performed on the right intercostal nerves T8-T6 with the cryoprobe for 2 minutes at each level. We then irrigated the right chest cavity with warm crystalloid solution. There was no evidence of bleeding. Vistacel was used for additional hemostasis. A 32 Liberian straight chest tube was placed through the 8th intercostal space thoracoscopic port and secured with a #0 silk suture. The chest tube was connected to Pleur-evac and placed on -10 cm of suction. The right middle lobe and right lower lobe were reexpanded under direct vision. The remaining thoracoscopic incisions were closed in 3 layers. The muscle layers were reapproximated with a running with a #0 Vicryl suture. The subcutaneous layer was reapproximated with a running 2-0 Vicryl suture. The skin was reapproximated with a running4-0 Monocryl suture. Dermabond Preneo was placed on the incisions. The sponge and instrument countswere correct x 2. I was present for the entire procedure and participated in the entire procedure. There were no intraoperative complications. The patient was extubated and transported to postanesthesia care unit in stable condition. Dez Vásquez PA-C served as the nurseryman assistant for the case. There was no available qualified resident for the case. He docked the [employer] and performed the instrument exchanges. Nat Lazar M.D. [facility] Work Phone: [phone]) 898-102209-26-2024 Hospital Discharge instructions* Medications* Izzy Snow APRN-LOG POND WORKER - 02/02/2024 4:46 PM EDT PAIN MEDICATION: -A prescription for pain medicine will be sent home with you. Do not drive while taking prescription pain medicine. Eat when taking pain medicines to avoid nausea. Watch for constipation. Eat plenty of fruits, vegetables, juices, and drink 6 to 8 glasses of water each day. -Take a stool softener twice a day as long as you remain on pain medicine. If you do not have a bowel movement within 5 days of your surgery, please take milk of magnesia. If you do not have a bowel movement within 12 hours of milk of magnesia, call the office. -you can take acetaminophen (Tylenol) and ibuprofen (Advil, Motrin) in addition to your prescription pain medication if you have no other contraindications to those medications. Use these medicationsto help you need less narcotic pain medication. -you can start to wean yourself off the narcotic pain medication as soon as you feel comfortable bytaking a smaller dose and/or increasing the number of hours in between doses. * Discharge Instr - Activity* ANIKET Callahan - 02/02/2024 4:46 PM EDT ACTIVITY: - No driving until you are seen in the office for your post operative visit - Do not lift anything heavier than 5 lbs for 6 weeks - No strenuous activity for 6 weeks. - Numbness and tingling in the chest on the surgical side is normal. This may take 6 to 12 months to improve. * Discharge Instr - Diet* ANIKET Callahan - 02/02/2024 4:46 PM EDT Resume normal diet at discharge. * Discharge Instr - Notify* ANIKET Callahan - 02/02/2024 4:46 PM EDT CALL THE DOCTOR IF YOU EXPERIENCE: UNRELIEVED PAIN: - Increased or unrelieved pain SIGNS OF WOUND INFECTION: - Increase in pain in or around wound. - Change in the amount of drainage. - Change in the color of drainage. - Change in the odor of drainage. - Warmth in the tissues around the wound. - Red streaks on the skin near the wound. - Fever (temperature greater than 101.5 degrees F) - Incision separates or opens up CHEST PAIN OR RESPIRATORY CHANGES: - Chest pain or shortness of breath - Shortness of breath that gets worse - Cough that gets worse - Coughing up blood FEVER/CHILLS/FLU-LIKE SYMPTOMS: Temperature greater than 101.5 degrees F and/or chills. - Signs of cold or flu. NAUSEA OR VOMITING -Inability to take fluids for greater than 24 hours. SIGNS OF DEEP VEIN THROMBOSIS (DVT): DVT = Deep Vein Thrombus, or Blood Clot -Any Tender, Swollen, or Reddened Areas From Your Groin To Your Heels -Numbness or Tingling In Groin or Calf -The Skin on Your Leg Looks Pale or Blue Or It Feels Cold To Touch -Numbness or Tingling In Groin or Calf -Any Shortness of Breath -Chest Pain -Fever or Chills Thoracic Surgery Contact Information: Clinical questions, 24 hours a day, 7 days a week: [phone] Outpatient Shipping Helper: Gabby Baeza [phone] Inpatient Medical Record Clerk: Vernell Deluca [phone] Inpatient Shipping Helper: Tatiana Rose [phone] * Discharge Instr - Wound Care* ANIKET Callahan - 02/02/2024 4:47 PM EDT YOU MAY SHOWER (48 hours post chest tube removal) NO TUB BATHS: -Do not take tub bath, go swimming or use a hot tub until instructed by your doctor. INCISION CARE: -Please clean it daily with mild soap and water. -Keep it dry and open to air -Notify us of any increasing redness, pus-like discharge or seperation of the incision. -Do not let the shower stream hit the incision directly. - Numbness and tingling in the chest on the surgical side is normal. This may take 6 to 12 months to improve. CHEST TUBE SITE CARE: - Keep chest tube site dressing in place for 48 hours after chest tube has been removed. After 48 hours you can remove dressing, take a shower, and leave site open to air if it is not draining. We will provide dressing supplies upon discharge in case you need them. - It is normal for the chest tube site to drain clear or pale yellow fluid. If draining, cover withband-aid or sterile gauze dressing. If the drainage develops an odor, becomes pus-like, the area becomes red, or you develop a fever, please contact us. -Clean with soap and water daily, pat dry. Do not apply any ointments or creams to tube insertion site unless instructed by your doctor. * Attachments The following attachments cannot be sent through Care Everywhere. * Incentive Spirometer: General Info (Sammarinese) * Pain Post-Surgery: Acute (Sammarinese) [facility]* Nursing Notes - Marcelina Garza RN - 02/02/2024 12:51 PM EDT 1251: Patient arrives in [facility] PACU from OR via gurney with side rails up x2 with HOB >30 degrees, accompanied by Anesthesiologist:. Patient placed on monitors, VSS. Report received from anesthesia. Patient assessed, see assessment. Plan for admission, STAT labs, ABG, and chest xray in PACU. To keep A-line. 1314: paged Dez Vásquez: I'm taking care of Jono Karanead in PACU. Chest xray and ABG have been completed. [phone], TY. 1316: Dez Vásquez returned page, cleared chest xray, repeat ABG at 1345. 1339: Updated family via text 1406: page sent to Dez Vásquez: Second ABG completed for Jono Umstead. [phone], TY 1446: Called surgery waiting to update family 1456: page sent to Dez Vásquez: ABG and post-op labs resulted for Fora Umstead. [phone], TY. 1535: page sent to Dez Vásquez: Can Jono King have 15mg of toradol? [phone], TY? 1600: Daughter at bedside. 1609: page sent to Dez Vásquez: ABG completed on Jono King. [phone], TY. 1612: Dez Vásquez returned page. Cleared ABG, pt okay to go to room when available. 1725: page sent to Yajaira Briggs: I'm taking care of Jono King in PACU. A- line is no longer corelating with BP cuff and very positional. Do you still want to keep A-line? [phone]? 1805: Yajairafunmilayo Goldsmitht returned page, okay to remove A-line. 2024: Called patient's daughter, Hetal, to update and gave room number. [facility] Surgery Postoperative evaluation and management note* Brief Op Note - Dez Vásquez PA-C - 02/02/2024 12:29 PM EDT Jono King ([id number]) PRE OPERATIVE DIAGNOSIS Malignant neoplasm of upper lobe, right bronchus or lung [C34.11] POST OPERATIVE DIAGNOSIS Malignant neoplasm of upper lobe, right bronchus or lung [C34.11] PROCEDURE PERFORMED Procedure(s) (LRB): LOBECTOMY LUNG ROBOTIC (Right) BRONCHOSCOPY FLEXIBLE DIAGNOSTIC (N/A) PRIMARY CLOSURE Yes INTRAOPERATIVE FINDINGS Flex bronch and robotic-assisted RUL lobectomy SURGEON Surgeons and Role: * Nat Lazar MD - Primary ANESTHESIOLOGIST Anesthesiologist: Nevaeh Muñiz MD Tube Coremaker: ANNA oCok; ANNA Joseph Student Anesthesiologist Park Services Specialist: Marivel Goyal SURGICAL STAFF Ring Cutter Lathe Operator: Elba Perez RN; Alina Winslow RN Physician Park Services Specialist: Dez Vásquez PA-C Relief Ring Cutter Lathe Operator: Maricruz Manley RN; Tonya Phipps RN Relief Scrub: Clyde Corado Resident Assisting: Becki Becker MD Twist Maker: Jessica Cirilo COMPLICATIONS None ESTIMATED BLOOD LOSS 30 ml SPECIMENS See below ID Type Source Tests Collected by Time Destination 1 : LEVEL 11 R LYMPH NODE #1 Permanent SURG PATH SURG PATH REQUEST Nat Lazar MD 02/02/2024 0932 2 : LEVEL 7 LYMPH NODE #1 Permanent SURG PATH SURG PATH REQUEST Nat Lazar MD 02/02/2024 0944 3 : LEVEL 7 LYMPH NODE #2 Permanent SURG PATH SURG PATH REQUEST Nat Lazar MD 02/02/2024 0944 4 : LEVEL 7 LYMPH NODE #3 Permanent SURG PATH SURG PATH REQUEST Nat Lazar MD 02/02/2024 0944 5 : LEVEL 7 LYMPH NODE #4 Permanent SURG PATH SURG PATH REQUEST Nat Lazar MD 02/02/2024 0944 6 : LEVEL 4R LYMPH NODE #1 Permanent SURG PATH SURG PATH REQUEST Nat Lazar MD 02/02/2024 0951 7 : LEVEL 4R LYMPH NODE #2 Permanent SURG PATH SURG PATH REQUEST Nat Lazar MD 02/02/2024 0951 8 : LEVEL 4R LYMPH NODE #3 Permanent SURG PATH SURG PATH REQUEST Nat Lazar MD 02/02/2024 0951 9 : LEVEL 7 LYMPH NODE #5 Permanent SURG PATH SURG PATH REQUEST Nat Lazar MD 02/02/2024 0954 10 : LEVEL 10R LYMPH NODE #1 Permanent SURG PATH SURG PATH REQUEST Nat Lazar MD 02/02/2024 1003 11 : LEVEL 10R LYMPH NODE #2 Permanent SURG PATH SURG PATH REQUEST Nat Lazar MD 02/02/2024 1003 12 : LEVEL 10R LYMPH NODE #3 Permanent SURG PATH SURG PATH REQUEST Nat Lazar MD 02/02/2024 1003 13 : LEVEL 11R LYMPH NODE #2 Permanent SURG PATH SURG PATH REQUEST Nat Lazar MD 02/02/2024 1033 14 : LEVEL 11R LYMPH NODE #3 Permanent SURG PATH SURG PATH REQUEST Nat Lazar MD 02/02/2024 1033 15 : LEVEL 11R LYMPH NODE #4 Permanent SURG PATH SURG PATH REQUEST Nat Lazar MD 02/02/2024 1034 16 : LEVEL 11R LYMPH NODE #5 Permanent SURG PATH SURG PATH REQUEST Nat Lazar MD 02/02/2024 1052 17 : LEVEL 11R LYMPH NODE #6 Permanent SURG PATH SURG PATH REQUEST Nat Lazar MD 02/02/2024 1052 18 : RIGHT UPPER LOBE, STITCH= BRONCHUS Permanent SURG PATH SURG PATH REQUEST Nat Lazar MD 02/02/2024 1115 19 : LEVEL 7 LYMPH NODE #6 Permanent SURG PATH SURG PATH REQUEST Nat Lazar MD 02/02/2024 1130 20 : LEVEL 9R LYMPH NODE #1 Permanent SURG PATH SURG PATH REQUEST Nat Lazar MD 02/02/2024 1134 21 : LEVEL 9R LYMPH NODE #2 Permanent SURG PATH SURG PATH REQUEST Nat Lazar MD 02/02/2024 1134 22 : LEVEL 11R LYMPH NODE #7 Permanent SURG PATH SURG PATH REQUEST Nat Lazar MD 02/02/2024 1152 23 : LEVEL 11R LYMPH NODE #8 Permanent SURG PATH SURG PATH REQUEST Nat Lazar MD 02/02/2024 1154 Dez Vásquez PA-C February 02, 2024 12:29 PM [facility]09-26-2024 History and physical note* Dez Vásquez PA-C - 02/02/2024 7:54 AM EDT Images from the original note were not included. History and Physical Patient: Jono King Date: 02/02/2024 7:54 AM Attending Physician: Nat Lazar MD Chief Complaint: RUL NSCLC HPI: Jono King is a 73 y.o. female current smoker with history of CVA, HLD, depression who wasreferred to our service for evaluation of a right upper lobe (RUL) squamous cell carcinoma (SCC) who presents today for flex bronch and robotic-assisted RUL lobectomy. Patient reports she is doing well overall but notes an intermittent, productive cough. She denies fever, weight loss, hemoptysis, or chest pain. Past Medical/Surgical History Past Medical History: Diagnosis Date ADHD COVID-19 Depression GERD (gastroesophageal reflux disease) Hyperlipidemia Stroke Past Surgical History: Procedure Laterality Date EGD W/ BX 2022 EXTRACTION EXTRACAPSULAR CATARACT W/ IMPLANT (ECCE IOL) Bilateral RELEASE CARPAL TUNNEL ROTATOR CUFF REPAIR Bilateral Oncology History No history exists. Family History Family History Problem Relation Age of Onset Colorectal Cancer Maternal Aunt Social History Social History Tobacco Use Smoking status: Every Day Current packs/day: 1.00 Average packs/day: 1 pack/day for 40.1 years (40.1 ttl pk-yrs) Types: Cigarettes Start date: 12/27/1983 Smokeless tobacco: Never Tobacco comments: 12/28/23 - 05/10 ppd. I am cutting back. Maybe 1 or 2 a day Substance Use Topics Alcohol use: Never Medications No current outpatient medications on file. Allergies/Immunizations Allergies: Promethazine, *adhesive tape, Amoxicillin-pot clavulanate, Celebrex [celecoxib], and Latex Immunizations: There is no immunization history on file for this patient. Review of Systems At the time of the visit patient reports an intermittent productive cough. All other systems queried and are negative. OBJECTIVE: Physical Exam Blood pressure 120/62, pulse 74, temperature 97.9 F (36.6 C), temperature source Oral, resp. rate 16, height 1.651 m (5' 5), weight 73.5 kg (162 lb), SpO2 97%. on room air. Constitutional: she is alert, oriented, well-developed, well-nourished, and in no acute distress. HEENT: Oropharynx is clear and moist. Extraocular motions are normal. Neck: Neck supple. No tracheal deviation present. Cardiovascular: Normal rate and regular rhythm. Pulmonary/Chest: Breathing non-labored. Musculoskeletal: She exhibits no edema. Lymphadenopathy: She has no cervical adenopathy. Neurological: She is alert and oriented. Skin: No rash noted. ECO Imaging/Procedures/Results Review: PET/CT on 11/22/2023: ASSESSMENT/PLAN: 73 y.o. 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 She states understanding of the procedure and all questions and concerns have been addressed in full. The patient was seen and plan of care was discussed with Nat Lazar MD. Dez Vásquez PA-C [facility] Work Phone: 1(766) 580-635609-26-2024 History and physical note* Dez Vásquez PA-C - 02/02/2024 7:54 AM EDT Images from the original note were not included. History and Physical Patient: Jono King Date: 02/02/2024 7:54 AM Attending Physician: Nat Lazar MD Chief Complaint: RUL NSCLC HPI: Jono King is a 73 y.o. female current smoker with history of CVA, HLD, depression who wasreferred to our service for evaluation of a right upper lobe (RUL) squamous cell carcinoma (SCC) who presents today for flex bronch and robotic-assisted RUL lobectomy. Patient reports she is doing well overall but notes an intermittent, productive cough. She denies fever, weight loss, hemoptysis, or chest pain. Past Medical/Surgical History Past Medical History: Diagnosis Date ADHD COVID-19 Depression GERD (gastroesophageal reflux disease) Hyperlipidemia Stroke Past Surgical History: Procedure Laterality Date EGD W/ BX 2022 EXTRACTION EXTRACAPSULAR CATARACT W/ IMPLANT (ECCE IOL) Bilateral RELEASE CARPAL TUNNEL ROTATOR CUFF REPAIR Bilateral Oncology History No history exists. Family History Family History Problem Relation Age of Onset Colorectal Cancer Maternal Aunt Social History Social History Tobacco Use Smoking status: Every Day Current packs/day: 1.00 Average packs/day: 1 pack/day for 40.1 years (40.1 ttl pk-yrs) Types: Cigarettes Start date: 12/27/1983 Smokeless tobacco: Never Tobacco comments: 12/28/23 - 05/10 ppd. I am cutting back. Maybe 1 or 2 a day Substance Use Topics Alcohol use: Never Medications No current outpatient medications on file. Allergies/Immunizations Allergies: Promethazine, *adhesive tape, Amoxicillin-pot clavulanate, Celebrex [celecoxib], and Latex Immunizations: There is no immunization history on file for this patient. Review of Systems At the time of the visit patient reports an intermittent productive cough. All other systems queried and are negative. OBJECTIVE: Physical Exam Blood pressure 120/62, pulse 74, temperature 97.9 F (36.6 C), temperature source Oral, resp. rate 16, height 1.651 m (5' 5), weight 73.5 kg (162 lb), SpO2 97%. on room air. Constitutional: she is alert, oriented, well-developed, well-nourished, and in no acute distress. HEENT: Oropharynx is clear and moist. Extraocular motions are normal. Neck: Neck supple. No tracheal deviation present. Cardiovascular: Normal rate and regular rhythm. Pulmonary/Chest: Breathing non-labored. Musculoskeletal: She exhibits no edema. Lymphadenopathy: She has no cervical adenopathy. Neurological: She is alert and oriented. Skin: No rash noted. ECO Imaging/Procedures/Results Review: PET/CT on 11/22/2023: ASSESSMENT/PLAN: 73 y.o. 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 She states understanding of the procedure and all questions and concerns have been addressed in full. The patient was seen and plan of care was discussed with Nat Lazar MD. Dez Vásquez PA-C [facility] Surgical operation note* Raghavendra Hong RN - 02/02/2024 7:16 AM EDT Patient denies hx of chemo or radiation. reports hx of stroke. Denies cardiac devices or stents. reports metal in fingers and shoulders. Skin intact, mepilex applied to coccyx. [facility]09-26-2024 Nurse Note* Raghavendra Hong RN - 02/02/2024 7:16 AM EDT Patient denies hx of chemo or radiation. reports hx of stroke. Denies cardiac devices or stents. reports metal in fingers and shoulders. Skin intact, mepilex applied to coccyx. [facility] History and physical note* Izzy Snow, AP OPERATOR-LOG POND WORKER - 12/28/2023 2:00 PM EDT Images from the original note were not included. History and Physical Patient: Jono King Date: 12/28/2023 3:38 PM Attending Physician: Nat Lazar MD Chief Complaint: Chief Complaint Patient presents with New Patient Frequent coughing since covid in 2020, productive white/greenish. Pt had amlodipine on meds to reconcile, but she says that she doesn't use because she doesn't have a heart problem. Pt smoking 1/2 ppd, she would nicoderm HPI: Jono King is a 73 y.o. female, current 1/2 - 1 ppk smoker, with history of HLD, depression and stroke who underwent a CT chest in November following a COVID infection with persistent cough. CT chest 11/07/23 was noted to have a new RUL lung nodule, measuring 2.2cm. A PET scan was completed 11/22/23 which notes hypermetabolic activity with SUV 6.7 in the RUL but no other activity noted. CT guided biopsy on 12/08/23 demonstrated squamous cell carcinoma. PFTs 11/07/23 noted FEV1 93% and DLCO 76%. Brain MRI completed 11/11/23 without evidence of metastatic disease. Past Medical/Surgical History Past Medical History: Diagnosis Date ADHD COVID-19 Depression GERD (gastroesophageal reflux disease) Hyperlipidemia Stroke Past Surgical History: Procedure Laterality Date EGD W/ BX 2022 EXTRACTION EXTRACAPSULAR CATARACT W/ IMPLANT (ECCE IOL) Bilateral RELEASE CARPAL TUNNEL ROTATOR CUFF REPAIR Bilateral Oncology History No history exists. She is not on home oxygen She does not have a history of stroke. She does not have any residual deficits. Family History Family History Problem Relation Age of Onset Colorectal Cancer Maternal Aunt Social History Social History Tobacco Use Smoking status: Every Day Current packs/day: 1.00 Average packs/day: 1 pack/day for 40.0 years (40.0 ttl pk-yrs) Types: Cigarettes Start date: 12/27/1983 Smokeless tobacco: Never Tobacco comments: 12/28/23 - 05/10 ppd Substance Use Topics Alcohol use: Never She does not have a history of daily use of narcotics for >30 days prior to this visit Living arrangement at the time of this visit: With family Medications Current Outpatient Medications Medication Sig Adderall 30 MG tablet daily. 12/28/23n - 30 in AM, 50 in PM Aspirin 81 MG capsule Take by mouth. Atorvastatin 40 MG tablet Coenzyme Q-10 30 MG capsule Take by mouth. Dicyclomine 20 MG tablet LORazepam 0.5 MG tablet Take by mouth Every 8 hours. Oyster Shell Calcium w/D 500-5 MG-MCG tablet daily. Paxil CR 25 MG Tab SR 24 HR daily. esomeprazole [address] capsule Take 1 capsule by mouth Every 12 hours. (Patient not taking: Reported on 12/28/2023) She is not on chronic immunosuppressive therapy/corticosteroids >10 days at the time of this visit She is not on chronic anticoagulation >10 days at the time of this visit Allergies/Immunizations Allergies: Promethazine, *adhesive tape, Amoxicillin-pot clavulanate, and Latex Immunizations: There is no immunization history on file for this patient. Review of Systems At the time of the visit patient reports chronic cough and dyspnea. All other systems queried and are negative. OBJECTIVE: Physical Exam Blood pressure 137/66, pulse 86, temperature 97.7 F (36.5 C), temperature source Oral, resp. rate 18, height 1.626 m (5' 4), weight 73.7 kg (162 lb 8 oz), SpO2 99%. on RA Constitutional: she is alert, oriented, well-developed, well-nourished, and in no acute distress. HEENT: Oropharynx is clear and moist. Extraocular motions are normal. Neck: Neck supple. No tracheal deviation present. No thyromegaly present. Cardiovascular: Normal rate and regular rhythm. No murmur heard. Pulmonary/Chest: Breathing non-labored. Lung sounds normal without wheezes or rales. She exhibits no crepitus. Abdomen: Abdomen soft, non-tender, non-distended. Bowel sounds present in all four quadrants. Musculoskeletal: She exhibits no edema. Lymphadenopathy: She has no cervical adenopathy. Neurological: She is alert and oriented. Skin: No rash noted. ECO Imaging/Procedures/Results Review: Personal review completed of: CT Guided Biopsy 12/08/23: PET 11/22/23: Brain MRI 11/11/23: CT Chest 11/07/23: ASSESSMENT/PLAN: Problem Squamous Cell Carcinoma of Upper Lobe of Right Lung Jono King is a 73 y.o. female, current smoker with a new RUL lung nodule, measuring 2.2cm. A PET scan was completed 11/22/23 which notes hypermetabolic activity with SUV 6.7 in the RUL but no other activity noted. CT guided biopsy on 12/08/23 demonstrated squamous cell carcinoma. PFTs 11/07/23 noted FEV1 93% and DLCO 76%. Brain MRI completed 11/11/23 without evidence of metastatic disease. Dr. Lazar and myself reviewed all relevant imaging and reports today in clinic. We recommended she proceed with a surgical resection and discussed surgery which would include a bronchoscopy, robotic assisted, right upper lobe lobectomy. We reviewed all the risks and benefits. She was in agreementwith proceeding. PLAN: Consented in clinic today for bronchoscopy, robotic assisted, right upper lobe lobectomy Labwork ordered to be completed today Stress test ordered to be completed prior to surgery Frailty Assessment No=0 Yes=1 F Are you fatigued no R Resistance: Can you climb 1 flight of stairs? yes A Ambulation: Can you walk 1 block? yes I Illness: Greater then 5%? no L Loss of weight: Greater then 5% no Total score 2 Score > 3 Refer to Preoperative PT Score < 3 Recommend Home Exercise Malnutrition Screening Tool Step 1 Have you lost weight recently without trying? No 0 Unsure 2 If yes, how much weight have you lost? NA 2-13 lbs 1 14-23 lbs 2 24-33 lbs 3 34 or more 4 Unsure 2 Weight Loss Score NA Have you been eating poorly because of decreased appetite? no Appetite Score NA Add Weight loss and appetite scores MTS SCORE not applicable Step 2 Score to Determine Risk MST = 0 or 1 Not at RISK (eating well with little or no weight loss) MST = 2 or more AT RISK (eating poorly and/or recent weight loss) STEP 3 Intervene with nutritional support for your patients at risk of malnutrition. Patient Medication Instructions: Here is a list of your current medications we have on file: Current Outpatient Medications Medication Sig Adderall 30 MG tablet daily. 12/28/23n - 30 in AM, 50 in PM Aspirin 81 MG capsule Take by mouth. Atorvastatin 40 MG tablet Coenzyme Q-10 30 MG capsule Take by mouth. Dicyclomine 20 MG tablet LORazepam 0.5 MG tablet Take by mouth Every 8 hours. Oyster Shell Calcium w/D 500-5 MG-MCG tablet daily. Paxil CR 25 MG Tab SR 24 HR daily. esomeprazole [address] capsule Take 1 capsule by mouth Every 12 hours. (Patient not taking: Reported on 12/28/2023) -STOP taking ALL vitamins and herbal medications (including fish oil, [place]-3, garlic, glucosamine-chondroitin, gingko, ginseng, tumeric, multivitamins) 2 weeks before surgery. -STOP taking NSAIDS (including but not limited to ibuprofen, Advil, Motrin, naproxen, Aleve) 7 daysbefore surgery. -STOP taking metformin, lisinopril, losartan, valsartan, amlodipine two days before surgery. -STOP taking Dicyclomine, Adderall, and Lipitor the day before surgery. -Only take Paxil, Nexium, Aspirin on the morning of surgery with a sip of water. Do not take any ofyour other medications on the morning of surgery. -If you use inhalers, it is ok to use them as prescribed the morning of surgery. The patient was seen and plan of care was discussed with Nat Lazar MD. Izzy Snow, KILEY-LOG POND WORKER #[id number] Associated attestation - Nat Lazar MD - 01/04/2024 11:33 PM EDT Thoracic Surgery Attending I saw and examined Jono King today with my ANA ROSA, Izzy Snow. Jono King is a 73 y.o. female current smoker presents with right upper lobe squamous cell carcinoma. I agree with the history of present illness, past medical history, family history, social history, medication list, allergies listed, and current complaints. I have personally reviewed all labsand radiographs as well as medical records and I confirm the findings noted above. I agree with theassessment and plan as noted above. The imaging reviewed today includes: CT Scan of chest 11/07/23 was noted to have a new right upper lobe lung nodule, measuring 2.2cm. PET CT scan 11/22/23 noted a hypermetabolic FDG uptake with SUV 6.7 in the right upper lobe. CT guided biopsy on 12/08/23 demonstrated squamous cell carcinoma. PFTs 11/07/23 noted FEV-1 93% predicted and DLCO 76% predicted. Brain MRI completed 11/11/23 without evidence of metastatic disease. Assessment and Plan The patient presents with a T1bN0 Squamous Cell Carcinoma of the right upper lobe. At this time, I feel we should proceed with a robotic assisted right upper lobectomy. I discussed with the patient that risks of lung surgery may include bleeding, infection, pneumonia, heart complications, blood clots, respiratory failure, post operative neuropathic pain, air leak, chyle leak, and . The patient is aware of these risks and has agreed to proceed with this major elective surgery. Surgical consent was signed today. Smoking cessation was discussed with the patient. The plan was developed mutually at the time of the clinic visit. I provided a substantive portion of the care for this patient. I personally performed all aspects of the medical decision making for this encounter. I have reviewed and verified this documentation and it accurately reflects our care. Nat Lazar MD [facility]08-21-2024 History and physical note* Izzy Snow, AP OPERATOR-LOG POND WORKER - 12/28/2023 2:00 PM EDT Images from the original note were not included. History and Physical Patient: Jono King Date: 12/28/2023 3:38 PM Attending Physician: Nat Lazar MD Chief Complaint: Chief Complaint Patient presents with New Patient Frequent coughing since covid in 2020, productive white/greenish. Pt had amlodipine on meds to reconcile, but she says that she doesn't use because she doesn't have a heart problem. Pt smoking 1/2 ppd, she would nicoderm HPI: Jono King is a 73 y.o. female, current 1/2 - 1 ppk smoker, with history of HLD, depression and stroke who underwent a CT chest in November following a COVID infection with persistent cough. CT chest 11/07/23 was noted to have a new RUL lung nodule, measuring 2.2cm. A PET scan was completed 11/22/23 which notes hypermetabolic activity with SUV 6.7 in the RUL but no other activity noted. CT guided biopsy on 12/08/23 demonstrated squamous cell carcinoma. PFTs 11/07/23 noted FEV1 93% and DLCO 76%. Brain MRI completed 11/11/23 without evidence of metastatic disease. Past Medical/Surgical History Past Medical History: Diagnosis Date ADHD COVID-19 Depression GERD (gastroesophageal reflux disease) Hyperlipidemia Stroke Past Surgical History: Procedure Laterality Date EGD W/ BX 2022 EXTRACTION EXTRACAPSULAR CATARACT W/ IMPLANT (ECCE IOL) Bilateral RELEASE CARPAL TUNNEL ROTATOR CUFF REPAIR Bilateral Oncology History No history exists. She is not on home oxygen She does not have a history of stroke. She does not have any residual deficits. Family History Family History Problem Relation Age of Onset Colorectal Cancer Maternal Aunt Social History Social History Tobacco Use Smoking status: Every Day Current packs/day: 1.00 Average packs/day: 1 pack/day for 40.0 years (40.0 ttl pk-yrs) Types: Cigarettes Start date: 12/27/1983 Smokeless tobacco: Never Tobacco comments: 12/28/23 - / ppd Substance Use Topics Alcohol use: Never She does not have a history of daily use of narcotics for >30 days prior to this visit Living arrangement at the time of this visit: With family Medications Current Outpatient Medications Medication Sig Adderall 30 MG tablet daily. 12/28/23n - 30 in AM, 50 in PM Aspirin 81 MG capsule Take by mouth. Atorvastatin 40 MG tablet Coenzyme Q-10 30 MG capsule Take by mouth. Dicyclomine 20 MG tablet LORazepam 0.5 MG tablet Take by mouth Every 8 hours. Oyster Shell Calcium w/D 500-5 MG-MCG tablet daily. Paxil CR 25 MG Tab SR 24 HR daily. esomeprazole [address] capsule Take 1 capsule by mouth Every 12 hours. (Patient not taking: Reported on 12/28/2023) She is not on chronic immunosuppressive therapy/corticosteroids >10 days at the time of this visit She is not on chronic anticoagulation >10 days at the time of this visit Allergies/Immunizations Allergies: Promethazine, *adhesive tape, Amoxicillin-pot clavulanate, and Latex Immunizations: There is no immunization history on file for this patient. Review of Systems At the time of the visit patient reports chronic cough and dyspnea. All other systems queried and are negative. OBJECTIVE: Physical Exam Blood pressure 137/66, pulse 86, temperature 97.7 F (36.5 C), temperature source Oral, resp. rate 18, height 1.626 m (5' 4), weight 73.7 kg (162 lb 8 oz), SpO2 99%. on RA Constitutional: she is alert, oriented, well-developed, well-nourished, and in no acute distress. HEENT: Oropharynx is clear and moist. Extraocular motions are normal. Neck: Neck supple. No tracheal deviation present. No thyromegaly present. Cardiovascular: Normal rate and regular rhythm. No murmur heard. Pulmonary/Chest: Breathing non-labored. Lung sounds normal without wheezes or rales. She exhibits no crepitus. Abdomen: Abdomen soft, non-tender, non-distended. Bowel sounds present in all four quadrants. Musculoskeletal: She exhibits no edema. Lymphadenopathy: She has no cervical adenopathy. Neurological: She is alert and oriented. Skin: No rash noted. ECO Imaging/Procedures/Results Review: Personal review completed of: CT Guided Biopsy 12/08/23: PET 11/22/23: Brain MRI 11/11/23: CT Chest 11/07/23: ASSESSMENT/PLAN: Problem Squamous Cell Carcinoma of Upper Lobe of Right Lung Jono King is a 73 y.o. female, current smoker with a new RUL lung nodule, measuring 2.2cm. A PET scan was completed 11/22/23 which notes hypermetabolic activity with SUV 6.7 in the RUL but no other activity noted. CT guided biopsy on 12/08/23 demonstrated squamous cell carcinoma. PFTs 11/07/23 noted FEV1 93% and DLCO 76%. Brain MRI completed 11/11/23 without evidence of metastatic disease. Dr. Lazar and myself reviewed all relevant imaging and reports today in clinic. We recommended she proceed with a surgical resection and discussed surgery which would include a bronchoscopy, robotic assisted, right upper lobe lobectomy. We reviewed all the risks and benefits. She was in agreementwith proceeding. PLAN: Consented in clinic today for bronchoscopy, robotic assisted, right upper lobe lobectomy Labwork ordered to be completed today Stress test ordered to be completed prior to surgery Frailty Assessment No=0 Yes=1 F Are you fatigued no R Resistance: Can you climb 1 flight of stairs? yes A Ambulation: Can you walk 1 block? yes I Illness: Greater then 5%? no L Loss of weight: Greater then 5% no Total score 2 Score > 3 Refer to Preoperative PT Score < 3 Recommend Home Exercise Malnutrition Screening Tool Step 1 Have you lost weight recently without trying? No 0 Unsure 2 If yes, how much weight have you lost? NA 2-13 lbs 1 14-23 lbs 2 24-33 lbs 3 34 or more 4 Unsure 2 Weight Loss Score NA Have you been eating poorly because of decreased appetite? no Appetite Score NA Add Weight loss and appetite scores MTS SCORE not applicable Step 2 Score to Determine Risk MST = 0 or 1 Not at RISK (eating well with little or no weight loss) MST = 2 or more AT RISK (eating poorly and/or recent weight loss) STEP 3 Intervene with nutritional support for your patients at risk of malnutrition. Patient Medication Instructions: Here is a list of your current medications we have on file: Current Outpatient Medications Medication Sig Adderall 30 MG tablet daily. 12/28/23n - 30 in AM, 50 in PM Aspirin 81 MG capsule Take by mouth. Atorvastatin 40 MG tablet Coenzyme Q-10 30 MG capsule Take by mouth. Dicyclomine 20 MG tablet LORazepam 0.5 MG tablet Take by mouth Every 8 hours. Oyster Shell Calcium w/D 500-5 MG-MCG tablet daily. Paxil CR 25 MG Tab SR 24 HR daily. esomeprazole [address] capsule Take 1 capsule by mouth Every 12 hours. (Patient not taking: Reported on 12/28/2023) -STOP taking ALL vitamins and herbal medications (including fish oil, Madison-3, garlic, glucosamine-chondroitin, gingko, ginseng, tumeric, multivitamins) 2 weeks before surgery. -STOP taking NSAIDS (including but not limited to ibuprofen, Advil, Motrin, naproxen, Aleve) 7 daysbefore surgery. -STOP taking metformin, lisinopril, losartan, valsartan, amlodipine two days before surgery. -STOP taking Dicyclomine, Adderall, and Lipitor the day before surgery. -Only take Paxil, Nexium, Aspirin on the morning of surgery with a sip of water. Do not take any ofyour other medications on the morning of surgery. -If you use inhalers, it is ok to use them as prescribed the morning of surgery. The patient was seen and plan of care was discussed with Nat Lazar MD. Izzy Snow, AP OPERATOR-LOG POND WORKER #[id number] Associated attestation - Nat Lazar MD - 01/04/2024 11:33 PM EDT Thoracic Surgery Attending I saw and examined Jono King today with my ANA ROSA, Izzy Snow. Jono King is a 73 y.o. female current smoker presents with right upper lobe squamous cell carcinoma. I agree with the history of present illness, past medical history, family history, social history, medication list, allergies listed, and current complaints. I have personally reviewed all labsand radiographs as well as medical records and I confirm the findings noted above. I agree with theassessment and plan as noted above. The imaging reviewed today includes: CT Scan of chest 11/07/23 was noted to have a new right upper lobe lung nodule, measuring 2.2cm. PET CT scan 11/22/23 noted a hypermetabolic FDG uptake with SUV 6.7 in the right upper lobe. CT guided biopsy on 12/08/23 demonstrated squamous cell carcinoma. PFTs 11/07/23 noted FEV-1 93% predicted and DLCO 76% predicted. Brain MRI completed 11/11/23 without evidence of metastatic disease. Assessment and Plan The patient presents with a T1bN0 Squamous Cell Carcinoma of the right upper lobe. At this time, I feel we should proceed with a robotic assisted right upper lobectomy. I discussed with the patient that risks of lung surgery may include bleeding, infection, pneumonia, heart complications, blood clots, respiratory failure, post operative neuropathic pain, air leak, chyle leak, and . The patient is aware of these risks and has agreed to proceed with this major elective surgery. Surgical consent was signed today. Smoking cessation was discussed with the patient. The plan was developed mutually at the time of the clinic visit. I provided a substantive portion of the care for this patient. I personally performed all aspects of the medical decision making for this encounter. I have reviewed and verified this documentation and it accurately reflects our care. Nat Lazar MD [facility] History of Present illness Narrative* Jocy Cook RN - 12/28/2023 2:00 PM EDT JOCScreening Are you able to walk the length of two city blocks (500 feet)? yes Do you have trouble breathing when you lie flat? no Have you had a heart attack, blood clot, stroke, or cardiac stent in the past 3 months? no Do you have a pacemaker or implantable defibrillator? no If yes, further review required. Are you diabetic? no If so, is your blood sugar over 300 three or more days per week? No Have you had your A1C checked? no If so, is it over 8? no Have you previously had anesthesia? yes If so, were you told that there was trouble placing a breathing tube? no Nicotine Dependency: Amount used per day is 1/2 ppd. Smokes (uses) minutes after waking up. Other types of tobacco used are 5 . History of Quit Attempts: Longest period without smoking is this morning. Have you ever had serious quit attempts (intentional, >24 hrs)? Yes. If Yes, how many times? many Last quit attempt was not sure. Patient used nicoderm cq to help with quitting in the past. Previous attempts were unsuccessful because habit. I spent 10 minutes discussing current smoking/ nicotine habits and the benefits of quitting. * Marizol Burgess RN - 12/28/2023 2:00 PM EDT Patient provided with pre-operative educational bag consisting of CHG soap, incentive spirometer, and patient education. Discharge folder provided consisting of use of CHG, how to use incentive spirometer, pain management, and managing opioid induced constipation. Patient verbalized understanding and denies any further questions. Patient was given 2 nutritional supplements at the end of today's visit and instructed to drink onethe night before surgery and drink the other 2-4 hrs prior to scheduled surgery time. Patient verbalized understanding. [facility]24 Instructions* Patient Instructions* ANIKET Callahan - 12/28/2023 2:00 PM EDT Patient Medication Instructions: Here is a list of your current medications we have on file: Current Outpatient Medications Medication Sig Adderall 30 MG tablet daily. 12/28/23n - 30 in AM, 50 in PM Aspirin 81 MG capsule Take by mouth. Atorvastatin 40 MG tablet Coenzyme Q-10 30 MG capsule Take by mouth. Dicyclomine 20 MG tablet LORazepam 0.5 MG tablet Take by mouth Every 8 hours. Oyster Shell Calcium w/D 500-5 MG-MCG tablet daily. Paxil CR 25 MG Tab SR 24 HR daily. esomeprazole [address] capsule Take 1 capsule by mouth Every 12 hours. (Patient not taking: Reported on 12/28/2023) -STOP taking ALL vitamins and herbal medications (including fish oil, Madison-3, garlic, glucosamine-chondroitin, gingko, ginseng, tumeric, multivitamins) 2 weeks before surgery. -STOP taking NSAIDS (including but not limited to ibuprofen, Advil, Motrin, naproxen, Aleve) 7 daysbefore surgery. -STOP taking metformin, lisinopril, losartan, valsartan, amlodipine two days before surgery. -STOP taking Dicyclomine, Adderall, and Lipitor the day before surgery. -Only take Paxil, Nexium, Aspirin on the morning of surgery with a sip of water. Do not take any ofyour other medications on the morning of surgery. -If you use inhalers, it is ok to use them as prescribed the morning of surgery. * Attachments The following attachments cannot be sent through Care Everywhere. * [facility] Echocardiogram [facility]) ([place]* Result Encounter Note - Erica Dwyer PA - 01/28/2023 4:44 PM EDT GI Note Please let Jono know that her gallbladder function testing was normal. Please get update on patient. So far workup has been unrevealing. Is she still taking Protonix 40 mg twice daily? Any new medications that could be causing symptoms? Erica Dwyer PA-C [facility]09-22-2023 Miscellaneous Notes* Result Encounter Note - Erica Dwyer PA - 01/28/2023 4:44 PM EDT GI Note Please let Jono know that her gallbladder function testing was normal. Please get update on patient. So far workup has been unrevealing. Is she still taking Protonix 40 mg twice daily? Any new medications that could be causing symptoms? Erica Dwyer PA-C documented in this encounterDe[facility] Hospital course Narrative* Anastasiia Lerner MD - 12/21/2022 10:17 AM EDT Patient in endoscopy for procedure. Procedure performed without difficulty. See report for findings. Patient sent home after meeting discharge criteria and in good condition. Procedure: Esophagogastroduodenoscopy + Biopsy Complications: None Diagnosis: 1. Essentially normal EGD. Gastric biopsies taken for H. pylori, duodenal biopsies for celiac disease and esophageal biopsies for eosinophilic No endoluminal finding testing patient's postural nausea and vomiting and epigastric abdominal pain. We will call patient pathology report of biopsies taken. Continue Zofran as needed to manage nausea and vomiting. Anastasiia Lerner MD 12/21/2022 10:17 AM documented in this encounterDeTar [facility]-15-2023 Hospital Discharge instructions* Discharge Instructions* Anastasiia Lerner MD - 12/21/2022 10:17 AM EDT SCOPE DISCHARGE INSTRUCTIONS You have had a procedure called Esophagogastroduodenoscopy (EGD). Sedation: You were given medication for sedation. You may feel drowsy or tired for a few hours. We recommend you not be alone today. Please do not participate in activities that require good coordination or concentration such as driving a car or operating machinery for the next 24 hours. Protect yourself against falls, especially on the stairs or when walking long distances. Delay making businessdecisions that require the signing of legal documents for a minimum of 24 hours. No alcoholic beverages for 24 hours. Diet: Type of diet ordered No restriction.. You may eat and drink at . IV: If the IV site swells or bleeds, please apply direct pressure for 5 minutes. If the site becomes red, you may apply warm, moist compresses to the site. Please see a healthcare professional if youhave concerns about your IV site. Pain/Bleeding: You have had a biopsy taken performed during the procedure. You may expect a little bleeding from the site. Within the next 48 hours, if the bleeding becomes excessive or is accompanied by abdominal or chest pain, please call your physician immediately. If you are on aspirin or NSAIDS (non-steroidal anti-inflammatory drugs) then you can resume tomorrow. If no appointment is required, your physician will contact you with any test results within 2 weeksand will send a note to your referring physician. If you have any questions, call your physician's office. Finding and Recommendation 1. Essentially normal EGD. Gastric biopsies taken for H. pylori, duodenal biopsies for celiac disease and esophageal biopsies for eosinophilic No endoluminal finding testing patient's postural nausea and vomiting and epigastric abdominal pain. We will call patient pathology report of biopsies taken. Continue Zofran as needed to manage nausea and vomiting. I have received and understand my discharge instructions. Date Driller Operator documented in this [facility]08-15-2023 Surgery Surgical operation note* Op Note - Anastasiia Lerner MD - 12/21/2022 10:03 AM EDT ESOPHAGOGASTRODUODENOSCOPY WITH BIOPSY Procedure Note Jono Russobabar 12/21/2022 PRE-OP DIAGNOSIS: Epigastric pain [R10.13] POST-OP DIAGNOSIS: Normal EGD PROCEDURE(S): Esophagogastroduodenoscopy + Biopsy SURGEON(S): Anastasiia Lerner MD Sedation Start Time: Event Time Moderate Sedation Start 0957 Endoscope Insertion Time: Event Time Procedure/Incision Start 1003 Endoscope Removal Time: Event Time Procedure End 1010 Consent: Informed consent was obtained prior to the procedure after a thorough explanation of the risks and benefits. The risks include but are not limited to bleeding, infection, allergic reaction to the medication, perforation, risk of sedation, and the risk of missing a small lesion. The patientand family understand, agrees and the consent was signed. Sedation: Patient received moderate conscious sedation medications Versed 4 mg and Fentanyl 100 mcggiven intravenously by the circulating RN under the direct supervision of Anastasiia Lerner MD in incremental doses until sedation achieved. During the time of the procedure the patient was continuously monitored under my direct supervisionfor 14 minutes.(minutes calculated from Moderate Sedation Start to Out of Room) Vitals: Patient Vitals for the past 12 hrs (Last 1 readings): Temp Pulse Resp BP SpO2 O2 Device 12/21/22 1008 -- 70 -- 97/57 98 % Nasal cannula 12/21/22 1003 -- 77 -- 104/57 95 % Nasal cannula 12/21/22 0958 -- 79 -- 123/58 97 % Nasal cannula 12/21/22 0932 97.2 F (36.2 C) 77 18 145/71 96 % -- Staff: Ring Cutter Lathe Operator: Otto Cosme RN Landscape Foreman: Otilia Guerrero RN Sedation Nurse: Smiley Stephen RN Procedure: The patient was placed in the left lateral decubitus position and sedated in small increments until adequate sedation was achieved. The patient was continually monitored throughout the entire procedure. An Olympus Video gastroscope was inserted into the esophagus under direct vision and advanced to Third portion duodenum. Findings: Esophagus: Z-line is 39cm, regular normal mucosa and lumen. Mid and proximal esophageal biopsies taken for eosinophilic esophagitis. Stomach: Normal gastric mucosa. Biopsies taken for H. pylori. Duodenum: Normal duodenal mucosa. Biopsies taken for celiac disease. Condition: The patient tolerated the procedure well and was sent to the recovery room in stable condition. Impression: 1. Essentially normal EGD. Gastric biopsies taken for H. pylori, duodenal biopsies for celiac disease and esophageal biopsies for eosinophilic No endoluminal finding testing patient's postural nausea and vomiting and epigastric abdominal pain. We will call patient pathology report of biopsies taken. Continue Zofran as needed to manage nausea and vomiting. Anastasiia Lerner MD 12/21/2022 10:11 AM [facility] Miscellaneous Notes* Op Note - Anastasiia Lerner MD - 12/21/2022 10:03 AM EDT ESOPHAGOGASTRODUODENOSCOPY WITH BIOPSY Procedure Note Jono King 12/21/2022 PRE-OP DIAGNOSIS: Epigastric pain [R10.13] POST-OP DIAGNOSIS: Normal EGD PROCEDURE(S): Esophagogastroduodenoscopy + Biopsy SURGEON(S): Anastasiia Lerner MD Sedation Start Time: Event Time Moderate Sedation Start 09 Endoscope Insertion Time: Event Time Procedure/Incision Start 100 Endoscope Removal Time: Event Time Procedure End 1010 Consent: Informed consent was obtained prior to the procedure after a thorough explanation of the risks and benefits. The risks include but are not limited to bleeding, infection, allergic reaction to the medication, perforation, risk of sedation, and the risk of missing a small lesion. The patientand family understand, agrees and the consent was signed. Sedation: Patient received moderate conscious sedation medications Versed 4 mg and Fentanyl 100 mcggiven intravenously by the circulating RN under the direct supervision of Anastasiia Lerner MD in incremental doses until sedation achieved. During the time of the procedure the patient was continuously monitored under my direct supervisionfor 14 minutes.(minutes calculated from Moderate Sedation Start to Out of Room) Vitals: Patient Vitals for the past 12 hrs (Last 1 readings): Temp Pulse Resp BP SpO2 O2 Device 12/21/22 1008 -- 70 -- 97/57 98 % Nasal cannula 12/21/22 1003 -- 77 -- 104/57 95 % Nasal cannula 12/21/22 0958 -- 79 -- 123/58 97 % Nasal cannula 12/21/22 0932 97.2 F (36.2 C) 77 18 145/71 96 % -- Staff: Ring Cutter Lathe Operator: Otto Cosme RN Landscape Foreman: Otilia Guerrero RN Sedation Nurse: Smiley Stephen RN Procedure: The patient was placed in the left lateral decubitus position and sedated in small increments until adequate sedation was achieved. The patient was continually monitored throughout the entire procedure. An Olympus Video gastroscope was inserted into the esophagus under direct vision and advanced to Third portion duodenum. Findings: Esophagus: Z-line is 39cm, regular normal mucosa and lumen. Mid and proximal esophageal biopsies taken for eosinophilic esophagitis. Stomach: Normal gastric mucosa. Biopsies taken for H. pylori. Duodenum: Normal duodenal mucosa. Biopsies taken for celiac disease. Condition: The patient tolerated the procedure well and was sent to the recovery room in stable condition. Impression: 1. Essentially normal EGD. Gastric biopsies taken for H. pylori, duodenal biopsies for celiac disease and esophageal biopsies for eosinophilic No endoluminal finding testing patient's postural nausea and vomiting and epigastric abdominal pain. We will call patient pathology report of biopsies taken. Continue Zofran as needed to manage nausea and vomiting. Anastasiia Lerner MD 12/21/2022 10:11 AM documented [facility] this [facility] Attending History and physical note* Anastasiia Lerner MD - 12/21/2022 9:24 AM EDT H&P and chart were reviewed. Patient was seen, evaluated and examined today at bedside. No interval change in history or plan. Source Note - Vivien DwyernnJARED coker - 12/17/2022 1:00 PM EDT [facility] CONSULTATION NOTE 12/17/2022 Jono King DATE OF : 1950 REQUESTING PHYSICIAN: Nas Moore MD PRIMARY CARE PHYSICIAN: Nas Moore MD DIRECTOR INVESTOR RELATIONS: MD Yann REASON FOR CONSULTATION: Chief Complaint Patient presents with Abdominal Pain Nausea Emesis HISTORY: Jono King is a 72 y.o. who was requested to be seen in our office for PUD, fatty liver. The patient was referred to our practice after seeing her primary care provider on 12/16/2022 after an ER visit. The patient was started on Pepcid and Protonix with little relief. She was also prescribed Carafate and Reglan which was also ineffective. The patient did go to the emergency room and workup was unrevealing. She has never had a EGD. The patient reports last colonoscopy was 4 years ago in [place]. She is on a 5 year return list for colon polyps - due next year for colonoscopy. There is no family history of colon cancer or stomach cancer. She denies a family history of colon polyps. Reports issues with vomiting over last 1 month. Associated nausea. Having trouble eating. Has lost 6# within 1 week. A lot of dry heaving. Feels like getting stuck in stomach. Points to epigastric area. No GERD. No dysphagia. Reports epigastric pain. Worse prior to vomiting. Has been to ER twice now in 3 days. Negative workup. BMs no movement in 4 days. Usually regular. Some rectal bleeding on tissue. No melena. No NSAIDs use. No alcohol use. No marijuana use. Started Protonix and Carafate. Has not noticed much difference. Taking Zofran for nausea. Taking Reglan - REVIEW OF SYSTEMS: Reports sweats, fatigue, loss of appetite, sore throat, cough, sputum, dizziness, weakness, back pain and muscle pain. They deny any fever, chills. They deny any blurred vision, double vision, or light sensitivity. They deny any hearing loss or tinnitus. They deny any hoarseness, nosebleeds. They deny any chest pain or palpitations. They deny any shortness of breath. They deny any burning when they urinate, blood in their urine, or urinary incontinence. They deny any headaches or numbness. They deny any dry skin, itching, rashes, or jaundice. They deny any joint pain. They deny any heat or cold intolerance, or hair loss. They deny any bruising, or prolonged bleeding. They deny any environmental allergies, or recurrent infections. PAST MEDICAL HISTORY: has a past medical history of ADHD, Dyslipidemia, Hyperlipemia, and Major depressive disorder, recurrent, mild (HCC). PAST SURGICAL HISTORY: has a past surgical history that includes Cataract removal with implant (Bilateral); ROTATOR CUFF REPAIR (Bilateral); and Carpal tunnel release (Bilateral). ALLERGY: Allergies Allergen Reactions Phenergan [Promethazine] Nausea And Vomiting Patient reported Augmentin Nausea And Vomiting Current Outpatient Medications: Amphetamine-Dextroamphetamine XR (ADDERALL XR) 15 MG 24 hr capsule Amphetamine-Dextroamphetamine XR (ADDERALL XR) 30 MG 24 hr capsule Aspirin 81 MG CAPS atorvastatin (LIPITOR) 20 MG tablet Calcium Carb-Cholecalciferol 600-10 MG-MCG CAPS Coenzyme Q10 100 MG CAPS famotidine (PEPCID) 20 MG tablet Lidocaine Viscous HCl (XYLOCAINE) 2 % solution metoclopramide (REGLAN) 10 MG tablet Ondansetron (ZOFRAN-ODT) 4 MG disintegrating tablet pantoprazole (PROTONIX) 40 MG tablet PAXIL CR 25 MG 24 hr tablet sucralfate (CARAFATE) 1 GM/10ML suspension tretinoin (RETIN-A) 0.025 % cream SOCIAL HISTORY: reports that she has been smoking cigarettes. She has a 40.00 pack-year smoking history. She has never used smokeless tobacco. She reports that she does not drink alcohol and does not use drugs. FAMILY HISTORY: family history includes Colon cancer in her maternal aunt. PHYSICAL EXAMINATION: Visit Vitals Ht 5' 5 (1.651 m) Wt 73.9 kg (163 lb) BMI 27.12 kg/m General: elderly white female, appears acutely ill. HEENT: slight bitemporal wasting, atraumatic. Anicteric sclerae. NECK: Supple. LUNGS: Clear. HEART: RRR. ABD: Soft, no tenderness. No organomegaly. BS normal. NEURO: A&O x 3. Moves all extremities. SKIN: Warm and dry. LABS: Lab Results Component Value Date WHITEBLOODCE 8.0 12/14/2022 HGB 13.4 12/14/2022 HCT 40.1 12/14/2022 MCV 86.4 12/14/2022 PLT 415 (H) 12/14/2022 Chemistry Component Value Date/Time NA 136 12/14/2022 1441 K 4.1 12/14/2022 1441 CL 99 12/14/2022 1441 CO2 27 12/14/2022 1441 BUN 13 12/14/2022 1441 CREATININE 1.04 12/14/2022 1441 GLU 99 12/14/2022 1441 Component Value Date/Time CALCIUM 9.5 12/14/2022 1441 ALKPHOS 85 12/14/2022 1441 AST 29 12/14/2022 1441 ALT 21 12/14/2022 1441 BILITOT 0.6 12/14/2022 1441 Lipase Date Value Ref Range Status 12/14/2022 57 23 - 300 U/L Final RADIOLOGY: Recent Results (from the past 365 days) CT ABDOMEN PELVIS WITH IV CONTRAST 12/14/2022 Impression 1. No acute findings. 2. Sigmoid diverticulosis. 3. Grade 1 spondylolisthesis L4/L5. Recent Results (from the past 365 days) US GALLBLADDER 12/14/2022 Impression 1. Normal-appearing gallbladder with no stones or sludge. No gallbladder wall thickening. Patient had no pain upon scanning over the gallbladder. 2. Slight increased echogenicity of liver consistent with fatty infiltration of liver. 3. Normal-appearing common bile duct. IMPRESSION: 1. Epigastric pain 2. History of nausea and vomiting 3. Gastroesophageal reflux disease without esophagitis 4. Weight loss 5. History of colon polyps PLAN: Increase Protonix to 40 mg twice daily. Follow anti-GERD diet. Education provided. Stop Reglan. Ok to continue Carafate suspension before meals and at night. Workup reviewed from ER including labs and imaging - unrevealing. Given inability to eat- would proceed with expedited EGD. Pt agreeable. Recommend an upper endoscopy with Anastasiia Lerner MD. The risks were discussed with the patient. These include but are not limited to bleeding, infection, allergic reactions to medications, perforation and missing a lesion. A pamphlet was given to the patient. Medications will be adjusted accordingly. Written instructions were given to the patient. Consider gastric biopsies to rule out H. Pylori. Advised patient to go back to ER if unable to tolerate symptoms at home. If endoscopy negative- consider biliary workup including Kinevac testing. Erica Dwyer PA-C [facility] [phone] [facility]08-15-2023 History and physical note* Anastasiia Lerner MD - 12/21/2022 9:24 AM EDT H&P and chart were reviewed. Patient was seen, evaluated and examined today at bedside. No interval change in history or plan. Source Note - Erica Dwyer PA - 12/17/2022 1:00 PM EDT [facility] CONSULTATION NOTE 12/17/2022 Jono King DATE OF : 1950 REQUESTING PHYSICIAN: Nas Moore MD PRIMARY CARE PHYSICIAN: Nas Moore MD DIRECTOR INVESTOR RELATIONS: MD Yann REASON FOR CONSULTATION: Chief Complaint Patient presents with Abdominal Pain Nausea Emesis HISTORY: Jono King is a 72 y.o. who was requested to be seen in our office for PUD, fatty liver. The patient was referred to our practice after seeing her primary care provider on 12/16/2022 after an ER visit. The patient was started on Pepcid and Protonix with little relief. She was also prescribed Carafate and Reglan which was also ineffective. The patient did go to the emergency room and workup was unrevealing. She has never had a EGD. The patient reports last colonoscopy was 4 years ago in [place]. She is on a 5 year return list for colon polyps - due next year for colonoscopy. There is no family history of colon cancer or stomach cancer. She denies a family history of colon polyps. Reports issues with vomiting over last 1 month. Associated nausea. Having trouble eating. Has lost 6# within 1 week. A lot of dry heaving. Feels like getting stuck in stomach. Points to epigastric area. No GERD. No dysphagia. Reports epigastric pain. Worse prior to vomiting. Has been to ER twice now in 3 days. Negative workup. BMs no movement in 4 days. Usually regular. Some rectal bleeding on tissue. No melena. No NSAIDs use. No alcohol use. No marijuana use. Started Protonix and Carafate. Has not noticed much difference. Taking Zofran for nausea. Taking Reglan - REVIEW OF SYSTEMS: Reports sweats, fatigue, loss of appetite, sore throat, cough, sputum, dizziness, weakness, back pain and muscle pain. They deny any fever, chills. They deny any blurred vision, double vision, or light sensitivity. They deny any hearing loss or tinnitus. They deny any hoarseness, nosebleeds. They deny any chest pain or palpitations. They deny any shortness of breath. They deny any burning when they urinate, blood in their urine, or urinary incontinence. They deny any headaches or numbness. They deny any dry skin, itching, rashes, or jaundice. They deny any joint pain. They deny any heat or cold intolerance, or hair loss. They deny any bruising, or prolonged bleeding. They deny any environmental allergies, or recurrent infections. PAST MEDICAL HISTORY: has a past medical history of ADHD, Dyslipidemia, Hyperlipemia, and Major depressive disorder, recurrent, mild (HCC). PAST SURGICAL HISTORY: has a past surgical history that includes Cataract removal with implant (Bilateral); ROTATOR CUFF REPAIR (Bilateral); and Carpal tunnel release (Bilateral). ALLERGY: Allergies Allergen Reactions Phenergan [Promethazine] Nausea And Vomiting Patient reported Augmentin Nausea And Vomiting Current Outpatient Medications: Amphetamine-Dextroamphetamine XR (ADDERALL XR) 15 MG 24 hr capsule Amphetamine-Dextroamphetamine XR (ADDERALL XR) 30 MG 24 hr capsule Aspirin 81 MG CAPS atorvastatin (LIPITOR) 20 MG tablet Calcium Carb-Cholecalciferol 600-10 MG-MCG CAPS Coenzyme Q10 100 MG CAPS famotidine (PEPCID) 20 MG tablet Lidocaine Viscous HCl (XYLOCAINE) 2 % solution metoclopramide (REGLAN) 10 MG tablet Ondansetron (ZOFRAN-ODT) 4 MG disintegrating tablet pantoprazole (PROTONIX) 40 MG tablet PAXIL CR 25 MG 24 hr tablet sucralfate (CARAFATE) 1 GM/10ML suspension tretinoin (RETIN-A) 0.025 % cream SOCIAL HISTORY: reports that she has been smoking cigarettes. She has a 40.00 pack-year smoking history. She has never used smokeless tobacco. She reports that she does not drink alcohol and does not use drugs. FAMILY HISTORY: family history includes Colon cancer in her maternal aunt. PHYSICAL EXAMINATION: Visit Vitals Ht 5' 5 (1.651 m) Wt 73.9 kg (163 lb) BMI 27.12 kg/m General: elderly white female, appears acutely ill. HEENT: slight bitemporal wasting, atraumatic. Anicteric sclerae. NECK: Supple. LUNGS: Clear. HEART: RRR. ABD: Soft, no tenderness. No organomegaly. BS normal. NEURO: A&O x 3. Moves all extremities. SKIN: Warm and dry. LABS: Lab Results Component Value Date WHITEBLOODCE 8.0 12/14/2022 HGB 13.4 12/14/2022 HCT 40.1 12/14/2022 MCV 86.4 12/14/2022 PLT 415 (H) 12/14/2022 Chemistry Component Value Date/Time NA 136 12/14/2022 1441 K 4.1 12/14/2022 1441 CL 99 12/14/2022 1441 CO2 27 12/14/2022 1441 BUN 13 12/14/2022 1441 CREATININE 1.04 12/14/2022 1441 GLU 99 12/14/2022 1441 Component Value Date/Time CALCIUM 9.5 12/14/2022 1441 ALKPHOS 85 12/14/2022 1441 AST 29 12/14/2022 1441 ALT 21 12/14/2022 1441 BILITOT 0.6 12/14/2022 1441 Lipase Date Value Ref Range Status 12/14/2022 57 23 - 300 U/L Final RADIOLOGY: Recent Results (from the past 365 days) CT ABDOMEN PELVIS WITH IV CONTRAST 12/14/2022 Impression 1. No acute findings. 2. Sigmoid diverticulosis. 3. Grade 1 spondylolisthesis L4/L5. Recent Results (from the past 365 days) US GALLBLADDER 12/14/2022 Impression 1. Normal-appearing gallbladder with no stones or sludge. No gallbladder wall thickening. Patient had no pain upon scanning over the gallbladder. 2. Slight increased echogenicity of liver consistent with fatty infiltration of liver. 3. Normal-appearing common bile duct. IMPRESSION: 1. Epigastric pain 2. History of nausea and vomiting 3. Gastroesophageal reflux disease without esophagitis 4. Weight loss 5. History of colon polyps PLAN: Increase Protonix to 40 mg twice daily. Follow anti-GERD diet. Education provided. Stop Reglan. Ok to continue Carafate suspension before meals and at night. Workup reviewed from ER including labs and imaging - unrevealing. Given inability to eat- would proceed with expedited EGD. Pt agreeable. Recommend an upper endoscopy with Anastasiia Lerner MD. The risks were discussed with the patient. These include but are not limited to bleeding, infection, allergic reactions to medications, perforation and missing a lesion. A pamphlet was given to the patient. Medications will be adjusted accordingly. Written instructions were given to the patient. Consider gastric biopsies to rule out H. Pylori. Advised patient to go back to ER if unable to tolerate symptoms at home. If endoscopy negative- consider biliary workup including Kinevac testing. Erica Dwyer PA-C [facility] [phone] documented in this encounterDe[facility] Nurse Surgical operation note* Corinna Villalpando, BOB - 12/20/2022 11:51 AM EDT Pre-op phone call made. Patient instructed on arrival time of 0915. Instructed to go to main entrance of hospital and get registered then they will bring the patient back. Pt must have a chair car driver 18 years or older, both you and visitor are required to wear mask. Educated pt to leave all jewelery at home. Encouraged patient to try to wear comfortable clothes in. Instructed to bring current medication list. pt aware of when to stop eating and drinking. Instructed patient if on any heart, blood pressure, inhalers, or seizure medication to take in the morning and hold all other medications. [facility]08-14-[facility] Nurse Note* Corinna Villalpando RN - 12/20/2022 11:51 AM EDT Pre-op phone call made. Patient instructed on arrival time of 914. Instructed to go to [facility] and get registered then they will bring the patient back. Pt must have a chair car driver 18 years or older, both you and visitor are required to wear mask. Educated pt to leave all jewelery at home. Encouraged patient to try to wear comfortable clothes in. Instructed to bring current medication list. pt aware of when to stop eating and drinking. Instructed patient if on any heart, blood pressure, inhalers, or seizure medication to take in the morning and hold all other medications. documented in this encounterDe[facility]ar [facility]08-[facility]-2023 Emergency department Note* Vernell Andrews RN - 12/14/2022 5:08 PM EDT Patient discharge paperwork and medications gone over. No further questions at this time. [facility]08-08-[facility] Emergency department Note* Vernell Andrews RN - 12/14/2022 5:08 PM EDT Patient discharge paperwork and medications gone over. No further questions at this time. * Nat Jiang DO - 12/14/2022 3:22 PM EDT ED Diagnosis and Summary 1. Upper abdominal pain 2. Nausea and vomiting, unspecified vomiting type ED Summary Patient personally seen and examined, and care plan, treatment, disposition supervised and discussed with Nurse Practitioner. History Chief Complaint Patient presents with Emesis Patient's medications and allergies were reviewed and updated as appropriate. HPI The patient presents to the ER with complaints of recurrent nausea and epigastric tenderness intermittently. She denies any melena medication. She denies any fever. Symptoms have been persistent for several days. Review of Systems Constitutional: Negative for fever. Gastrointestinal: Positive for abdominal pain and nausea. Negative for blood in stool. Genitourinary: Negative for flank pain. Skin: Negative for wound. Neurological: Negative for syncope and light-headedness. Physical Exam ED Triage Vitals [12/14/22 1343] BP 105/67 Heart Rate 99 Resp 16 Temp 97.4 F (36.3 C) Temp src Oral SpO2 99 % Weight 160 lb (72.6 kg) Height 5' 5 (1.651 m) BMI (Calculated) 26.63 Physical Exam Vitals and nursing note reviewed. Constitutional: General: She is not in acute distress. Appearance: She is not ill-appearing, toxic-appearing or diaphoretic. HENT: Head: Atraumatic. Nose: No congestion or rhinorrhea. Eyes: General: No scleral icterus. Cardiovascular: Rate and Rhythm: Normal rate and regular rhythm. Pulmonary: Effort: No respiratory distress. Abdominal: General: There is no distension. Tenderness: There is abdominal tenderness. Comments: Mild epigastric pain Skin: General: Skin is warm. Neurological: General: No focal deficit present. Mental Status: She is alert. Psychiatric: Mood and Affect: Mood normal. ED Course Procedures Medical Decision Making Nat Jiang DO 12/14/22 1717 * Austin Hernandez, BOB - 12/14/2022 1:41 PM EDT Pt ambulated to triage in NAD, Pt states she has been having episodes of vomiting for 2-3 weeks, Ptstates she was seen at another ED and was given Zofran and Protonix but is not helping, Pt denies pain, denies diarrhea, Pt a/o x4 skin wdp, documented in this encounterDeTar [facility] System08-[facility]-2023 Hospital Discharge instructions* Discharge Instructions* Adeola Baltazar APRN CNP - 12/14/2022 4:59 PM EDT Take either zofran or reglan every 6 hours as needed; pick one or the other * Attachments The following attachments cannot be sent through Care Everywhere. * Abdominal Pain (Turkmen Sammarinese) documented in this encounterDeTar [facility] System08-[facility]-2023 Physician Emergency department Note* Nat Jiang DO - 12/14/2022 3:22 PM EDT ED Diagnosis and Summary 1. Upper abdominal pain 2. Nausea and vomiting, unspecified vomiting type ED Summary Patient personally seen and examined, and care plan, treatment, disposition supervised and discussed with Nurse Practitioner. History Chief Complaint Patient presents with Emesis Patient's medications and allergies were reviewed and updated as appropriate. HPI The patient presents to the ER with complaints of recurrent nausea and epigastric tenderness intermittently. She denies any melena medication. She denies any fever. Symptoms have been persistent for several days. Review of Systems Constitutional: Negative for fever. Gastrointestinal: Positive for abdominal pain and nausea. Negative for blood in stool. Genitourinary: Negative for flank pain. Skin: Negative for wound. Neurological: Negative for syncope and light-headedness. Physical Exam ED Triage Vitals [12/14/22 1343] BP 105/67 Heart Rate 99 Resp 16 Temp 97.4 F (36.3 C) Temp src Oral SpO2 99 % Weight 160 lb (72.6 kg) Height 5' 5 (1.651 m) BMI (Calculated) 26.63 Physical Exam Vitals and nursing note reviewed. Constitutional: General: She is not in acute distress. Appearance: She is not ill-appearing, toxic-appearing or diaphoretic. HENT: Head: Atraumatic. Nose: No congestion or rhinorrhea. Eyes: General: No scleral icterus. Cardiovascular: Rate and Rhythm: Normal rate and regular rhythm. Pulmonary: Effort: No respiratory distress. Abdominal: General: There is no distension. Tenderness: There is abdominal tenderness. Comments: Mild epigastric pain Skin: General: Skin is warm. Neurological: General: No focal deficit present. Mental Status: She is alert. Psychiatric: Mood and Affect: Mood normal. ED Course Procedures Medical Decision Making Nat Jiang DO 12/14/22 1717 [facility] Work Phone: [phone] Emergency department Triage note* Austin Hernandez RN - 12/14/2022 1:41 PM EDT Pt ambulated to triage in NAD, Pt states she has been having episodes of vomiting for 2-3 weeks, Ptstates she was seen at another ED and was given Zofran and Protonix but is not helping, Pt denies pain, denies diarrhea, Pt a/o x4 skin wdp, [facility]08-26-2021 History of Present illness Narrative* Ashlee Petersen MD - 01/01/2021 8:49 AM EDT HISTORY Patient Name: Jono King Date of Exam: 01/01/2021 Date of Surgery: 01/01/21 Diagnosis: cataract Reason for visit/consultation: Medical risk stratification for same day surgery History of current illness: Jono King is a 70 y.o. female who presents for preoperative medical risk stratification prior to eye surgery at the request of Dr. Lara . Her medical conditions include: MDD Patient Active Problem List Diagnosis Dyslipidemia Recurrent mild major depressive disorder with anxiety (HCC) Attention deficit hyperactivity disorder (ADHD) Nicotine dependence with current use Past Medical History: Diagnosis Date Hyperlipidemia Type of anesthesia: Regional Anesthesia History: Yes, without complications History reviewed. No pertinent surgical history. Allergies Allergen Reactions Adhesive Tape-Silicones Latex Review of Systems Constitutional: Negative for fever. HENT: Negative for nosebleeds. Eyes: Positive for visual disturbance. Negative for discharge. Respiratory: Negative for shortness of breath. Cardiovascular: Negative for chest pain. Gastrointestinal: Negative for abdominal pain. Skin: Negative for rash. Neurological: Negative for seizures. Hematological: Does not bruise/bleed easily. Psychiatric/Behavioral: Negative for confusion. Social History Social History Tobacco Use Smoking status: Current Every Day Smoker Smokeless tobacco: Never Used Substance Use Topics Alcohol use: Not on file Social History Substance and Sexual Activity Drug Use Not on file Marital Status: Unknown History reviewed. No pertinent family history. Current Outpatient Medications Medication Sig Dispense Refill AdderalL 30 mg tablet atorvastatin (LIPITOR) 20 MG tablet gabapentin (NEURONTIN) 300 MG capsule LORazepam (ATIVAN) 0.5 MG tablet Take 0.5 mg by mouth every 6 (six) hours as needed for anxiety . Paxil CR 25 mg 24 hr tablet traZODone (DESYREL) 50 MG tablet No current facility-administered medications for this visit. PHYSICAL Patient Name: Jono King Age: 70 y.o. BP 137/70 Pulse 76 Temp 97.6 F (36.4 C) (Infrared) Resp 16 Ht 5' 5 Wt 69.4 kg (153 lb) SpO2 95% BMI 25.46 kg/m Physical Exam Vitals and nursing note reviewed. Constitutional: General: She is not in acute distress. Appearance: She is well-developed. She is not diaphoretic. HENT: Head: Normocephalic and atraumatic. Eyes: General: No scleral icterus. Right eye: No discharge. Left eye: No discharge. Cardiovascular: Rate and Rhythm: Normal rate and regular rhythm. Heart sounds: No murmur heard. Pulmonary: Effort: Pulmonary effort is normal. No respiratory distress. Breath sounds: Normal breath sounds. No wheezing or rales. Abdominal: General: Bowel sounds are normal. There is no distension. Palpations: Abdomen is soft. Tenderness: There is no abdominal tenderness. Musculoskeletal: Cervical back: Normal range of motion. Right lower leg: No edema. Left lower leg: No edema. Skin: General: Skin is warm and dry. Neurological: Mental Status: She is alert and oriented to person, place, and time. Psychiatric: Behavior: Behavior normal. Thought Content: Thought content normal. Judgment: Judgment normal. EKG Results: Not indicated No results found for this visit on 01/01/21. IMPRESSION/PLAN: Jono King is a 70 y.o. female who presents for preoperative medical risk stratification prior to eye surgery at the request of Dr. Lara . Risk factors for surgery include: MDD- chronic, stable Preoperative recommendations: I reviewed the patient's pertinent medical history and medications. No additional recommendations or changes are warranted prior to her scheduled surgery. Risk Assessment: The patient is currently in a medically optimal state and the risk of surgery is acceptable at this time. Questions regarding her medical issues were answered and discussed. Postoperative recommendations: Patient was instructed to continue her current medical regimen following surgery, unless instructed otherwise by her surgeon. The patient will follow up with her PCP for any additional medical concerns. This patient has an acceptable cardiac risk for the intended procedure, it is my professional opinion that the patient does not have any medical condition at this present time that significantly increase the risk for an adverse outcome. Thank you for the opportunity to evaluate your patient. Please feel free to contact our office withany questions. A copy of this evaluation was provided to the referring physician. documented in this [id number] History of Present illness Narrative* Delano Funez, LOG POND WORKER - 10/02/2020 6:08 AM EDT HISTORY Patient Name: Jono King Date of Exam: 10/02/2020 Date of Surgery: 10/02/2020 Diagnosis: Age-Related Nuclear Cataract, left eye Reason for visit/consultation: Medical risk stratification for same day surgery History of current illness: Jono King is a 70 y.o. female who presents for preoperative medical risk stratification prior to eye surgery at the request of Dr. Varghese. Her medical conditions include: Dyslipidemia- chronic, patient reports compliant with taking statin medication, reports no s/e or myalgias Anxiety/depression- chronic, patient reports symptoms controlled on medication, on paxil, trazodone Attention deficit disorder- chronic, controlled and stable on medication, adderall History stroke in 2018 and 2019 patient reports due to celebrex, 2018 has memory deficit since stroke and left side weakness Nicotine dependence- smokes <1 ppd x 30 years Patient Active Problem List Diagnosis Dyslipidemia Recurrent mild major depressive disorder with anxiety (HCC) Attention deficit hyperactivity disorder (ADHD) History reviewed. No pertinent past medical history. Type of anesthesia: Regional Anesthesia History: Yes, without complications History reviewed. No pertinent surgical history. Allergies Allergen Reactions Adhesive Tape-Silicones Latex Review of Systems Constitutional: Negative for activity change, appetite change, chills, diaphoresis, fatigue, fever and unexpected weight change. HENT: Negative for dental problem and trouble swallowing. Eyes: Positive for visual disturbance. Respiratory: Negative for apnea, cough, choking, chest tightness, shortness of breath, wheezing andstridor. Cardiovascular: Negative for chest pain, palpitations and leg swelling. Skin: Negative for wound. Neurological: Negative for dizziness, seizures, weakness, light-headedness and headaches. Psychiatric/Behavioral: Negative for confusion. Social History Tobacco Use Smoking status: Current Every Day Smoker Smokeless tobacco: Never Used Substance Use Topics Alcohol use: Not on file Social History Substance and Sexual Activity Drug Use Not on file Marital Status: Unknown History reviewed. No pertinent family history. Current Outpatient Medications Medication Sig Dispense Refill AdderalL 30 mg tablet atorvastatin (LIPITOR) 20 MG tablet gabapentin (NEURONTIN) 300 MG capsule LORazepam (ATIVAN) 0.5 MG tablet Take 0.5 mg by mouth every 6 (six) hours as needed for anxiety . Paxil CR 25 mg 24 hr tablet traZODone (DESYREL) 50 MG tablet No current facility-administered medications for this visit. PHYSICAL Patient Name: Jono King Age: 70 y.o. BP 115/67 Pulse 79 Temp 97.8 F (36.6 C) Resp 14 Ht 5' 5 Wt 73.9 kg (163 lb) SpO2 94% BMI 27.12 kg/m Physical Exam Vitals and nursing note reviewed. Constitutional: General: She is not in acute distress. Appearance: Normal appearance. She is well-developed. She is not ill-appearing, toxic-appearing or diaphoretic. HENT: Head: Normocephalic and atraumatic. Cardiovascular: Rate and Rhythm: Normal rate and regular rhythm. Pulses: Radial pulses are 2+ on the right side and 2+ on the left side. Pulmonary: Effort: Pulmonary effort is normal. No respiratory distress. Breath sounds: Normal breath sounds. No decreased breath sounds, wheezing, rhonchi or rales. Chest: Chest wall: No tenderness. Musculoskeletal: Cervical back: Normal range of motion. Skin: General: Skin is warm. Neurological: Mental Status: She is alert and oriented to person, place, and time. She is not disoriented. Psychiatric: Speech: Speech normal. Behavior: Behavior normal. Behavior is cooperative. Thought Content: Thought content normal. Judgment: Judgment normal. No results found for this visit on 10/02/20. IMPRESSION/PLAN: 70 y.o. female being seen today for preoperative medical risk stratification for same-day eye surgery at the request of Dr. Beavers Risk factors for surgery include: Dyslipidemia- chronic, patient reports compliant with taking statin medication, reports no s/e or myalgias Anxiety/depression- chronic, patient reports symptoms controlled on medication, on paxil, trazodone Attention deficit disorder- chronic, controlled and stable on medication, adderall History stroke in 2018 and 2019 patient reports due to celebrex, 2018 has memory deficit since stroke and left side weakness Nicotine dependence- smokes <1 ppd x 30 years Age Falls:Patient is at higher risk for falls due to vision impairment- fall risk precautions were discussed with patient including turning on lights and securing carpet edges. Preoperative recommendations: I reviewed the patient's pertinent medical history and medications. No additional recommendations or changes are warranted prior to her scheduled surgery. Risk Assessment: The patient is currently in a medically optimal state and the risk of surgery is low at this time. Questions regarding her medical issues were answered and discussed. Postoperative recommendations: Patient was instructed to continue her current medical regimen following surgery, unless instructed otherwise by her surgeon. The patient will follow up with her PCP for any additional medical concerns. This patient has an acceptable cardiac risk for the intended procedure, it is my professional opinion that the patient does not have any medical condition at this present time that significantly increase the risk for an adverse outcome. Thank you for the opportunity to evaluate your patient. Please feel free to contact our office withany questions. A copy of this evaluation was provided to the referring physician. documented in [facility] encounter[facility]Evaluation [facility]* Diagnosis Pre-op evaluation- Primary Age-related nuclear cataract of left eye Attention deficit hyperactivity disorder (ADHD), unspecified ADHD type Recurrent mild major depressive disorder with anxiety (HCC) Dyslipidemia Other and unspecified hyperlipidemia History of stroke in adulthood Nicotine dependence with current use [facility] Diagnosis Pre-op evaluation- Primary [facility]* Diagnosis Pre-op evaluation- Primary Nuclear sclerotic cataract of right eye Senile nuclear sclerosis Recurrent mild major depressive disorder with anxiety (HCC) [facility] Diagnosis Onset Date Resolution Status Carotid stenosis, bilateral chronic 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 Mild cognitive impairment ch [facility] Work Phone: Evaluation note* Diagnosis Upper abdominal pain- Primary Abdominal pain, other specified site Nausea and vomiting, unspecified vomiting type [facility] [place] [facility]* Diagnosis Epigastric pain- Primary Abdominal pain, epigastric Epigastric pain Abdominal pain, epigastric documented [facility] [place] [facility]* Diagnosis Epigastric pain Abdominal pain, epigastric documented in this [facility] [place] noteNo assessment information available [facility] Work Phone: Evaluation note* Diagnosis Malignant neoplasm of upper lobe, right bronchus or lung Malignant neoplasm of upper lobe, right bronchus or lung [facility] Diagnosis Malignant neoplasm of upper lobe, right bronchus or lung- Primary 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 Malignant neoplasm of upper lobe, right bronchus or lung documented [facility]* Diagnosis 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- Primary Malignant neoplasm of upper lobe, right bronchus or lung 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 Acute post-operative pain Depression Depressive disorder, not elsewhere classified Hyperlipidemia Other and unspecified hyperlipidemia GERD (gastroesophageal reflux disease) Esophageal reflux Stroke Unspecified cerebral artery occlusion with cerebral infarction ADHD Acute post-operative pain At moderate risk for deep venous thrombosis Health education/counseling Counseling NOS Current smoker Tobacco use disorder IBS (irritable bowel syndrome) Irritable bowel syndrome [facility]* Diagnosis Disability affecting daily living- Primary Dyspnea on exertion Other dyspnea and respiratory abnormality 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 Acute post-operative pain Smoker Tobacco use disorder [facility]* Diagnosis Complex care coordination- Primary [facility]* Diagnosis Malignant neoplasm of upper lobe, right bronchus or lung 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 documented in this encounter [facility] [place] [facility]* Diagnosis Onset Date Resolution Status Admit Date Hyperlipidemia acute October 04, 2024 9:52am [employer] [employer] Work Phone: Evaluation note* Diagnosis History of lung cancer Personal history of malignant neoplasm of bronchus and lung Solitary lung nodule Solitary pulmonary nodule [facility]* Diagnosis Solitary lung nodule- Primary Solitary pulmonary nodule Solitary lung nodule Solitary pulmonary nodule documented [facility]* Diagnosis Solitary lung nodule Solitary pulmonary nodule documented [facility]* Diagnosis Nicotine abuse- Primary Tobacco use disorder [facility] (n[facility]ative)* Consultation (Routine) - Authorized Specialty Diagnoses / Procedures Referred By Lynda burt Referred To Contact Primary Care Diagnoses Pre-op evaluation Karine Lara MD [address] [place] [address] [facility] Pcp [address] [place] [address] Referral ID Status Reason Start Date Expiration Date V isits Requested Visits Authorized [id number] Authorized 12/30/2020 12/30/2021 [address] [facility] for referral (narrative)* Consultation (Routine) - Open Specialty Diagnoses / Procedures Referred By Contac t Referred To Contact Family Medicine Diagnoses Upper abdominal pain Nausea and vomiting, unspecified vomiting type Adeola Baltazar APRN CNP [address] [place] [address] [facility] [address] [facility] [address] [place] [id number] Referral ID Status Reason Start Date Expiration Date Visits Re quested Visits Authorized [id number] Open 12/14/2022 01/15/2024 1 1 [facility] for referral (narrative)* Procedure Authorization (Routine) - Closed Specialty Diagnoses / Procedures Referred By Contac t Referred To Contact Radiology Diagnoses Epigastric pain Procedures NM Cholescintigraphy W/Fatty Meal Erica Dwyer PA [address] [place] [address] [facility] [address] [place] [phone] Referral ID Status Reason Start Date Expiration Date Visits Re quested Visits Authorized [id number] Closed 01/02/2023 02/05/2023 1 1 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 Josey Justice APRN-LOG POND WORKER [address] [place] [address] Referral ID Status Reason Start Date Expiration Date V isits Requested Visits Authorized [id number] New Request 02/03/2024 02/27/2025 1 1 * (Routine) Specialty Diagnoses / Procedures Referred By Contac t Referred To Contact SAMEER Sharma W [address] [place] [phone] Referral ID Status Reason Start Date Expiration Date Visits Re quested Visits Authorized * Unlisted Procedure Code (Routine) - New Request Specialty Diagnoses / Procedures Referred By Contac t Referred To Contact Procedures PLATELET MONITORING PER PROTOCOL Dez Vásquez PA-C [address] [place] [phone] Referral ID Status Reason Start Date Expiration Date V isits Requested Visits Authorized [id number] New Request 02/02/2024 02/26/2025 1 1 * Unlisted Procedure Code (Routine) - New Request Specialty Diagnoses / Procedures Referred By Contac t Referred To Contact Procedures DVT/VTE RISK ASSESSMENT Dez Vásquez PA-C [address] [place] [phone] Referral ID Status Reason Start Date Expiration Date V isits Requested Visits Authorized [id number] New Request 02/02/2024 02/26/2025 1 1 * (Routine) Specialty Diagnoses / Procedures Referred By Contac t Referred To Contact SAMEER Sharma W [address] [place] [phone] Referral ID Status Reason Start Date Expiration Date Visits Re quested Visits Authorized [facility] (narrative)No reason for referral information availableWOhioHealth [facility] Work Phone: Reason for visit Narrative* Procedure Authorization (Routine) - Closed Specialty Diagnoses / Procedures Referred By Susieac t Referred To Contact Radiology Diagnoses Epigastric pain Procedures NM Cholescintigraphy W/Fatty Meal Erica Dwyer PA [address] [place] [address] [facility] [address] [place] [address] Referral ID Status Reason Start Date Expiration Date Visits Re quested Visits Authorized [id number] Closed 01/02/2023 02/05/2023 1 1 [facility] Auth/Cert Specialty Diagnoses / Procedures Referred By Lynda t Referred To Contact Diagnoses Malignant neoplasm of upper lobe, right bronchus or lung Malignant neoplasm of upper lobe, right bronchus or lung [C34.11] Procedures [place] BRNCHSC INCL FLUOR GDNCE DX W/CELL WASHG SPX [place] THORACOSCOPY W/LOBECTOMY SINGLE LOBE BRONCHOSCOPY FLEXIBLE DIAGNOSTIC LOBECTOMY LUNG ROBOTIC Nat Lazar MD [address] [place] [address] [facility] [address] [place] [address] Referral ID Status Reason Start Date Expiration Date Visits Re quested Visits Authorized [id number] 1 1 [facility]* MRI/CAT Scan (Routine) - Closed Specialty Diagnoses / Procedures Referred By Contac t Referred To Contact Diagnoses 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 Procedures CT CHEST WITH CONTRAST CHG DIAGNOSTIC COMPUTED TOMOGRAPHY THORAX W/CONTRAST Tracy Connors PA-C [address] [place] [address] Phone: tel: fax: Referral ID Status Reason Start Date Expiration Date Visits Re quested Visits Authorized [id number] Closed 02/20/2024 03/16/2025 1 1 [facility]* MRI/CAT Scan (Routine) - Denied Specialty Diagnoses / Procedures Referred By Contac t Referred To Contact Diagnoses History of lung cancer Solitary lung nodule Procedures CT CHEST WITHOUT CONTRAST CHG DIAGNOSTIC COMPUTED TOMOGRAPHY THORAX W/O CNTRST Kelsea Trevino, AP OPERATOR-LOG POND WORKER [address] [place] [phone] Phone: tel: fax: Referral ID Status Reason Start Date Expiration Date Visits Re quested Visits Authorized [id number] Denied 06/29/2024 07/24/2025 1 0 [facility]* Auth/Cert Specialty Diagnoses / Procedures Referred By Lynda t Referred To Contact Diagnoses Solitary lung nodule Solitary lung nodule [R91.1] Procedures [place] BRONCHOSCOPY W/CPTR-ASST IMAGE-GUIDED NAVIGATION [place] BRNCHSC INCL FLUOR GDNCE DX W/CELL WASHG SPX BRONCHOSCOPY W/ COMPUTER ASSISTED IMAGE GUIDED NAVIGATION ADD-ON PX BRONCHOSCOPY FLEXIBLE DIAGNOSTIC Nat Lazar MD [address] [place] [phone] Phone: tel: fax: [facility] [address] [place] [address] Referral ID Status Reason Start Date Expiration Date Visits Re quested Visits Authorized [id number] 1 1 [facility] Summary Purpose Family History No Family History Records Found Relationship Condition Age at Onset Recorded Date/T michaela Not Specified Malignant neoplasm of colon Unknown Malignant neoplasm of ovary Unknown Arthritis Unknown Hypercholesterolemia Unknown Malignant neoplasm of breast Unknown Malignant neoplasm Unknown Hypertension Unknown Cerebrovascular accident (CVA) Unknown Advance Directives No Advanced Directives Records FoundDocuments on File Type Date Recorded Patient Media Specialist Expl anation Advance Directives and Living Will Documents on File Type Date Recorded Patient Media Specialist Expl anation Advance Directives and Living Will Documents on File Type Date Recorded Patient Media Specialist Expl anation Advance Directives and Livin g Will 01/01/2021 8:21 AM Documents on File Type Date Recorded Patient Media Specialist Expl anation Power of [employer] Supervisor 12/16/2022 1:45 PM Healt sam DICKEY 01-31-2013 Date Activated Date Inactivated Comments 02/02/2024 8:24 PM Date Activated Date Inactivated Comments 02/02/2024 6:39 AM 02/02/2024 8:21 PM Date Activated Date Inactivated Comments 02/02/2024 8:24 PM Date Activated Date Inactivated Comments 02/02/2024 6:39 AM 02/02/2024 8:21 PM Date Activated Date Inactivated Comments 11/19/2024 10:28 AM Date Activated Date Inactivated Comments 02/02/2024 8:24 PM 11/19/2024 10:28 AM Date Activated Date Inactivated Comments 02/02/2024 6:39 AM 02/02/2024 8:21 PM Date Activated Date Inactivated Comments 11/19/2024 10:28 AM Date Activated Date Inactivated Comments 02/02/2024 8:24 PM 11/19/2024 10:28 AM Date Activated Date Inactivated Comments 02/02/2024 6:39 AM 02/02/2024 8:21 PM Chief Complaint and Reason for Visit Chief Complaint 4 M FU CAROTID STENOSIS Reason for Visit Carotid stenosis, bi lateral Cerebrovascular disease Mild cognitive impairment Chief Complaint 1 Y FU EORDER AND ADDT ORDER CAROTID STENOSIS Chief Complaint Admit Date 4 M FU April 13, 2024 9 :01am LUNG July 17, 2024 9:5 8am Reason for Visit Admit Date Shortness of breath April 13, 2024 9 :01am Mild cognitive impairment April 13, 2024 9:01am Nicotine dependence, cigarettes, uncompl icated April 13, 2024 9:01am Squamous cell carcinoma of bronchus in r ight upper lobe April 13, 2024 9:01am Chief Complaint Admit Date LUNG July 17, 2024 9:5 8am CAROTID ARTERY STENOSIS,BILATERAL/HYPERT ENSION August 15, 2024 12:29pm Chief Complaint Admit Date LUNG July 17, 2024 9:5 8am CAROTID ARTERY STENOSIS,BILATERAL/HYPERT ENSION August 15, 2024 12:29pm Follow up October 04, 2024 9:52a m Reason for Visit Admit Date Hyperlipidemia October 04, 2024 9:52a m Reason for Referral Specialty Diagnoses / Procedures Referred By Contac t Referred To Contact Diagnoses Malignant neoplasm of upper lobe, right bronchus or lung Procedures ECHOCARDIOGRAM PHARMACOLOGICAL STRESS TEST [place] ECHO TTHRC R-T 2D W/WO M-MODE REST&STRS CONT ECG [place] DOP ECHOCARD PULSE WAVE W/SPECTRAL F-UP/LMTD STD [place] DOP ECHOCARD COLOR FLOW VELOCITY MAPPING [place] ECHO TTHRC R-T 2D W/WO M-MODE COMPLETE REST&ST GwendolynIzzy ng, AP OPERATOR-LOG POND WORKER [address] [place] [address] Referral ID Status Reason Start Date Expiration Date V isits Requested Visits Authorized [id number] New Request 12/28/2023 01/21/2025 1 1 Specialty Diagnoses / Procedures Referred By Contac t Referred To Contact Social Work Diagnoses 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 WALK Tracy Connors PA-C [address] [place] [address] Referral ID Status Reason Start Date Expiration Date V isits Requested Visits Authorized [id number] New Request 02/15/2024 03/11/2025 1 1 Additional Source Comments INFORMATION SOURCE (unrecogn ized section and content) DATE CREATED AUTHOR 11/02/2017 [facility] DATE CREATED AUTHOR AUTHOR'S ORGANIZ ATION 10/08/2019 [facility] DATE CREATED AUTHOR AUTHOR'S ORGANIZ ATION 04/21/2020 [facility] DATE CREATED AUTHOR AUTHOR'S ORGANIZ ATION 01/02/2021 [facility] DATE CREATED AUTHOR AUTHOR'S ORGANIZ ATION 02/13/2023 [facility] DATE CREATED AUTHOR AUTHOR'S ORGANIZ ATION 02/27/2023 [facility] DATE CREATED AUTHOR AUTHOR'S ORGANIZ ATION 11/27/2024 [facility] DATE CREATED AUTHOR AUTHOR'S ORGANIZ ATION 12/27/2024 [facility] DATE CREATED AUTHOR AUTHOR'S ORGANIZ ATION 12/29/2024 [facility] Reason for Visit (unrecogniz ed section and content) Reason Comments Perioperative Medical Evaluation age rel ated nuclear cataract OS Status Reason Specialty Diagnoses / Procedures Referred By Contact Referred To Contact Closed Primary Care Diagnoses Pre-op evaluation Karine Lara MD [address] [place] [address] [facility] [address] [place] [address] Reason Comments Perioperative Medical Evaluation Age-rel ated nuclear cataract OD Specialty Diagnoses / Procedures Referred By Lynda t Referred To Contact Primary Care Diagnoses Pre-op evaluation Karine Lara MD [address] [place] [address] [facility] [address] [place] [address] Referral ID Status Reason Start Date Expiration Date Visits Re quested Visits Authorized [id number] Closed 12/30/2020 12/30/2021 1 1 Reason Comments Emesis Specialty Diagnoses / Procedures Referred By Lynda burt Referred To Contact Diagnoses Epigastric pain Procedures [facility] Decentralized Case Request: ESOPHAGOGASTRODUODENOSCOPY [place] ESOPHAGOGASTRODUODENOSCOPY TRANSORAL DIAGNOSTIC [place] EGD TRANSORAL BIOPSY SINGLE/MULTIPLE [place] EGD INSERT GUIDE WIRE DILATOR PASSAGE ESOPHAGUS [place] EGD BALLOON DILATION ESOPHAGUS <30 MM DIAM Erica Dwyer PA [address] [place] [address] Referral ID Status Reason Start Date Expiration Date V isits Requested Visits Authorized [id number] New Request 12/17/2022 01/17/2024 1 1 Reason Comments Labs Only Reason Comments New Patient Frequent coughing si nce covid in 2020, productive white/greenish. Pt had amlodipine on meds to reconcile, but she says that she doesn't use because she doesn't have a heart problem.Pt smoking 1/2 ppd, she would nicoderm Specialty Diagnoses / Procedures Referred By Lynda burt Referred To Contact Thoracic Surgery Diagnoses Malignant neoplasm of upper lobe, right bronchus or lung Ginger Abreuour S, [facility] [address] [place] [address] [facility] [address] [place] [address] Referral ID Status Reason Start Date Expiration Date Visits Requested Visits Authorized [id number] New Request Surgical Evaluation 12/21/2023 01/14/2025 1 1 Reason Comments Surgical Follow-up Pt asking about walk er because at time she feels unsteady when changing position, also asking if she needs oxygen. Specialty Diagnoses / Procedures Referred By Lynda burt Referred To Contact Diagnoses Dyspnea on exertion Procedures EXERCISE-6 MIN. WALK Tracy Connors PA-C [address] [place] [address] Referral ID Status Reason Start Date Expiration Date V isits Requested Visits Authorized [id number] New Request 02/15/2024 03/11/2025 1 1 Reason Comments Lung Cancer Would like nicotine patches sent to pharmacy Specialty Diagnoses / Procedures Referred By Lynda burt Referred To Contact Thoracic Surgery Diagnoses RTC for chest CT and ANA ROSA clinic appointment for this patient in 4 months per inbasket message from Mason Magana on 02/19 Procedures RETURN PATIENT Courtney Hayward MD [address] [place] [address] Phone: tel: fax: Division of Thoracic Surgery at [facility] [address] [place] [address] Phone: tel: fax: Referral ID Status Reason Start Date Expiration Date Visits Re quested Visits Authorized [id number] Closed 06/29/2024 07/24/2025 1 1 Reason Onset Date Comments Advice Only 07/11/2024 Reason Onset Date Comments Imaging Results 07/24/2024 Reason Comments Follow-up Pt reports occasiona l productive (clear) cough. Pt reports 5 cigarettes per day, she said that nicoderm cq works but she only gets generic from pharmacy. We ordered nicoderm cq, I told her to follow up with pharmacy. Specialty Diagnoses / Procedures Referred By Lynda burt Referred To Contact Thoracic Surgery Diagnoses Return in about 3 months (around 09/26/2024) for NSCLC surveillance with CT chest. Procedures RETURN PATIENT Courtney Hayward MD [address] [place] [address] Phone: tel: fax: Division of Thoracic Surgery at [facility] [address] [place] [address] Phone: tel: fax: Referral ID Status Reason Start Date Expiration Date Visits Re quested Visits Authorized [id number] Closed 10/22/2024 11/16/2025 1 1 Reason Onset Date Comments Medication Refill 11/23/2024 Care Teams (unrecognized sec tion and content) Yarder Boss Relationship Specialty Start Date End Date No, Physician [facility] PCP - General 10/01/20 Yarder Boss Relationship Specialty Start Date End Date No, Physician [facility] PCP - General 10/01/20 Yarder Boss Relationship Specialty Start Date End Date Nas Moore MD [address] [place] [address] PCP - General Family Medicine 12/16/22 Yarder Boss Relationship Specialty Start Date End Date Nas Moore MD [address] [place] [address] PCP - General Family Medicine 12/16/22 Team Status: Active Member Role Status Dates Dr. Raul Singh MD Family Provider Active Dr. Courtney Hayward MD Primary Care Provider Active Team Status: Inactive Member Role Status Dates Dr. Courtney Hayward MD Primary Care Provider, Refer ring Provider Active Dr. Avel Segura MD Attending Provider Active Team Status: Active Member Role Status Dates Dr. Courtney Hayward MD Primary Care Provider Active Dr. Chuy Hunt MD Attending Provider, Referring Provider Active Dr. Avel Segura MD Other Provider Active Team Status: Inactive Member Role Status Dates Dr. Courtney Hayward MD Primary Care Provider Active JANE COLMENARES Other Provider Active Dr. Avel Segura MD Attending Provider, Referring Provider Active Team Status: Inactive Member Role Status Dates Dr. Courtney Hayward MD Primary Care Provider Active Dr. Chuy Hunt MD Attending Provider, Referring Provider Active Dr. Avel Segura MD Other Provider Active Yarder Boss Relationship Specialty Start Date End Date Courtney Hayward MD [address] [place] [phone] PCP - General Family Medicine 12/21/23 Julissa Abreu [facility] [address] [place] [address] Oncologist Medical Oncology 12/21/23 Tonya Woods, RN Registered Nurse 12/21/23 Yarder Boss Relationship Specialty Start Date End Date Courtney Hayward MD [address] [place] [address] PCP - General Family Medicine 12/21/23 Julissa Abreu [facility] [address] [place] [address] Oncologist Medical Oncology 12/21/23 Tonya Woods, RN Registered Nurse 12/21/23 Yarder Boss Relationship Specialty Start Date End Date Courtney Hayward MD [address] [place] [address] PCP - General Family Medicine 12/21/23 [facility] [address] [place] [address] Oncologist Medical Oncology 12/21/23 Tonya Woods, RN Registered Nurse 12/21/23 Yarder Boss Relationship Specialty Start Date End Date Courtney Hayward MD [address] [place] [place] [phone] PCP - General Family Medicine 12/21/23 Julissa Abreu [facility] [address] [place] [address] Oncologist Medical Oncology 12/21/23 Tonya Woods, RN Registered Nurse 12/21/23 Lisset Veliz, BOB [address] [place] [phone] Interlocking Pavement Installer Registered Nurse 02/09/24 Yarder Boss Relationship Specialty [place] [address] [place] [phone] PCP - General Family Medicine 12/21/23 [facility] [address] [place] [address] Oncologist Medical Oncology 12/21/23 Tonya Woods RN Registered Nurse 12/21/23 Lisset Veliz RN [address] [place] [phone] Interlocking Pavement Installer Registered Nurse 02/09/24 Yarder Boss Relationship Specialty Start Date End Date Courtney Hayward MD [address] [facility] [address] [place] [phone] PCP - General Family Medicine 12/21/23 Julissa Abreu [facility] [address] [place] [address] Oncologist Medical Oncology 12/21/23 Tonya Woods, BOB Registered Nurse 12/21/23 Lisset Veliz, BOB [address] [place] [phone] Interlocking Pavement Installer Registered Nurse 02/09/24 Yarder Boss Relationship Specialty Start Date End Date Courtney Hayward MD [address] [place] [phone] PCP - General Family Medicine 12/21/23 Julissa Abreu [facility] [address] [place] [address] Oncologist Medical Oncology 12/21/23 Tonya Woods, RN Registered Nurse 12/21/23 Lisset Veliz, BOB [address] [place] [phone] Interlocking Pavement Installer Registered Nurse 02/09/24 Yarder Boss Relationship Specialty Start Date End Date Courtney Hayward MD [address] [place] [phone] PCP - General Family Medicine 12/21/23 Julissa Abreu [facility] [address] [place], [place] [phone] Oncologist Medical Oncology 12/21/23 Tonya Woods, RN Registered Nurse 12/21/23 Lisset Veliz, BOB [address] [place] [phone] Interlocking Pavement Installer Registered Nurse 02/09/24 Yarder Boss Relationship Specialty Start Date End Date Courtney Hayward MD [address] [place] [phone] PCP - General Family Medicine 12/21/23 Julissa Abreu [facility] [address] [place] [address] Oncologist Medical Oncology 12/21/23 Tonya Woods, RN Registered Nurse 12/21/23 Lisset Veliz RN [address] [place] [phone] Interlocking Pavement Installer Registered Nurse 02/09/24 Yarder Boss Relationship Specialty Start Date End Date Courtney Hayward MD [address] [place] [phone] PCP - General Family Medicine 12/21/23 Julissa Abreu [facility] [address] [place] [address] Oncologist Medical Oncology 12/21/23 Tonya Woods RN Registered Nurse 12/21/23 Lisset Veliz RN [address] [place] [phone] Interlocking Pavement Installer Registered Nurse 02/09/24 Yarder Boss Relationship Specialty Start Date End Date Courtney Hayward MD [address] [place] [phone] PCP - General Family Medicine 12/21/23 Julissa Abreu [facility] [address] [place] [address] Oncologist Medical Oncology 12/21/23 Tonya Woods, BOB Registered Nurse 12/21/23 Lisset Veliz RN [address] [place] [phone] Interlocking Pavement Installer Registered Nurse 02/09/24 Yarder Boss Relationship Specialty Start Date End Date Courtney Hayward MD [address] [place] [address] PCP - General Family Medicine 12/21/23 Julissa Abreu [facility] [address] [place] [address] Oncologist Medical Oncology 12/21/23 Tonya Woods, RN Registered Nurse 12/21/23 Yarder Boss Relationship Specialty Start Date End Date Courtney Hayward MD [address] [place] [place] [address] PCP - General Family Medicine 12/21/23 Julissa Abreu [facility] [address] [place] [address] Oncologist Medical Oncology 12/21/23 Tonya Woods, RN Registered Nurse 12/21/23 Yarder Boss Relationship Specialty Start Date End Date Courtney Hayward MD [address] [place] [phone] PCP - General Family Medicine 12/21/23 Julissa Abreu [facility] [address] [place] [address] Oncologist Medical Oncology 12/21/23 Tonya Woods, RN Registered Nurse 12/21/23 Team Status: Active Member Role Status Dates Dr. Courtney Hayward MD Primary Care Provider Active Team Status: Inactive Member Role Status Dates Dr. Courtney Hayward MD Primary Care Provider Active Start: April 13, 2024 End: April 13, 2024 Dr. Courtney Hayward MD Referring Provider Active Start: April 13, 2024 End: April 13, 2024 Lorena Hutchins V/STOL LANDING SIGNAL OFFICER, V/STOL LANDING SIGNAL OFFICER-C Attending Provider Active Start: April 13, 2024 End: April 13, 2024 Team Status: Inactive Member Role Status Dates Dr. Courtney Hayward MD Primary Care Provider Active Start: July 17, 2024 End: July 17, 2024 MAVIS CASTELLANOS Attending Provider Active Start: [facility] 2024 End: July 17, 2024 MAVIS CASTELLANOS Referring Provider Active Start: [facility] 2024 End: July 17, 2024 Team Status: Inactive Member Role Status Dates Dr. Courtney Hayward MD Primary Care Provider Active Start: August 15, 2024 End: August 15, 2024 Dr. Chuy Hunt MD Attending Provider Active Start: August 15, 2024 End: August 15, 2024 Dr. Chuy Hunt MD Referring Provider Active Start: August 15, 2024 End: August 15, 2024 Team Status: Inactive Member Role Status Dates Dr. Courtney Hayward MD Primary Care Provider Active Start: October 04, 2024 End: October 04, 2024 Dr. Courtney Hayward MD Referring Provider Active Start: October 04, 2024 End: October 04, 2024 Dr. Avel Segura MD Attending Provider Active Start: October 04, 2024 End: October 04, 2024 Yarder Boss Relationship Specialty Start Date End Date Courtney Hayward MD PCP - General Family Medicine 12/21/23 Julissa Abreu [facility] [address] [place], [place] [address] Oncologist Medical Oncology 12/21/23 Tonya Woods, BOB Registered Nurse 12/21/23 Yarder Boss Relationship Specialty Start Date End Date Courtney Hayward MD PCP - General Family Medicine 12/21/23 Julissa Abreu MB [facility] [address] [place] [address] Oncologist Medical Oncology 12/21/23 Tonya Woods, BOB Registered Nurse 12/21/23 Yarder Boss Relationship Specialty Start Date End Date Courtney Hayward MD PCP - General Family Medicine 12/21/23 Julissa Abreu [facility] [address] [place], [place] [address] Oncologist Medical Oncology 12/21/23 Tonya Woods RN Registered Nurse 12/21/23 Yarder Boss Relationship Specialty Start Date End Date Courtney Hayward MD PCP - General Family Medicine 12/21/23 Julissa Abreu [facility] [address] [place], [place] [phone] Oncologist Medical Oncology 12/21/23 Tonya Woods, BOB Registered Nurse 12/21/23 Goals (unrecognized section and content) Goals may be documented in a n alternate sectionGoals may be documented in an alternate sectionGoals may be documented in an alternate sectionGoals may be documented in an alternate sectionGoals may be documented in an alternate sectionGoals may be documented in an alternate section Scheduled Active and Recently Administ ered Medications (unrecognized section and content) Medication Order 12/12/2022 12/13/2022 12/14/2022 LOCM iodixanol (VISIPAQUE 320 MG/ML) 320 MG/ML injection 75 mL (COMPLETED) 75 mL, Intravenous, ONCE, 1 dose, On Tue12/14/22 at 1545, Radiology 1518 (Given - Provid er: Sussy Edmondson, RT) metoclopramide (REGLAN) injection 10 mg (COMPLETED) 10 mg, IV Push, NOW, 1 dose, On Tue12/14/22 at 1515 1459 (Given - Provid er: Vernell Andrews RN) sodium chloride 0.9% bolus 0.9 % solution 500 mL (COMPLETED) 500 mL, Intravenous, Administer over 2 Hours, On Tue12/14/22 at 1515, ONCE, 1 dose 1449 (New Bag - Prov ider: Vernell Andrews RN)1707 (Stopped - Provider: Vernell Andrews RN) Continuous Medication Order 12/19/2022 12/20/2022 12/21/2022 lactated ringers infusion Intravenous, at 50 mL/hr, CONTINUOUS, Starting on Tue12/21/22 at 1030, Until Discontinued, Pre-op (OPS) 0947 (New Bag - Prov ider: Lazaro Deluca RN) PRN Medication Order 12/19/2022 12/20/2022 12/21/2022 fentaNYL Citrate (PF) (SUBLIMAZE) 100 MCG/2ML injection (CANCELED) PRN, Starting on Tue12/21/22 at 0957, Until Tue12/21/22 at 1011, Intra-op 0957 (Given - Provid er: Smiley Stephen RN)0959 (Given - Provider: Smiley Stephen RN)1004 (Given - Provider: Otto Cosme, BOB) midazolam hcl (VERSED) injection (CANCELED) PRN, Starting on Tue12/21/22 at 0957, Until Tue12/21/22 at 1011, Intra-op 0957 (Given - Provid er: Smiley Stephen RN)0959 (Given - Provider: Smiley Stephen RN)1004 (Given - Provider: Otto Cosme, RN) tetracaine-benzocaine (CETACAINE) (CANCELED) PRN, Starting on Tue12/21/22 at 0957, Until Tue12/21/22 at 1011, Intra-op 0957 (Given - Provid er: Otilia Guerrero RN) Scheduled Medication Order 02/02/2024 02/03/2024 02/04/2024 Acetaminophen (TYLENOL) tablet 650 mg 650 mg, Oral, EVERY 6 HOURS NON-STANDARD, First dose on Lana 02/02/24 at 1515, Until Discontinued, Maximum dose of acetaminophen is 4000 mg from all sources in 24 hours., Post-op/Post-Proc 1511 (Given - Provider: Marcelina Garza RN)2139 (Not Given - Provider: Brandan Khan, BOB - Reason: Patient/family refused) 0258 (Not Given - Provider: Brandan Khan RN - Reason: Patient/family refused)0808 (Given - Provider: Emily Lira, BOB)1548 (Given - Provider: Emily Lira, RN)2027 (Given - Provider: Brandan Khan, RN) 0509 (Given - Provider: Brandan Khan RN)0926 (Given - Provider: Eric Webb, BOB)1515 (Canceled Entry - Provider: System Discharge - Comment: Automatically canceled at discontinue of medication order) albumin human 5 % injection 25 g (COMPLETED) 25 g, Intravenous, Administer over 60 Minutes, ONCE, 1 dose, On Lana 02/02/24 at 1445, At [facility], in emergencies, administer as rapidly as necessary to improve clinical conditions. Rate of infusion is based on dose: 12.5g given over 30min, 25g given over 60min, 50g given over 120min., Indications: Fluid Resuscitation 1417 ($$New Bag$$ - Provider: Opal Villarreal RN) amphetamine-dextroamphe tamine (ADDERALL) tablet 30 mg 30 mg, Oral, DAILY, First dose on Tue02/03/24 at 0900, Until Discontinued 0806 (Given - Provider: Emily Lira RN) 0810 (Given - Provider: Eric Webb, BOB) aspirin chewable tablet 81 mg 81 mg, Oral, DAILY, First dose on Tue02/03/24 at 0900, Until Discontinued, Post-op/Post-Proc 0806 (Given - Provider: Emily Lira RN) 0810 (Given - Provider: Eric Webb, BOB) Atorvastatin (LIPITOR) tablet 40 mg 40 mg, Oral, DAILY, First dose on Tue02/03/24 at 0900, Until Discontinued, Post-op/Post-Proc 0806 (Given - Provider: Emily Lira, BOB) 0811 (Given - Provider: Eric Webb, BOB) Dicyclomine (BENTYL) tablet 20 mg 20 mg, Oral, 3 TIMES DAILY BEFORE MEALS, First dose on Tue02/03/24 at 0745, Until Discontinued 0806 (Given - Provider: Emily Lira RN)1119 (Given - Provider: Alicia العراقي RN)1549 (Given - Provider: Emily Lira RN) 0811 (Given - Provider: Eric Webb RN)1255 (Given - Provider: Eric Webb RN)1600 (Canceled Entry - Provider: System Discharge - Comment: Automatically canceled at discontinue of medication order) Docusate (COLACE) capsule 100 mg 100 mg, Oral, 2 TIMES DAILY, First dose on Tue02/02/24 at 2100, Until Discontinued, Post-op/Post-Proc 2138 (Given - Provider: Brandan Khan RN) 0806 (Given - Provider: Emily Lira RN)1548 (Given - Provider: Emily Lira RN) 0810 (Given - Provider: Eric Webb RN) Enoxaparin Sodium (LOVENOX) injection 40 mg 40 mg, Subcutaneous, EVERY 24 HOURS, First dose on Tue02/03/24 at 0900, Until Discontinued, For SUBCUTANEOUS route ONLY: alternate injection sites between left and right abdominal wall, pinching location and avoiding area around navel. If unable to use abdominal sites, may use the front or side of thighs., Indications: DVT/PE prophylaxis, Post-op/Post-Proc 0806 (Given - Provider: Emily Lira RN) 0810 (Given - Provider: Eric Webb RN) HYDROmorphone (DILAUDID) injection 0.2 mg (COMPLETED) 0.2 mg, Intravenous, ONCE, 1 dose, On Tue02/02/24 at 2115 2134 (Given - Provider: Brandan Khan, BOB) HYDROmorphone (DILAUDID) injection 0.2 mg (COMPLETED) 0.2 mg, Intravenous, ONCE, 1 dose, On Tue02/03/24 at 1100 1119 (Given - Provider: Alicia العراقي RN) Ipratropium-albuterol (DUONEB) 0.5-2.5 (3) MG/3ML nebulizer solution 3 mL 3 mL, Nebulization, EVERY 6 HOURS NON-STANDARD, First dose on Tue02/02/24 at 1315, Until Discontinued, Post-op/Post-Proc 1304 (Given - Provider: Marcelina Garza RN)2037 (Hold - Provider: Deepak Thakur Limited Permit Campuzano - Reason: Patient not available) 0227 (Given - Provider: Deepak Thakur Limited Permit [place]uzano)0836 (Given - Provider: Bebeto Baird Limited Permit [place])1456 (Given - Provider: Bebeto Baird Limited Permit [place]ano)2049 (Given - Provider: Donis Self RCP) 0233 (Given - Provider: Donis Self RCP)0954 (Given - Provider: Esha Broderick RCP)1400 (Canceled Entry - Provider: System Discharge - Comment: Automatically canceled at discontinue of medication order) levoFLOXacin (LEVAQUIN) 750 mg in dextrose 5% premix IVPB 750 mg, Intravenous, Administer over 90 Minutes, EVERY 24 HOURS, First dose on Tue02/02/24 at 2130, Until Discontinued, Post-op/Post-Proc 2136 ($$New Bag$$ - Provider: Brandan Khan RN) 2033 ($$New Bag$$ - Provider: Brandan Khan RN) Magnesium sulfate 4 g in sterile water 50 ml premix IVPB (COMPLETED) 4 g, Intravenous, at 12.5 mL/hr, Administer over 4 Hours, ONCE, 1 dose, On Tue02/03/24 at 0600 0616 ($$New Bag$$ - Provider: Brandan Khan, RN) Methocarbamol (ROBAXIN) tablet 500 mg (COMPLETED) 500 mg, Oral, EVERY 6 HOURS, 6 doses, First dose on Tue02/03/24 at 0600, Last dose on Tue02/04/24 at 1200 0847 (Given - Provider: Emily Lira, BOB)1119 (Given - Provider: Alicia العراقي RN)1741 (Given - Provider: Emily Lira RN) 0114 (Given - Provider: Brandan Khan, RN)0511 (Given - Provider: Brandan Khan, BOB)1255 (Given - Provider: Eric Webb RN) nicotine (NICODERM CQ) 14 MG/24HR patch 1 patch(Linked Group 1) 1 patch, Transdermal, EVERY 24 HOURS, First dose on Tue02/02/24 at 2130, Until Discontinued, Apply patch to hairless skin site on upper body or arm. Rotate sites for each application. Do not cut or alter patch. Remove patch after duration of 16-24 hours. To dispose, fold adhesive ends together. 2136 (Patch Applied - Provider: Brandan Khan RN) 2026 (Patch Removed - Provider: Brandan Khan RN)2034 (Patch Applied - Provider: Brandan Khan RN) 1424 (Due: Patch Removed - Provider: System Discharge - Comment: Time automatically adjusted from order being discontinued) Pantoprazole (PROTONIX) injection 40 mg 40 mg, Intravenous, DAILY, First dose on Tue02/03/24 at 0900, Until Discontinued, Dilute each 40 mg vial with 10 mL of NS. All bolus doses, whether 40 mg or 80 mg, should be administered over at least two minutes., Indications: Continuation of Home Therapy 805 (Given - Provider: Emily Lira RN) 08 (Given - Provider: Eric Webb RN) PARoxetine (PAXIL) tablet 20 mg 20 mg, Oral, DAILY, First dose (after last modification) on Tue02/03/24 at 0900, Until Discontinued 805 (Given - Provider: Emily Lira RN) 0810 (Given - Provider: Eric Webb, BOB) Polyethylene glycol (MIRALAX) packet 17 g 17 g, Oral, DAILY, First dose on Tue02/03/24 at 0900, Until Discontinued 805 (Given - Provider: Emily Lira RN) 08 (Given - Provider: Eric Webb, BOB) Senna (SENOKOT) tablet 17.2 mg 17.2 mg, Oral, EVERY 12 HOURS, First dose on Tue02/02/24 at 2100, Until Discontinued, Post-op/Post-Proc 2138 (Given - Provider: Brandan Khan, BOB) 08 (Given - Provider: Emily Lira RN)2027 (Given - Provider: Brandan Khan, RN) 08 (Given - Provider: Eric Webb RN) VERIFY LINKED PATCH PLACEMENT(Linked Group 1) Other, EVERY 12 HOURS, First dose on Tue02/02/24 at 2100, Until Discontinued, Confirm continued adhesion of nicotine 14mg /24hr patch at documented site. 2138 (Patch Verify - Provider: Brandan Khan, RN) 808 (Patch Verify - Provider: Emily Lira, RN)2037 (Patch Verify - Provider: Brandan Khan, RN) 810 (Patch Verify - Provider: Eric Webb, BOB) Continuous Medication Order 02/02/2024 02/03/2024 02/04/2024 dextrose 5% and sodium chloride 0.45% 1,000 ml with potassium chloride 20 mEq premix IV solution (CANCELED) Intravenous, at 75 mL/hr, CONTINUOUS, Starting on Tue02/02/24 at 1245, Until Tue02/03/24 at 0404, May convert to saline well when patient is tolerating oral diet., Post-op/Post-Proc 1404 ($$New Bag$$ - Provider: Marcelina Garza RN) 0357 ($$New Bag$$ - Provider: Brandan Khan RN) Lactated ringers IV solution (CANCELED) Intravenous, at 50 mL/hr, CONTINUOUS, Starting on Lana 02/02/24 at 0645, Until Tue02/02/24 at 2020, Pre-op/Pre-Proc 0743 ($$New Bag$$ - Provider: Raghavendra Hong RN)0813 (Paused - Provider: ANNA Joseph - Comment: Switch to gravity)0814 (Restarted - Provider: ANNA Joseph)1148 ($$New Bag$$ - Provider: ANNA Joseph) PRN Medication Order 02/02/2024 02/03/2024 02/04/2024 bisacodyl (DULCOLAX) suppository 10 mg 10 mg, Rectal, DAILY NEEDED, Starting on Tue02/03/24 at 0614, Until 02/04/24 at 1625, Constipation If No Bowel Movement in 48 Hours BUPivacaine LIPOSOME (EXPAREL) 1.3 % 133 mg, BUPivacaine (PF) (MARCAINE) 0.25 % 10 mL in Total Volume 20 mL injection (COMPLETED)(Linked Group 2) Infiltration, CHIEF INFORMATICS OFFICER TO PROCEDURE, 1 dose, Starting on Lana 02/02/24 at 0843, Until Lana 02/02/24 at 1150, Other, For use in OR under direction of attending physician, For OR use only under direction of the attending physician., Intra-op/Intra-Proc 1150 (Given - Provider: Tonya Phipps, BOB) BUPivacaine LIPOSOME (EXPAREL) 1.3 % 133 mg, BUPivacaine (PF) (MARCAINE) 0.25 % 10 mL in Total Volume 20 mL injection (COMPLETED)(Linked Group 2) Infiltration, CHIEF INFORMATICS OFFICER TO PROCEDURE, 1 dose, Starting on Lana 02/02/24 at 0843, Until Lana 02/02/24 at 1151, Other, For use in OR under direction of attending physician, For OR use only under direction of the attending physician., Intra-op/Intra-Proc 1151 (Given - Provider: Toyna Phipps RN) BUPivacaine-EPINEPHrine (MARCAINE;SENSORCAINE W/ EPI) 0.25% -[id number] injection (CANCELED) NEEDED, Starting on Lana 02/02/24 at 0930, Until Lana 02/02/24 at 1248, Intra-op/Intra-Proc 0930 (Given - Provider: Nat Lazar MD) clindamycin (CLEOCIN) 900 mg in normal saline 50 ml premix IVPB (COMPLETED) 900 mg, Intravenous, Administer over 30 Minutes, CHIEF INFORMATICS OFFICER TO PROCEDURE, 1 dose, Starting on Lana 02/02/24 at 0639, Until Lana 02/02/24 at 0906, Other, surgical prophylaxis, Initiate antibiotic administration 30-60 minutes prior to surgical incision and complete administration prior to surgical incision., Pre-op/Pre-Proc 09 ($$New Bag$$ - Provider: ANNA Joseph) HYDROmorphone (DILAUDID) injection 0.2 mg (COMPLETED) 0.2 mg, Intravenous, EVERY 10 MINUTES NEEDED, 2 doses, Starting on Lana 02/02/24 at 1301, Until Lana 02/02/24 at 1327, Moderate Pain, Severe Pain, May give a total of 2mg in PACU., Recovery 1305 (Given - Provider: Marcelina Garza RN)1327 (Given - Provider: Marcelina Garza RN) HYDROmorphone (DILAUDID) injection 0.3 mg (CANCELED) 0.3 mg, Intravenous, EVERY 3 HOURS NEEDED, Starting on Lana 02/02/24 at 1818, Until Lana 02/02/24 at 202, Severe Pain, Post-op/Post-Proc 1844 (Given - Provider: Marcelina Garza RN) Methocarbamol (ROBAXIN) 500 mg in Sodium chloride 0.9%, with overfill 115 mL (total volume) IVPB (COMPLETED) 500 mg, Intravenous, at 690 mL/hr, Administer over 10 Minutes, ONCE NEEDED, 1 dose, Starting on Lana 02/02/24 at 1240, Until Lana 02/02/24 at 1418, moderate or severe pain, Post-op/Post-Proc 1408 ($$New Bag$$ - Provider: Opal Villarreal RN)1418 (Stopped - Provider: Opal Villarreal RN) Ondansetron (ZOFRAN) tablet 4 mg(Linked Group 3) 4 mg, Oral, EVERY 6 HOURS NEEDED, Starting on Lana 02/02/24 at 2020, Until 02/04/24 at 1625, Nausea / Vomiting, 1st Line, Post-op/Post-Proc Ondansetron 4mg/2ml (ZOFRAN) injection 4 mg(Linked Group 3) 4 mg, Intravenous, EVERY 6 HOURS NEEDED, Starting on Lana 02/02/24 at 2020, Until 02/04/24 at 1625, Nausea / Vomiting, 1st line, If patient unable to tolerate PO., Post-op/Post-Proc oxyCODONE (ROXICODONE) tablet 5 mg (CANCELED) 5 mg, Oral, EVERY 4 HOURS NEEDED, Starting on Lana 02/02/24 at 2240, Until Tue02/03/24 at 0404, Severe Pain 0058 (Given - Provider: Brandan Khan RN) oxyCODONE (ROXICODONE) tablet 5 mg(Linked Group 4) 5 mg, Oral, EVERY 4 HOURS NEEDED, Starting on Tue02/03/24 at 0404, Until 02/04/24 at 1625, Mild Pain, Moderate Pain 0504 (See Alternative - Provider: Brandan Khan RN)0959 (See Alternative - Provider: Emily Lira RN)1548 (See Alternative - Provider: Emily Lira RN)2026 (See Alternative - Provider: Brandan Khan RN) 0509 (See Alternative - Provider: Brandan Khan RN)1248 (See Alternative - Provider: Eric Webb, BOB) oxyCODONE HCl (ROXICODONE) tablet 10 mg(Linked Group 4) 10 mg, Oral, EVERY 4 HOURS NEEDED, Starting on Tue02/03/24 at 0404, Until Tue02/04/24 at 1625, Severe Pain 0504 (Given - Provider: Brandan Khan RN)0959 (Given - Provider: Emily Lira RN)1548 (Given - Provider: Emily Lira RN)2026 (Given - Provider: Brandan Khan RN) 0509 (Given - Provider: Brandan Khan RN)1248 (Given - Provider: Eric Webb, BOB) traMADol (ULTRAM) tablet 50 mg (CANCELED) 50 mg, Oral, EVERY 6 HOURS NEEDED, Starting on Tue02/02/24 at 1502, Until Tue02/02/24 at 2040, Mild Pain, Post-op/Post-Proc 1516 (Given - Provider: Marcelina Garza RN) Linked Groups Order Group 1: nicotine (NICODERM CQ) 14 MG/24HR patch 1 patchJump to med 1 patch, Transdermal, EVERY 24 HOURS, First dose on Tue02/02/24 at 2130, Until Discontinued, Apply patch to hairless skin site on upper body or arm. Rotate sites for each application. Do not cut or alter patch. Remove patch after duration of 16-24 hours. To dispose, fold adhesive ends together. And VERIFY LINKED PATCH PLACEMENTJump to med Other, EVERY 12 HOURS, First dose on Tue02/02/24 at 2100, Until Discontinued, Confirm continued adhesion of nicotine 14mg /24hr patch at documented site. Group 2: BUPivacaine LIPOSOME (EXPAREL) 1.3 % 133 mg, BUPivacaine (PF) (MARCAINE) 0.25 % 10 mL in Total Volume 20 mL injection (COMPLETED)Jump to med Infiltration, CHIEF INFORMATICS OFFICER TO PROCEDURE, 1 dose, Starting on Tue24 at 0843, Until Lana 02/02/24 at 1150, Other, For use in OR under direction of attending physician, For OR use only under direction of the attending physician., Intra-op/Intra-Proc And BUPivacaine LIPOSOME (EXPAREL) 1.3 % 133 mg, BUPivacaine (PF) (MARCAINE) 0.25 % 10 mL in Total Volume 20 mL injection (COMPLETED)Jump to med Infiltration, CHIEF INFORMATICS OFFICER TO PROCEDURE, 1 dose, Starting on Lana 02/02/24 at 0843, Until Lana 02/02/24 at 1151, Other, For use in OR under direction of attending physician, For OR use only under direction of the attending physician., Intra-op/Intra-Proc Group 3: Ondansetron (ZOFRAN) tablet 4 mgJump to med 4 mg, Oral, EVERY 6 HOURS NEEDED, Starting on Lana 02/02/24 at 2020, Until 02/04/24 at 1625, Nausea / Vomiting, 1st Line, Post-op/Post-Proc Or Ondansetron 4mg/2ml (ZOFRAN) injection 4 mgJump to med 4 mg, Intravenous, EVERY 6 HOURS NEEDED, Starting on Lana 02/02/24 at 2020, Until 02/04/24 at 1625, Nausea / Vomiting, 1st line, If patient unable to tolerate PO., Post-op/Post-Proc Group 4: oxyCODONE (ROXICODONE) tablet 5 mgJump to med 5 mg, Oral, EVERY 4 HOURS NEEDED, Starting on Tue02/03/24 at 0404, Until 02/04/24 at 1625, Mild Pain, Moderate Pain Or oxyCODONE HCl (ROXICODONE) tablet 10 mgJump to med 10 mg, Oral, EVERY 4 HOURS NEEDED, Starting on Tue02/03/24 at 0404, Until 02/04/24 at 1625, Severe Pain Continuous Medication Order 11/17/2024 11/18/2024 11/19/2024 Lactated ringers IV solution Intravenous, at 50 mL/hr, CONTINUOUS, Starting on Tue11/19/24 at 1030, Until Tue11/19/24 at 1817 1030 (Canceled Entry - Provider: System Discharge - Comment: Automatically canceled at discontinue of medication order) PRN Medication Order 11/17/2024 11/18/2024 11/19/2024 Acetaminophen (TYLENOL) tablet 650 mg 650 mg, Oral, EVERY 6 HOURS NEEDED, Starting on Tue11/19/24 at 1545, Until Tue11/19/24 at 1817, Mild Pain, Maximum dose of acetaminophen is 4000 mg from all sources in 24 hours., Post-op/Post-Proc HYDROmorphone (DILAUDID) injection 0.5 mg 0.5 mg, Intravenous, EVERY 10 MINUTES NEEDED, 8 doses, Starting on Tue11/19/24 at 1416, Until Tue11/19/24 at 1817, Moderate Pain, Severe Pain, Mild Pain, May give a total of 4mg in PACU., Recovery Lidocaine-epinephrine 1%-[id number] injection (CANCELED) NEEDED, Starting on Tue11/19/24 at 1413, Until Tue11/19/24 at 1431, Intra-op/Intra-Proc 1413 (Given - Provid er: Nat Lazar MD - Comment: used to flush down bronchus during flex bronch) Ondansetron 4mg/2ml (ZOFRAN) injection 4 mg 4 mg, Intravenous, ONCE NEEDED, 1 dose, Starting on Tue11/19/24 at 1416, Until Tue11/19/24 at 1817, Nausea / Vomiting, FIRST line antiemetic, Do not administer within 6 hours of intra-operative dose., Recovery Ondansetron 4mg/2ml (ZOFRAN) injection 4 mg 4 mg, Intravenous, ONCE NEEDED, 1 dose, Starting on Tue11/19/24 at 1545, Until Tue11/19/24 at 1817, Nausea / Vomiting, Post-op/Post-Proc FOR RECORDS PERTAINING TO PATIENTS WHO ARE OR HAVE BEEN ENROLLED IN A CHEMICAL DEPENDENCY/SUBSTANCEABUSE PROGRAM, SOME INFORMATION MAY BE OMITTED. This clinical summary was aggregated from multiple sources. Caution should be exercised in using it in the provision of clinical care. This summary normalizes information from multiple sources, and as a consequence, information in this document may materially change the coding, format and clinical context of patient data. In addition, data may be omitted in some cases. CLINICAL DECISIONS SHOULD BE BASED ON THE PRIMARY CLINICAL RECORDS. [facility] provides no warranty or guarantee of the accuracy or completeness of information in this document.
== END | disposition home or self-care (01) ==
LOC: CT 16:28
PROVIDERS: PCP Student in an Organized Health Care Education/Training Program
DX: R91.1 Solitary pulmonary nodule (principal)
CPT/HCPCS: 71250